=== PATIENT | female | born 1970 ===

== ENCOUNTER 2020-04-17 11:30 | Outpatient (REF) | payer OTHER, SELFPAY ==
--- NOTE | 2020-04-17 11:33 | MM_ITS ---
EXAMINATION: MM SCREENING DIGITAL BREAST TOMOSYNTHESIS, BILATERAL CLINICAL INFORMATION: Screening. Asymptomatic. The lifetime risk of breast cancer based on the Tyrer-Cuzick Model is 19%. COMPARISON: Mammography: 04/12/2019, 01/01/2015 TECHNIQUE: Digital breast tomosynthesis is performed in both the craniocaudal and mediolateral oblique views along with computer-aided detection (CAD). Synthesized 2D images are generated from the tomosynthesis. Additional right CC view is provided. FINDINGS: The breasts are almost entirely fatty (ACR BI-RADS breast composition Category a). Background stromal markings are similar to prior exams. There are no significant masses, abnormal calcifications, or other abnormalities. Again, there are 3 or 4 punctate round calcifications overlying a vascular marking posterior medial left breast similar to prior exam. Low left axillary tail node is stable. No significant changes. MM/MM tomosynthesis screening BI IMPRESSION: No mammographic evidence of malignancy. ASSESSMENT: BI-RADS 2: Benign RECOMMENDATION: Routine annual mammography screening. This patient's information was entered into a reminder system with a target due date for their next mammogram.
== END 2020-04-17 11:31 | disposition home or self-care (01) ==
LOC: HO.MAMMO 11:30
PROVIDERS: PCP Internal Medicine; Visit Provider Internal Medicine
DX: Z12.31 Encounter for screening mammogram for malignant neoplasm of breast (principal)
CPT/HCPCS: 77063; 77067

== ENCOUNTER 2020-05-12 07:56 | Outpatient (REF) | payer OTHER, SELFPAY ==
--- NOTE | 2020-05-12 08:16 | XR_ITS ---
EXAMINATION: XR HAND/WRIST, RIGHT XR HAND/WRIST, LEFT CLINICAL INFORMATION: Pain. COMPARISON: None. TECHNIQUE: AP, oblique, and lateral views of the right and left hand/wrist. Right and left-sided scaphoid views. FINDINGS: Right Hand and Wrist: No fracture or dislocation. Normal carpal alignment. No significant joint space narrowing or marginal osteophytes. No osseous erosion. No abnormal soft tissue calcification. No periarticular osteopenia. Left Hand and Wrist: No fracture or dislocation. Normal carpal alignment. No significant joint space narrowing or marginal osteophytes. No osseous erosion. No abnormal soft tissue calcification. No periarticular osteopenia. XR/XR hand wrist RT IMPRESSION: Unremarkable examination. LEFT HAND AND WRIST: Unremarkable examination.
--- NOTE | 2020-05-12 08:16 | XR_ITS ---
EXAMINATION: XR HAND/WRIST, RIGHT XR HAND/WRIST, LEFT CLINICAL INFORMATION: Pain. COMPARISON: None. TECHNIQUE: AP, oblique, and lateral views of the right and left hand/wrist. Right and left-sided scaphoid views. FINDINGS: Right Hand and Wrist: No fracture or dislocation. Normal carpal alignment. No significant joint space narrowing or marginal osteophytes. No osseous erosion. No abnormal soft tissue calcification. No periarticular osteopenia. Left Hand and Wrist: No fracture or dislocation. Normal carpal alignment. No significant joint space narrowing or marginal osteophytes. No osseous erosion. No abnormal soft tissue calcification. No periarticular osteopenia. XR/XR hand wrist LT IMPRESSION: Unremarkable examination. LEFT HAND AND WRIST: Unremarkable examination.
[2020-05-12 08:37] LABS: MANUAL DIFF FLAG NO
[2020-05-12 08:41] LABS: Glucose Urine UA NEG (NEG); Leukocyte Esterase Urine NEG (NEG); Nitrite Urine NEG (NEG); Specific Gravity - Urine 1.025 (1.005-1.025); Urine Blood TRACE (NEG); Urine Ketones NEG (NEG); Urine Protein TRACE MG/DL (NEG-TRACE)
[2020-05-12 08:42] LABS: Basophils Percent Auto 0.5 % (0-2); Eosinophils Absolute Auto 0.2 X10*3/uL (0.0-0.4); Eosinophils Percent Auto 3.6 % (0-4); Hematocrit 41.2 % (37-47); Hemoglobin 13.4 g/dl (12.0-16.0); Imm Gran Abs Auto 0.03 X10*3/uL (0.00-0.03); Imm Gran Pct Auto 0.5 % (0.0-0.4); Lymphocytes Absolute Auto 2.2 X10*3/uL (1.2-4.9); Lymphocytes Percent Auto 39.9 % (20-40); Mean Corpuscular HGB Conc 32.5 g/dl (31.0-35.0); Mean Corpuscular Hemoglobin 29.1 pg (27.0-33.0); Mean Corpuscular Volume 89.6 fL (80-98); Mean Platelet Volume 10.8 fL (9.4-12.3); Monocytes Absolute Auto 0.4 X10*3/uL (0.1-1.2); Monocytes Percent Auto 7.9 % (2-11); Neutrophils Absolute Auto 2.7 X10*3/uL (2.0-8.3); Neutrophils Percent Auto 47.6 % (45-73); Platelet Count 299 X10*3/uL (160-400); Red Cell Distribution Width 12.7 % (11.0-16.0); White Blood Count 5.6 X10*3/uL (4.8-10.8)
[2020-05-12 08:43] LABS: Appearance Urine HAZY; Color Urine YELLOW
[2020-05-12 09:01] LABS: Bacteria Urine 1+ /LPF; Mucus Urine 1+ /LPF; Squamous Epithelial Cell Urine 2+ /LPF; WBC Urine 0-2 /HPF (0-4)
[2020-05-12 09:08] LABS: Alanine Aminotransferase 17 U/L (0-31); Albumin Level 4.1 g/dL (3.5-5.0); Alkaline Phosphatase 74 U/L (39-117); Anion Gap 13 (12-20); Aspartate Amino Transferase 16 U/L (5-31); Bilirubin Total 0.8 mg/dL (0.0-1.0); Blood Urea Nitrogen 11 mg/dL (9-16); Carbon Dioxide 25 mmol/L (22-29); Chloride 105 mmol/L (96-108); Cholesterol 183 mg/dL; Estimated Glomerular Filt Rate > 60; Glucose Fasting 97 mg/dL (60-99); HDL Cholesterol 54 mg/dL; LDL Cholesterol Calculated 111 mg/dl; Potassium 4.5 mmol/L (3.3-5.1); Sodium 138 mmol/L (135-145); Triglycerides 90 mg/dL
[2020-05-12 09:51] LABS: Erythrocyte Sedimentation Rate 10 MM/HR (0-20)
== END 2020-05-12 07:57 | disposition home or self-care (01) ==
LOC: HO.LAB 07:56
PROVIDERS: PCP Internal Medicine; Visit Provider Internal Medicine
DX: Z01.419 Encounter for gynecological examination (general) (routine) without abnormal findings (principal); R68.82 Decreased libido; R23.2 Flushing; M25.532 Pain in left wrist; M25.531 Pain in right wrist; M79.642 Pain in left hand; M79.641 Pain in right hand; F32.9 Major depressive disorder, single episode, unspecified; K21.9 Gastro-esophageal reflux disease without esophagitis; E66.9 Obesity, unspecified; G43.909 Migraine, unspecified, not intractable, without status migrainosus; E55.9 Vitamin D deficiency, unspecified; Z90.710 Acquired absence of both cervix and uterus; Z98.84 Bariatric surgery status; Z46.51 Encounter for fitting and adjustment of gastric lap band
CPT/HCPCS: 36415; 73110; 73130; 80053; 80061; 81001; 84443; 85025; 85652

== ENCOUNTER 2020-05-14 11:44 | Outpatient (REF) | payer OTHER, SELFPAY ==
[2020-05-14 12:46] LABS: Glucose Urine UA NEG (NEG); Leukocyte Esterase Urine NEG (NEG); Nitrite Urine NEG (NEG); Specific Gravity - Urine 1.015 (1.005-1.025); Urine Blood NEG (NEG); Urine Ketones NEG (NEG); Urine Protein NEG (NEG-TRACE)
[2020-05-14 12:49] LABS: Appearance Urine HAZY; Color Urine YELLOW
[2020-05-15 09:12] LABS: Follicle Stimulating Hormone 7.5 mIU/mL
== END 2020-05-14 11:45 | disposition home or self-care (01) ==
LOC: HO.LAB 11:44
PROVIDERS: PCP Internal Medicine; Visit Provider Advanced Practice Midwife
DX: Z00.00 Encounter for general adult medical examination without abnormal findings (principal); R23.2 Flushing
CPT/HCPCS: 36415; 81003; 83001

== ENCOUNTER 2020-05-28 10:32 | Outpatient (REF) | payer OTHER, SELFPAY | END 2020-05-28 10:33 | disposition home or self-care (01) | LOC: HO.LAB 10:32 | PROVIDERS: PCP Internal Medicine; Visit Provider Internal Medicine | DX: Z20.822 Contact with and (suspected) exposure to COVID-19 (principal) | CPT/HCPCS: 36415; C9803; U0003; U0005 ==

== ENCOUNTER 2020-06-03 11:58 | Emergency (ER) | payer OTHER, SELFPAY ==
--- NOTE | ~2020-06-03 | XR_ITS ---
EXAMINATION: XR CHEST CLINICAL INFORMATION: Cough COMPARISON: 04/16/2019 TECHNIQUE: Frontal view of the chest was obtained. FINDINGS: Lung volumes are decreased from the prior study and there is diffuse coarse interstitial opacity. No dense focal consolidation. No pleural effusion or pneumothorax. Normal heart size. Regional skeleton intact. XR/XR chest 1V IMPRESSION: Lung volumes are decreased from the prior study and there is diffuse coarse interstitial opacity. Viral pneumonitis or bronchitis could give this appearance. The appearance is greater than typically seen from bronchovascular crowding in the setting of low lung volumes.
[2020-06-03 12:08] VITALS: BP 120/68; PULSE 95; RESP 16; TEMP 37; O2SAT 100; BMI 36.6
--- NOTE | 2020-06-03 12:35 | ED.GENADULT ---
HPI - General Adult General Chief complaint: General Medical <JUANITA Dave - Last Filed: 06/03/20 14:38> Stated complaint: COUGH <JUANITA Dave - Last Filed: 06/03/20 14:38> Time Seen by Provider: 06/03/20 12:16 <JUANITA Dave - Last Filed: 06/03/20 14:38> Source: patient <JUANITA Dave - Last Filed: 06/03/20 14:38> Mode of arrival: ambulatory <JUANITA Dave - Last Filed: 06/03/20 14:38> Limitations: no limitations <JUANITA Dave - Last Filed: 06/03/20 14:38> History of Present Illness HPI narrative: 50 y/o female with history of asthma presenting with worsening cough and body aches after she was diagnosed with COVID-19 3 days ago. She is almost out of her albuterol inhaler. Her coughing is keeping her up at night and she has difficulty catching her breath. She denies difficulty breathing or chest pain. She doesn't feel good. <JUANITA Dave - Last Filed: 06/03/20 14:38> MD complaint: cough <JUANITA Dave - Last Filed: 06/03/20 14:38> Onset (ago): day(s) (4) <JUANITA Dave - Last Filed: 06/03/20 14:38> Location: chest <JUANITA Dave - Last Filed: 06/03/20 14:38> Radiation: non-radiation <JUANITA Dave - Last Filed: 06/03/20 14:38> Severity: moderate <JUANITA Dave - Last Filed: 06/03/20 14:38> Quality: aching <JUANITA Dave - Last Filed: 06/03/20 14:38> Pain Consistency: intermittent <JUANITA Dave - Last Filed: 06/03/20 14:38> Relieving factors: medication and rest <JUANITA Dave Last Filed: 06/03/20 14:38> Exacerbating factors: movement <JUANITA Dave - Last Filed: 06/03/20 14:38> Associated symptoms: cough, fever/chills, headaches, loss of appetite, malaise and shortness of breath <JUANITA Dave - Last Filed: 06/03/20 14:38> Treatments prior to arrival: none <JUANITA Dave - Last Filed: 06/03/20 14:38> Related Data Home medications: Home Medications Medication Instructions Recorded Confirmed sucralfate 100 mg/mL oral 10 ml PO QID 02/25/20 05/07/20 suspension fluoxetine 20 mg capsule 20 mg PO BID cap 05/07/20 05/07/20 Previous Rx's Medication Instructions Recorded albuterol sulfate 90 mcg/actuation 2 puff INHALATION Q6H PRN 30 Days 01/17/20 aerosol inhaler #18 g fluticasone furoate 100 1 inh PO DAILY #30 ea 04/02/20 mcg/actuation blister powder for inhalation pantoprazole 40 mg tablet,delayed 40 mg PO DAILY #30 tab 04/18/20 release fyxevegzjv-ksuskrjzblhco-rtfcbwzv 1 tab PO .2 to 3 times a day PRN 05/07/20 50 mg-325 mg-40 mg tablet 30 Days #90 tab nortriptyline 25 mg capsule 25 mg PO BEDTIME 30 Days #30 cap 05/07/20 sumatriptan succinate 100 mg tablet See Rx Instructions PO .COMPLEX 30 05/07/20 Days #15 tab albuterol sulfate 1 inh INHALATION QID PRN #6.7 g 06/03/20 azithromycin [Zithromax Z-Brian] See Rx Instructions .ROUTE 06/03/20 .COMPLEX #6 tab benzonatate [Tessalon Perles] 100 mg PO TID PRN #20 cap 06/03/20 hydrocodone-homatropine [Hycodan] 5 ml PO Q6H PRN #60 ml 06/03/20 prednisone 40 mg PO DAILY #10 tab 06/03/20 miscellaneous medical supply See Rx Instructions MISCELLANEOUS 06/18/20 .4 times a day PRN 360 Days #1 ea <JUANITA Dave - Last Filed: 06/03/20 14:38> Allergies/adverse reactions: Allergies Allergy/AdvReac Type Severity Reaction Status Date / Time No Known Allergies Allergy Verified 05/07/20 11:30 <JUANITA Dave - Last Filed: 06/03/20 14:38> Review of Systems Review of Systems: Constitutional: No Fever, No Chills ENT/Mouth: + sore throat, No Rhinorrhea, No Swallowing Difficulty Cardiovascular: No Chest Pain, No SOB, No Orthopnea, No Edema Respiratory: + Cough, No Sputum, + Wheezing, No dyspnea Gastrointestinal: No Nausea, No Vomiting, No Diarrhea, No abdominal Pain Genitourinary: No Dysuria, No Urinary Frequency, No Hematuria Musculoskeletal: No joint pain, + Myalgias Skin: No Skin Lesions, No rash Neuro: No Weakness, No Numbness, No Dizziness, + Headache <JUANITA Dave - Last Filed: 06/03/20 14:38> REPLACED BY [facility] Past Medical History Attestation statement: The following information was validated with the patient. <JUANITA Dave - Last Filed: 06/03/20 14:38> Medical History: Medical History Anxiety Asthma Bilateral hand pain Bilateral wrist pain Depression GERD (gastroesophageal reflux disease) Migraine Obesity (BMI 30-39.9) Vitamin D deficiency <JUANITA Dave - Last Filed: 06/03/20 14:38> Surgical History: Surgical History H/O gastric bypass History of appendectomy History of section History of hysterectomy History of removal of laparoscopic gastric banding device LAP-BAND surgery status <JUANITA Dave - Last Filed: 06/03/20 14:38> Family History Family History: Family History Father Diabetes Hypertension Mother Hypertension Glaucoma Scoliosis Maternal Grandmother No problems noted. Maternal Grandfather No problems noted. Paternal Grandmother No problems noted. Paternal Grandfather No problems noted. Daughter In good health Sister In good health Brother In good health <JUANITA Dave - Last Filed: 06/03/20 14:38> Social History Social History: Social History Alcohol intake: never Smoking Status: Never smoker <JUANITA Dave - Last Filed: 06/03/20 14:38> Physical Exam Vital Signs: Vital Signs: Last Vital Signs Temp 98.6 F 06/03/20 12:08 Pulse 95 06/03/20 12:08 Resp 16 06/03/20 12:08 BP 120/68 06/03/20 12:08 Pulse Ox 100 06/03/20 12:08 Body Mass Index 36.6 Appearance: Alert. Oriented X3. Appears ill. Eyes: Pupils equal, round and reactive to light. ENT: Pharynx normal. Neck: Normal inspection. Neck supple. CVS: Normal heart rate and rhythm. Pulses normal. Respiratory: No respiratory distress. End expiratory wheeze in RUL with prolonged expiratory phase, no rhonchi, no accessory muscle use. Abdomen: Soft and nontender. +BS x4 Skin: Skin warm and dry. Normal skin color. Normal skin turgor. No rashes. Extremities: No lower extremity edema. Negative Gregory's sign. Neuro: Oriented X 3. Ambulates with steady gait, non-focal. <JUANITA Dave - Last Filed: 06/03/20 14:38> Vital Signs: Last Vital Signs Temp 98.6 F 06/03/20 12:08 Pulse 95 06/03/20 12:08 Resp 16 06/03/20 12:08 BP 120/68 06/03/20 12:08 Pulse Ox 100 06/03/20 12:08 Body Mass Index 36.6 <Kenneth Null MD - Last Filed: 06/23/20 08:34> Course Course Course Narrative: 50 y/o female with hx asthma presenting with worsening cough in the setting of known COVID-19. No difficulty breathing, SOB or hypoxia. CXR concerning for COVID pneumonia. She was ambulated on room air and SpO2 98-100% without increased WOB or SOB. She is coughing. Will treat with anti-tussive, steroid and z-pack. She was counseled extensively on if her symptoms worsen or if she develops difficulty breathing she needs to come back to the ER right away. She expressed understanding. Stable for discharge. <JUANITA Dave - Last Filed: 06/03/20 14:38> I have reviewed the chart <Kenneth Null MD - Last Filed: 06/23/20 08:34> Critical Care Time Critical Care Time Critical Care Time: No <JUANITA Dave - Last Filed: 06/03/20 14:38> Discharge Plan Discharge Clinical Impression: COVID-19 Asthma Qualifiers: Asthma severity: unspecified severity Asthma persistence: unspecified Asthma complication type: with acute exacerbation Qualified Code(s): J45.901 - Unspecified asthma with (acute) exacerbation <JUANITA Dave - Last Filed: 06/03/20 14:38> Patient Disposition: Home, Self-Care <JUANITA Daev - Last Filed: 06/03/20 14:38> Instructions: Asthma (ED), COVID-19 (Coronavirus Disease 2019) (ED) <JUANITA Dave - Last Filed: 06/03/20 14:38> Additional Instructions: You were found to be COVID-19 POSITIVE today. Your chest x-ray showed evidence of COVID pneumonia. Your oxygen levels were normal. Rest. Drink plenty of fluids. Do not go out in public for the next 10 days. Take over the counter cold/flu medications as needed for your symptoms. Take Tylenol and/or Motrin as needed for fevers and body aches. Take the prescribed medications for your asthma. Follow up with your doctor this week. If you shortness of breath worsens , if you develop difficulty breathing or any other concerning symptom come back to the ER for further evaluation. <JUANITA Dave - Last Filed: 06/03/20 14:38> Prescriptions: New albuterol sulfate 90 mcg/actuation HFA aerosol inhaler 1 inh inhalation QID PRN (Reason: shortness of breath or wheezing) Qty: 6.7 RF: 0 azithromycin [Zithromax Z-Brian] 250 mg tablet See Rx Instructions .ROUTE .COMPLEX Qty: 6 RF: 0 prednisone 20 mg tablet 40 mg PO DAILY Qty: 10 RF: 0 benzonatate [Tessalon Perles] 100 mg capsule 100 mg PO TID PRN (Reason: cough) Qty: 20 RF: 0 hydrocodone-homatropine [Hycodan] 5-1.5 mg/5 mL (5 mL) syrup 5 ml PO Q6H PRN (Reason: cough) Qty: 60 RF: 0 No Action albuterol sulfate 90 mcg/actuation HFA aerosol inhaler 2 puff inhalation Q6H PRN (Reason: shortness of breath or wheezing) 30 Days Qty: 18 RF: 6 sucralfate [Carafate] 100 mg/mL suspension 10 ml PO QID RF: 0 fluticasone furoate [Arnuity Ellipta] 100 mcg/actuation blister with device 1 inh PO DAILY Qty: 30 RF: 3 pantoprazole 40 mg tablet,delayed release (DR/EC) 40 mg PO DAILY Qty: 30 RF: 5 fluoxetine 20 mg capsule 20 mg PO BID RF: 0 miscellaneous medical supply Misc See Rx Instructions miscellaneous .4 times a day PRN (Reason: shortness of breath or wheezing) 360 Days Qty: 1 RF: 0 dlzxabptzl-xaqmboakeaeua-anrf 50-325-40 mg tablet 1 tab PO .2 to 3 times a day PRN (Reason: headaches) 30 Days Qty: 90 RF: 1 sumatriptan succinate 100 mg tablet See Rx Instructions PO .COMPLEX 30 Days Qty: 15 RF: 3 nortriptyline 25 mg capsule 25 mg PO BEDTIME 30 Days Qty: 30 RF: 3 <JUANITA Dave - Last Filed: 06/03/20 14:38> Interventions: ED Discharge Assessment Last Done: 06/03/20 13:25 <JUANITA Dave - Last Filed: 06/03/20 14:38> Discharge Date/Time: 06/03/20 13:31 <JUANITA Dave - Last Filed: 06/03/20 14:38>
== END 2020-06-03 13:31 | disposition home or self-care (01) ==
PROVIDERS: Emergency Provider Emergency Medicine
DX: U07.1 COVID-19 (principal); J45.901 Unspecified asthma with (acute) exacerbation; R05 Cough; Z79.899 Other long term (current) drug therapy
CPT/HCPCS: 71045; 99284

== ENCOUNTER 2020-06-09 09:54 | Outpatient (REF) | payer OTHER, SELFPAY | END 2020-06-09 09:55 | disposition home or self-care (01) | LOC: HO.LAB 09:54 | PROVIDERS: Visit Provider Internal Medicine | DX: Z20.822 Contact with and (suspected) exposure to COVID-19 (principal) | CPT/HCPCS: 36415; C9803; U0003; U0005 ==

== ENCOUNTER 2020-07-21 09:55 | Outpatient (REF) | payer OTHER, SELFPAY | END 2020-07-21 09:56 | disposition home or self-care (01) | LOC: HO.LAB 09:55 | PROVIDERS: Visit Provider Internal Medicine | DX: Z20.822 Contact with and (suspected) exposure to COVID-19 (principal) | CPT/HCPCS: C9803; U0003; U0005 ==

== ENCOUNTER 2020-08-25 09:48 | Outpatient (REF) | payer OTHER, SELFPAY ==
[2020-08-25 10:16] LABS: COVID-19 Test Negative (Negative)
== END 2020-08-25 09:49 | disposition home or self-care (01) ==
LOC: HO.LAB 09:48
PROVIDERS: Visit Provider Internal Medicine
DX: Z20.822 Contact with and (suspected) exposure to COVID-19 (principal)
CPT/HCPCS: 36415; 87635; C9803

== ENCOUNTER 2020-11-30 11:36 | Outpatient (REF) | payer OTHER, SELFPAY | END 2020-11-30 11:37 | disposition home or self-care (01) | LOC: HO.LAB 11:36 | PROVIDERS: PCP Internal Medicine; Visit Provider Internal Medicine | DX: Z20.822 Contact with and (suspected) exposure to COVID-19 (principal) | CPT/HCPCS: C9803; U0003; U0005 ==

== ENCOUNTER 2020-12-01 09:09 | Outpatient (REF) | payer OTHER, SELFPAY ==
--- NOTE | ~2020-12-01 | XR_ITS ---
EXAMINATION: CR X-RAY WRIST BILATERAL 4 VIEW CLINICAL INFORMATION: Bilateral wrist pain. COMPARISON: None TECHNIQUE: 4 views each of the bilateral ribs were obtained. FINDINGS: There is no acute fracture or dislocation. The carpal bones are normally aligned. The distal radius and ulna are intact. The carpal bones are normally aligned. The soft tissues are unremarkable. XR/XR wrist RT min 3V IMPRESSION: Unremarkable bilateral wrists.
--- NOTE | ~2020-12-01 | XR_ITS ---
EXAMINATION: CR X-RAY WRIST BILATERAL 4 VIEW CLINICAL INFORMATION: Bilateral wrist pain. COMPARISON: None TECHNIQUE: 4 views each of the bilateral ribs were obtained. FINDINGS: There is no acute fracture or dislocation. The carpal bones are normally aligned. The distal radius and ulna are intact. The carpal bones are normally aligned. The soft tissues are unremarkable. XR/XR wrist LT min 3V IMPRESSION: Unremarkable bilateral wrists.
== END 2020-12-01 09:10 | disposition home or self-care (01) ==
LOC: HO.XRAY 09:09
PROVIDERS: PCP Internal Medicine; Visit Provider Internal Medicine
DX: M25.531 Pain in right wrist (principal); M25.532 Pain in left wrist
CPT/HCPCS: 73110

== ENCOUNTER 2020-12-11 10:05 | Emergency (ER) | payer OTHER, SELFPAY ==
[2020-12-11 10:13] VITALS: BP 119/71; PULSE 70; RESP 18; TEMP 36.7; O2SAT 100; BMI 32.9
--- NOTE | 2020-12-11 10:34 | ED_ITS ---
HPI - URI/Sore Throat General Chief Complaint: Upper Respiratory Symptoms Stated Complaint: MULTIPLE ISSUES Time Seen by Provider: 12/11/20 10:12 Source: patient Mode of arrival: ambulatory History of Present Illness HPI Narrative: 50-year-old female with a past medical history of anxiety, asthma, depression, GERD, migraines, obesity, vitamin-D deficiency, presenting to the ED complaining of body aches, myalgias, chills, subjective fever, nausea, generalized fatigue since yesterday. Denies cough, SOB, CP, abdominal pain, vomiting, diarrhea, recent travel, sick contacts, COVID-19 exposure MD elicited complaint: cough, rhinorrhea and nasal congestion Related Data Home Medications Medication Instructions Recorded Confirmed sucralfate 100 mg/mL oral 10 ml PO QID 02/25/20 05/07/20 suspension (Carafate) fluoxetine 20 mg capsule 20 mg PO BID cap 05/07/20 05/07/20 Previous Rx's Medication Instructions Recorded albuterol sulfate 90 mcg/actuation 2 puff INHALATION Q6H PRN 30 Days 01/17/20 aerosol inhaler #18 g fluticasone furoate 100 1 inh PO DAILY #30 ea 04/02/20 mcg/actuation blister powder for inhalation (Arnuity Ellipta) ikianlpkdx-cwyklaaxrfmdg-nvnzghmr 1 tab PO .2 to 3 times a day PRN 05/07/20 50 mg-325 mg-40 mg tablet 30 Days #90 tab nortriptyline 25 mg capsule 25 mg PO BEDTIME 30 Days #30 cap 05/07/20 sumatriptan succinate 100 mg tablet See Rx Instructions PO .COMPLEX 30 05/07/20 Days #15 tab albuterol sulfate 90 mcg/actuation 1 inh INHALATION QID PRN #6.7 g 06/03/20 aerosol inhaler azithromycin 250 mg tablet See Rx Instructions .ROUTE 06/03/20 (Zithromax Z-Brian) .COMPLEX #6 tab benzonatate 100 mg capsule 100 mg PO TID PRN #20 cap 06/03/20 (Tessalon Perles) hydrocodone-homatropine 5 mg-1.5 5 ml PO Q6H PRN #60 ml 06/03/20 mg/5 mL (5 mL) oral syrup (Hycodan) prednisone 20 mg tablet 40 mg PO DAILY #10 tab 06/03/20 miscellaneous medical supply See Rx Instructions MISCELLANEOUS 06/18/20 .4 times a day PRN 360 Days #1 ea pantoprazole 40 mg tablet,delayed 40 mg PO DAILY #90 tab 08/21/20 release ondansetron HCl 4 mg tablet 4 mg PO Q8H PRN #10 tab 12/11/20 (Zofran) Allergies Allergy/AdvReac Type Severity Reaction Status Date / Time No Known Allergies Allergy Verified 05/07/20 11:30 Review of Systems Review of Systems: Constitutional: +subj Fever, + Chills, +fatigue, +malaise ENT/Mouth: No Ear Pain, +Nasal Congestion, No sore throat, No Rhinorrhea Cardiovascular: No Chest Pain, No SOB Respiratory: No Cough, No Wheezing Gastrointestinal: + Nausea, No Vomiting, No Diarrhea, No Constipation, No Abdominal pain Genitourinary: No Dysuria, No Hematuria, No Flank Pain Musculoskeletal: No joint pain, + Myalgias, No Joint Swelling Skin: No Skin Lesions, No rash Neuro: No Weakness, No Numbness Yes all other systems are reviewed and are negative [facility] Past Medical History Attestation statement: The following information was validated with the patient. Medical History Anxiety Asthma Bilateral hand pain Bilateral wrist pain Depression GERD (gastroesophageal reflux disease) Migraine Obesity (BMI 30-39.9) Vitamin D deficiency Surgical History H/O gastric bypass History of appendectomy History of section History of hysterectomy History of removal of laparoscopic gastric banding device LAP-BAND surgery status Family History Family History Father Diabetes Hypertension Mother Hypertension Glaucoma Scoliosis Maternal Grandmother No problems noted. Maternal Grandfather No problems noted. Paternal Grandmother No problems noted. Paternal Grandfather No problems noted. Daughter In good health Sister In good health Brother In good health Social History Social History Alcohol intake: never Advance Directives: Yes Advance Directives Information Provided: No Advance Directives on File: No Physical Exam Vital Signs: Vital Signs: Last Vital Signs Temp 98.1 F 12/11/20 10:13 Pulse 70 12/11/20 10:13 Resp 18 12/11/20 10:13 BP 119/71 12/11/20 10:13 Pulse Ox 100 12/11/20 10:13 Body Mass Index 32.9 Const: General: cooperative, healthy appearing, no acute distress, well developed, alert and awake Orientation/consciousness: patient oriented x3 Limitations: no limitations HENMT: Head: Yes normal to inspection Ears: hearing grossly normal bilaterally General nose exam: Normal external nose present Face and sinus: Yes normal facial exam Eyes: General: appearance normal, both eyes and all related structures EOM: EOMs intact bilaterally Neck: Neck: Yes normal visual inspection Resp: Effort & Inspection: normal respiratory effort Auscultation: clear to auscultation bilaterally, no crackles, no rhonchi and no wheezes Cardio: Rate: regular rate Heart sounds: S1 normal heart sound present and S2 normal heart sound present GI: Inspection: Yes normal to inspection Palpation (GI): Soft to palpation, nontender, no guarding and not rigid Skin: Rashes: no rashes Wounds: no wounds Neuro: General: patient oriented x3 Gait exam (Neuro): Normal gait present Extrem: General: Yes normal to inspection Course Course Course Narrative: -1143--COVID-19/influenzaRSV negative. Results discussed with patient. Discussed with patient since her symptoms just began yesterday she should consider getting retested in 3-5 days. She verbalized understanding feel safe for discharge home, requesting antinausea medication sent to pharmacy MDM - URI/Sore Throat MDM Narrative Medical decision making narrative: 50-year-old female with a past medical history of anxiety, asthma, depression, GERD, migraines, obesity, vitamin-D deficiency, presenting to the ED complaining of body aches, myalgias, chills, subjective fever, nausea, generalized fatigue since yesterday. On exam VSS, NAD/well-appearing, lungs CTA, nontoxic appearing. Concern for viral syndrome/COVID-19. Low concern for pneumonia, abdomen is soft and nontender. Low concern for intra-abdominal pathology Plan: COVID-19 testing, sublingual Zofran Medical Records Attestation: I reviewed the patient's medical records. Lab Data Attestation: I reviewed the patient's lab results. Labs: Lab Results 12/11/20 Range/Units 10:28 Coronavirus (PCR) NEGATIVE (Negative) Influenza Type A (PCR) NEGATIVE (Negative) Influenza Type B (PCR) NEGATIVE (Negative) RSV RNA Qual (PCR) NEGATIVE (Negative) Discharge Plan Discharge Clinical Impression: Acute viral syndrome Patient Disposition: Home, Self-Care Instructions: Viral Syndrome (ED) Additional Instructions: You tested negative for COVID-19, the flu, and RSV today However your symptoms started yesterday, consider getting retested in 3-5 days. Rest, stay hydrated, take Tylenol and Motrin Zofran as an antinausea medication, take as needed If her symptoms persist or worsen, you have fevers unresolved with Tylenol or Motrin at home please return to the ED Prescriptions: New ondansetron HCl [Zofran] 4 mg tablet 4 mg PO Q8H PRN (Reason: nausea and vomiting) Qty: 10 RF: 0 No Action albuterol sulfate 90 mcg/actuation HFA aerosol inhaler 2 puff inhalation Q6H PRN (Reason: shortness of breath or wheezing) 30 Days Qty: 18 RF: 6 sucralfate [Carafate] 100 mg/mL suspension 10 ml PO QID RF: 0 fluticasone furoate [Arnuity Ellipta] 100 mcg/actuation blister with device 1 inh PO DAILY Qty: 30 RF: 3 fluoxetine 20 mg capsule 20 mg PO BID RF: 0 miscellaneous medical supply Misc See Rx Instructions miscellaneous .4 times a day PRN (Reason: shortness of breath or wheezing) 360 Days Qty: 1 RF: 0 pantoprazole 40 mg tablet,delayed release (DR/EC) 40 mg PO DAILY Qty: 90 RF: 1 albuterol sulfate 90 mcg/actuation HFA aerosol inhaler 1 inh inhalation QID PRN (Reason: shortness of breath or wheezing) Qty: 6.7 RF: 0 azithromycin [Zithromax Z-Brian] 250 mg tablet See Rx Instructions .ROUTE .COMPLEX Qty: 6 RF: 0 prednisone 20 mg tablet 40 mg PO DAILY Qty: 10 RF: 0 benzonatate [Tessalon Perles] 100 mg capsule 100 mg PO TID PRN (Reason: cough) Qty: 20 RF: 0 hydrocodone-homatropine [Hycodan] 5-1.5 mg/5 mL (5 mL) syrup 5 ml PO Q6H PRN (Reason: cough) Qty: 60 RF: 0 lxztdjzkej-qcocihuamxvoc-rhlf 50-325-40 mg tablet 1 tab PO .2 to 3 times a day PRN (Reason: headaches) 30 Days Qty: 90 RF: 1 sumatriptan succinate 100 mg tablet See Rx Instructions PO .COMPLEX 30 Days Qty: 15 RF: 3 nortriptyline 25 mg capsule 25 mg PO BEDTIME 30 Days Qty: 30 RF: 3 Referrals: Brett Navarro MD [Primary Care Provider] - 5 days (Call) Stand Alone Forms: Work/School Release
[2020-12-11] MEDS: Ondansetron ODT 4 MG TAB.RAPDIS TRANSLINGU (10:45)
[2020-12-11] MEDS: Acetaminophen 325 MG TABLET 650 MG PO (10:45)
[2020-12-11 11:14] LABS: Influenza A PCR NEGATIVE (Negative); Influenza B PCR NEGATIVE (Negative); Resp Syncy Virus RNA Qual PCR NEGATIVE (Negative); SARS COV2 PCR INHOUSE NEGATIVE (Negative)
== END 2020-12-11 12:27 | disposition home or self-care (01) ==
PROVIDERS: Physician Assistant; Emergency Provider Student in an Organized Health Care Education/Training Program; PCP Internal Medicine
DX: B34.9 Viral infection, unspecified (principal); R50.9 Fever, unspecified; Z20.822 Contact with and (suspected) exposure to COVID-19; Z79.899 Other long term (current) drug therapy
CPT/HCPCS: 0241U; 36415; 99283

== ENCOUNTER 2020-12-21 13:44 | Outpatient (REF) | payer OTHER, SELFPAY | END 2020-12-21 13:45 | disposition home or self-care (01) | LOC: HO.LAB 13:44 | PROVIDERS: Visit Provider Internal Medicine | DX: Z20.822 Contact with and (suspected) exposure to COVID-19 (principal) | CPT/HCPCS: C9803; U0003; U0005 ==

== ENCOUNTER 2020-12-23 11:41 | Emergency (ER) | payer OTHER, SELFPAY ==
[2020-12-23] VITALS (7 sets, daily range): BP systolic 101–133; BP diastolic 53–79; PULSE 44–53; RESP 16; TEMP 36.6–36.8; O2SAT 99–100; BMI 40.4
--- NOTE | ~2020-12-23 | XR_ITS ---
EXAMINATION: XR CHEST CLINICAL INFORMATION: Possible syncope. COMPARISON: Chest 06/03/2020 TECHNIQUE: Frontal view of the chest was obtained. FINDINGS: Lungs are hypoexpanded with patchy parahilar increased markings but no confluent infiltrate seen. This could be secondary to reactive airway disease or asthma. No pleural effusion. The heart size and vascularity are normal. No gross bony abnormality. XR/XR chest 1V IMPRESSION: Mild increased bilateral parahilar interstitial markings likely reactive airway disease or asthma.. No consolidation or pleural effusion seen.
--- NOTE | 2020-12-23 11:53 | ECG_ITS ---
Test Reason : SYNCOPE Blood Pressure : / mmHG Vent. Rate : 053 BPM Atrial Rate : 053 BPM P-R Int : 164 ms QRS Dur : 078 ms QT Int : 456 ms P-R-T Axes : 014 057 029 degrees QTc Int : 427 ms Sinus bradycardia Septal infarct (cited on or before 04-OCT-2017) Abnormal ECG When compared with ECG of 04-OCT-2017 12:04, No significant change was found Referred By: Brie Marino Electronically Signed By:NAYELI HAND
--- NOTE | 2020-12-23 11:55 | ED.SYNCOPE ---
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 Mode of arrival: EMS Limitations: no limitations History of Present Illness MD complaint: felt faint and almost passed out Onset (ago): minute(s) -: minutes(s) Prodromal symptoms: lightheaded and palpitations Witnessed: Yes - by Other (PCP office) Context: standing up Injuries sustained associated with event: none Current symptoms: nausea Treatments prior to arrival: IV fluids Related Data Home Medications Medication Instructions Recorded Confirmed sucralfate 100 mg/mL oral 10 ml PO QID 02/25/20 05/07/20 suspension (Carafate) fluoxetine 20 mg capsule 20 mg PO BID cap 05/07/20 05/07/20 Previous Rx's Medication Instructions Recorded albuterol sulfate 90 mcg/actuation 2 puff INHALATION Q6H PRN 30 Days 01/17/20 aerosol inhaler #18 g fluticasone furoate 100 1 inh PO DAILY #30 ea 04/02/20 mcg/actuation blister powder for inhalation (Arnuity Ellipta) nzafhcimsp-ixgdolzpoqwif-aopsitis 1 tab PO .2 to 3 times a day PRN 05/07/20 50 mg-325 mg-40 mg tablet 30 Days #90 tab nortriptyline 25 mg capsule 25 mg PO BEDTIME 30 Days #30 cap 05/07/20 sumatriptan succinate 100 mg tablet See Rx Instructions PO .COMPLEX 30 05/07/20 Days #15 tab albuterol sulfate 90 mcg/actuation 1 inh INHALATION QID PRN #6.7 g 06/03/20 aerosol inhaler azithromycin 250 mg tablet See Rx Instructions .ROUTE 06/03/20 (Zithromax Z-Brian) .COMPLEX #6 tab benzonatate 100 mg capsule 100 mg PO TID PRN #20 cap 06/03/20 (Tessalon Perles) hydrocodone-homatropine 5 mg-1.5 5 ml PO Q6H PRN #60 ml 06/03/20 mg/5 mL (5 mL) oral syrup (Hycodan) prednisone 20 mg tablet 40 mg PO DAILY #10 tab 06/03/20 miscellaneous medical supply See Rx Instructions MISCELLANEOUS 06/18/20 .4 times a day PRN 360 Days #1 ea pantoprazole 40 mg tablet,delayed 40 mg PO DAILY #90 tab 08/21/20 release ondansetron HCl 4 mg tablet 4 mg PO Q8H PRN #10 tab 12/11/20 (Zofran) meclizine 25 mg tablet 25 mg PO TID PRN #30 tab 12/23/20 ondansetron 4 mg disintegrating 4 mg PO Q8H PRN #20 tab 12/23/20 tablet Allergies Allergy/AdvReac Type Severity Reaction Status Date / Time No Known Allergies Allergy Verified 12/23/20 10:21 Review of Systems Review of Systems: Constitutional : No Weight loss, No Fever, No Chills, No Fatigue, No Malaise ENT/Mouth : No sore throat, No Rhinorrhea Eyes: No Eye Pain, No Swelling, No Redness Cardiovascular : No Chest Pain, No SOB, No Dyspnea on Exertion, No Orthopnea, No Edema, pos Palpitations Respiratory : No Cough, No Sputum, No Wheezing Gastrointestinal : No Nausea, No Vomiting, No Diarrhea, No Constipation, No abdominal Pain, No Hematochezia, No Melena Genitourinary : No Dysuria, No Urinary Frequency, No Hematuria, Musculoskeletal : No joint pain, No Myalgias, No Joint Swelling Skin : No Skin Lesions, No rash Neuro : No Weakness, No Numbness, No Dizziness, No Headache, pos syncope Psych : pos Anxiety/Panic, No Depression Heme/Lymph: No Bruising, No Bleeding,No Lymphadenopathy Endocrine : No Polyuria, No Polydipsia All other systems reviewed and are negative [facility] Past Medical History Attestation statement: The following information was validated with the patient. Medical History Anxiety Asthma Bilateral hand pain Bilateral wrist pain Depression GERD (gastroesophageal reflux disease) Migraine Obesity (BMI 30-39.9) Vitamin D deficiency Surgical History H/O gastric bypass History of appendectomy History of section History of hysterectomy History of removal of laparoscopic gastric banding device LAP-BAND surgery status Family History Family History Father Diabetes Hypertension Mother Hypertension Glaucoma Scoliosis Maternal Grandmother No problems noted. Maternal Grandfather No problems noted. Paternal Grandmother No problems noted. Paternal Grandfather No problems noted. Daughter In good health Sister In good health Brother In good health Social History Social History Alcohol intake: never Patient Tobacco Use Status: Never used Tobacco Smoked in Last 30 Days: No Use of substances other than those prescribed or required for medical reasons: No Advance Directives: No Advance Directives Information Provided: No Physical Exam Vital Signs: Vital Signs: Last Vital Signs Temp 97.8 F 12/23/20 14:29 Pulse 53 12/23/20 14:29 Resp 16 12/23/20 14:29 BP 114/61 12/23/20 14:29 Pulse Ox 100 12/23/20 14:29 Body Mass Index 40.4 Appearance: Alert. Oriented X3. No acute distress. Eyes: Pupils equal, round and reactive to light. ENT: Pharynx normal. Neck: Normal inspection. Neck supple. CVS: Normal heart rate and rhythm. Pulses normal. Respiratory: No respiratory distress. Breath sounds normal. Abdomen: Soft and non-tender. Skin: Skin warm and dry. Normal skin color. Normal skin turgor. Extremities: No lower extremity edema. No calf ttp Neuro: Oriented X 3. No motor deficit. No sensory deficit. Course Course Course Narrative: ddimer, trop x 2 negative, no CP, no palpitations here no drop in BP while sitting/standing but states she feels weak and dizzy, she appears not toxic, no neuro deficits will hydrate and ambulate she is walking well at this time stable for DC feels much better MDM - Syncope Medical Records Medical records narrative: 50 yo female with hx of COVID 19 s/p 6 months ago, anxiety, depression, obesity, GERD, migraines, asthma - here with heart racing and then possible syncopal episode after standing she denies any chest pain/sob at this time labs, EKG, ortho VS, IVF, ddimer for possible PE. No seizure activity and no head trauma reported. Dispo per results and findings. Lab Data Result diagrams: 12/23/20 12:16 12/23/20 12:16 Labs: Lab Results 12/23/20 12/23/20 12/23/20 Range/Units 11:49 12:10 12:10 WBC (4.8-10.8) X10*3/uL RBC (4.20-5.50) X10*6/uL Hgb (12.0-16.0) g/dl Hct (37-47) % MCV (80-98) fL MCH (27.0-33.0) pg MCHC (31.0-35.0) g/dl RDW (11.0-16.0) % Plt Count (160-400) X10*3/uL MPV (9.4-12.3) fL Immature Gran % (Auto) (0.0-0.4) % Neut % (Auto) (45-73) % Lymph % (Auto) (20-40) % Webster % (Auto) (2-11) % Eos % (Auto) (0-4) % Baso % (Auto) (0-2) % Lymph # (Auto) (1.2-4.9) X10*3/uL Webster # (Auto) (0.1-1.2) X10*3/uL Eos # (Auto) (0.0-0.4) X10*3/uL Baso # (Auto) (0.0-0.2) X10*3/uL Abs Immat Gran (auto) (0.00-0.03) X10*3/uL Absolute Neuts (auto) (2.0-8.3) X10*3/uL Absolute Nucleated RBC (0.0-0.012) X10*3/uL Nucleated RBC % (auto) (0.0-0.2) /100WBC D-Dimer NG/ML Sodium (135-145) mmol/L Potassium (3.3-5.1) mmol/L Chloride (96-108) mmol/L Carbon Dioxide (22-29) mmol/L Anion Gap (12-20) BUN (9-16) mg/dL Creatinine (0.5-1.4) mg/dL Estim Creat Clear Calc Estimated GFR POC Glucose 73 (60-115) mg/dL Random Glucose (60-115) mg/dL Calcium (8.4-10.2) mg/dL Magnesium (1.6-2.6) mg/dL Total Bilirubin (0.0-1.0) mg/dL Direct Bilirubin (0.0-0.5) mg/dL AST (5-31) U/L ALT (0-31) U/L Alkaline Phosphatase (39-117) U/L Troponin I High Sens (<3.5-17.0) ng/L Total Protein (6.5-8.0) g/dL Albumin (3.5-5.0) g/dL Lipase (8-78) U/L Urine Color STRAW Urine Appearance CLEAR Urine pH 7.5 (5.0-8.0) Ur Specific [place] 1.010 (1.005-1.025) Urine Protein NEG (NEG-TRACE) MG/DL Urine Glucose (UA) NEG (NEG) MG/DL Urine Ketones NEG (NEG) MG/DL Urine Blood NEG (NEG) Urine Nitrite NEG (NEG) Ur Leukocyte Esterase NEG (NEG) COVID-19 (LEÓN) Negative (Negative) COVID-19 Clin Com See Note 12/23/20 12/23/20 12/23/20 Range/Units 12:16 12:16 12:16 WBC 7.5 (4.8-10.8) X10*3/uL RBC 4.32 (4.20-5.50) X10*6/uL Hgb 12.5 (12.0-16.0) g/dl Hct 38.9 (37-47) % MCV 90.0 (80-98) fL MCH 28.9 (27.0-33.0) pg MCHC 32.1 (31.0-35.0) g/dl RDW 13.2 (11.0-16.0) % Plt Count 253 (160-400) X10*3/uL MPV 10.6 (9.4-12.3) fL Immature Gran % (Auto) 0.5 H (0.0-0.4) % Neut % (Auto) 57.7 (45-73) % Lymph % (Auto) 33.5 (20-40) % Webster % (Auto) 6.6 (2-11) % Eos % (Auto) 1.3 (0-4) % Baso % (Auto) 0.4 (0-2) % Lymph # (Auto) 2.5 (1.2-4.9) X10*3/uL Webster # (Auto) 0.5 (0.1-1.2) X10*3/uL Eos # (Auto) 0.1 (0.0-0.4) X10*3/uL Baso # (Auto) 0.0 (0.0-0.2) X10*3/uL Abs Immat Gran (auto) 0.04 H (0.00-0.03) X10*3/uL Absolute Neuts (auto) 4.3 (2.0-8.3) X10*3/uL Absolute Nucleated RBC 0.000 (0.0-0.012) X10*3/uL Nucleated RBC % (auto) 0.0 (0.0-0.2) /100WBC D-Dimer 228 NG/ML Sodium 138 (135-145) mmol/L Potassium 4.6 (3.3-5.1) mmol/L Chloride 106 (96-108) mmol/L Carbon Dioxide 24 (22-29) mmol/L Anion Gap 13 (12-20) BUN 10 (9-16) mg/dL Creatinine 0.59 (0.5-1.4) mg/dL Estim Creat Clear Calc 129.1 Estimated GFR > 60 POC Glucose (60-115) mg/dL Random Glucose 89 (60-115) mg/dL Calcium 8.9 (8.4-10.2) mg/dL Magnesium (1.6-2.6) mg/dL Total Bilirubin (0.0-1.0) mg/dL Direct Bilirubin (0.0-0.5) mg/dL AST (5-31) U/L ALT (0-31) U/L Alkaline Phosphatase (39-117) U/L Troponin I High Sens (<3.5-17.0) ng/L Total Protein (6.5-8.0) g/dL Albumin (3.5-5.0) g/dL Lipase (8-78) U/L Urine Color Urine Appearance Urine pH (5.0-8.0) Ur Specific [place] (1.005-1.025) Urine Protein (NEG-TRACE) MG/DL Urine Glucose (UA) (NEG) MG/DL Urine Ketones (NEG) MG/DL Urine Blood (NEG) Urine Nitrite (NEG) Ur Leukocyte Esterase (NEG) COVID-19 (LEÓN) (Negative) COVID-19 Clin Com 12/23/20 12/23/20 12/23/20 Range/Units 12:16 12:16 14:47 WBC (4.8-10.8) X10*3/uL RBC (4.20-5.50) X10*6/uL Hgb (12.0-16.0) g/dl Hct (37-47) % MCV (80-98) fL MCH (27.0-33.0) pg MCHC (31.0-35.0) g/dl RDW (11.0-16.0) % Plt Count (160-400) X10*3/uL MPV (9.4-12.3) fL Immature Gran % (Auto) (0.0-0.4) % Neut % (Auto) (45-73) % Lymph % (Auto) (20-40) % Webster % (Auto) (2-11) % Eos % (Auto) (0-4) % Baso % (Auto) (0-2) % Lymph # (Auto) (1.2-4.9) X10*3/uL Webster # (Auto) (0.1-1.2) X10*3/uL Eos # (Auto) (0.0-0.4) X10*3/uL Baso # (Auto) (0.0-0.2) X10*3/uL Abs Immat Gran (auto) (0.00-0.03) X10*3/uL Absolute Neuts (auto) (2.0-8.3) X10*3/uL Absolute Nucleated RBC (0.0-0.012) X10*3/uL Nucleated RBC % (auto) (0.0-0.2) /100WBC D-Dimer NG/ML Sodium (135-145) mmol/L Potassium (3.3-5.1) mmol/L Chloride (96-108) mmol/L Carbon Dioxide (22-29) mmol/L Anion Gap (12-20) BUN (9-16) mg/dL Creatinine (0.5-1.4) mg/dL Estim Creat Clear Calc Estimated GFR POC Glucose (60-115) mg/dL Random Glucose (60-115) mg/dL Calcium (8.4-10.2) mg/dL Magnesium 1.8 (1.6-2.6) mg/dL Total Bilirubin 1.1 H (0.0-1.0) mg/dL Direct Bilirubin 0.3 (0.0-0.5) mg/dL AST 19 (5-31) U/L ALT 18 (0-31) U/L Alkaline Phosphatase 65 (39-117) U/L Troponin I High Sens < 3.5 < 3.5 (<3.5-17.0) ng/L Total Protein 6.4 L (6.5-8.0) g/dL Albumin 3.8 (3.5-5.0) g/dL Lipase 22 (8-78) U/L Urine Color Urine Appearance Urine pH (5.0-8.0) Ur Specific [place] (1.005-1.025) Urine Protein (NEG-TRACE) MG/DL Urine Glucose (UA) (NEG) MG/DL Urine Ketones (NEG) MG/DL Urine Blood (NEG) Urine Nitrite (NEG) Ur Leukocyte Esterase (NEG) COVID-19 (LEÓN) (Negative) COVID-19 Clin Com ECG Data Attestation: I personally reviewed and interpreted this ECG as follows: ECG interpretation date: 12/23/20 ECG interpretation time: 12:09 Interpretation: Rate: 53 Rhythm: sinus bradycardia [place]: normal Normal P waves. Normal [place]. Normal QRS complex. ST T wave : normal no ARVIND qTC: normal prior studies: no acute ischemia The study has been interpreted contemporaneously by me. . Discharge Plan Discharge Clinical Impression: Syncope due to orthostatic hypotension Patient Disposition: Home, Self-Care Instructions: Dizziness (ED), Syncope in Older Adults (ED) Additional Instructions: return to ED for any worsening symptoms or concerns Prescriptions: New meclizine 25 mg tablet 25 mg PO TID PRN (Reason: dizziness) Qty: 30 RF: 0 ondansetron 4 mg tablet,disintegrating 4 mg PO Q8H PRN (Reason: nausea and vomiting) Qty: 20 RF: 0 No Action albuterol sulfate 90 mcg/actuation HFA aerosol inhaler 2 puff inhalation Q6H PRN (Reason: shortness of breath or wheezing) 30 Days Qty: 18 RF: 6 sucralfate [Carafate] 100 mg/mL suspension 10 ml PO QID RF: 0 fluticasone furoate [Arnuity Ellipta] 100 mcg/actuation blister with device 1 inh PO DAILY Qty: 30 RF: 3 fluoxetine 20 mg capsule 20 mg PO BID RF: 0 miscellaneous medical supply Misc See Rx Instructions miscellaneous .4 times a day PRN (Reason: shortness of breath or wheezing) 360 Days Qty: 1 RF: 0 pantoprazole 40 mg tablet,delayed release (DR/EC) 40 mg PO DAILY Qty: 90 RF: 1 albuterol sulfate 90 mcg/actuation HFA aerosol inhaler 1 inh inhalation QID PRN (Reason: shortness of breath or wheezing) Qty: 6.7 RF: 0 azithromycin [Zithromax Z-Brian] 250 mg tablet See Rx Instructions .ROUTE .COMPLEX Qty: 6 RF: 0 prednisone 20 mg tablet 40 mg PO DAILY Qty: 10 RF: 0 benzonatate [Tessalon Perles] 100 mg capsule 100 mg PO TID PRN (Reason: cough) Qty: 20 RF: 0 hydrocodone-homatropine [Hycodan] 5-1.5 mg/5 mL (5 mL) syrup 5 ml PO Q6H PRN (Reason: cough) Qty: 60 RF: 0 ondansetron HCl [Zofran] 4 mg tablet 4 mg PO Q8H PRN (Reason: nausea and vomiting) Qty: 10 RF: 0 pffwwglpml-cjtaqaencsqdk-avnu 50-325-40 mg tablet 1 tab PO .2 to 3 times a day PRN (Reason: headaches) 30 Days Qty: 90 RF: 1 sumatriptan succinate 100 mg tablet See Rx Instructions PO .COMPLEX 30 Days Qty: 15 RF: 3 nortriptyline 25 mg capsule 25 mg PO BEDTIME 30 Days Qty: 30 RF: 3 Referrals: Brett Navarro MD [Primary Care Provider] - 2 days Stand Alone Forms: Work/School Release Print Language: Nepali
[2020-12-23] MEDS: 0.9 % Sodium Chloride 1,000 ML 999 ML IVCONT (12:00)
[2020-12-23] MEDS: ondansetron HCL 4 MG/2 ML VIAL IVPUSH (12:00)
[2020-12-23 12:21] LABS: Glucose, Whole Blood 73 mg/dL (60-115)
[2020-12-23 12:34] LABS: MANUAL DIFF FLAG NO
[2020-12-23 12:38] LABS: Appearance Urine CLEAR; Color Urine STRAW; Glucose Urine UA NEG (NEG); Leukocyte Esterase Urine NEG (NEG); Nitrite Urine NEG (NEG); PH 7.5 (5.0-8.0); Urine Blood NEG (NEG); Urine Ketones NEG (NEG); Urine Protein NEG (NEG-TRACE)
[2020-12-23 12:39] LABS: Basophils Percent Auto 0.4 % (0-2); Eosinophils Absolute Auto 0.1 X10*3/uL (0.0-0.4); Eosinophils Percent Auto 1.3 % (0-4); Hematocrit 38.9 % (37-47); Hemoglobin 12.5 g/dl (12.0-16.0); Imm Gran Abs Auto 0.04 X10*3/uL (0.00-0.03); Imm Gran Pct Auto 0.5 % (0.0-0.4); Lymphocytes Absolute Auto 2.5 X10*3/uL (1.2-4.9); Lymphocytes Percent Auto 33.5 % (20-40); Mean Corpuscular HGB Conc 32.1 g/dl (31.0-35.0); Mean Corpuscular Hemoglobin 28.9 pg (27.0-33.0); Mean Platelet Volume 10.6 fL (9.4-12.3); Monocytes Absolute Auto 0.5 X10*3/uL (0.1-1.2); Monocytes Percent Auto 6.6 % (2-11); Neutrophils Absolute Auto 4.3 X10*3/uL (2.0-8.3); Neutrophils Percent Auto 57.7 % (45-73); Platelet Count 253 X10*3/uL (160-400); Red Blood Count 4.32 X10*6/uL (4.20-5.50); Red Cell Distribution Width 13.2 % (11.0-16.0); White Blood Count 7.5 X10*3/uL (4.8-10.8)
[2020-12-23 12:46] LABS: D Dimer 228 NG/ML
[2020-12-23 12:56] LABS: COVID-19 Test Negative (Negative); IDNOW Serial# 9DD0AD1C
[2020-12-23 12:57] LABS: Troponin-I High Sensitivity < 3.5 ng/L (<3.5-17.0)
[2020-12-23 12:59] LABS: Anion Gap 13 (12-20); Blood Urea Nitrogen 10 mg/dL (9-16); Calcium 8.9 mg/dL (8.4-10.2); Carbon Dioxide 24 mmol/L (22-29); Chloride 106 mmol/L (96-108); Creatinine Clr Calc Pharmacy 129.1; Estimated Glomerular Filt Rate > 60; Glucose Random 89 mg/dL (60-115); Potassium 4.6 mmol/L (3.3-5.1); Sodium 138 mmol/L (135-145)
[2020-12-23 13:02] LABS: Alanine Aminotransferase 18 U/L (0-31); Albumin Level 3.8 g/dL (3.5-5.0); Alkaline Phosphatase 65 U/L (39-117); Aspartate Amino Transferase 19 U/L (5-31); Bilirubin Direct 0.3 mg/dL (0.0-0.5); Bilirubin Total 1.1 mg/dL (0.0-1.0); Lipase 22 U/L (8-78); Magnesium 1.8 mg/dL (1.6-2.6); Total Protein 6.4 g/dL (6.5-8.0)
[2020-12-23] MEDS: Acetaminophen 325 MG TABLET 650 MG PO (13:36)
[2020-12-23 15:20] LABS: Troponin-I High Sensitivity < 3.5 ng/L (<3.5-17.0)
--- NOTE | 2020-12-23 16:24 | PC.NURSE ---
pt ambulated in gates at least 200ft with a steady gait.
== END 2020-12-23 16:38 | disposition home or self-care (01) ==
PROVIDERS: Emergency Provider Emergency Medicine; PCP Internal Medicine
DX: R55 Syncope and collapse (principal); Z20.822 Contact with and (suspected) exposure to COVID-19
CPT/HCPCS: 36415; 71045; 80048; 80076; 81003; 82947; 83690; 83735; 84484; 85025; 85379; 87635; 93005; 96361; 96374; 99284; 99285; J2405

== ENCOUNTER 2021-01-12 08:47 | Outpatient (REF) | payer OTHER, SELFPAY ==
--- NOTE | ~2021-01-12 | CT_ITS ---
EXAMINATION: CT HEAD WITH CONTRAST CLINICAL INFORMATION: Dizziness and giddiness COMPARISON: Previous head CT March 2014 TECHNIQUE: Contiguous axial imaging was performed from the skull base to vertex following the administration of 85 mL of Omnipaque [address] examination was performed using dose optimization techniques as appropriate, variously including the following: *Automated exposure control *Adjustment of mA and/or kV according to patient size (this includes techniques or standardized protocols for targeted exams where dose is matched to indication/reason for exam; i.e. extremities or head) *Use of iterative reconstruction technique DLP: 718 mGy-cm FINDINGS: There is no evidence of an extra-axial collection. There is no evidence of intra or extra-axial hemorrhage. The ventricles and extra-axial CSF spaces are appropriate. Crowe white matter differentiation is normal. No mass, mass effect, infarct or abnormal enhancement is seen. Review of bone windows is normal. Visualized paranasal sinuses, mastoid air cells and middle ears are clear. CT/CT head/brain w con IMPRESSION: Unremarkable exam.
[2021-01-12] MEDS: iohexoL 350 MG/ML 100 ML INFUS..BTL IV (09:41)
== END 2021-01-12 08:48 | disposition home or self-care (01) ==
LOC: HO.CT 08:47
PROVIDERS: PCP Internal Medicine; Visit Provider Nurse Practitioner Family
DX: R42 Dizziness and giddiness (principal); H53.8 Other visual disturbances
CPT/HCPCS: 70460; Q9967

== ENCOUNTER 2021-01-15 10:13 | Outpatient (REF) | payer OTHER, SELFPAY ==
[2021-01-15 10:37] LABS: MANUAL DIFF FLAG NO
[2021-01-15 10:49] LABS: Basophils Percent Auto 0.4 % (0-2); Eosinophils Absolute Auto 0.2 X10*3/uL (0.0-0.4); Hematocrit 40.4 % (37-47); Hemoglobin 12.8 g/dl (12.0-16.0); Imm Gran Abs Auto 0.03 X10*3/uL (0.00-0.03); Imm Gran Pct Auto 0.5 % (0.0-0.4); Lymphocytes Absolute Auto 1.8 X10*3/uL (1.2-4.9); Lymphocytes Percent Auto 31.7 % (20-40); Mean Corpuscular HGB Conc 31.7 g/dl (31.0-35.0); Mean Corpuscular Hemoglobin 28.2 pg (27.0-33.0); Mean Platelet Volume 10.1 fL (9.4-12.3); Monocytes Absolute Auto 0.4 X10*3/uL (0.1-1.2); Monocytes Percent Auto 7.9 % (2-11); Neutrophils Absolute Auto 3.2 X10*3/uL (2.0-8.3); Neutrophils Percent Auto 56.5 % (45-73); Platelet Count 311 X10*3/uL (160-400); Red Blood Count 4.54 X10*6/uL (4.20-5.50); Red Cell Distribution Width 13.1 % (11.0-16.0); White Blood Count 5.6 X10*3/uL (4.8-10.8)
[2021-01-15 11:21] LABS: Alanine Aminotransferase 19 U/L (0-31); Alkaline Phosphatase 66 U/L (39-117); Anion Gap 10 (12-20); Aspartate Amino Transferase 18 U/L (5-31); Bilirubin Total 1.1 mg/dL (0.0-1.0); Blood Urea Nitrogen 12 mg/dL (9-16); C Reactive Protein 0.44 mg/dL (< or = 0.50); Calcium 9.6 mg/dL (8.4-10.2); Carbon Dioxide 27 mmol/L (22-29); Chloride 107 mmol/L (96-108); Estimated Glomerular Filt Rate > 60; Glucose Random 97 mg/dL (60-115); Sodium 139 mmol/L (135-145); Total Protein 6.9 g/dL (6.5-8.0)
[2021-01-15 11:34] LABS: Erythrocyte Sedimentation Rate 13 MM/HR (0-20)
[2021-01-15 11:43] LABS: Vitamin D 25-OH Total 16.8 ng/mL (>30)
[2021-01-15 11:47] LABS: Folate 7.9 ng/mL (> or = 4.0); Vitamin B12 < 146 pg/mL (200-900)
== END 2021-01-15 10:14 | disposition home or self-care (01) ==
LOC: HO.LAB 10:13
PROVIDERS: PCP Internal Medicine; Visit Provider Internal Medicine
DX: E55.9 Vitamin D deficiency, unspecified (principal); I95.1 Orthostatic hypotension; R53.1 Weakness; E53.8 Deficiency of other specified B group vitamins
CPT/HCPCS: 36415; 80053; 82306; 82607; 82746; 84443; 85025; 85652; 86140

== ENCOUNTER → 2021-02-24 14:42 | Outpatient (BNVA) | payer OTHER, SELFPAY | PROVIDERS: PCP Internal Medicine; Referring Provider Internal Medicine; Visit Provider Internal Medicine Cardiovascular Disease | DX: R55 Syncope and collapse (principal) | CPT/HCPCS: 99202 ==

== ENCOUNTER 2021-02-25 09:27 | Outpatient (REF) | payer OTHER, SELFPAY ==
[2021-02-25 12:03] LABS: Cortisol Random 8.5 ug/dL
== END 2021-02-25 09:28 | disposition home or self-care (01) ==
LOC: HO.LAB 09:27
PROVIDERS: PCP Internal Medicine; Visit Provider Internal Medicine Cardiovascular Disease
DX: R55 Syncope and collapse (principal)
CPT/HCPCS: 36415; 82533

== ENCOUNTER → 2021-03-22 10:22 | Outpatient (REF) | payer OTHER, SELFPAY ==
--- NOTE | 2021-03-22 10:41 | HM_ITS ---
Conclusion : 1. Patient was monitored for total of 2 days and 22 hours 2. Baseline rhythm is NSR with average HR of 75 bpm 3. No significant pauses or bradycardia noted 4. Very rare PVC, with less than 0.01% burden 5. No patient reported events MTDD
== END ==
LOC: HO.CARD 10:22
PROVIDERS: PCP Internal Medicine; Visit Provider Internal Medicine Cardiovascular Disease
DX: R55 Syncope and collapse (principal)
CPT/HCPCS: 93242

== ENCOUNTER → 2021-04-08 12:20 | Outpatient (BNVA) | payer OTHER, SELFPAY | PROVIDERS: PCP Internal Medicine; Referring Provider Internal Medicine; Visit Provider Internal Medicine Cardiovascular Disease | DX: R55 Syncope and collapse (principal); R42 Dizziness and giddiness | CPT/HCPCS: 99212 ==

== ENCOUNTER → 2021-04-26 08:46 | Outpatient (REF) | payer OTHER, SELFPAY ==
--- NOTE | 2021-04-26 08:52 | CA_ITS ---
Transthoracic Echocardiogram Patient (Last, First, Middle): Anne Marie Denise I Gender: Female Date of : 1970 Age: 50 Procedure Date: 04/26/2021 Procedure Type: Transthoracic Echocardiogram Location: OP Height: 157.48 cm Weight: 85.73 kg BSA: 1.87 m2 Heart Rate: bpm BP: 126 / 80 mmHg Game Show Host: Referring MD: Rafael Brewer MD Coater Slate: Rafael Brewer MD Symptoms: R55 - Syncope and collapse Study Quality: Fair ECG Rhythm: Sinus Conclusions: - Normal left ventricular size, thickness, systolic function, and wall motion. The visually estimated ejection fraction is between 55-60%. Diastolic function is normal for age. - Normal right ventricular cavity size and systolic function. Findings Left Ventricle Normal left ventricular size, thickness, systolic function, and wall motion. The visually estimated ejection fraction is between 55-60%. Diastolic function is normal for age. Right Ventricle Normal right ventricular cavity size and systolic function. Atria Both atria are normal in size. Aortic Valve Normal aortic valve structure and function. There is no aortic valve stenosis. There is no aortic valve regurgitation. Mitral Valve Normal mitral valve structure and function. There is no mitral valve regurgitation. There is no mitral valve stenosis. Pulmonic Valve Normal pulmonic valve structure and function. Tricuspid Valve Normal tricuspid valve structure and function. There is trace tricuspid valve regurgitation. Tricuspid regurgitation envelope is inadequate for calculation of right ventricular systolic pressure. Normal right atrial pressure. Great Vessels All visible segments of the aorta are normal in size. The visualized portions of the pulmonary artery and branches are normal. Venous The inferior vena cava is normal in size and collapses greater than 50% with inspiration. Pericardium/Pleural There is no evidence of pericardial effusion. Prior Study Comparison No significant change compared to prior study dated: 07/17/2017. Measurements 2D Linear Measurements IVSd: 1.08 0.6-0.9/0.6-1.0 cm LVIDd: 3.98 3.9-5.3/4.2-5.9 cm LVIDd Index: 2.13 2.4-3.2/2.2-3.1 cm/m2 LVIDs: 2.70 2.0-3.6 cm LVPWd: 1.08 0.7-1.1 cm Ao Root: 2.80 2.1-3.5 cm LA Diam: 3.80 2.7-3.8/3.0-4.0 cm LAIDs Index: 2.03 1.5-2.3 cm/m2 LV Mass: 175.17 67-162/88-224 g LV Mass Index: 93.67 43-95/49-115 g/m2 LVOT Diam: 2.00 3.0+(-)1.3 cm 2D Systolic Function EF 4C: 52.40 >55% EF 2C: 55.50 >55% EF BiP: 53.40 >55% Mitral Valve MV Pk E: 1.02 MV PK A: 0.70 MV Decel Time: 166.00 E/A: 1.50 E'Lateral: 10.80 E'Medial: 10.20 E/E' Med: 10.00 E/E' Lat: 9.40 PHT: 49.00 MVA PHT: 4.49 Decel Graham: 6.13 Aortic Valve AoV Pk Mendoza: 1.34 AoV Mn Mendoza: 1.04 AoV VTI: 0.35 AoV Pk Grad: 7.00 Aov Mn Grad: 5.00 JONY Cont.VTI: 2.22 LVOT LVOT Pk Mendoza: 1.07 LVOT Mn Mendoza: 0.67 LVOT VTI: 0.25 LVOT Pk Grad: 5.00 LVOT Mn Grad: 2.00 LVOT Diam: 2.00 LVOT Area: 3.14 Diastolic Function MV Pk E: 1.02 MV Pk A: 0.70 E/A: 1.50 E'Medial: 10.20 E/E' Med: 10.00 E' Laterial: 10.80 E/E' Lat: 9.40 Right Ventricle TAPSE (mm): 28.00 Tricuspid Valve TR Pk Mendoza: 1.95 TR Pk Grad: 15.00 Great Vessels Aorta Ao Root-2D: 2.80 2.0-3.7 cm Ao Asc: 2.70 2.1-3.4 cm Pulmonary Valve PV Pk Mendoza: 0.88 Peak PV Grad: 3.00 Updated in Other Vendor System with Status of Final Rafael Brewer MD electronically signed on 04/27/2021 8:43:46 PM with status of Final
== END ==
LOC: HO.CARD 08:46
PROVIDERS: PCP Internal Medicine; Visit Provider Internal Medicine Cardiovascular Disease
DX: R55 Syncope and collapse (principal)
CPT/HCPCS: 93306

== ENCOUNTER 2021-04-28 10:49 | Outpatient (REF) | payer OTHER, SELFPAY ==
--- NOTE | ~2021-04-28 | MM_ITS ---
EXAMINATION: MM SCREENING DIGITAL BREAST TOMOSYNTHESIS, BILATERAL CLINICAL INFORMATION: Screening. Asymptomatic. The lifetime risk of breast cancer based on the Tyrer-Cuzick Model is 16%. COMPARISON: Mammography: 04/17/2020, 04/12/2019, 01/01/2015 TECHNIQUE: Digital breast tomosynthesis is performed in both the craniocaudal and mediolateral oblique views along with computer-aided detection (CAD). Synthesized 2D images are generated from the tomosynthesis. Additional right cleavage view is provided. FINDINGS: The breasts are almost entirely fatty (ACR BI-RADS breast composition Category a). There are no significant masses, abnormal calcifications, or other abnormalities. Skin contours are smooth. No significant changes. MM/MM tomosynthesis screening BI IMPRESSION: No mammographic evidence of malignancy. ASSESSMENT: BI-RADS 1: Negative RECOMMENDATION: Routine annual mammography screening. This patient's information was entered into a reminder system with a target due date for their next mammogram.
== END 2021-04-28 10:50 | disposition home or self-care (01) ==
LOC: HO.MAMMO 10:49
PROVIDERS: Visit Provider Internal Medicine
DX: Z12.31 Encounter for screening mammogram for malignant neoplasm of breast (principal)
CPT/HCPCS: 77063; 77067

== ENCOUNTER 2021-05-03 10:31 | Outpatient (REF) | payer OTHER, SELFPAY ==
[2021-05-03 11:00] LABS: MANUAL DIFF FLAG NO
[2021-05-03 11:11] LABS: Basophils Percent Auto 0.5 % (0-2); Eosinophils Absolute Auto 0.1 X10*3/uL (0.0-0.4); Eosinophils Percent Auto 1.9 % (0-4); Hematocrit 40.1 % (37.0-47.0); Imm Gran Abs Auto 0.06 X10*3/uL (0.00-0.03); Imm Gran Pct Auto 0.9 % (0.0-0.4); Lymphocytes Percent Auto 31.5 % (20-40); Mean Corpuscular HGB Conc 32.4 g/dl (31.0-35.0); Mean Corpuscular Hemoglobin 29.4 pg (27.0-33.0); Mean Corpuscular Volume 90.7 fL (80.0-98.0); Mean Platelet Volume 10.1 fL (9.4-12.3); Monocytes Absolute Auto 0.5 X10*3/uL (0.1-1.2); Monocytes Percent Auto 7.6 % (2-11); Neutrophils Absolute Auto 3.7 x10*3/uL (2.0-8.3); Neutrophils Percent Auto 57.6 % (45-73); Platelet Count 265 X10*3/uL (160-400); Red Blood Count 4.42 X10*6/uL (4.20-5.50); Red Cell Distribution Width 13.4 % (11.0-16.0); White Blood Count 6.4 X10*3/uL (4.8-10.8)
[2021-05-03 11:36] LABS: Alanine Aminotransferase 23 U/L (0-31); Albumin Level 4.2 g/dL (3.5-5.0); Alkaline Phosphatase 74 U/L (39-117); Anion Gap 10 (12-20); Aspartate Amino Transferase 23 U/L (5-31); Bilirubin Total 0.9 mg/dL (0.0-1.0); Blood Urea Nitrogen 10 mg/dL (9-16); Calcium 9.9 mg/dL (8.4-10.2); Carbon Dioxide 30 mmol/L (22-29); Chloride 103 mmol/L (96-108); Cholesterol 191 mg/dL; Estimated Glomerular Filt Rate > 60; Glucose Fasting 94 mg/dL (60-99); HDL Cholesterol 60 mg/dL; LDL Cholesterol Calculated 111 mg/dl; Potassium 4.8 mmol/L (3.3-5.1); Sodium 138 mmol/L (135-145); Total Protein 7.4 g/dL (6.5-8.0); Triglycerides 104 mg/dL
[2021-05-03 11:49] LABS: Erythrocyte Sedimentation Rate 18 MM/HR (0-20)
[2021-05-03 12:00] LABS: Vitamin D 25-OH Total 16.1 ng/mL (>30)
[2021-05-03 12:21] LABS: Folate 7.4 ng/mL (> or = 4.0); Vitamin B12 189 pg/mL (200-900)
[2021-05-04 16:52] LABS: Lyme Abs Screen <0.90 index
== END 2021-05-03 10:32 | disposition home or self-care (01) ==
LOC: HO.LAB 10:31
PROVIDERS: PCP Internal Medicine; Visit Provider Internal Medicine
DX: E55.9 Vitamin D deficiency, unspecified (principal); R42 Dizziness and giddiness; E78.00 Pure hypercholesterolemia, unspecified; R53.83 Other fatigue; I95.1 Orthostatic hypotension; I10 Essential (primary) hypertension; E53.8 Deficiency of other specified B group vitamins; M79.7 Fibromyalgia
CPT/HCPCS: 36415; 80053; 80061; 82306; 82607; 82746; 84443; 85025; 85652; 86140; 86617; 86618

== ENCOUNTER → 2021-05-14 10:14 | Outpatient (BNVA) | payer OTHER, SELFPAY | PROVIDERS: PCP Internal Medicine; Visit Provider Advanced Practice Midwife ==

== ENCOUNTER → 2021-07-15 13:38 | Outpatient (BNVA) | payer OTHER, SELFPAY | PROVIDERS: PCP Internal Medicine; Referring Provider Internal Medicine; Visit Provider Nurse Practitioner Family | DX: Z13.89 Encounter for screening for other disorder (principal) ==

== ENCOUNTER 2021-09-27 17:46 | Emergency (ER) | payer OTHER, SELFPAY ==
[2021-09-27 17:55] VITALS: BP 116/54; PULSE 86; RESP 18; TEMP 36.8; O2SAT 99; BMI 34.5
[2021-09-27 18:36] LABS: COVID-19 Test Negative (Negative); IDNOW Serial# 16C4AD1C; IDNOW Serial# 9DB6401D; Influenza A Negative (Negative); Influenza B2 Negative (Negative)
== END 2021-09-27 22:14 | disposition home or self-care (01) ==
PROVIDERS: Emergency Medicine; Emergency Provider Emergency Medicine; PCP Internal Medicine
DX: R07.0 Pain in throat (principal); R51.9 Headache, unspecified; Z20.822 Contact with and (suspected) exposure to COVID-19
CPT/HCPCS: 87502; 87635; 99283

== ENCOUNTER 2022-05-05 14:32 | Outpatient (REF) | payer OTHER, SELFPAY ==
--- NOTE | ~2022-05-05 | MM_ITS ---
EXAMINATION: MM SCREENING DIGITAL BREAST TOMOSYNTHESIS, BILATERAL CLINICAL INFORMATION: Screening. Asymptomatic. The lifetime risk of breast cancer based on the Tyrer-Cuzick Model is 12%. COMPARISON: Mammography: 04/28/2021, 04/17/2020, 04/12/2019 TECHNIQUE: Digital breast tomosynthesis is performed in both the craniocaudal and mediolateral oblique views along with computer-aided detection (CAD). Synthesized 2D images are generated from the tomosynthesis. FINDINGS: The breasts are almost entirely fatty (ACR BI-RADS breast composition Category a). There are no significant masses, abnormal calcifications, or other abnormalities. Background stromal markings are similar to prior studies. No developing density or architectural abnormality. The axilla are unremarkable. No significant changes. MM/MM tomosynthesis screening BI IMPRESSION: No mammographic evidence of malignancy. ASSESSMENT: BI-RADS 1: Negative RECOMMENDATION: Routine annual mammography screening. This patient's information was entered into a reminder system with a target due date for their next mammogram.
== END 2022-05-05 14:33 | disposition home or self-care (01) ==
LOC: HO.MAMMO 14:32
PROVIDERS: Visit Provider Internal Medicine
DX: Z12.31 Encounter for screening mammogram for malignant neoplasm of breast (principal)
CPT/HCPCS: 77063; 77067

== ENCOUNTER → 2022-07-07 11:23 | Outpatient (BNVA) | payer OTHER, SELFPAY | PROVIDERS: PCP Internal Medicine; Visit Provider Advanced Practice Midwife ==

== ENCOUNTER 2022-07-12 15:01 | Outpatient (REF) | payer OTHER, SELFPAY ==
--- NOTE | ~2022-07-12 | US_ITS ---
EXAMINATION: US PELVIS CLINICAL INFORMATION: Pelvic and perineal pain. COMPARISON: CT abdomen and pelvis 06/11/2019. Ultrasound 06/03/2016. TECHNIQUE: Ultrasound of the pelvis is performed using both transabdominal and transvaginal transducers along with Doppler. Transvaginal imaging is performed due to inadequate visualization transabdominally. FINDINGS: The uterus is not visualized. It was not visualized on the previous CT either. May be surgically removed. Adnexa: Both ovaries are visualized. There is normal color flow to the adnexa. There is no ovarian torsion. There is no pelvic ascites or fluid collection. Right ovary measures 3.0 x 1.9 x 2.6 cm with a simple anechoic cyst measuring 2.2 x 2.1 x 2.2 cm. Previously right ovary measured 3.9 x 3.1 x 3.4 cm and volume 21.6 mL. Left ovary is not visualized. Previously left ovary measured 4.1 x 3.3 x 3.7 cm and volume 25.6 mL. There is no free fluid in the cul-de-sac. US/US pelvic and transvaginal IMPRESSION: Uterus not visualized likely surgically removed. Similar findings were noted on 2017 ultrasound. Correlate with clinical exam. Simple anechoic cyst right ovary. Left ovary not seen.
== END 2022-07-12 15:02 | disposition home or self-care (01) ==
LOC: HO.HMGCX 15:01
PROVIDERS: PCP Internal Medicine; Visit Provider Advanced Practice Midwife
DX: R10.2 Pelvic and perineal pain (principal)
CPT/HCPCS: 76830; 76856

== ENCOUNTER → 2022-07-29 09:23 | Outpatient (BNVA) | payer OTHER, SELFPAY | PROVIDERS: PCP Internal Medicine; Visit Provider Advanced Practice Midwife | DX: Z71.2 Person consulting for explanation of examination or test findings (principal); N83.201 Unspecified ovarian cyst, right side | CPT/HCPCS: 99212 ==

== ENCOUNTER 2022-08-15 15:06 | Emergency (ER) | payer OTHER, SELFPAY ==
--- NOTE | ~2022-08-15 | US_ITS ---
EXAMINATION: US VENOUS ULTRASOUND WITH DOPPLER LOWER EXTREMITY, BILATERAL CLINICAL INFORMATION: Pain and history of DVT COMPARISON: None available. TECHNIQUE: Ultrasound of the deep veins is performed from the hip to the calf with compression sonography and color and pulse Doppler assessment. Spectral analysis with color-flow imaging is performed. FINDINGS: RIGHT: There is normal venous compression and respiratory variation and augmented flow. The visualized common femoral vein, superficial femoral vein, profunda femoral vein, popliteal vein, and the trifurcation region shows no evidence of deep venous thrombosis. There is no significant popliteal fossa cyst. LEFT: There is normal venous compression and respiratory variation and augmented flow. The visualized common femoral vein, superficial femoral vein, profunda femoral vein, popliteal vein, and the trifurcation region shows no evidence of deep venous thrombosis. There is no significant popliteal fossa cyst. If the patient's symptoms persist, followup ultrasound in 5 days 7 days might be of value to exclude proximal propagation from a non-visualized calf vein. US/US venous duplex LE BI IMPRESSION: No DVT demonstrated in the bilateral lower extremities.
[2022-08-15 15:09] VITALS: BP 117/72; PULSE 74; RESP 18; TEMP 36.8; O2SAT 97; BMI 34.7
--- NOTE | 2022-08-15 15:10 | ED_ITS ---
HPI - General Adult General Chief complaint: Extremity Problem <Song Patel - Last Filed: 08/15/22 15:13> Stated complaint: yobani. leg pain <Song Patel - Last Filed: 08/15/22 15:13> Time Seen by Provider: 08/15/22 16:27 <Song Patel - Last Filed: 08/15/22 15:13> Source: patient <JUANITA Villa Last Filed: 08/15/22 18:22> Mode of arrival: ambulatory <JUANITA Villa - Last Filed: 08/15/22 18:22> Limitations: no limitations <JUANITA Villa Last Filed: 08/15/22 18:22> History of Present Illness HPI narrative: Patient is a 52 year old assigned female at with a history of GERD presenting to the emergency department today with bilateral leg pain. Patient states that both of the tops of her legs have hurt for the last 2 days. Patient denies any dizziness, lightheadedness, abdominal pain, nausea, vomiting, fever, chills, blurry vision, double vision, loss of vision, chest pain, difficulty breathing, shortness of breath, back pain, night sweats, pain with urination, increased urinary frequency, increased urinary urgency, blood in her urine or stool, syncope or a near syncopal episode, recent trauma or falls, bowel incontinence, bladder incontinence, bowel retention, bladder retention, or any other complaints at this time. <JUANITA Villa - Last Filed: 08/15/22 18:22> Onset (ago): day(s) (2) <JUANITA Villa Last Filed: 08/15/22 18:22> Location: left, right and lower extremity <JUANITA Villa Last Filed: 08/15/22 18:22> Radiation: non-radiation <JUANITA Villa Last Filed: 08/15/22 18:22> Severity: mild <JUANITA Villa Last Filed: 08/15/22 18:22> Severity scale (1-10): 3 <JUANITA Villa Last Filed: 08/15/22 18:22> Quality: aching and dull <JUANITA Villa - Last Filed: 08/15/22 18:22> Pain Consistency: constant <JUAINTA Villa - Last Filed: 08/15/22 18:22> Relieving factors: none <JUANITA Villa - Last Filed: 08/15/22 18:22> Exacerbating factors: none <JUANITA Villa - Last Filed: 08/15/22 18:22> Associated symptoms: denies other symptoms <JUANITA Villa - Last Filed: 08/15/22 18:22> Treatments prior to arrival: none <JUANITA Villa - Last Filed: 08/15/22 18:22> Related Data Home medications: Home Medications Medication Instructions Recorded Confirmed sucralfate 100 mg/mL oral 10 ml PO QID 02/25/20 07/16/21 suspension (Carafate) fluoxetine 40 mg capsule 40 mg PO DAILY 12/29/20 07/16/21 Previous Rx's Medication Instructions Recorded fluticasone furoate 100 1 inh PO DAILY #30 ea 04/02/20 mcg/actuation blister powder for inhalation (Arnuity Ellipta) nortriptyline 25 mg capsule 25 mg PO BEDTIME headache 05/07/20 prophylaxis 30 days #30 caps albuterol sulfate 90 mcg/actuation 1 inh inhalation QID PRN shortness 06/03/20 aerosol inhaler of breath or wheezing #6.7 grams miscellaneous medical supply See Rx Instructions miscellaneous 06/18/20 .4 times a day PRN shortness of breath or wheezing 12 months #1 ea ondansetron 4 mg disintegrating 4 mg PO Q8H PRN nausea and 12/23/20 tablet vomiting #20 tabs blood pressure monitor #1 ea 12/29/20 cholecalciferol (vitamin D3) 50 50 mcg PO DAILY 90 days #90 caps 03/07/21 mcg (2,000 unit) capsule sumatriptan succinate 100 mg tablet See Rx Instructions PO .COMPLEX 30 04/01/21 days #15 tabs cyanocobalamin (vitamin B-12) 1,000 mcg PO DAILY 90 days #90 caps 05/10/21 1,000 mcg capsule cyanocobalamin (vitamin B-12) 1,000 mcg IM DAILY 2 weeks #14 mL 09/03/21 1,000 mcg/mL injection solution meclizine 25 mg tablet 25 mg PO TID PRN dizziness 30 days 12/09/21 #90 tabs [id number]-jtmzcudrhkqnx-[id number] 1 tab PO .2 to 3 times a day PRN 12/14/21 50 mg-325 mg-40 mg tablet headaches 30 days #90 tabs lorazepam 1 mg tablet 1 mg PO DAILY PRN anxiety 30 days 12/14/21 #30 tabs pantoprazole 40 mg tablet,delayed 40 mg PO DAILY #90 tabs 06/02/22 release cyclobenzaprine 5 mg tablet 5 mg PO TID PRN muscle spasm 7 08/15/22 days #21 tabs <Song Patel - Last Filed: 08/15/22 15:13> Allergies/adverse reactions: Allergies Allergy/AdvReac Type Severity Reaction Status Date / Time No Known Allergies Allergy Verified 07/29/22 10:06 <Song Patel - Last Filed: 08/15/22 15:13> Review of Systems Constitutional: Constitutional: Reports no additional constitutional complaints, Denies chills, Denies fever(s) and Denies night sweats <JUANITA Villa Last Filed: 08/15/22 18:22> Eyes: Eyes: Reports no additional eye complaints, Denies blurry vision, Denies change in vision, Denies diplopia, Denies eye discharge, Denies loss of vision and Denies eye pain <JUANITA Villa Last Filed: 08/15/22 18:22> ENT: Denies dizziness <JUANITA Villa Last Filed: 08/15/22 18:22> Cardiovascular: Cardiovascular: Reports no additional cardiovascular complaints, Denies chest pain, Denies lightheadedness, Denies Loss of Consciousness and Denies dyspnea <JUANITA Villa Last Filed: 08/15/22 18:22> Respiratory: Respiratory: Reports no additional respiratory complaints and Denies dyspnea <JUANITA Villa Last Filed: 08/15/22 18:22> Gastrointestinal: Gastrointestinal: Reports no additional gastrointestinal complaints, Denies abdominal pain, Denies melena, Denies hematochezia, Denies change in bowel habits and Denies change in stool character <JUANITA Villa Last Filed: 08/15/22 18:22> Genitourinary: Genitourinary: Denies hematuria, Denies urinary frequency, Denies dysuria, Denies urinary incontinence, Denies urinary hesitancy and Denies urinary urgency <JUANITA Villa - Last Filed: 08/15/22 18:22> Musculoskeletal: Musculoskeletal: Reports no additional musculoskeletal complaints, Denies numbness and Denies tingling <JUANITA Villa - Last Filed: 08/15/22 18:22> Comments: bilateral leg pain <JUANITA Villa - Last Filed: 08/15/22 18:22> Neurologic: Denies dizziness, Denies loss of vision, Denies numbness and Denies tingling <JUANITA Villa - Last Filed: 08/15/22 18:22> Psychiatric: Psychiatric: Reports no additional psychiatric complaints <JUANITA Villa - Last Filed: 08/15/22 18:22> Endocrine: Endocrine: Reports no additional endocrine complaints <JUANITA Villa - Last Filed: 08/15/22 18:22> Hematologic/Lymphatic: Hematologic/Lymphatic: Reports no additional hematologic/lymphatic complaints <JUANITA Villa - Last Filed: 08/15/22 18:22> Allergic/Immunologic: Allergic/Immunologic: Reports no additional allergic/immunologic complaints <JUANITA Villa - Last Filed: 08/15/22 18:22> PMF Past Medical History Attestation statement: The following information was validated with the patient. <JUANITA Villa - Last Filed: 08/15/22 18:22> Source: old records reviewed and nursing notes reviewed <JUANITA Villa - Last Filed: 08/15/22 18:22> Medical History: Medical History Anxiety Asthma Bilateral hand pain Bilateral wrist pain Depression GERD (gastroesophageal reflux disease) Migraine Obesity (BMI 30-39.9) Right ovarian cyst Vitamin B12 deficiency Vitamin D deficiency <Song Patel - Last Filed: 08/15/22 15:13> Surgical History: Surgical History H/O gastric bypass History of appendectomy History of section History of hysterectomy History of removal of laparoscopic gastric banding device LAP-BAND surgery status <Song Jorge - Last Filed: 08/15/22 15:13> Family History Family History: Family History Father Diabetes Hypertension Mother Hypertension Glaucoma Scoliosis Colon cancer Maternal Grandmother No problems noted. Maternal Grandfather No problems noted. Paternal Grandmother No problems noted. Paternal Grandfather No problems noted. Daughter In good health Sister In good health History of breast cancer Brother In good health <Song Jorge - Last Filed: 08/15/22 15:13> Social History Social History: Social History Housing: House Alcohol intake: never Patient Tobacco Use Status: Never used Tobacco Smoked in Last 30 Days: No Second Hand Smoke Exposure: No Use of substances other than those prescribed or required for medical reasons: No Advance Directives: No service: No Current occupational status: employed Sexual orientation: Straight/Heterosexual Gender identity: Female <Song Jorge - Last Filed: 08/15/22 15:13> Physical Exam ED Vital Signs: Vital Signs - 24 hr 08/15/22 15:09 08/15/22 17:35 Temperature 98.3 F 97.8 F Pulse Rate 74 80 Respiratory Rate 18 16 Blood Pressure 117/72 107/66 Pulse Oximetry 97 98 Oxygen Delivery Method Room Air Room Air BMI result Body Mass Index 34.7 <Song Patel - Last Filed: 08/15/22 15:13> Vital Signs - 24 hr 08/15/22 15:09 08/15/22 17:35 Temperature 98.3 F 97.8 F Pulse Rate 74 80 Respiratory Rate 18 16 Blood Pressure 117/72 107/66 Pulse Oximetry 97 98 Oxygen Delivery Method Room Air Room Air BMI result Body Mass Index 34.7 <JUANITA Villa - Last Filed: 08/15/22 18:22> Const General: cooperative, no acute distress, alert and awake <JUANITA Villa - Last Filed: 08/15/22 18:22> Nutritional Appearance: well nourished <JUANITA Villa - Last Filed: 08/15/22 18:22> Orientation/consciousness: patient oriented x3 <Sushma Liradov CA - Last Filed: 08/15/22 18:22> Limitations: no limitations <Sushma Liradov CA - Last Filed: 08/15/22 18:22> HENMT Head: Yes normal to inspection and Yes atraumatic <Sushma Liradov CA - Last Filed: 08/15/22 18:22> Ears: hearing grossly normal bilaterally and external ears normal <Sushmacailin Liradov CA - Last Filed: 08/15/22 18:22> General nose exam: Normal external nose present, no nasal discharge noted and no epistaxis <Sushma Liradov CA - Last Filed: 08/15/22 18:22> Face and sinus: Yes normal facial exam, No abrasion and No laceration <Sushma Desirae CA - Last Filed: 08/15/22 18:22> Mouth: Normal oral and palatal mucosa present, no drooling and no muffled voice <Sushma Merrill CA - Last Filed: 08/15/22 18:22> Eyes General: appearance normal, both eyes and all related structures <Sushmacailin Liradov CA - Last Filed: 08/15/22 18:22> Periorbital: periorbital findings normal <Sushma Desirae CA - Last Filed: 08/15/22 18:22> Eyelids: Yes eyelids normal <Sushma Liradov CA - Last Filed: 08/15/22 18:22> Conjunctivae: conjunctivae normal <Sushmacailin Liradov CA - Last Filed: 08/15/22 18:22> Pupils: Equal, round and reactive pupils present <Sushma Merrill CA - Last Filed: 08/15/22 18:22> EOM: EOMs intact bilaterally <Sushmacailin Liradov CA - Last Filed: 08/15/22 18:22> Neck Neck: Yes normal visual inspection, Yes full ROM and Yes no lymphadenopathy <JUANITA Villa - Last Filed: 08/15/22 18:22> Chest Chest palpation & inspection: normal inspection of the chest <JUANITA Villa - Last Filed: 08/15/22 18:22> Resp Effort & Inspection: normal respiratory effort and able to speak in complete sentences <JUANITA Villa - Last Filed: 08/15/22 18:22> GI Inspection: Yes normal to inspection <Sushmacailin LiraJUANITA monae - Last Filed: 08/15/22 18:22> Neuro General: patient oriented x3 and moves all extremities <Sushmacailin LiraJUANITA monae - Last Filed: 08/15/22 18:22> Cranial nerves: Yes Equal, round and reactive pupils present <Sushma MerrillJUANITA monae - Last Filed: 08/15/22 18:22> Cognition (Neuro): normal cognition <JUANITA Villa - Last Filed: 08/15/22 18:22> Motor exam (neuro): 5/5 motor strength present throughout <Sushmacailin LiraJUANITA monae - Last Filed: 08/15/22 18:22> Sensory Exam: Normal double simultaneous stimulation for sensation <JUANITA Villa - Last Filed: 08/15/22 18:22> Coordination: [id number] test normal <JUANITA Villa - Last Filed: 08/15/22 18:22> Extrem General: Yes normal to inspection, Yes full ROM and Yes capillary refill normal <Sushma MerrillJUANITA monae - Last Filed: 08/15/22 18:22> Psych Appearance: grossly normal <JUANITA Villa - Last Filed: 08/15/22 18:22> Mental Status: mental status grossly normal <JUANITA Villa - Last Filed: 08/15/22 18:22> Affect: normal affect <JUANITA Villa - Last Filed: 08/15/22 18:22> Attitude: cooperative <JUANITA Villa - Last Filed: 08/15/22 18:22> Thought process: Normal thought process present <JUANITA Villa - Last Filed: 08/15/22 18:22> Thought content: Normal thought content present <JUANITA Villa - Last Filed: 08/15/22 18:22> Insight: Good insight present (Psych) <JUANITA Villa - Last Filed: 08/15/22 18:22> Course Course Course Narrative: 52 year old female presents for evaluation of bilateral leg pain. Reports remote history of DVT, not currently anticoagulated. Reports this pain reminds her of DVT pain. On exam, she has no significant edema. Plan for ultrasound to rule out DVT <Song Patel - Last Filed: 08/15/22 15:13> Medical Decision Making Medical Decision Making MDM Narrative: Patient is a 52 year old assigned female at with a history of GERD presenting to the emergency department today with bilateral leg pain. Patient's physical exam was unremarkable. Patient's bilateral lower extremity US showed no acute process. I explained my physical exam findings as well as all test results to the patient. I answered all questions asked by the patient. Patient received PO Flexeril and IM Toradol which she stated helped her symptoms significantly. I stressed the importance of the patient taking her medication as prescribed. I stressed the importance of the patient following up with her primary care provider. I stressed the importance of the patient returning to the emergency department immediately if her symptoms were to worsen or if she were to develop any dizziness, shortness of breath, difficulty breathing, chest pain, blurry vision, loss of vision, nausea, vomiting, abdominal pain, fever, chills, back pain, or any other complaints. Patient verbalized agreement and understanding with this treatment plan and discharge. <JUANITA Villa - Last Filed: 08/15/22 18:22> Differential Diagnosis Differential Diagnoses: The differential diagnosis associated with the presentation includes <JUANITA Villa Last Filed: 08/15/22 18:22> bilateral leg pain <JUANITA Villa Last Filed: 08/15/22 18:22> Independent Interpretation I performed an independent interpretation of an: Ultrasound <JUANITA Villa - Last Filed: 08/15/22 18:22> Interpretation: My interpretation is in agreement with the radiologist's impression of this imaging study. EXAMINATION:? US VENOUS ULTRASOUND WITH DOPPLER LOWER EXTREMITY, BILATERAL CLINICAL INFORMATION:? Pain and history of DVT COMPARISON:? None available. TECHNIQUE: Ultrasound of the deep veins is performed from the hip to the calf with compression sonography and color and pulse Doppler assessment. Spectral analysis with color-flow imaging is performed. FINDINGS: RIGHT: There is normal venous compression and respiratory variation and augmented flow. The visualized common femoral vein, superficial femoral vein, profunda femoral vein, popliteal vein, and the trifurcation region shows no evidence of deep venous thrombosis. ? There is no significant popliteal fossa cyst. LEFT: There is normal venous compression and respiratory variation and augmented flow. The visualized common femoral vein, superficial femoral vein, profunda femoral vein, popliteal vein, and the trifurcation region shows no evidence of deep venous thrombosis. ? There is no significant popliteal fossa cyst. If the patient's symptoms persist, followup ultrasound in 5 days 7 days might be of value to exclude proximal propagation from a non-visualized calf vein. US/US venous duplex LE BI IMPRESSION: No DVT demonstrated in the bilateral lower extremities. Dictated By: Ed Billy MD Signed By: Electronically signed by Ed Billy MD 08/15/22 1712 <JUANITA Villa - Last Filed: 08/15/22 18:22> Discharge Plan Discharge Clinical Impression: Leg pain <Song Patel - Last Filed: 08/15/22 15:13> Patient Disposition: Home, Self-Care <Song Patel - Last Filed: 08/15/22 15:13> Instructions: Leg Pain (ED) <Song Patel - Last Filed: 08/15/22 15:13> Additional Instructions: Follow up with your primary care provider. Return to the emergency department immediately if your symptoms worsen or if you develop any dizziness, shortness of breath, difficulty breathing, chest pain, blurry vision, loss of vision, nausea, vomiting, abdominal pain, fever, chills, back pain, or any other complaints. <Song Patel - Last Filed: 08/15/22 15:13> Prescriptions: New cyclobenzaprine 5 mg tablet 5 mg PO TID PRN (Reason: muscle spasm) 7 Days Qty: 21 0RF No Action sucralfate [Carafate] 100 mg/mL suspension 10 ml PO QID Rx Instructions: swish in mouth and swallow; use after food/drink fluticasone furoate [Arnuity Ellipta] 100 mcg/actuation blister with device 1 inh PO DAILY Qty: 30 3RF miscellaneous medical supply [facility] [place] See Rx Instructions miscellaneous .4 times a day PRN (Reason: shortness of breath or wheezing) 360 Days Qty: 1 0RF Rx Instructions: Nebulizer Machine - use as directed miscellaneous .4 times a day PRN; Nebulizer Machine - Dx: J45.901 -- asthma cyanocobalamin (vitamin B-12) 1,000 mcg/mL solution 1,000 mcg IM DAILY 14 Days Qty: 14 2RF meclizine 25 mg tablet 25 mg PO TID PRN (Reason: dizziness) 30 Days Qty: 90 1RF lorazepam 1 mg tablet 1 mg PO DAILY PRN (Reason: anxiety) 30 Days Qty: 30 0RF ppkvcjazzd-jdmkvfxqwandn-xwxk 50-325-40 mg tablet 1 tab PO .2 to 3 times a day PRN (Reason: headaches) 30 Days Qty: 90 1RF Rx Instructions: Take 1 tablet orally 2-3 times a day only as needed for migraine headaches pantoprazole 40 mg tablet,delayed release (DR/EC) 40 mg PO DAILY Qty: 90 0RF albuterol sulfate 90 mcg/actuation HFA aerosol inhaler 1 inh inhalation QID PRN (Reason: shortness of breath or wheezing) Qty: 6.7 0RF ondansetron 4 mg tablet,disintegrating 4 mg PO Q8H PRN (Reason: nausea and vomiting) Qty: 20 0RF nortriptyline 25 mg capsule 25 mg PO BEDTIME 30 Days Qty: 30 3RF Rx Instructions: for headache prophylaxis cyanocobalamin (vitamin B-12) 1,000 mcg capsule 1,000 mcg PO DAILY 90 Days Qty: 90 3RF fluoxetine 40 mg capsule 40 mg PO DAILY (DME) blood pressure monitor Kit See Rx Instructions .Route Qty: 1 0RF Rx Instructions: As directed cholecalciferol (vitamin D3) 50 mcg (2,000 unit) capsule 50 mcg PO DAILY 90 Days Qty: 90 1RF sumatriptan succinate 100 mg tablet See Rx Instructions PO .COMPLEX 30 Days Qty: 15 3RF Rx Instructions: take 1 tab at onset of headache; if no relief, may repeat 1 tab after at least 2 hrs; max = 2 tabs/24 hrs PO <Song Patel - Last Filed: 08/15/22 15:13> Referrals: Brett Navarro MD [Primary Care Provider] - <Song Patel - Last Filed: 08/15/22 15:13> Interventions: ED Discharge Assessment Last Done: 08/15/22 17:38 <Song Patel - Last Filed: 08/15/22 15:13> Discharge Date/Time: 08/15/22 17:38 <Song Patel - Last Filed: 08/15/22 15:13> Print Language: Kinyarwanda <Song Patel - Last Filed: 08/15/22 15:13>
[2022-08-15 17:35] VITALS: BP 107/66; PULSE 80; RESP 16; TEMP 36.6; O2SAT 98
== END 2022-08-15 17:38 | disposition home or self-care (01) ==
PROVIDERS: Emergency Provider Emergency Medicine; PCP Internal Medicine
DX: M79.661 Pain in right lower leg (principal); M79.605 Pain in left leg; R60.0 Localized edema
CPT/HCPCS: 93970; 99284

== ENCOUNTER 2022-08-18 09:15 | Outpatient (REF) | payer OTHER, SELFPAY ==
[2022-08-18 09:41] LABS: MANUAL DIFF FLAG NO
[2022-08-18 10:00] LABS: Basophils Percent Auto 0.6 % (0-2); Eosinophils Absolute Auto 0.2 X10*3/uL (0.0-0.4); Eosinophils Percent Auto 3.2 % (0-4); Hematocrit 37.6 % (37.0-47.0); Hemoglobin 11.9 g/dl (12.0-16.0); Imm Gran Abs Auto 0.02 X10*3/uL (0.00-0.03); Imm Gran Pct Auto 0.3 % (0.0-0.4); Lymphocytes Absolute Auto 2.8 X10*3/uL (1.2-4.9); Lymphocytes Percent Auto 44.1 % (20-40); Mean Corpuscular HGB Conc 31.6 g/dl (31.0-35.0); Mean Corpuscular Hemoglobin 26.9 pg (27.0-33.0); Mean Corpuscular Volume 84.9 fL (80.0-98.0); Mean Platelet Volume 10.5 fL (9.4-12.3); Monocytes Absolute Auto 0.5 X10*3/uL (0.1-1.2); Monocytes Percent Auto 7.1 % (2-11); Neutrophils Absolute Auto 2.8 x10*3/uL (2.0-8.3); Neutrophils Percent Auto 44.7 % (45-73); Platelet Count 288 X10*3/uL (160-400); Red Blood Count 4.43 X10*6/uL (4.20-5.50); Red Cell Distribution Width 13.7 % (11.0-16.0); White Blood Count 6.3 X10*3/uL (4.8-10.8)
[2022-08-18 10:28] LABS: Appearance Urine Clear; Color Urine Yellow; Glucose Urine UA Negative (Negative); Leukocyte Esterase Urine Negative (Negative); Nitrite Urine Negative (Negative); PH 6.5 (5.0-9.0); Specific Gravity - Urine 1.025 (1.005-1.025); Urine Blood Negative (Negative); Urine Ketones Negative (Negative); Urine Protein Trace mg/dL (Neg-Trace)
[2022-08-18 10:37] LABS: Alanine Aminotransferase 33 U/L (0-31); Albumin Level 3.7 g/dL (3.5-5.0); Alkaline Phosphatase 68 U/L (39-117); Anion Gap 11 (12-20); Aspartate Amino Transferase 27 U/L (5-31); Bilirubin Total 0.8 mg/dL (0.0-1.0); Blood Urea Nitrogen 11 mg/dL (9-16); Calcium 9.1 mg/dL (8.4-10.2); Carbon Dioxide 27 mmol/L (22-29); Chloride 107 mmol/L (96-108); Cholesterol 169 mg/dL; Estimated Glomerular Filt Rate > 60; Glucose Fasting 83 mg/dL (60-99); HDL Cholesterol 52 mg/dL; LDL Cholesterol Calculated 96 mg/dl; Potassium 4.6 mmol/L (3.3-5.1); Sodium 140 mmol/L (135-145); Total Protein 6.5 g/dL (6.5-8.0); Triglycerides 106 mg/dL
[2022-08-18 11:08] LABS: Folate 9.7 ng/mL (> or = 4.0); TSH reflex Free T4 2.35 uIU/mL (0.32-4.0); Vitamin B12 229 pg/mL (200-900); Vitamin D 25-OH Total 16.3 ng/mL (>30)
== END 2022-08-18 09:16 | disposition home or self-care (01) ==
LOC: HO.LAB 09:15
PROVIDERS: PCP Internal Medicine; Visit Provider Internal Medicine
DX: Z00.00 Encounter for general adult medical examination without abnormal findings (principal); R30.0 Dysuria; I10 Essential (primary) hypertension; E78.00 Pure hypercholesterolemia, unspecified; E53.8 Deficiency of other specified B group vitamins; E55.9 Vitamin D deficiency, unspecified
CPT/HCPCS: 36415; 80053; 80061; 81003; 82306; 82607; 82746; 84443; 85025

== ENCOUNTER → 2022-09-07 10:48 | Outpatient (BNVA) | payer OTHER, SELFPAY | PROVIDERS: PCP Internal Medicine; Visit Provider Surgery Vascular Surgery | DX: I83.11 Varicose veins of right lower extremity with inflammation (principal) | CPT/HCPCS: 99202 ==

== ENCOUNTER 2022-09-13 10:09 | Outpatient (REF) | payer OTHER, SELFPAY ==
--- NOTE | ~2022-09-13 | US_ITS ---
EXAMINATION: US LOWER EXTREMITY VENOUS (REFLUX EXAM), BILATERAL CLINICAL INDICATION: Varicose veins COMPARISON: None. TECHNIQUE: Color flow triplex imaging and compression Doppler was performed to evaluate both the deep and the superficial systems bilaterally. To evaluate the superficial system, the examination was performed in the upright position. Color-flow Doppler ultrasound and compression ultrasound were utilized. In addition, maneuvers were utilized to demonstrate reflux. FINDINGS: 1. DEEP VENOUS ULTRASOUND OF THE RIGHT LOWER EXTREMITY: Common Femoral Vein: Compressible, normal respiratory variation and augmented flow. Femoral Vein: Compressible, normal color flow and augmentation. Popliteal Vein: Compressible, normal augmentation. Deep Reflux: There is no evidence of reflux in the deep system in either the common femoral vein or the popliteal vein. There is no evidence of a Lomas's cyst. 2. SUPERFICIAL ULTRASOUND WITH DOPPLER OF RIGHT LOWER EXTREMITY: GREAT SAPHENOUS VEIN: Saphenofemoral Junction: 0.5 cm; Reflux: 0 ms Proximal Thigh: 0.4 cm; Reflux: 0 ms Mid Thigh: 0.4 cm; Reflux: 0 ms Above Knee: 0.4 cm; Reflux: 0 ms At Knee: 0.3 cm; Reflux: 0 ms Below Knee: 0.3 cm; Reflux: 0 ms Mid Calf: 0.2 cm; Reflux: 0 ms Ankle: 0.2 cm; Reflux: 0 ms DUPLICATED MEDIAL GREAT SAPHENOUS VEIN: Diameter: None imaged Reflux: NA DUPLICATED LATERAL GREAT SAPHENOUS VEIN: Proximal: 0.3 cm; Reflux: 0 ms Distal: 0.2 cm; Reflux: 0 ms SMALL SAPHENOUS VEIN: Proximal: 0.2 cm; Reflux: 0 ms Distal: 0.2 cm; Reflux: 0 ms VEIN OF GIACOMINI: Size: NA Reflux: NA PERFORATORS: Location: Midcalf Size: 0.3 cm Reflux: NA Location: Distal calf Size: 0.2 cm Reflux: NA VARICOSITIES: Location: Proximal thigh Size: 0.3 cm Reflux: NA 3. DEEP VENOUS ULTRASOUND OF THE LEFT LOWER EXTREMITY: Common Femoral Vein: Compressible, normal respiratory variation and augmented flow. Femoral Vein: Compressible, normal color flow and augmentation. Popliteal Vein: Compressible, normal augmentation. Deep Reflux: Reflux within the popliteal vein at 828 ms. There is no evidence of a Lomas's cyst. 4. SUPERFICIAL ULTRASOUND WITH DOPPLER OF LEFT LOWER EXTREMITY: GREAT SAPHENOUS VEIN: Saphenofemoral Junction: 0.7 cm; Reflux: 0 ms Proximal Thigh: 0.3 cm; Reflux: 0 ms Mid Thigh: 0.2 cm; Reflux: 984 ms Above Knee: 0.2 cm; Reflux: 0 ms At Knee: 0.2 cm; Reflux: 0 ms Below Knee: 0.2 cm; Reflux: 0 ms Mid Calf: 0.2 cm; Reflux: 0 ms Ankle: 0.2 cm; Reflux: 0 ms DUPLICATED MEDIAL GREAT SAPHENOUS VEIN: Diameter: None imaged Reflux: NA DUPLICATED LATERAL GREAT SAPHENOUS VEIN: Proximal: 0.3 cm; Reflux: 0 ms Distal: 0.2 cm; Reflux: 0 ms SMALL SAPHENOUS VEIN: Proximal: 0.7 cm; Reflux: 0 ms Distal: 0.2 cm; Reflux: 0 ms VEIN OF GIACOMINI: Size: NA Reflux: NA PERFORATORS: Location: [place] Size: 0.2 cm Reflux: NA VARICOSITIES: Location: None Imaged Size: NA Reflux: NA US/US venous duplex LE BI IMPRESSION: 1. No DVT in the bilateral lower extremity. 2. No reflux in the right great saphenous vein. 3. Reflux in the left great saphenous vein in the mid thigh.
== END 2022-09-13 10:10 | disposition home or self-care (01) ==
LOC: HO.US 10:09
PROVIDERS: PCP Internal Medicine; Visit Provider Surgery Vascular Surgery
DX: I83.11 Varicose veins of right lower extremity with inflammation (principal)
CPT/HCPCS: 93970

== ENCOUNTER 2022-10-20 08:55 | Outpatient (AMB) | payer OTHER, SELFPAY ==
--- NOTE | 2022-10-20 09:26 | A.OFFVIS_ITS ---
Intake Intake Visit Reasons: Follow Up US Intake Note: Patient is here for a follow up s/p US, pt c/o Dewayne LE pain more on the right Operations Consultant Required: Yes Operations Consultant Name: Lilo AGUILLON Allergies No Known Allergies Allergy (Verified 10/20/22 09:28) HPI Follow Up US HPI Details Very pleasant but morbidly obese 52-year-old female presents for follow-up regarding venous insufficiency. Upon discussion with her she notes that the pain is more so from the knee radiating down the anterior tibial surface. She now presents for follow-up with venous insufficiency testing. She has had no interval changes. [facility] Medical History Anxiety Asthma Bilateral hand pain Bilateral wrist pain Depression GERD (gastroesophageal reflux disease) Migraine Obesity (BMI 30-39.9) Right ovarian cyst Vitamin B12 deficiency Vitamin D deficiency Surgical History H/O gastric bypass History of appendectomy History of section History of hysterectomy History of removal of laparoscopic gastric banding device LAP-BAND surgery status Family History Father Diabetes Hypertension Mother Hypertension Glaucoma Scoliosis Colon cancer Maternal Grandmother No problems noted. Maternal Grandfather No problems noted. Paternal Grandmother No problems noted. Paternal Grandfather No problems noted. Daughter In good health Sister In good health History of breast cancer Brother In good health Social History Housing: House Alcohol intake: never Patient Tobacco Use Status: Never used Tobacco e-Cigarette/Vaping Use: Never Used Second Hand Smoke Exposure: No service: No Current occupational status: employed Sexual orientation: Straight/Heterosexual Gender identity: Female Cognitive needs: No Hearing needs: No Vision needs: No Review of Systems Const Reports as per HPI ENT Reports no additional complaints Card Denies chest pain, Denies chest pain at rest and Denies chest pain with activity Resp Denies chest congestion and Denies cough GI Reports no additional complaints Musc Details: pain over varicosities, aching of lower extremities, swelling, cramping, heaviness and tiredness, itching Denies abnormal gait Skin/Breast Reports pruritus and Denies wounds Neuro Reports no additional complaints and Denies abnormal gait Psych Denies no additional complaints Physical Exam Const General: cooperative, healthy appearing and comfortable Orientation/consciousness: oriented to person, oriented to place and oriented to time Neck Carotids: no bruits Chest Chest palpation & inspection: normal inspection of the chest and normal palpation of entire chest wall Resp Effort & Inspection: normal respiratory effort and able to speak in complete sentences Cardio Rate: regular rate Heart sounds: S1 normal heart sound present and S2 normal heart sound present Peripheral pulses: Peripheral pulses 2+ throughout GI Inspection: Yes normal to inspection Skin Other: +2 edema, General skin exam: dry skin Neuro General: oriented to person, oriented to place and oriented to time Extrem Right lower extremity: full ROM, normal capillary refill and edema Left lower extremity: full ROM, normal capillary refill and edema Psych Mental Status: mental status grossly normal Results Reviewed Results Reviewed: Brief summary of venous insufficiency testing is as follows: right great saphenous vein: negative right small saphenous vein: negative right accessory vein: none present left great saphenous vein: negative left small saphenous vein: negative left accessory vein: none present Please note there is no evidence of any venous aneurysms or significant tortuosity Assessment & Plan Assessment & Plan (1) Varicose veins of right lower extremity with inflammation: Code(s): I83.11 - Varicose veins of right lower extremity with inflammation Plan: In short the patient is negative for any significant venous insufficiency. We did discuss routine conservative measures including compression elevation and exercise. I do believe some of her discomfort is related to her knees. Should this persist may benefit from orthopedic or pain management evaluation. Patient will follow up with us on an as-needed basis. Thank you for allowing us to assist in her care. If there are any questions or concerns please do not hesitate to contact us. Coding Level of Care Code Est Pt Level 4 (37567) Diagnoses Varicose veins of right lower extremity with inflammation I83.11
== END 2022-10-20 09:45 | disposition home or self-care (01) ==
LOC: HO.HVS 08:55
PROVIDERS: PCP Internal Medicine; Visit Provider Surgery Vascular Surgery
DX: I83.11 Varicose veins of right lower extremity with inflammation (principal)
CPT/HCPCS: 99213

== ENCOUNTER → 2022-10-20 08:55 | Outpatient (BNVA) | payer OTHER, SELFPAY | PROVIDERS: PCP Internal Medicine; Visit Provider Surgery Vascular Surgery | DX: I83.11 Varicose veins of right lower extremity with inflammation (principal) | CPT/HCPCS: 99212 ==

== ENCOUNTER 2023-01-24 09:39 | Outpatient (AMB) | payer OTHER, SELFPAY ==
[2023-01-24 09:59] VITALS: BP 120/76; PULSE 75; O2SAT 98; BMI 39.3
--- NOTE | 2023-01-24 09:59 | MHC.PC.OV ---
Vital Signs 01/24/23 09:59 Height 5 ft 2 in Weight 215 lb BMI 39.3 BP 120/76 Blood Pressure Location Lt brachial Position Sitting Pulse 75 Pulse Source Pulse Oximeter Pulse Oximetry (%) 98 Oxygen Delivery Method Room Air Intake Visit Reasons: f/u Gambling Monitor Required: No Accompanied by: Self / Same As Patient Allergies No Known Allergies Allergy (Verified 01/24/23 10:35) Medication List - Last Reconciled 01/24/23 by Brett Navarro MD albuterol sulfate 90 mcg/actuation 1 inh inhalation QID PRN blood pressure monitor As directed [id number]-[id number] 50-325-40 mg 1 tab PO .2 to 3 times a day PRN 30 days cholecalciferol (vitamin D3) 50 mcg PO DAILY 90 days cyanocobalamin (vitamin B-12) 1,000 mcg PO DAILY 90 days cyanocobalamin (vitamin B-12) 1,000 mcg IM DAILY 2 weeks cyclobenzaprine 5 mg PO TID PRN 7 days fluoxetine 40 mg PO DAILY fluticasone furoate 100 mcg/actuation (Arnuity Ellipta) 1 inh PO DAILY lorazepam 1 mg PO DAILY PRN 30 days meclizine 25 mg PO TID PRN 30 days miscellaneous medical supply Nebulizer Machine - use as directed miscellaneous .4 times a day PRN; Nebulizer Machine - Dx: J45.901 -- asthma 12 months nortriptyline 25 mg PO BEDTIME 30 days ondansetron 4 mg PO Q8H PRN pantoprazole 40 mg PO DAILY sucralfate (Carafate) 10 mL PO QID sumatriptan succinate take 1 tab at onset of headache; if no relief, may repeat 1 tab after at least 2 hrs; max = 2 tabs/24 hrs PO 30 days tramadol 50 mg PO BID PRN Tobacco use date assessed: 01/24/23 Dental Screening Dental Screen Date: 01/24/23 Did you have a dental visit in the last 12 months?: No Did you have a dental problem in the last 6 months where you did not have access to dental care?: No Was dental information given to patient?: Patient has dentist HPI f/u HPI Details Patient comes in today for her follow up visit She continues to complain of frequent/recurrent bilateral lower extremity pain and occasional leg swelling Describes her lower extremity pain as more of a burning pain that seems to be worse at night and involves mostly her thighs and lower legs She denies any hip pains or any increased low back pain She has been seen and evaluated by vascular surgery a few months ago and was advised that she does NOT have any symptoms of vascular insufficiency that could be causing or contributing to her symptoms She relates (+) on and off headaches and dizziness - states that her headaches have been better controlled on propjylactic Rx She denies any chest pains, no increased SOB - states that her asthma has been doing well on her Arnuity Ellipta inhaler (+) occasional nausea with increased headaches but denies khadra vomiting or abdominal pain No change in bowel habits noted Needs her Albuterol inhaler Rx refilled Would also like to know how she did on her labs done back in August 2022 Also needs some of her disability assistance forms filled out today [facility], [facility] Medical History Right ovarian cyst Vitamin B12 deficiency Vitamin D deficiency Depression Anxiety Obesity (BMI 30-39.9) Bilateral hand pain Bilateral wrist pain GERD (gastroesophageal reflux disease) Asthma Migraine Surgical History H/O gastric bypass History of removal of laparoscopic gastric banding device LAP-BAND surgery status History of appendectomy History of hysterectomy History of section Family History Father Diabetes Hypertension Mother Hypertension Glaucoma Scoliosis Colon cancer Maternal Grandmother No problems noted. Maternal Grandfather No problems noted. Paternal Grandmother No problems noted. Paternal Grandfather No problems noted. Daughter In good health Sister In good health History of breast cancer Brother In good health Social History Housing: House Alcohol intake: never Patient Tobacco Use Status: Never used Tobacco e-Cigarette/Vaping Use: Never Used Second Hand Smoke Exposure: No service: No Current occupational status: employed Sexual orientation: Straight/Heterosexual Gender identity: Female Cognitive needs: No Hearing needs: No Vision needs: No Questionnaire PHQ-9 Over the last 2 weeks, how often have you been bothered by any of the following problems? 1. Little interest or pleasure in doing things: not at all 2. Feeling down, depressed, or hopeless: not at all 3. Trouble falling or staying asleep, or sleeping too much: not at all 4. Feeling tired or having little energy: not at all 5. Poor appetite or overeating: not at all 6. Feeling bad about yourself - or that you are a failure or have let yourself or your family down: not at all 7. Trouble concentrating on things, such as reading the newspaper or watching television: not at all 8. Moving or speaking so slowly that other people could have noticed. Or the opposite - being so fidgety or restless that you have been moving around a lot more than usual: not at all 9. Thoughts that you would be better off or of hurting yourself in some way: not at all Total score: 0 Depression Screening Interpretation: Positive Depression Screening Follow-up: Existing condition and In treatment (sees psychiatry) Depression Screening Done: Yes 75049 - PHQ-9 Billing: Yes Source: Developed by Drs. Jr Monsivais, Radha Campbell, Mayur Mckee and colleagues, with an educational joselito from [employer]. Thrive Questionnaire Date Thrive assessed: 01/24/23 I am a: Patient What is your living situation today?: I have a steady place to live Within the past 12 months, did the food you bought not last and you didn't have the money to get more?: Never true Within the past 12 months, did you worry whether your food would run out before you got money to buy more?: Never true Do you have trouble paying for medicines?: No Do you have trouble getting transportation to medical appointments?: No Do you have trouble paying your heating and electricity bill?: No Do you have trouble taking care of your child, family member or friend?: No Do you have trouble with day-to-day activities such as bathing, preparing meals, shopping, managing finances, etc.?: No Are you currently unemployed and looking for a job?: No Are you interested in more education?: No Please select the resources that you would like help with: None Currently or been in a relationship where the following occur: no concerns reported AUDIT C Alcohol Use Questionnaire (AUDIT-C) 1. How often do you have a drink containing alcohol?: Never 3. How often do you have six or more drinks on one occasion?: Never Total Score: 0 Score Reviewed/Action Taken: Yes GEN-7 AMB Questionnaire GEN-7 Date GEN - 7 assessed: 01/24/23 Feeling nervous, anxious, or on edge: 1 = Several days Not being able to stop or control worryin = Several days Worrying too much about different things: 1 = Several days Trouble relaxin = Several days Being so restless that it is hard to sit still: 1 = Several days Becoming easily annoyed or irritable: 1 = Several days Feeling afraid as if something awful might happen: 1 = Several days Total GEN-7 score (0-4 normal; 5-9 mild; 10-14 moderate; 15-21 severe): 7 Source: Developed by Drs. Jr Monsivais, Radha Campbell, Mayur Mckee and colleagues, with an educational joselito from [employer]. Review of Systems Const Denies chills, Reports difficulty sleeping (thinks this is mostly due to her leg pains), Reports fatigue, Denies fever(s), Reports headache(s) (occasional) and Denies malaise ENT Denies dysphagia, Reports dizziness (occasional, mild), Denies otalgia, Reports headache(s) (occasional), Denies nasal congestion, Denies neck pain, Denies odynophagia, Denies sinus pain and Denies sore throat Card Denies chest pain, Denies rapid heart rate, Denies irregular heart rhythm, Denies palpitations and Denies dyspnea Resp Denies chest congestion, Denies cough, Denies dyspnea and Denies wheezing GI Denies abdominal pain, Denies bloating, Denies constipation, Denies dysphagia, Denies heartburn, Denies diarrhea, Reports nausea (occasionally, with increased headaches), Denies odynophagia and Denies vomiting Denies hematuria, Denies dysuria, Denies urinary incontinence and Denies urinary urgency Musc Details: increased pain over both lower extremities Denies back pain, Denies arthralgias, Denies joint swelling, Denies muscle weakness, Denies neck pain and Reports radiating pain into limb (involve both lower extremities - see HPI) Skin/Breast Denies rash Neuro Reports dizziness (occasional, mild), Reports headache(s) (occasional) and Denies paresthesias Psych Denies anxiety and Denies depression Endo Reports fatigue and Denies palpitations Sergio/Lymph Details: (+) on and off pain and mild swelling of both legs and feet Denies easy bruising Aller/Immun Denies wheezing Physical exam (Primary Care) Vital Signs: Last Vital Signs Pulse 75 01/24/23 09:59 BP 120/76 01/24/23 09:59 Pulse Ox 98 01/24/23 09:59 Oxygen Delivery Method Room Air 01/24/23 09:59 BMI result Body Mass Index 39.3 Tobacco/Smoking Status: Tobacco use Status Tobacco use date assessed 01/24/23 01/24/23 10:04 Patient Tobacco Use Status Never used Tobacco 01/24/23 10:04 e-Cigarette/Vaping Use Never Used 01/24/23 10:04 PHQ-9: PHQ-9 Score PHQ-9: Total score 0 01/24/23 10:04 Depression Screening Interpretation: Positive Depression Screening Follow-up: Existing condition and In treatment (sees psychiatry) Thrive Assessment: Date of Thrive Assessment Date Thrive assessed 01/24/23 01/24/23 10:04 Currently or been in a relationship where the following occur: no concerns reported Const General: no acute distress and alert HENMT Ears: TM's normal bilaterally and EAC's normal Throat: Yes posterior oropharynx normal and Yes tonsils normal (no TP congestion) Neck Neck: Yes no lymphadenopathy and Yes supple Thyroid: Thyroid normal Resp Auscultation: clear to auscultation bilaterally, no rales and no wheezes Cardio Rate: regular rate Rhythm: regular rhythm Heart sounds: no murmurs GI Palpation (GI): Soft to palpation and nontender Auscultation: normal bowel sounds General: Yes no CVA tenderness Back/Spine/Pelvis Back: no CVA tenderness Thoracic/Lumbar Spine: thoracic and lumbar spine normal to inspection Skin Rashes: no rashes Extrem Other: (+) prominent varicosities on both lower extremities, especially over the medial aspect of the left thigh General: Yes no clubbing, cyanosis or edema Results Reviewed Results Reviewed: Laboratory Tests 08/18/22 08/18/22 09:38 09:40 WBC 6.3 Hgb 11.9 L Hct 37.6 Plt Count 288 Sodium 140 Potassium 4.6 Creatinine 0.55 Estimated GFR > 60 Fasting Glucose 83 Calcium 9.1 D AST 27 ALT 33 H Triglycerides 106 Cholesterol 169 LDL Cholesterol, Calc 96 HDL Cholesterol 52 Vitamin B12 229 25-OH Vitamin D Total 16.3 Folate 9.7 TSH 2.35 Ur Specific [place] 1.025 Urine Protein Trace Urine Glucose (UA) Negative Urine Blood Negative Assessment and Plan Assessment & Plan (1) Pain and swelling of lower extremity: Comment: bilateral Code(s): M79.606 - Pain in leg, unspecified; M79.89 - Other specified soft tissue disorders Qualifiers: Laterality: unspecified laterality Qualified Code(s): M79.606 - Pain in leg, unspecified; M79.89 - Other specified soft tissue disorders Plan: Suspect neuropathy as a cause of her leg symptoms She has been seen and evaluated by vascular surgery a few months ago and has been advised that she does not appear to have any significant vascular insufficiency that could be contributing to her recurrent leg symptoms Will send her for EMG and NCV of both lower extremities BRIANNA for further evaluation If tests reveal (+) significant neuropathy, can consider some Rx to help with her leg pains Per request, will also refer her to pain management Per request, her disability assistance forms were filled out and handed back to patient (2) Asthma: Code(s): J45.909 - Unspecified asthma, uncomplicated Qualifiers: Asthma severity: unspecified severity Asthma persistence: unspecified Asthma complication type: with acute exacerbation Qualified Code(s): J45.901 - Unspecified asthma with (acute) exacerbation Plan: Stable - continue Arnuity Ellipta 100 mcg 1 inhalation QD and Albuterol HFA 2 inhalations every 6 hours as needed (Rx refilled) (3) Orthostatic hypotension: Code(s): I95.1 - Orthostatic hypotension Plan: Was previously instructed by cardiology to increase her oral fluids and to include some salt in her diet Serum cortisol level checked previously came out normal Echocardiogram, extended Holter monitor and tilt table testing done over the past couple of years all came out NORMAL Advised that we do not really have any other explanation for her symptoms and that they could be mostly related to her anxiety (4) Syncope: Code(s): R55 - Syncope and collapse Qualifiers: Syncope type: unspecified Qualified Code(s): R55 - Syncope and collapse Plan: Head CT done a couple of years ago (2020) came out normal States that her syncopal episodes occur occasionally (none recently), including one time when she was at hoahaoism about a year or two ago although this appeared to be mostly due to a panic attack and resulting hyperventilation (5) Migraine: Code(s): G43.909 - Migraine, unspecified, not intractable, without status migrainosus Qualifiers: Migraine type: unspecified Status migrainosus presence: without status migrainosus Intractability: not intractable Qualified Code(s): G43.909 - Migraine, unspecified, not intractable, without status migrainosus Plan: Stable on prophylactic Tx with Nortriptyline 25 mg Q HS Reinforced avoidance of migraine triggers Continue Fioricet PRN and Sumatriptan 100 mg PRN as instructed (6) GERD (gastroesophageal reflux disease): Code(s): K21.9 - Gastro-esophageal reflux disease without esophagitis Qualifiers: Esophagitis presence: without esophagitis Qualified Code(s): K21.9 - Gastro-esophageal reflux disease without esophagitis Plan: Dietary restrictions reinforced Continue Pantoprazole 40 mg QD (7) Vitamin D deficiency: Code(s): E55.9 - Vitamin D deficiency, unspecified Plan: Advised that her Vitamin D level was low on her labs done a few months ago WIll start her back on Vitamin D3 2000 units QD (8) Vitamin B12 deficiency: Code(s): E53.8 - Deficiency of other specified B group vitamins Plan: Continue Vitamin B12 1000 mcg QD (9) Varicosities of leg: Code(s): I83.90 - Asymptomatic varicose veins of unspecified lower extremity Qualifiers: Varicose vein complication: unspecified Laterality: bilateral Qualified Code(s): I83.93 - Asymptomatic varicose veins of bilateral lower extremities Plan: Was seen and evaluated by vascular surgery a few months ago and advised that she does not have any significant vascular insufficiency or venous disease that is causing her leg pains and to just follow up with them on an as-needed basis Continue Tramadol 50 mg TID PRN for pain (10) Anxiety: Code(s): F41.9 - Anxiety disorder, unspecified Plan: Continue Lorazepam 1 mg QD PRN (11) Depression: Code(s): F32.9 - Major depressive disorder, single episode, unspecified Qualifiers: Depression Type: major depressive disorder Major depression recurrence: recurrent Active/Remission status: currently active Major depression episode severity: unspecified Qualified Code(s): F33.9 - Major depressive disorder, recurrent, unspecified Plan: Continue Fluoxetine 60 mg QD Follow-up with Psychiatry as scheduled (12) Obesity (BMI 30-39.9): Comment: S/P lab band; later converted to gastric bypass surgery by Dr. Bradley in 2018 Code(s): E66.9 - Obesity, unspecified Plan: Reinforced diet/exercise as tolerated/lose weight Plan To return in August 2023 for her next annual physical examination She is reminded to get her labs done 1 to 2 weeks before she comes in for her appointment in August 2023 Orders: Orders NE nerve conduction velocity Today M79.606 - Pain in leg, unspecified, M79.89 - Other specified soft tissue disorders NE electromyogram (EMG) Today M79.606 - Pain in leg, unspecified, M79.89 - Other specified soft tissue disorders, R20.2 - Paresthesia of skin Complete Blood Count Auto Diff 08/09/23 I10 - Essential (primary) hypertension, Z00.00 - Encounter for general adult medical examination without abnormal findings Comprehensive [place]. Panel Fast 08/09/23 E78.00 - Pure hypercholesterolemia, unspecified, Z00.00 - Encounter for general adult medical examination without abnormal findings Lipid Panel 08/09/23 E78.00 - Pure hypercholesterolemia, unspecified, Z00.00 - Encounter for general adult medical examination without abnormal findings Vitamin B12 and Folate 08/09/23 E53.8 - Deficiency of other specified B group vitamins UA CC w/rflx Micro + Cult 08/09/23 R30.0 - Dysuria Magnesium 08/09/23 E83.42 - Hypomagnesemia Vitamin D 25-OH Total 08/09/23 E55.9 - Vitamin D deficiency, unspecified TSH reflex Free T4 08/09/23 E78.00 - Pure hypercholesterolemia, unspecified Referrals Pain Management Referral M79.606 - Pain in leg, unspecified, M79.89 - Other specified soft tissue disorders Medications: Changed From albuterol sulfate 90 mcg/actuation 1 inh inhalation QID PRN 6.7 grams 0RF shortness of breath or wheezing To albuterol sulfate 90 mcg/actuation 2 inhalations inhalation QID PRN 8.5 grams 5RF shortness of breath or wheezing Refilled cholecalciferol (vitamin D3) 50 mcg PO DAILY 90 caps 3RF 90 days E55.9 - Vitamin D deficiency, unspecified Coding Level of Care Code Est Pt Level 4 (32059) Diagnoses Pain and swelling of lower extremity, unspecified laterality M79.606; M79.89 Laterality: unspecified laterality Moderate persistent asthma without complication J45.901 Asthma severity: unspecified severity Asthma persistence: unspecified Asthma complication type: with acute exacerbation Orthostatic hypotension I95.1 Syncope, unspecified syncope type R55 Syncope type: unspecified Migraine without status migrainosus, not intractable, unspecified migraine type G43.909 Migraine type: unspecified Status migrainosus presence: without status migrainosus Intractability: not intractable Gastroesophageal reflux disease without esophagitis K21.9 Esophagitis presence: without esophagitis Vitamin D deficiency E55.9 Vitamin B12 deficiency E53.8 Varicose veins of both lower extremities, unspecified whether complicated I83.93 Varicose vein complication: unspecified Laterality: bilateral Anxiety F41.9 Episode of recurrent major depressive disorder, unspecified depression episode severity F33.9 Depression Type: major depressive disorder Major depression recurrence: recurrent Active/Remission status: currently active Major depression episode severity: unspecified Obesity (BMI 30-39.9) E66.9
== END 2023-01-24 10:56 | disposition home or self-care (01) ==
PROVIDERS: Visit Provider Internal Medicine
DX: M79.605 Pain in left leg (principal); M79.89 Other specified soft tissue disorders; J45.901 Unspecified asthma with (acute) exacerbation; F33.9 Major depressive disorder, recurrent, unspecified; I95.1 Orthostatic hypotension; R55 Syncope and collapse; G43.909 Migraine, unspecified, not intractable, without status migrainosus; K21.9 Gastro-esophageal reflux disease without esophagitis; E55.9 Vitamin D deficiency, unspecified; E53.8 Deficiency of other specified B group vitamins; I83.93 Asymptomatic varicose veins of bilateral lower extremities; F41.9 Anxiety disorder, unspecified
CPT/HCPCS: 99214

== ENCOUNTER 2023-02-02 12:28 | Outpatient (AMB) | payer OTHER, SELFPAY ==
[2023-02-02 13:02] VITALS: BP 124/64; PULSE 65; RESP 14; O2SAT 98; BMI 39.3
--- NOTE | 2023-02-02 13:02 | MHC.OFFVIS ---
Intake Vital Signs 02/02/23 13:02 Height 5 ft 2 in Weight 215 lb 2 oz BMI 39.3 BP 124/64 Blood Pressure Location Lt brachial Position Sitting Respiration 14 Pulse 65 Pulse Source Pulse Oximeter Pulse Oximetry (%) 98 Oxygen Delivery Method Room Air Intake Visit Reasons: Pain In Leg, /Unable to lvm Allergies No Known Allergies Allergy (Verified 02/02/23 12:53) HPI HPI Comments History of Present Illness Details Anne Marie is a very pleasant 52 year old female who presents to the office today for evaluation and management of her bilateral lower extremity pain. Patient states she has been suffering with this pain for approx 1 year, it came on suddenly and has persisted since. She denies inciting injury but feels like it started after she had been walking alot. She reports burning pain to both legs from knees to ankles. She has been seen by vascular without findings that would contribute to her pain. She has been taking muscle relaxers and Tramadol that do not help. Pain is burning, cramping and worse at night, worse with walking long distances. She has not found anything that relieves her pain. Recently evalated by PCP, EMG ordered and pending. She denies pain above the knees, denies back pain. Pain today is rated as a 10/10. In terms of muscle damage condition is described as burning, aching, stabbing, pins and needles. Pain is negatively impacting patient's sleep, daily activities, ability to care for self, ability to function normally. [facility] Medical History Right ovarian cyst Vitamin B12 deficiency Vitamin D deficiency Depression Anxiety Obesity (BMI 30-39.9) Bilateral hand pain Bilateral wrist pain GERD (gastroesophageal reflux disease) Asthma Migraine Surgical History H/O gastric bypass History of removal of laparoscopic gastric banding device LAP-BAND surgery status History of appendectomy History of hysterectomy History of section Family History Father Diabetes Hypertension Mother Hypertension Glaucoma Scoliosis Colon cancer Maternal Grandmother No problems noted. Maternal Grandfather No problems noted. Paternal Grandmother No problems noted. Paternal Grandfather No problems noted. Daughter In good health Sister In good health History of breast cancer Brother In good health Social History Housing: House Alcohol intake: never Patient Tobacco Use Status: Never used Tobacco e-Cigarette/Vaping Use: Never Used Second Hand Smoke Exposure: No service: No Current occupational status: employed Sexual orientation: Straight/Heterosexual Gender identity: Female Cognitive needs: No Hearing needs: No Vision needs: No Review of Systems Const All systems reviewed & are unremarkable except as noted in HPI and below Physical Exam Vital Signs: Last Vital Signs Pulse 65 02/02/23 13:02 Resp 14 02/02/23 13:02 BP 124/64 02/02/23 13:02 Pulse Ox 98 02/02/23 13:02 Oxygen Delivery Method Room Air 02/02/23 13:02 BMI result Body Mass Index 39.3 General: awake, alert, oriented. Answers questions appropriately. Fully engaged in examination. Skin: warm, dry, intact HEENT: Normocephalic. Hearing intact. Cardiac: External chest normal in appearance. Respiratory: No cough, audible wheezing or stridor. Abdomen: without gross distension. MS: No obvious swelling or deformities. Able to stand on bilateral tiptoes and bilateral heels.? Able to transition from sit to stand unassisted. Ambulates with bilaterally normal heel strike and toe off sharp and light touch sensation intact BLE Neurological: Oriented to person, place, time and situation. Thought process intact. No gait abnormalities appreciated. Psychiatric: Appropriate mood and affect. Good judgment and insight. Assessment & Plan Assessment & Plan (1) Peripheral neuropathy: Code(s): G62.9 - Polyneuropathy, unspecified Plan Anne Marie is a very pleasant 52 year old female who presents to the office today for evaluation and management of her bilateral lower extremity pain. History, physical exam and provocative testing consistent with BLE peripheral neuropathy. PCP has ordered EMG, patient awaiting call to schedule. Will try Gabapentin 100mg po tid All questions and concerns were answered during face to face visit. Patient will follow up in the office after EMG, sooner if needed. Medications: New gabapentin 100 mg PO TID 90 caps 0RF Coding Level of Care Code New Pt Level 4 (87070) Diagnoses Peripheral neuropathy G62.9
== END 2023-02-02 13:27 | disposition home or self-care (01) ==
PROVIDERS: PCP Internal Medicine; Referring Provider Internal Medicine; Visit Provider Registered Nurse Emergency
DX: G62.9 Polyneuropathy, unspecified (principal)
CPT/HCPCS: 99204

== ENCOUNTER → 2023-02-02 12:28 | Outpatient (BNVA) | payer OTHER, SELFPAY | PROVIDERS: PCP Internal Medicine; Referring Provider Internal Medicine; Visit Provider Registered Nurse Emergency | DX: G62.9 Polyneuropathy, unspecified (principal) | CPT/HCPCS: 99202 ==

== ENCOUNTER 2023-02-16 07:46 | Outpatient (AMB) | payer OTHER, SELFPAY ==
--- NOTE | 2023-02-16 07:54 | A.OFFVIS_ITS ---
Intake Vital Signs 02/16/23 07:55 Height 5 ft 2 in Weight 205 lb BMI 37.5 BP 114/57 L Blood Pressure Location Lt brachial Position Sitting Pulse 72 Intake Visit Reasons: Colonoscopy Screening Intake Note: Patient 1st pre colonoscopy screening consult. Patient denies any GI issues. Patient is going to vacation , she will like the colonoscopy April 2023. [employer] Research Required: No Accompanied by: Self / Same As Patient Allergies No Known Allergies Allergy (Verified 02/16/23 07:53) HPI HPI Comments History of Present Illness Details A 52 y/o female referred for colonoscopy No known family history of GI cancers syncope- seen by cardiology 2020- / -now f/u with pcp- no events Normal bowels Appetite good- 2017- lap band- no reflux- appetite good No respiratory issues- asthma well controlled She has no nausea, vomiting, hematemesis, hematochezia, abdominal pain, fever or chills No headaches, dizziness, shortness of breath PFSH Medical History Right ovarian cyst Vitamin B12 deficiency Vitamin D deficiency Depression Anxiety Obesity (BMI 30-39.9) Bilateral hand pain Bilateral wrist pain GERD (gastroesophageal reflux disease) Asthma Migraine Surgical History H/O gastric bypass History of removal of laparoscopic gastric banding device LAP-BAND surgery status History of appendectomy History of hysterectomy History of section Family History Father Diabetes Hypertension Mother Hypertension Glaucoma Scoliosis Colon cancer Maternal Grandmother No problems noted. Maternal Grandfather No problems noted. Paternal Grandmother No problems noted. Paternal Grandfather No problems noted. Daughter In good health Sister In good health History of breast cancer Brother In good health Social History Housing: House Alcohol intake: never Patient Tobacco Use Status: Never used Tobacco e-Cigarette/Vaping Use: Never Used Second Hand Smoke Exposure: No service: No Current occupational status: employed Sexual orientation: Straight/Heterosexual Gender identity: Female Cognitive needs: No Hearing needs: No Vision needs: No Review of Systems Const All systems reviewed & are unremarkable except as noted in HPI and below Card Denies chest pain and Denies dyspnea Resp Denies dyspnea GI Denies abdominal pain, Denies nausea and Denies vomiting Psych Reports anxiety Physical Exam Vital Signs: Last Vital Signs Pulse 72 02/16/23 07:55 BP 114/57 L 02/16/23 07:55 BMI result Body Mass Index 37.5 Const General: cooperative, healthy appearing, comfortable and no acute distress Orientation/consciousness: patient oriented x3 Limitations: no limitations Eyes Sclerae: sclerae normal Resp Effort & Inspection: normal respiratory effort and able to speak in complete sentences Auscultation: clear to auscultation bilaterally, no rales, no rhonchi and no wheezes Cardio Rate: regular rate Rhythm: regular rhythm Heart sounds: S1 normal heart sound present and S2 normal heart sound present GI Palpation (GI): Soft to palpation and nontender Auscultation: normal bowel sounds Skin General skin exam: no rashes or lesions noted Neuro General: patient oriented x3 Extrem General: Yes full ROM Psych Appearance: grossly normal and well kempt Mental Status: mental status grossly normal Speech and movement: Normal speech and movement present and Clear speech present Affect: normal affect Attitude: cooperative Thought process: Normal thought process present Thought content: Normal thought content present Insight: Good insight present (Psych) Judgement: Good judgement present (Psych) Assessment & Plan Assessment & Plan (1) Colon cancer screening: Comment: reviewed asthma- any exacerbation- Cardiology reviewed- no syncopal episodes in about 2 years- Code(s): Z12.11 - Encounter for screening for malignant neoplasm of colon Plan colonoscopy- MG prep Orders: Orders Colonoscopy - GI Use Only Today Z12.11 - Encounter for screening for malignant neoplasm of colon Medications: New bisacodyl (Dulcolax (bisacodyl)) Day before procedure, prep day Take 4 tablets by mouth upon awakening followed by large glass of water 20 mg (4 x 5 mg) PO ONCE 4 tabs 0RF colonoscopy prep 1 day Z12.11 - Encounter for screening for malignant neoplasm of colon polyethylene glycol 3350 (Miralax) Take as directed by mouth the day before your procedure. 238 grams PO ONCE PRN 238 grams 0RF laxative effect 1 day Patient Instructions: colonoscopy- MG prep Discussed procedure rare risks Coding Level of Care Code New Pt Level 3 (30822) Diagnoses Colon cancer screening Z12.11 Time Spent (min) 30
[2023-02-16 07:55] VITALS: BP 114/57; PULSE 72; BMI 37.5
== END 2023-02-16 09:19 | disposition home or self-care (01) ==
LOC: HO.HGI 07:46
PROVIDERS: PCP Internal Medicine; Visit Provider Physician Assistant
DX: Z12.11 Encounter for screening for malignant neoplasm of colon (principal); Z01.818 Encounter for other preprocedural examination
CPT/HCPCS: 99203

== ENCOUNTER → 2023-02-16 07:46 | Outpatient (BNVA) | payer OTHER, SELFPAY | PROVIDERS: PCP Internal Medicine; Visit Provider Physician Assistant | DX: Z12.11 Encounter for screening for malignant neoplasm of colon (principal); Z98.84 Bariatric surgery status | CPT/HCPCS: 99202 ==

== ENCOUNTER 2023-03-09 14:15 | Outpatient (REF) | payer OTHER, SELFPAY ==
--- NOTE | 2023-03-09 14:18 | EMG_ITS ---
Chief complaint: Leg pain Reason for referral: Evaluate for neuropathy Referred by: Dr. Navarro Procedure done: Bilateral lower extremity NCS/EMG Precautions and/or limitations: None The limb temperature was monitored continuously and remained between 32-36 degrees C during the performance of the NCS. Nerve Conduction Studies Anti Sensory Summary Table ?Stim Site NR Onset (ms) Norm Onset (ms) Peak (ms) Norm Peak (ms) O-P Amp (?V) Norm O-P Amp Site1 Site2 Delta-0 (ms) Dist (cm) Mendoza (m/s) Norm Mendoza (m/s) Left Sural Anti Sensory (Lat Mall) Calf ? 2.9 3.6 <4.0 5.1 >5.0 Calf Lat Mall 2.9 14.0 48 Right Sural Anti Sensory (Lat Mall) Calf ? 3.0 3.6 <4.0 6.1 >5.0 Calf Lat Mall 3.0 14.0 47 Motor Summary Table ?Stim Site NR Onset (ms) Norm Onset (ms) O-P Amp (mV) Norm O-P Amp iAmp (mV) Amp (1st) (%) Site1 Site2 Delta-0 (ms) Dist (cm) Mendoza (m/s) Norm Mendoza (m/s) Right Peroneal Motor (Ext Dig Brev) Ankle ? 3.8 <4.0 6.1 >2.5 7.4 100.0 Ankle Ext Dig Brev 3.8 0.0 B Fib ? 9.6 5.8 7.1 95.1 B Fib Ankle 5.8 32.0 55 >40 Poplt ? 10.4 5.5 6.8 90.2 Poplt B Fib 0.8 5.0 62 >40 Left Tibial Motor (Abd Rivera Brev) Ankle ? 3.1 <5 9.3 >2.5 15.5 100.0 Ankle Abd Rivera Brev 3.1 0.0 Knee ? 10.3 6.6 10.8 71.0 Knee Ankle 7.2 34.0 47 >40 Right Tibial Motor (Abd Rivera Brev) Ankle ? 3.2 <5 5.3 >2.5 10.1 100.0 Ankle Abd Rivera Brev 3.2 0.0 Knee ? 10.6 5.5 10.7 103.8 Knee Ankle 7.4 35.0 47 >40 EMG ?Side Muscle Nerve Root Ins Act Fibs Psw Amp Dur Poly Recrt Int Pat Comment Right AbdHallucis MedPlantar S1-2 Nml Nml Nml Nml Nml 0 Nml Complete Right AntTibialis Dp Br Peron L4-5 Nml Nml Nml Nml Nml 0 Nml Complete Right PostTibialis Tibial L5, S1 Nml Nml Nml Nml Nml 0 Nml Complete Right MedGastroc Tibial S1-2 Nml Nml Nml Nml Nml 0 Nml Complete Right VastusMed Femoral L2-4 Nml Nml Nml Nml Nml 0 Nml Complete Left AbdHallucis MedPlantar S1-2 Nml Nml Nml Nml Nml 0 Nml Complete Left AntTibialis Dp Br Peron L4-5 Nml Nml Nml Nml Nml 0 Nml Complete Left PostTibialis Tibial L5, S1 Nml Nml Nml Nml Nml 0 Nml Complete Left MedGastroc Tibial S1-2 Nml Nml Nml Nml Nml 0 Nml Complete Left VastusMed Femoral L2-4 Nml Nml Nml Nml Nml 0 Nml Complete FINDINGS: All motor and sensory nerves tested showed normal latencies, amplitudes and conduction velocities. Concentric needle EMG was performed in selected muscles of the bilateral lower extremity. Study did not reveal signs of electric abnormalities as shown in the table below. IMPRESSION: 1. This is a normal study. 2. There is no electrodiagnostic evidence for peroneal neuropathy, tibial neuropathy, lumbosacral plexopathy, lumbar radiculopathy, or peripheral neuropathy. Thank you for your kind referral. Brooklyn Shannon MD, ARIELLA Board Certified, [place] [employer] and [employer] (ABPMR) Board Certified, [place] [employer] Electro[employer]ostic [employer] (ABEM) CODIN 66044 x 2 MTDD
== END 2023-03-09 14:16 | disposition home or self-care (01) ==
LOC: HO.NEURO 14:15
PROVIDERS: PCP Internal Medicine; Visit Provider Internal Medicine
DX: R20.2 Paresthesia of skin (principal); M79.89 Other specified soft tissue disorders; M79.606 Pain in leg, unspecified
CPT/HCPCS: 95886; 95909

== ENCOUNTER → 2023-03-09 14:18 | Outpatient (BNV) | payer OTHER, SELFPAY | PROVIDERS: PCP Internal Medicine; Visit Provider Physical Medicine & Rehabilitation | DX: M79.604 Pain in right leg (principal); M79.605 Pain in left leg | CPT/HCPCS: 95886; 95909 ==

== ENCOUNTER 2023-04-14 10:43 | Outpatient (AMB) | payer OTHER, SELFPAY ==
[2023-04-14 10:46] VITALS: BP 110/66; PULSE 72; O2SAT 98; BMI 40.1
--- NOTE | 2023-04-14 10:46 | MHC.OFFVIS ---
Intake Vital Signs 04/14/23 10:46 Height 5 ft 2 in Weight 219 lb BMI 40.1 BP 110/66 Blood Pressure Location Lt brachial Position Sitting Pulse 72 Pulse Source Pulse Oximeter Pulse Oximetry (%) 98 Oxygen Delivery Method Room Air Intake Visit Reasons: EMG FOLLOW UP/RESULTS - LVM Allergies No Known Allergies Allergy (Verified 04/14/23 10:46) HPI HPI Comments History of Present Illness Details Anne Marie presents back to the office today for follow up bilateral peripheral neuropathy. EMG reviewed with patient, results as per below. Patient reports improvement in her symptoms with Gabapentin. She is only taking at bedtime, it makes her sleepy if she takes it during the day. Prior: Anne Marie is a very pleasant 52 year old female who presents to the office today for evaluation and management of her bilateral lower extremity pain. Patient states she has been suffering with this pain for approx 1 year, it came on suddenly and has persisted since. She denies inciting injury but feels like it started after she had been walking alot. She reports burning pain to both legs from knees to ankles. She has been seen by vascular without findings that would contribute to her pain. She has been taking muscle relaxers and Tramadol that do not help. Pain is burning, cramping and worse at night, worse with walking long distances. She has not found anything that relieves her pain. Recently evalated by PCP, EMG ordered and pending. She denies pain above the knees, denies back pain. Pain today is rated as a 10/10. In terms of muscle damage condition is described as burning, aching, stabbing, pins and needles. Pain is negatively impacting patient's sleep, daily activities, ability to care for self, ability to function normally. [facility] Medical History Right ovarian cyst Vitamin B12 deficiency Vitamin D deficiency Depression Anxiety Obesity (BMI 30-39.9) Bilateral hand pain Bilateral wrist pain GERD (gastroesophageal reflux disease) Asthma Migraine Surgical History H/O gastric bypass History of removal of laparoscopic gastric banding device LAP-BAND surgery status History of appendectomy History of hysterectomy History of section Family History Father Diabetes Hypertension Mother Hypertension Glaucoma Scoliosis Colon cancer Maternal Grandmother No problems noted. Maternal Grandfather No problems noted. Paternal Grandmother No problems noted. Paternal Grandfather No problems noted. Daughter In good health Sister In good health History of breast cancer Brother In good health Social History Housing: House Alcohol intake: never Patient Tobacco Use Status: Never used Tobacco e-Cigarette/Vaping Use: Never Used Second Hand Smoke Exposure: No service: No Current occupational status: employed Sexual orientation: Straight/Heterosexual Gender identity: Female Cognitive needs: No Hearing needs: No Vision needs: No Review of Systems Const All systems reviewed & are unremarkable except as noted in HPI and below Physical Exam Vital Signs: Last Vital Signs Pulse 72 04/14/23 10:46 BP 110/66 04/14/23 10:46 Pulse Ox 98 04/14/23 10:46 Oxygen Delivery Method Room Air 04/14/23 10:46 BMI result Body Mass Index 40.1 General: awake, alert, oriented. Answers questions appropriately. Fully engaged in examination. Skin: warm, dry, intact HEENT: Normocephalic. Hearing intact. Cardiac: External chest normal in appearance. Respiratory: No cough, audible wheezing or stridor. Abdomen: without gross distension. MS: No obvious swelling or deformities. Able to stand on bilateral tiptoes and bilateral heels.? Able to transition from sit to stand unassisted. Ambulates with bilaterally normal heel strike and toe off sharp and light touch sensation intact BLE Neurological: Oriented to person, place, time and situation. Thought process intact. No gait abnormalities appreciated. Psychiatric: Appropriate mood and affect. Good judgment and insight. Results Reviewed Results Reviewed: 03/09/2023 EMG FINDINGS: All motor and sensory nerves tested showed normal latencies, amplitudes and conduction velocities. Concentric needle EMG was performed in selected muscles of the bilateral lower extremity. Study did not reveal signs of electric abnormalities as shown in the table below. IMPRESSION: 1. This is a normal study. 2. There is no electrodiagnostic evidence for peroneal neuropathy, tibial neuropathy, lumbosacral plexopathy, lumbar radiculopathy, or peripheral neuropathy. Assessment & Plan Assessment & Plan (1) Peripheral neuropathy: Code(s): G62.9 - Polyneuropathy, unspecified Plan Anne Marie is a very pleasant 52 year old female who presents to the office today follow up BLE pain. Referral placed to neurology for bilateral peripheral edema Increase Gabapentin to 300mg po QHS. All questions and concerns were answered during visit, patient verbalizes understanding and agrees with plan. Patient will follow up in 3 months, sooner if needed. Orders: Referrals Neurology Referral G62.9 - Polyneuropathy, unspecified Medications: New gabapentin 300 mg PO BEDTIME 30 caps 3RF Coding Level of Care Code Est Pt Level 4 (29000) Diagnoses Peripheral neuropathy G62.9
== END 2023-04-14 11:10 | disposition home or self-care (01) ==
PROVIDERS: PCP Internal Medicine; Visit Provider Registered Nurse Emergency
DX: G62.9 Polyneuropathy, unspecified (principal)
CPT/HCPCS: 99214

== ENCOUNTER → 2023-04-14 10:43 | Outpatient (BNVA) | payer OTHER, SELFPAY | PROVIDERS: PCP Internal Medicine; Visit Provider Registered Nurse Emergency | DX: G62.9 Polyneuropathy, unspecified (principal) | CPT/HCPCS: 99212 ==

== ENCOUNTER 2023-04-30 21:51 | Emergency (ER) | payer OTHER, SELFPAY ==
--- NOTE | ~2023-04-30 | XR_ITS ---
EXAMINATION: XR CHEST CLINICAL INFORMATION: Cough and fever. COMPARISON: None available. TECHNIQUE: 2 views of the chest were obtained. FINDINGS: No significant abnormality is noted involving the heart, lungs, mediastinum, bony thorax or soft tissues. XR/XR chest 2V IMPRESSION: Unremarkable examination.
[2023-04-30 21:54] VITALS: BP 122/66; PULSE 82; RESP 18; TEMP 37.1; O2SAT 97; BMI 40.2
[2023-04-30 22:19] LABS: IDNOW Serial# 08D9AD1C
[2023-04-30 22:20] LABS: Strep A Nucleic Acid Negative (Negative)
[2023-04-30 22:29] LABS: IDNOW Serial# 9DB6401D; Influenza A Negative (Negative); Influenza B2 Negative (Negative)
[2023-04-30 22:33] LABS: COVID-19 Test Negative (Negative); IDNOW Serial# 6674DD1D
--- NOTE | 2023-04-30 23:52 | PC.NURSE ---
Pt is a 52 y/o female who presents for evalaution of head congestion and a cough X 2-3 days. Pt reports fever at home, has been taking tylenol. Nasal drainage is a watery consistency with a lot of post-nasal drip. Voice is raspy sounding. Home covid test was negative. has the same symptoms, no other known sick contacts. Reports a sore throat and some nausea and absent taste. Has been drinking fluids, but has a decreased desire for solid food. Denies ear pain, vomiting, and body/muscle aches. History is significant for asthma.
--- NOTE | 2023-04-30 23:55 | ED_ITS ---
HPI - URI/Sore Throat General Chief Complaint: Upper Respiratory Symptoms Stated Complaint: Chest pain, sore throat, fever Time Seen by Provider: 04/30/23 23:30 Source: patient Mode of arrival: ambulatory Limitations: no limitations History of Present Illness HPI Narrative: 52 yo female PMH of asthma, asthma, migraine here with c/o sore throat, has significant cough and wheezing having to use her nebulizer machine every 4 hours as it is triggering her asthma. She had subjective fevers. Her partner is also sick. No travel hx MD elicited complaint: fever, cough, sore throat and rhinorrhea Pertinent past history: asthma Onset (ago): day(s) (2) Consistency: intermittent Severity: moderate Description of mucous: clear Able to tolerate fluids by mouth: Yes Exacerbating factors: swallowing Relieving factors: other (nebulizer) Context: sick contacts (partner has same thing) Related Data Home Medications Medication Instructions Recorded Confirmed fluoxetine 40 mg capsule 40 mg PO DAILY 12/29/20 01/24/23 Previous Rx's Medication Instructions Recorded fluticasone furoate 100 1 inh PO DAILY #30 ea 04/02/20 mcg/actuation blister powder for inhalation (Arnuity Ellipta) miscellaneous medical supply See Rx Instructions miscellaneous 06/18/20 .4 times a day PRN shortness of breath or wheezing 12 months #1 ea ondansetron 4 mg disintegrating 4 mg PO Q8H PRN nausea and 12/23/20 tablet vomiting #20 tabs blood pressure monitor #1 ea 12/29/20 cyanocobalamin (vitamin B-12) 1,000 mcg PO DAILY 90 days #90 caps 05/10/21 1,000 mcg capsule cyanocobalamin (vitamin B-12) 1,000 mcg IM DAILY 2 weeks #14 mL 09/03/21 1,000 mcg/mL injection solution lorazepam 1 mg tablet 1 mg PO DAILY PRN anxiety 30 days 12/14/21 #30 tabs cyclobenzaprine 5 mg tablet 5 mg PO TID PRN muscle spasm 7 08/15/22 days #21 tabs tpmhlbgess-dwmncjcqtcdwm-cvqoaknw 1 tab PO .2 to 3 times a day PRN 12/14/22 50 mg-325 mg-40 mg tablet headaches 30 days #90 tabs meclizine 25 mg tablet 25 mg PO TID PRN dizziness 30 days 12/14/22 #90 tabs sumatriptan succinate 100 mg tablet See Rx Instructions PO .COMPLEX 30 12/14/22 days #15 tabs tramadol 50 mg tablet 50 mg PO BID PRN pain #30 tabs 01/02/23 albuterol sulfate 90 mcg/actuation 2 inh inhalation QID PRN shortness 01/24/23 aerosol inhaler of breath or wheezing #8.5 grams cholecalciferol (vitamin D3) 50 50 mcg PO DAILY 90 days #90 caps 01/24/23 mcg (2,000 unit) capsule gabapentin 100 mg capsule 100 mg PO TID #90 caps 02/02/23 bisacodyl 5 mg tablet,delayed 20 mg (4 x 5 mg) PO ONCE 02/16/23 release (Dulcolax (bisacodyl)) colonoscopy prep 1 day #4 tabs polyethylene glycol 3350 17 238 g PO ONCE PRN laxative effect 02/16/23 gram/dose oral powder (Miralax) 1 day #238 grams pantoprazole 40 mg tablet,delayed 40 mg PO DAILY #90 tabs 02/21/23 release nortriptyline 25 mg capsule 25 mg PO BEDTIME headache 03/13/23 prophylaxis 30 days #30 caps gabapentin 300 mg capsule 300 mg PO BEDTIME #30 caps 04/14/23 azithromycin 250 mg tablet See Rx Instructions PO .COMPLEX #6 05/01/23 tabs prednisone 20 mg tablet 40 mg (2 x 20 mg) PO DAILY 4 days 05/01/23 #8 tabs Allergies Allergy/AdvReac Type Severity Reaction Status Date / Time No Known Allergies Allergy Verified 04/14/23 10:46 Review of Systems Review of Systems: Constitutional : pos Fever, pos Chills ENT/Mouth : pos Hoarseness, pos sore throat, pos Rhinorrhea Eyes: No Redness, No Discharge, No Vision Changes Cardiovascular : No Chest Pain, positive SOB, positive Dyspnea on Exertion, No Edema Respiratory : positive Cough, No Sputum, positive Wheezing, Gastrointestinal : No Nausea, No Vomiting, No Diarrhea, No abdominal Pain Genitourinary : No Dysuria, No Hematuria Musculoskeletal : No joint pain, No Myalgias Skin : No rash Neuro : No Weakness, No Numbness, No Headache Psych : No anxiety, depression All other systems reviewed and are negative PMFSH Past Medical History Attestation statement: The following information was validated with the patient. Source: old records reviewed Onset Date is defined in the Problem List Problems that require an onset date and time if occurred within 24 hrs of arrival to the ED Aortic Dissection and Rupture; Neurologic impairment; Cardiopulmonary Arrest; Endotracheal Intubation; Insertion or Replacement of Mechanical Circulatory Assist Device Medical History Right ovarian cyst Vitamin B12 deficiency Vitamin D deficiency Depression Anxiety Obesity (BMI 30-39.9) Bilateral hand pain Bilateral wrist pain GERD (gastroesophageal reflux disease) Asthma Migraine Surgical History H/O gastric bypass History of removal of laparoscopic gastric banding device LAP-BAND surgery status History of appendectomy History of hysterectomy History of section Family History Family History Father Diabetes Hypertension Mother Hypertension Glaucoma Scoliosis Colon cancer Maternal Grandmother No problems noted. Maternal Grandfather No problems noted. Paternal Grandmother No problems noted. Paternal Grandfather No problems noted. Daughter In good health Sister In good health History of breast cancer Brother In good health Social History Social History Housing: House Alcohol intake: never Patient Tobacco Use Status: Never used Tobacco e-Cigarette/Vaping Use: Never Used Second Hand Smoke Exposure: No Advance Directives: No Advance Directives Information Provided: Yes service: No Current occupational status: employed Sexual orientation: Straight/Heterosexual Gender identity: Female Cognitive needs: No Hearing needs: No Vision needs: No Physical Exam Vital Signs: Vital Signs: Last Vital Signs Temp 98.8 F 04/30/23 21:54 Pulse 82 04/30/23 21:54 Resp 18 04/30/23 21:54 BP 122/66 04/30/23 21:54 Pulse Ox 97 04/30/23 21:54 O2 Del Method Room Air 04/30/23 21:54 BMI result Body Mass Index 40.2 Appearance: Alert. Oriented X3. No acute distress. Eyes: Pupils equal, round and reactive to light. ENT: Pharynx very mild erythema no exudates Neck: Normal inspection. Neck supple. CVS: Normal heart rate and rhythm. Pulses normal. Respiratory: No respiratory distress. Breath sounds diminished but no resp distress Abdomen: Soft and nontender. Skin: Skin warm and dry. Normal skin color. Normal skin turgor. Extremities: No lower extremity edema. Neuro: Oriented X 3. No motor deficit. No sensory deficit. Medical Decision Making Medical Decision Making [facility] Narrative: 52 yo female with PMH of asthma here with URI symptoms but having wheezing at this time suspect bronchitis will need viral panel, CXR for pneumonia - neb treatment cough medications start on prednisone and zpak given resp inflammatoin and suspect bronchitis. Differential Diagnosis Differential Diagnoses: The differential diagnosis associated with the presentation includes viral syndrome, pneumonia, bronchitis Admission/Observation Consideration of admission/observation: Escalation of care including admission/observation considered no hypoxia, no distress, not toxic, can be managed as outpatient Lab Data [facility] Lab Attestation statement: I reviewed the patient's lab results. Labs: Lab Results 04/30/23 Range/Units 22:04 COVID-19 (LEÓN) Negative (Negative) COVID-19 Clin Com See Note Influenza Type A (DIAMANTE) Negative (Negative) Influenza Type B (DIAMANTE) Negative (Negative) Influenza A & B Note See Note S. pyogenes GrpA DIAMANTE Negative (Negative) Independent Interpretation I performed an independent interpretation of an: Plain X-Ray (no pneumonia) Radiology Impression Discussion of test interpretation with radiology: I have reviewed the radiologist's reading. External Record Review External record reviewed: Inpatient record Prescription Management I considered prescription management with: Antibiotic and Other Discharge Plan Discharge Clinical Impression: Bronchitis Patient Disposition: Home, Self-Care Instructions: Acute Bronchitis (ED) Additional Instructions: return for worsening symptoms, fevers, vomiting, inability to eat or drink normal chest xray and negative flu and covid continue to use your nebulizer machine regresar si los s?ntomas empeoran, fiebre, v?mitos, incapacidad para comer o beber radiograf?a de t?rax normal y gripe y covid negativa contin?e usando castillo m?quina nebulizadora Prescriptions: New prednisone 20 mg tablet 40 mg PO DAILY 4 Days Qty: 8 0RF azithromycin 250 mg tablet See Rx Instructions PO .COMPLEX Qty: 6 0RF Rx Instructions: For 250 mg dose pack: take 500 mg today (day 1), then 250 mg for 4 days (days 2-5) No Action fluticasone furoate [Arnuity Ellipta] 100 mcg/actuation blister with device 1 inh PO DAILY Qty: 30 3RF miscellaneous medical supply Mis See Rx Instructions miscellaneous .4 times a day PRN (Reason: shortness of breath or wheezing) 360 Days Qty: 1 0RF Rx Instructions: Nebulizer Machine - use as directed miscellaneous .4 times a day PRN; Nebulizer Machine - Dx: J45.901 -- asthma cyanocobalamin (vitamin B-12) 1,000 mcg/mL solution 1,000 mcg IM DAILY 14 Days Qty: 14 2RF lorazepam 1 mg tablet 1 mg PO DAILY PRN (Reason: anxiety) 30 Days Qty: 30 0RF sumatriptan succinate 100 mg tablet See Rx Instructions PO .COMPLEX 30 Days Qty: 15 3RF Rx Instructions: take 1 tab at onset of headache; if no relief, may repeat 1 tab after at least 2 hrs; max = 2 tabs/24 hrs PO meclizine 25 mg tablet 25 mg PO TID PRN (Reason: dizziness) 30 Days Qty: 90 1RF skdqvkyjot-vnajusskgklqn-xlll 50-325-40 mg tablet 1 tab PO .2 to 3 times a day PRN (Reason: headaches) 30 Days Qty: 90 1RF Rx Instructions: Take 1 tablet orally 2-3 times a day only as needed for migraine headaches tramadol 50 mg tablet 50 mg PO BID PRN (Reason: pain) Qty: 30 0RF pantoprazole 40 mg tablet,delayed release (DR/EC) 40 mg PO DAILY Qty: 90 1RF nortriptyline 25 mg capsule 25 mg PO BEDTIME 30 Days Qty: 30 3RF Rx Instructions: for headache prophylaxis ondansetron 4 mg tablet,disintegrating 4 mg PO Q8H PRN (Reason: nausea and vomiting) Qty: 20 0RF cyclobenzaprine 5 mg tablet 5 mg PO TID PRN (Reason: muscle spasm) 7 Days Qty: 21 0RF cyanocobalamin (vitamin B-12) 1,000 mcg capsule 1,000 mcg PO DAILY 90 Days Qty: 90 3RF fluoxetine 40 mg capsule 40 mg PO DAILY (DME) blood pressure monitor Kit See Rx Instructions .Route Qty: 1 0RF Rx Instructions: As directed albuterol sulfate 90 mcg/actuation HFA aerosol inhaler 2 inh inhalation QID PRN (Reason: shortness of breath or wheezing) Qty: 8.5 5RF cholecalciferol (vitamin D3) 50 mcg (2,000 unit) capsule 50 mcg PO DAILY 90 Days Qty: 90 3RF bisacodyl [Dulcolax (bisacodyl)] 5 mg tablet,delayed release (DR/EC) 20 mg PO ONCE 1 Days Qty: 4 0RF Rx Instructions: Day before procedure, prep day Take 4 tablets by mouth upon awakening followed by large glass of water polyethylene glycol 3350 [Miralax] 17 gram/dose powder 238 g PO ONCE PRN (Reason: laxative effect) 1 Days Qty: 238 0RF Rx Instructions: Take as directed by mouth the day before your procedure. gabapentin 100 mg capsule 100 mg PO TID Qty: 90 0RF gabapentin 300 mg capsule 300 mg PO BEDTIME Qty: 30 3RF Print Language: Tamazight
[2023-04-30 23:59] VITALS: BP 105/66; PULSE 72; RESP 17; TEMP 36.7; O2SAT 97
[2023-05-01] MEDS: Benzonatate 100 MG CAPSULE PO (00:15)
[2023-05-01] MEDS: predniSONE 20 MG TABLET 40 MG PO (00:15)
--- NOTE | 2023-05-01 00:16 | PC.NURSE ---
Medicated per JUN. Respiratory at the bedside.
[2023-05-01 00:20] VITALS: PULSE 69; RESP 16; O2SAT 100
[2023-05-01] MEDS: Albuterol Sulfate (0.083%) 2.5 MG/3 ML VIAL.NEB INHALE (00:20)
--- NOTE | 2023-05-01 00:31 | PC.NURSE ---
Lung sounds are wheezy and tight throughout, able to speak in full sentences.
== END 2023-05-01 00:39 | disposition home or self-care (01) ==
PROVIDERS: Emergency Provider Emergency Medicine; PCP Internal Medicine
DX: J40 Bronchitis, not specified as acute or chronic (principal); R07.89 Other chest pain; J02.9 Acute pharyngitis, unspecified; R50.9 Fever, unspecified; Z79.899 Other long term (current) drug therapy; Z11.52 Encounter for screening for COVID-19
CPT/HCPCS: 71046; 87502; 87635; 87651; 94640; 99284

== ENCOUNTER 2023-05-10 13:56 | Outpatient (REF) | payer OTHER, SELFPAY | END 2023-05-10 13:57 | disposition home or self-care (01) | LOC: HO.MAMMO 13:56 | PROVIDERS: PCP Internal Medicine; Visit Provider Internal Medicine | DX: Z12.31 Encounter for screening mammogram for malignant neoplasm of breast (principal) | CPT/HCPCS: 77063; 77067 ==

== ENCOUNTER → 2023-05-10 14:15 | Outpatient (BNV) | payer OTHER, SELFPAY | PROVIDERS: PCP Internal Medicine; Visit Provider Radiology Diagnostic Radiology | DX: Z12.31 Encounter for screening mammogram for malignant neoplasm of breast (principal) | CPT/HCPCS: 77063; 77067 ==

== ENCOUNTER 2023-06-21 08:49 | Day surgery (SDC) | payer OTHER, SELFPAY ==
[2023-06-19 12:28] VITALS: BMI 37.5
--- NOTE | 2023-06-19 13:27 | HO.ANESPROP2 ---
Documented by User: Ayaka Mac NP 06/19/23 13:27 HPI - Anesthesia Eval Consult details Narrative: 53yo F for Colonoscopy PMFSH Active Problems Active Problems: All Active Problems (Updated 05/02/23 @ 00:03 by Jennifer Arroyo) Peripheral neuropathy (Acute) Varicose veins of right lower extremity with inflammation (Acute) Varicosities of leg (Acute) Pain and swelling of lower extremity (Acute) Right ovarian cyst (Acute) Colon cancer screening (Acute) Annual physical exam (Acute) Toenail avulsion (Acute) Otitis media (Acute) Vitamin B12 deficiency (Acute) Orthostatic hypotension (Acute) Syncope (Acute) Blurry vision (Acute) Dizziness (Acute) COVID-19 (Acute) Hot flashes (Acute) Decreased libido (Acute) Well woman exam with routine gynecological exam (Acute) Vitamin D deficiency (Acute) Depression (Acute) Anxiety (Acute) Obesity (BMI 30-39.9) (Acute) Bilateral hand pain (Acute) Bilateral wrist pain (Acute) GERD (gastroesophageal reflux disease) (Acute) Asthma (Acute) Migraine (Acute) Past Medical History Medical History Right ovarian cyst Vitamin B12 deficiency Vitamin D deficiency Depression Anxiety Obesity (BMI 30-39.9) Bilateral hand pain Bilateral wrist pain GERD (gastroesophageal reflux disease) Asthma Migraine Family History Family History Father Diabetes Hypertension Mother Hypertension Glaucoma Scoliosis Colon cancer Maternal Grandmother No problems noted. Maternal Grandfather No problems noted. Paternal Grandmother No problems noted. Paternal Grandfather No problems noted. Daughter In good health Sister In good health History of breast cancer Brother In good health Surgical History Surgical History H/O gastric bypass History of removal of laparoscopic gastric banding device LAP-BAND surgery status History of appendectomy History of hysterectomy History of section Social History Social History Housing: House Alcohol intake: never Patient Tobacco Use Status: Never used Tobacco e-Cigarette/Vaping Use: Never Used Second Hand Smoke Exposure: No Use of substances other than those prescribed or required for medical reasons: No Are you DNR?: No Advance Directives: No Advance Directives Information Provided: Yes service: No Current occupational status: employed Sexual orientation: Straight/Heterosexual Gender identity: Female Cognitive needs: No Hearing needs: No Vision needs: No Meds Allergies Allergy/AdvReac Type Severity Reaction Status Date / Time No Known Allergies Allergy Verified 06/21/23 10:02 Home Medications Medication Instructions Recorded Confirmed Last Taken Type fluoxetine 40 mg capsule 40 mg PO DAILY 12/29/20 06/21/23 Unknown History Exam Height,Weight and Vital Signs: Height 5 ft 2 in Weight 92.986 kg Assessment and Plan Assessment Anesthesia Assessment: Chart Reviewed Documented by User: Colin Monet MD 06/21/23 11:03 [facility] Past Medical History Medical History Right ovarian cyst Vitamin B12 deficiency Vitamin D deficiency Depression Anxiety Obesity (BMI 30-39.9) Bilateral hand pain Bilateral wrist pain GERD (gastroesophageal reflux disease) Asthma Migraine Family History Family History Father Diabetes Hypertension Mother Hypertension Glaucoma Scoliosis Colon cancer Maternal Grandmother No problems noted. Maternal Grandfather No problems noted. Paternal Grandmother No problems noted. Paternal Grandfather No problems noted. Daughter In good health Sister In good health History of breast cancer Brother In good health Family history of problems with anesthesia: No Surgical History Surgical History H/O gastric bypass History of removal of laparoscopic gastric banding device LAP-BAND surgery status History of appendectomy History of hysterectomy History of section History of Problems with Anesthesia: No Social History Social History Housing: House Alcohol intake: never Patient Tobacco Use Status: Never used Tobacco e-Cigarette/Vaping Use: Never Used Second Hand Smoke Exposure: No Use of substances other than those prescribed or required for medical reasons: No Are you DNR?: No Advance Directives: No Advance Directives Information Provided: Yes service: No Current occupational status: employed Sexual orientation: Straight/Heterosexual Gender identity: Female Cognitive needs: No Hearing needs: No Vision needs: No Meds Allergies Allergy/AdvReac Type Severity Reaction Status Date / Time No Known Allergies Allergy Verified 06/21/23 10:02 Home Medications Medication Instructions Recorded Confirmed Last Taken Type fluoxetine 40 mg capsule 40 mg PO DAILY 12/29/20 06/21/23 Unknown History Exam Airway Mallampati Class: I TM Dist: >3cm Neck ROM: Full Loose/Missing/Broken Teeth: No Heart: ok Lungs: ok Assessment and Plan Assessment Anesthesia Assessment: Anesthesia Plan Discussed Final Anesthetic Review Family History of Problems with Anesthesia: No History of Problems with Anesthesia: No NPO: Yes ASA Class: III Final Preanesthetic Review: No Changes in Pt Med Stat, Meds/Allgs Chart Reviewed, Consent Obtained/Reviewed and Anes Risks/Benef Reviewed Patient Risk: Intermediate Procedure Risk: Low Anesthetic Plan Anesthetic Plan: MAC: and Agree w/ Assess. and Plan Disposition: Standard PACU
[2023-06-21 10:32] VITALS: BP 117/66; PULSE 65; RESP 16; TEMP 36.4; O2SAT 99; BMI 40.2
[2023-06-21 10:35] VITALS: BMI 40.2
[2023-06-21] MEDS: Lactated Ringers 1,000 ML 100 ML IVCONT (10:46)
--- NOTE | 2023-06-21 10:59 | MHC.SHP ---
Pre-Procedural Eval Section A - 24 Hr Update-Section A only Date of Service: 06/21/23 Section B - Complete if H&P > 30 days Chief Complaint: Encounter for screening for malignant neoplasm of Relevant Family History (Specify if Yes): No Relevant Social History: None Present Medications: see Short Stay Collaborative assessment Medical History: Significant History (Right ovarian cyst Vitamin B12 deficiency Vitamin D deficiency Depression Anxiety Obesity (BMI 30-39.9) Bilateral hand pain Bilateral wrist pain GERD (gastroesophageal reflux disease) Asthma Migraine) History of Previous Operations: Relevant previous surgery/procedure and date(s) (H/O gastric bypass History of removal of laparoscopic gastric banding device LAP-BAND surgery status History of appendectomy History of hysterectomy History of section) Allergies: Allergies Allergy/AdvReac Type Severity Reaction Status Date / Time No Known Allergies Allergy Verified 06/21/23 10:02 Review of Systems Sugical H&P ROS: Negative: Constitution, Cardiovascular, Respiratory, Neurological, Psychiatric, Hem-Onc, Allergic/Immunologic, Gastrointestinal, Genitourinary, Musculoskeletal, Integumentary, Endocrine and Eyes/Ears/Nose/Throat Exam Surgical H&P Exam: Normal: HEENT, Normal: Heart, Normal: Lungs, Normal: Extremities, Normal: Abdomen, Normal: Skin and Normal: Neurological Plan Diagnosis/Plan: Unchanged I have reviewed the history and physical and performed a pertinent physical examination on my patient. No changes have occurred unless specified. Time Spent With Patient Time: Total time managing care of this patient today ____ minutes.
--- NOTE | 2023-06-21 11:23 | W.PM.OPN ---
Operative Note Operative Note Date of Service: 06/21/23 Narrative: Operative Information Procedure Description: Colonoscopy Indication: screening Anesthesia: MAC COLONOSCOPY Instrument: Olympus variable stiffness pediatric scope 190L Colonoscopy Monitoring: Vital signs and clinical assessment, continuous EKG monitoring, Pulse oximetry, Carbon Dioxide monitoring and blood pressure monitoring were done throughout the procedure. Colon withdrawal time was 6 minutes. Procedure: The patient was placed in the left lateral decubitis position and pre-procedure medications were administered. After a digital rectal examination of the ano-rectum, the video colonoscope was inserted into the rectum and advanced through the colon to the cecum/TI. The colonoscope was slowly withdrawn in a retrograde panoramic fashion and the colon mucosa was carefully examined including a retroflexed view of the rectum. Findings and interventions are described below. Procedure Difficulty: moderate due to poor prep Findings: Terminal Ileum-not seen Cecum:not seen due to prep Ascending Colon: normal Transverse Colon -normal Descending Colon:normal Sigmoid Colon: normal Rectum: Retroflexion with small internal hemorrhoids seen, grade I Anorectum - normal Intervention: none Colon preparation: [place] Bowel Preparation Scale Right colon; 0 Transverse colon: 1 Left colon; 1 (0 = Unprepared colon segment with mucosa not seen due to solid stool that cannot be cleared. 1 = Portion of mucosa of the colon segment seen, but other areas of the colon segment not well seen due to staining, residual stool and/or opaque liquid. 2 = Minor amount of residual staining, small fragments of stool and/or opaque liquid, but mucosa of colon segment seen well. 3 = Entire mucosa of colon segment seen well with no residual staining, small fragments of stool or opaque liquid) Impression and Post Procedure Diagnosis: internal hemorrhoids Plan: High fiber diet leaflet Avoid straining at stool, epsom salts and sitz bath, anusol supps or cream Repeat Colonoscopy in 3-6 months or earlier if clinically indicated --compliance with prep next time, 2 d prep if indicated Above findings were reviewed with the patient and relevant handouts were provided if indicated.
[2023-06-21 11:30] VITALS: BP 106/64; PULSE 70; RESP 18; TEMP 36.4; O2SAT 97
[2023-06-21 11:45] VITALS: BP 121/78; PULSE 63; RESP 17; O2SAT 100
[2023-06-21 12:00] VITALS: BP 122/78; PULSE 70; RESP 14; TEMP 36.2; O2SAT 100
== END 2023-06-21 12:24 | disposition home or self-care (01) ==
PROVIDERS: PCP Internal Medicine; Visit Provider Internal Medicine Gastroenterology
PROC: 0DJD8ZZ Inspection of Lower Intestinal Tract, Via Natural or Artificial Opening Endoscopic (ICD-10-PCS; CPT 45378; principal; 2023-06-21 12:10)
DX: Z12.11 Encounter for screening for malignant neoplasm of colon (principal); K64.0 First degree hemorrhoids; N83.201 Unspecified ovarian cyst, right side; E55.9 Vitamin D deficiency, unspecified; E53.8 Deficiency of other specified B group vitamins; J45.909 Unspecified asthma, uncomplicated; G43.909 Migraine, unspecified, not intractable, without status migrainosus; K21.9 Gastro-esophageal reflux disease without esophagitis; E66.9 Obesity, unspecified; Z68.37 Body mass index [BMI] 37.0-37.9, adult; F32.A Depression, unspecified; F41.9 Anxiety disorder, unspecified; Z98.84 Bariatric surgery status; Z98.890 Other specified postprocedural states
CPT/HCPCS: 45378; J2704

== ENCOUNTER → 2023-06-21 08:49 | Outpatient (BNV) | payer OTHER, SELFPAY | PROVIDERS: PCP Internal Medicine; Visit Provider Internal Medicine Gastroenterology | DX: Z12.11 Encounter for screening for malignant neoplasm of colon (principal); K64.0 First degree hemorrhoids; Z91.199 Patient's noncompliance with other medical treatment and regimen due to unspecified reason | CPT/HCPCS: 45378 ==

== ENCOUNTER 2023-07-11 10:00 | Outpatient (REF) | payer OTHER, SELFPAY ==
[2023-07-18 04:18] LABS: HPV mRNA E6/E7 rflx Not Detected (Not Detected)
== END 2023-07-11 10:01 | disposition home or self-care (01) ==
LOC: HO.LNP 10:00
PROVIDERS: Visit Provider Advanced Practice Midwife
DX: Z01.419 Encounter for gynecological examination (general) (routine) without abnormal findings (principal); Z78.0 Asymptomatic menopausal state; Z90.710 Acquired absence of both cervix and uterus
CPT/HCPCS: 87624; 88142; 99396

== ENCOUNTER 2023-07-11 10:00 | Outpatient (AMB) | payer OTHER, SELFPAY ==
[2023-07-11 10:22] VITALS: BP 114/68; BMI 40.1
--- NOTE | 2023-07-11 10:22 | A.OFFVIS_ITS ---
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 She is doing well with no concerns. Attempting to eat a healthy diet with calcium and vitamin D and stays active with exercise. Currently sexually active. Denies any vaginal dryness or irritation. Last pap smear; 2018. History of hysterectomy due to uterine bleeding. Last mammogram; 2023. Colonoscopy is UTD. Denies any family history of breast, ovarian or colon cancer. [facility] Medical History Right ovarian cyst Vitamin B12 deficiency Vitamin D deficiency Depression Anxiety Obesity (BMI 30-39.9) Bilateral hand pain Bilateral wrist pain GERD (gastroesophageal reflux disease) Asthma Migraine Surgical History H/O gastric bypass History of removal of laparoscopic gastric banding device LAP-BAND surgery status History of appendectomy History of hysterectomy History of section Family History Father Diabetes Hypertension Mother Hypertension Glaucoma Scoliosis Colon cancer Maternal Grandmother No problems noted. Maternal Grandfather No problems noted. Paternal Grandmother No problems noted. Paternal Grandfather No problems noted. Daughter In good health Sister In good health History of breast cancer Brother In good health Social History Housing: House Alcohol intake: never Patient Tobacco Use Status: Never used Tobacco e-Cigarette/Vaping Use: Never Used Second Hand Smoke Exposure: No service: No Current occupational status: employed Sexual orientation: Straight/Heterosexual Gender identity: Female Cognitive needs: No Hearing needs: No Vision needs: No Female Reproductive History Menstrual Age of Menarche: 15 control method: permanent sterilization Total pregnancies: 5 Full term: 2 Number of Living Children: 2 Ab spontaneous: 3 Date of last pap smear: 04/04/19 (negative) Date of Mammogram: 05/10/23 Review of Systems Const All systems reviewed & are unremarkable except as noted in HPI and below Reports as per HPI Eyes Reports no additional complaints ENT Reports no additional complaints Card Reports no additional complaints Resp Reports no additional complaints GI Reports as per HPI and Reports no additional complaints Reports as per HPI Musc Reports no additional complaints Skin/Breast Reports as per HPI Neuro Reports no additional complaints Psych Reports no additional complaints Endo Reports no additional complaints Sergio/Lymph Reports no additional complaints Aller/Immun Reports no additional complaints Physical Exam Vital Signs: Last Vital Signs BP 114/68 07/11/23 10:22 BMI result Body Mass Index 40.1 Const General: cooperative, healthy appearing, no acute distress, well developed and alert Orientation/consciousness: patient oriented x3 HEENT Head: Yes normal to inspection Eyes General: appearance normal, both eyes and all related structures Neck Neck: Yes normal visual inspection Thyroid: Thyroid normal Chest Chest palpation & inspection: normal inspection of the chest and other (no puckering, dimpling, peau de orange, retraction, discharge, masses) Breast/axilla inspection: normal inspection of the breasts Breast/axilla palpation: normal palpation of the breasts Resp Effort & Inspection: normal respiratory effort GI Inspection: Yes normal to inspection and Yes obesity Palpation (GI): Soft to palpation Rectal Exam - Female: deferred General: Yes bladder normal to palpation External Female Exam: normal external appearance and normal appearance of the urethra Speculum Exam - Vagina: normal appearance of the vagina, normal palpation, normal vaginal discharge and vagina atrophic Speculum Exam - Cervix: normal palpation and Cervix absent (Vaginal pouch prominent on the left, no lesions or nodules) Bimanual exam- vagina & uterus: normal bimanual exam, normal palpation, uterine size normal, bladder normal to palpation, normal palpation and non-tender Bimanual Exam- Adnexa, other: no masses Skin General skin exam: no rashes or lesions noted Rashes: no rashes Neuro General: patient oriented x3 Cognition (Neuro): normal cognition Extrem General: Yes normal to inspection Psych Attitude: cooperative Thought process: Normal thought process present Assessment & Plan Assessment & Plan (1) Well woman exam with routine gynecological exam: Code(s): Z01.419 - Encounter for gynecological examination (general) (routine) without abnormal findings Plan Discussed: Current recommendations for pap smears per ASCCP guidelines. Breast awareness, periodic self breast exams and yearly mammogram. Maintain a healthy lifestyle, well balanced diet including Calcium 1,200 mg and Vitamin D 600 IU daily, and routine exercise. Contact the office with any postmenopausal bleeding. Patient verbalizes understanding and agrees to the plan of care. She was given opportunity to ask questions and all questions were answered to the best of my ability. 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 This note is constructed using voice recognition software. While every effort has been made to ensure accuracy, collections technician errors may have been included. Orders: Orders Pap Smear Today Z12.4 - Encounter for screening for malignant neoplasm of cervix Coding Level of Care Code Est Pt Prev Care 40-64y(65858) Diagnoses Well woman exam with routine gynecological exam Z01.419
== END 2023-07-11 10:50 | disposition home or self-care (01) ==
PROVIDERS: PCP Internal Medicine; Visit Provider Advanced Practice Midwife
DX: Z01.419 Encounter for gynecological examination (general) (routine) without abnormal findings (principal)
CPT/HCPCS: 99396

== ENCOUNTER 2023-07-31 12:24 | Outpatient (AMB) | payer OTHER, SELFPAY ==
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
[2023-07-31 12:57] VITALS: BP 112/68; PULSE 68; O2SAT 97; BMI 40.7
== END 2023-07-31 13:39 | disposition home or self-care (01) ==
LOC: HO.HSMS 12:39
PROVIDERS: PCP Internal Medicine; Visit Provider Psychiatry & Neurology Neurology
DX: M79.651 Pain in right thigh (principal); R06.83 Snoring; G47.10 Hypersomnia, unspecified; G43.109 Migraine with aura, not intractable, without status migrainosus
CPT/HCPCS: 99204

== ENCOUNTER → 2023-07-31 12:39 | Outpatient (BNVA) | payer OTHER, SELFPAY | PROVIDERS: PCP Internal Medicine; Visit Provider Psychiatry & Neurology Neurology | DX: M79.651 Pain in right thigh (principal); R06.83 Snoring; G47.10 Hypersomnia, unspecified; G43.109 Migraine with aura, not intractable, without status migrainosus | CPT/HCPCS: 99202 ==

== ENCOUNTER 2023-08-11 07:19 | Outpatient (REF) | payer OTHER, SELFPAY ==
[2023-08-11 07:33] LABS: MANUAL DIFF FLAG NO
[2023-08-11 09:09] LABS: Basophils Absolute Auto 0.1 X10*3/uL (0.0-0.2); Basophils Percent Auto 0.8 % (0-2); Eosinophils Absolute Auto 0.3 X10*3/uL (0.0-0.4); Eosinophils Percent Auto 3.5 % (0-4); Hematocrit 39.7 % (37.0-47.0); Hemoglobin 12.8 g/dl (12.0-16.0); Imm Gran Abs Auto 0.05 X10*3/uL (0.00-0.03); Imm Gran Pct Auto 0.7 % (0.0-0.4); Lymphocytes Absolute Auto 2.8 X10*3/uL (1.2-4.9); Lymphocytes Percent Auto 39.3 % (20-40); Mean Corpuscular HGB Conc 32.2 g/dl (31.0-35.0); Mean Corpuscular Hemoglobin 27.5 pg (27.0-33.0); Mean Corpuscular Volume 85.2 fL (80.0-98.0); Mean Platelet Volume 11.2 fL (9.4-12.3); Monocytes Absolute Auto 0.5 X10*3/uL (0.1-1.2); Monocytes Percent Auto 7.4 % (2-11); Neutrophils Absolute Auto 3.5 x10*3/uL (2.0-8.3); Neutrophils Percent Auto 48.3 % (45-73); Platelet Count 317 X10*3/uL (160-400); Red Blood Count 4.66 X10*6/uL (4.20-5.50); Red Cell Distribution Width 14.4 % (11.0-16.0); White Blood Count 7.2 X10*3/uL (4.8-10.8)
[2023-08-11 09:16] LABS: Appearance Urine Clear; Color Urine Yellow; Glucose Urine UA Negative (Negative); Leukocyte Esterase Urine Negative (Negative); Nitrite Urine Negative (Negative); PH 6.5 (5.0-9.0); Specific Gravity - Urine 1.025 (1.005-1.025); Urine Blood Negative (Negative); Urine Ketones Negative (Negative); Urine Protein Negative (Neg-Trace)
[2023-08-11 09:53] LABS: Alanine Aminotransferase 26 U/L (0-31); Albumin Level 4.1 g/dL (3.5-5.0); Alkaline Phosphatase 78 U/L (39-117); Anion Gap 15 (12-20); Aspartate Amino Transferase 25 U/L (5-31); Blood Urea Nitrogen 13 mg/dL (9-16); Calcium 10.1 mg/dL (8.4-10.2); Carbon Dioxide 24 mmol/L (22-29); Chloride 104 mmol/L (96-108); Cholesterol 176 mg/dL (<200); Estimated Glomerular Filt Rate > 60; Glucose Fasting 83 mg/dL (60-99); HDL Cholesterol 53 mg/dL (>40); LDL Cholesterol Calculated 105 mg/dL (<100); Magnesium 2.1 mg/dL (1.6-2.6); Potassium 3.9 mmol/L (3.3-5.1); Sodium 139 mmol/L (135-145); Total Protein 7.6 g/dL (6.5-8.0); Triglycerides 90 mg/dL (<150)
[2023-08-11 10:15] LABS: TSH reflex Free T4 2.22 uIU/mL (0.32-4.0); Vitamin D 25-OH Total 19.3 ng/mL (>30)
[2023-08-11 10:54] LABS: Folate 7.2 ng/mL (> or = 4.0); Vitamin B12 226 pg/mL (200-900)
== END 2023-08-11 07:20 | disposition home or self-care (01) ==
LOC: HO.LAB 07:19
PROVIDERS: PCP Internal Medicine; Visit Provider Internal Medicine
DX: Z00.00 Encounter for general adult medical examination without abnormal findings (principal); E78.00 Pure hypercholesterolemia, unspecified; E83.42 Hypomagnesemia; R30.0 Dysuria; E53.8 Deficiency of other specified B group vitamins
CPT/HCPCS: 36415; 80053; 80061; 81003; 82306; 82607; 82746; 83735; 84443; 85025

== ENCOUNTER 2023-08-23 10:16 | Outpatient (AMB) | payer OTHER, SELFPAY ==
[2023-08-23 10:25] VITALS: BP 114/68; PULSE 58; O2SAT 99; BMI 40.1
--- NOTE | 2023-08-23 10:25 | A.OFFPC_ITS ---
Vital Signs 08/23/23 10:25 Height 5 ft 2 in Weight 219 lb 0.4 oz BMI 40.1 BP 114/68 Blood Pressure Location Lt brachial Position Sitting Pulse 58 Pulse Source Pulse Oximeter Pulse Oximetry (%) 99 Oxygen Delivery Method Room Air Intake Visit Reasons: Annual Exam Intake Note: Patient is here today for a physical. Pca Required: No Allergies No Known Allergies Allergy (Verified 05/21/25 09:38) Medication List - Last Reconciled 08/23/23 by Brett Navarro MD albuterol sulfate 90 mcg/actuation 2 inhalations inhalation QID PRN albuterol sulfate 90 mcg/actuation (Ventolin HFA) 2 puffs inhalation Q6H PRN blood pressure monitor As directed [id number]-[id number]-[id number] 50-325-40 mg 1 tab PO .2 to 3 times a day PRN 30 days cholecalciferol (vitamin D3) 50 mcg PO DAILY 90 days clonazepam 1 mg PO BEDTIME PRN cyanocobalamin (vitamin B-12) 1,000 mcg PO DAILY 90 days cyclobenzaprine 5 mg PO TID PRN 7 days fluoxetine 40 mg PO DAILY fluticasone furoate 100 mcg/actuation (Arnuity Ellipta) 1 inh PO DAILY gabapentin 300 mg PO BEDTIME lorazepam 1 mg PO DAILY PRN 30 days magnesium oxide 400 mg PO .qhs meclizine 25 mg PO TID PRN 30 days miscellaneous medical supply Nebulizer Machine - use as directed miscellaneous .4 times a day PRN; Nebulizer Machine - Dx: J45.901 -- asthma 12 months nortriptyline 25 mg PO BEDTIME 30 days ondansetron 4 mg PO Q8H PRN pantoprazole 40 mg PO DAILY peg-electrolyte soln 420 gram 240 mL PO Q10M riboflavin (vitamin B2) 400 mg PO QAM sumatriptan succinate take 1 tab at onset of headache; if no relief, may repeat 1 tab after at least 2 hrs; max = 2 tabs/24 hrs PO 30 days Tobacco use date assessed: 08/23/23 Dental Screening Dental Screen Date: 08/23/23 HPI Annual Exam HPI Details Patient comes in today for her annual physical examination States that she feels okay She denies any headaches or dizziness Denies any chest pains, no SOB No nausea/vomiting, no abdominal pain No change in bowel habits noted She denies any acute urinary symptoms Had her follow up labs done a couple of weeks ago - to discuss her results Her annual mammogram was last done in April 2023 Her yearly gynecology exam and pap smear were done last month (July 2023) She had her screening colonoscopy done a couple of months ago in June 2023 but she had an incomplete prep and was recommended to undergo repeat colonoscopy in 6 months [facility] Medical History Thoracic back pain Constipation Diverticulosis Syncope Anemia, iron deficiency Morbid obesity with BMI of 40.0-44.9, adult Obstructive sleep apnea Migraine with aura Right thigh pain Hypersomnia Snoring Right ovarian cyst Vitamin B12 deficiency Vitamin D deficiency Depression Anxiety Obesity (BMI 30-39.9) GERD (gastroesophageal reflux disease) Asthma Migraine Surgical History History of esophagogastroduodenoscopy (EGD) H/O colonoscopy H/O gastric bypass History of removal of laparoscopic gastric banding device LAP-BAND surgery status History of appendectomy History of hysterectomy History of section Family History Father Diabetes Hypertension Mother Hypertension Glaucoma Scoliosis Osteoporosis Headache Arthritis Breast cancer Colon polyp Maternal Grandmother Colon cancer Maternal Grandfather No problems noted. Paternal Grandmother No problems noted. Paternal Grandfather No problems noted. Daughter In good health Sister In good health Asthma Headache Anemia Arthritis Hypertension Brother Hypertension Social History Housing: House Are you a primary care mgr to a significant other at home: No Do you presently have visiting nurse or other home services: No Alcohol intake: never Patient Tobacco Use Status: Never used Tobacco e-Cigarette/Vaping Use: Never Used Second Hand Smoke Exposure: No service: No Current occupational status: employed Sexual orientation: Straight/Heterosexual Gender identity: Female Cognitive needs: No Hearing needs: No Vision needs: No Female Reproductive History Menstrual Age of Menarche: 15 Questionnaire PHQ-9 Over the last 2 weeks, how often have you been bothered by any of the following problems? 1. Little interest or pleasure in doing things: not at all 2. Feeling down, depressed, or hopeless: not at all 3. Trouble falling or staying asleep, or sleeping too much: not at all 4. Feeling tired or having little energy: not at all 5. Poor appetite or overeating: not at all 6. Feeling bad about yourself - or that you are a failure or have let yourself or your family down: not at all 7. Trouble concentrating on things, such as reading the newspaper or watching television: not at all 8. Moving or speaking so slowly that other people could have noticed. Or the opposite - being so fidgety or restless that you have been moving around a lot more than usual: not at all 9. Thoughts that you would be better off or of hurting yourself in some way: not at all Total score: 0 Depression Screening Interpretation: Positive Depression Screening Follow-up: Existing condition and In treatment (sees psychiatry) Depression Screening Done: Yes 05408 - PHQ-9 Billing: Yes Source: Developed by Drs. Jr Monsivais, Radha Campbell, Mayur Mckee and colleagues, with an educational joselito from [employer]. Thrive Questionnaire Date Thrive assessed: 08/23/23 I am a: Patient What is your living situation today?: I have a steady place to live Within the past 12 months, did the food you bought not last and you didn't have the money to get more?: Never true Within the past 12 months, did you worry whether your food would run out before you got money to buy more?: Never true Do you have trouble paying for medicines?: No Do you have trouble getting transportation to medical appointments?: No Do you have trouble paying your heating and electricity bill?: No Do you have trouble taking care of your child, family member or friend?: No Do you have trouble with day-to-day activities such as bathing, preparing meals, shopping, managing finances, etc.?: No Are you currently unemployed and looking for a job?: No Are you interested in more education?: No Please select the resources that you would like help with: None Currently or been in a relationship where the following occur: no concerns reported THRIVE Score: 0 AUDIT C Alcohol Use Questionnaire (AUDIT-C) 1. How often do you have a drink containing alcohol?: Never 3. How often do you have six or more drinks on one occasion?: Never Total Score: 0 Score Reviewed/Action Taken: Yes GEN-7 AMB Questionnaire GEN-7 Date GEN - 7 assessed: 08/23/23 (patient is seeing psychiatrist ) Feeling nervous, anxious, or on edge: 1 = Several days Not being able to stop or control worryin = Several days Worrying too much about different things: 1 = Several days Trouble relaxin = Several days Being so restless that it is hard to sit still: 1 = Several days Becoming easily annoyed or irritable: 1 = Several days Feeling afraid as if something awful might happen: 1 = Several days Total GEN-7 score (0-4 normal; 5-9 mild; 10-14 moderate; 15-21 severe): 7 Source: Developed by Drs. Jr Monsivais, Radha Campbell, Mayur Mckee and colleagues, with an educational joselito from [employer]. GEN-7 Assessment Billing GEN-7 Assessment Tool: GEN-7 Assessment 21636 Review of Systems Const Denies chills, Denies fatigue, Denies fever(s), Denies headache(s) and Denies malaise Eyes Denies blurry vision, Denies change in vision, Denies irritation and Denies itchy eyes ENT Denies dysphagia, Denies dizziness, Denies otalgia, Denies headache(s), Denies nasal congestion, Denies neck pain, Denies odynophagia, Denies sinus pain and Denies sore throat Card Denies chest pain, Denies rapid heart rate, Denies irregular heart rhythm, Denies palpitations and Denies dyspnea Resp Denies chest congestion, Denies cough, Denies dyspnea and Denies wheezing GI Denies abdominal pain, Denies bloating, Denies constipation, Denies dysphagia, Denies heartburn, Denies diarrhea, Denies nausea, Denies odynophagia and Denies vomiting Denies hematuria, Denies difficulty voiding, Denies dysuria, Denies urinary incontinence and Denies urinary urgency Musc Denies back pain, Denies arthralgias, Denies joint swelling, Denies muscle weakness and Denies neck pain Skin/Breast Denies breast pain, Denies breast mass, Denies change in pigmentation, Denies lesions, Denies rash and Denies unusual bruising Neuro Denies dizziness, Denies headache(s) and Denies paresthesias Psych Denies anxiety and Denies depression Endo Denies fatigue and Denies palpitations Sergio/Lymph Denies easy bruising Aller/Immun Denies itchy eyes and Denies wheezing Physical exam (Primary Care) Vital Signs: Last Vital Signs Pulse 58 08/23/23 10:25 BP 114/68 08/23/23 10:25 Pulse Ox 99 08/23/23 10:25 Oxygen Delivery Method Room Air 08/23/23 10:25 BMI result Body Mass Index 40.1 Tobacco/Smoking Status: Tobacco use Status Tobacco use date assessed 08/23/23 08/23/23 10:27 Patient Tobacco Use Status Never used Tobacco 08/23/23 10:27 e-Cigarette/Vaping Use Never Used 08/23/23 10:27 PHQ-9: PHQ-9 Score PHQ-9: Total score 0 08/23/23 11:14 Depression Screening Interpretation: Positive Depression Screening Follow-up: Existing condition and In treatment (sees psychiatry) Thrive Assessment: Date of Thrive Assessment Date Thrive assessed 08/23/23 08/23/23 10:27 Currently or been in a relationship where the following occur: no concerns reported Const General: no acute distress, alert and awake Orientation/consciousness: patient oriented x3 HENMT Head: Yes normocephalic and Yes atraumatic Ears: external ears normal, TM's normal bilaterally and EAC's normal General nose exam: No nasal discharge present Face and sinus: Yes normal facial exam and Yes sinuses nontender Teeth and gingiva: dentition normal Throat: Yes posterior oropharynx normal and Yes tonsils normal (no TP congestion) Eyes Eyelids: Yes eyelids normal Conjunctivae: conjunctivae normal Pupils: Equal, round and reactive pupils present EOM: EOMs intact bilaterally Neck Neck: Yes supple and No lymphadenopathy Thyroid: Thyroid normal Resp Auscultation: clear to auscultation bilaterally, no rales and no wheezes Cardio Rate: regular rate Rhythm: regular rhythm Heart sounds: no murmurs GI Palpation (GI): Soft to palpation, nontender and No hepatosplenomegaly present Auscultation: normal bowel sounds General: Yes no CVA tenderness Back/Spine/Pelvis Back: no CVA tenderness Thoracic/Lumbar Spine: thoracic and lumbar spine normal to inspection Skin Lesions: no lesions Rashes: no rashes Neuro General: patient oriented x3, moves all extremities, no focal motor deficits and CN's II-XI intact bilaterally Cranial nerves: Yes Equal, round and reactive pupils present Cognition (Neuro): normal cognition Gait exam (Neuro): Normal gait present Extrem General: Yes no clubbing, cyanosis or edema Results Reviewed Results Reviewed: Laboratory Tests 08/11/23 08/11/23 07:26 07:31 WBC 7.2 Hgb 12.8 Hct 39.7 Plt Count 317 Sodium 139 Potassium 3.9 Creatinine 0.65 Estimated GFR > 60 Fasting Glucose 83 Calcium 10.1 D Magnesium 2.1 AST 25 ALT 26 Triglycerides 90 Cholesterol 176 LDL Cholesterol, Calc 105 H HDL Cholesterol 53 Vitamin B12 226 25-OH Vitamin D Total 19.3 L Folate 7.2 TSH 2.22 Ur Specific [place] 1.025 Urine Protein Negative Urine Glucose (UA) Negative Urine Blood Negative Urine Nitrite Negative Ur Leukocyte Esterase Negative Coding Level of Care Code Est Pt Prev Care 40-64y(28408) Diagnoses Annual physical exam Z00.00 Syncope, unspecified syncope type R55 Syncope type: unspecified Obstructive sleep apnea G47.33 Moderate persistent asthma without complication J45.901 Asthma severity: unspecified severity Asthma persistence: unspecified Asthma complication type: with acute exacerbation Migraine without status migrainosus, not intractable, unspecified migraine type G43.909 Migraine type: unspecified Status migrainosus presence: without status migrainosus Intractability: not intractable Gastroesophageal reflux disease without esophagitis K21.9 Esophagitis presence: without esophagitis Vitamin D deficiency E55.9 Vitamin B12 deficiency E53.8 Pain of right lower extremity M79.604 Varicose veins of both lower extremities, unspecified whether complicated I83.93 Varicose vein complication: unspecified Laterality: bilateral Anxiety F41.9 Episode of recurrent major depressive disorder, unspecified depression episode severity F33.9 Depression Type: major depressive disorder Major depression recurrence: recurrent Active/Remission status: currently active Major depression episode severity: unspecified Obesity (BMI 30-39.9) E66.9 Additional Codes GEN-7 Assessment Billing - GEN-7 Assessment Tool: GEN-7 Assessment [id number] ([id number])
== END 2023-08-23 11:33 | disposition home or self-care (01) ==
PROVIDERS: PCP Internal Medicine; Visit Provider Internal Medicine
DX: Z00.00 Encounter for general adult medical examination without abnormal findings (principal); R55 Syncope and collapse; G47.33 Obstructive sleep apnea (adult) (pediatric); J45.901 Unspecified asthma with (acute) exacerbation; G43.909 Migraine, unspecified, not intractable, without status migrainosus; K21.9 Gastro-esophageal reflux disease without esophagitis; E55.9 Vitamin D deficiency, unspecified; E53.8 Deficiency of other specified B group vitamins; M79.604 Pain in right leg; I83.93 Asymptomatic varicose veins of bilateral lower extremities; F41.9 Anxiety disorder, unspecified; F33.9 Major depressive disorder, recurrent, unspecified; E66.9 Obesity, unspecified
CPT/HCPCS: 99499

== ENCOUNTER 2023-08-25 09:23 | Outpatient (REF) | payer OTHER, SELFPAY ==
--- NOTE | ~2023-08-25 | XR_ITS ---
EXAMINATION: Right femur series. Right knee series. CLINICAL INFORMATION: Pain in the right leg COMPARISON: None. TECHNIQUE: 2 views of the right femur. 4 views of the right knee FINDINGS: Right knee: Bones joints and soft tissues are normal without effusion. Right femur: The bone and surrounding soft tissues are normal. Right hip joint unremarkable. XR/XR knee RT 4V IMPRESSION: RIGHT KNEE: Normal. RIGHT FEMUR: Normal.
--- NOTE | ~2023-08-25 | XR_ITS ---
EXAMINATION: Right femur series. Right knee series. CLINICAL INFORMATION: Pain in the right leg COMPARISON: None. TECHNIQUE: 2 views of the right femur. 4 views of the right knee FINDINGS: Right knee: Bones joints and soft tissues are normal without effusion. Right femur: The bone and surrounding soft tissues are normal. Right hip joint unremarkable. XR/XR femur RT 2V IMPRESSION: RIGHT KNEE: Normal. RIGHT FEMUR: Normal.
== END 2023-08-25 09:24 | disposition home or self-care (01) ==
LOC: HO.XRAY 09:23
PROVIDERS: PCP Internal Medicine; Visit Provider Internal Medicine
DX: M79.604 Pain in right leg (principal)
CPT/HCPCS: 73552; 73564

== ENCOUNTER → 2023-09-07 11:05 | Outpatient (REF) | payer OTHER, SELFPAY | LOC: HO.SL 11:05 | PROVIDERS: PCP Internal Medicine; Visit Provider Psychiatry & Neurology Neurology | DX: R06.83 Snoring (principal); G47.10 Hypersomnia, unspecified | CPT/HCPCS: 95806 ==

== ENCOUNTER → 2023-09-07 12:57 | Outpatient (BNV) | payer OTHER, SELFPAY | PROVIDERS: PCP Internal Medicine; Visit Provider Psychiatry & Neurology Neurology | DX: R06.83 Snoring (principal); G47.10 Hypersomnia, unspecified | CPT/HCPCS: 95806 ==

== ENCOUNTER 2023-10-24 10:39 | Outpatient (AMB) | payer OTHER, SELFPAY ==
[2023-10-24 10:56] VITALS: BP 112/70; PULSE 72; RESP 16; O2SAT 98; BMI 40.2
--- NOTE | 2023-10-24 10:56 | MHC.OFFVIS ---
Vital Signs 10/24/23 10:56 Height 5 ft 2 in Weight 220 lb BMI 40.2 BP 112/70 Blood Pressure Location Rt brachial Position Sitting Respiration 16 Pulse 72 Pulse Source Pulse Oximeter Pulse Oximetry (%) 98 Oxygen Delivery Method Room Air Intake Visit Reasons: follow up Polyneuropathy - Confirmed Intake Note: Pt presents to the office for a 3 month follow up for hypersomnia. Dietary Services Manager Required: Yes Dietary Services Manager Name: Ina KATHE Nielsen Allergies No Known Allergies Allergy (Verified 10/24/23 10:56) Medication List - Last Reconciled 10/24/23 by Susana Núñez MD albuterol sulfate 90 mcg/actuation 2 inhalations inhalation QID PRN albuterol sulfate 90 mcg/actuation (Ventolin HFA) 2 puffs inhalation Q6H PRN blood pressure monitor As directed [id number]-[id number] 50-325-40 mg 1 tab PO .2 to 3 times a day PRN 30 days cholecalciferol (vitamin D3) 50 mcg PO DAILY 90 days clonazepam 1 mg PO BEDTIME PRN cyanocobalamin (vitamin B-12) 1,000 mcg PO DAILY 90 days cyclobenzaprine 5 mg PO TID PRN 7 days fluoxetine 40 mg PO DAILY fluticasone furoate 100 mcg/actuation (Arnuity Ellipta) 1 inh PO DAILY gabapentin 200 mg (2 x 100 mg) PO BEDTIME 30 days lorazepam 1 mg PO DAILY PRN 30 days magnesium oxide 400 mg PO .qhs meclizine 25 mg PO TID PRN 30 days miscellaneous medical supply Nebulizer Machine - use as directed miscellaneous .4 times a day PRN; Nebulizer Machine - Dx: J45.901 -- asthma 12 months nortriptyline 25 mg PO BEDTIME 30 days ondansetron 4 mg PO Q8H PRN pantoprazole 40 mg PO DAILY peg-electrolyte soln 420 gram 240 mL PO Q10M riboflavin (vitamin B2) 400 mg PO QAM sumatriptan succinate take 1 tab at onset of headache; if no relief, may repeat 1 tab after at least 2 hrs; max = 2 tabs/24 hrs PO 30 days HPI Comments Details: 53y/o female comes for follow up. EMG was normal she takes gabapentin for her leg pain - scheduled for PT Her migraines have decreased to 1-2 /week and lasts 1-2 hrs The migraines are frontal , bitemporal, with nausea, vomiting, photophobia, phonophobia, blurry vision, visual aura etc. she also has chronic sleep issues, difficulty falling asleep , staying asleep, excessive daytime fatigue she denies any numbness, urinary or bowel issues. [facility] Medical History (Updated 08/23/23 @ 11:28 by Brett Navarro MD) Migraine with aura Right thigh pain Hypersomnia Snoring Right ovarian cyst Vitamin B12 deficiency Vitamin D deficiency Depression Anxiety Obesity (BMI 30-39.9) Bilateral hand pain Bilateral wrist pain GERD (gastroesophageal reflux disease) Asthma Migraine Surgical History H/O gastric bypass History of removal of laparoscopic gastric banding device LAP-BAND surgery status History of appendectomy History of hysterectomy History of section Family History Father Diabetes Hypertension Mother Hypertension Glaucoma Scoliosis Colon cancer Osteoporosis Headache Arthritis Maternal Grandmother No problems noted. Maternal Grandfather No problems noted. Paternal Grandmother No problems noted. Paternal Grandfather No problems noted. Daughter In good health Sister In good health Asthma Headache Anemia Arthritis Hypertension Brother Hypertension Social History Housing: House Alcohol intake: never Patient Tobacco Use Status: Never used Tobacco e-Cigarette/Vaping Use: Never Used Second Hand Smoke Exposure: No service: No Current occupational status: employed Sexual orientation: Straight/Heterosexual Gender identity: Female Cognitive needs: No Hearing needs: No Vision needs: No Female Reproductive History Menstrual Age of Menarche: 15 Physical Exam Vital Signs: Last Vital Signs Pulse 72 10/24/23 10:56 Resp 16 10/24/23 10:56 BP 112/70 10/24/23 10:56 Pulse Ox 98 10/24/23 10:56 Oxygen Delivery Method Room Air 10/24/23 10:56 BMI result Body Mass Index 40.2 Const General: cooperative, comfortable and no acute distress Nutritional Appearance: obese Orientation/consciousness: patient oriented x3 Eyes Pupils: Equal, round and reactive pupils present Neuro General: patient oriented x3, gait normal, tone normal, moves all extremities and no focal motor deficits Cranial nerves: Yes Facial sensation intact/muscles of mastication intact, Yes Equal, round and reactive pupils present, Yes Bilaterally intact EOM present, Yes Nystagmus not present, Yes Normal facial strength present, Yes Midline tongue present and Yes Symmetric palate elevation present Cognition (Neuro): normal cognition Gait exam (Neuro): Normal gait present Motor exam (neuro): 5/5 motor strength present throughout and Normal motor muscle tone present throughout Deep tendon reflexes (DTR's): Right triceps reflex intensity grade: 2+, Left triceps reflex intensity grade: 2+, Rt Biceps (C5, C6): 2+, Left biceps reflex intensity grade: 2+, Right brachioradialis reflex intensity grade: 2+, Left brachioradialis reflex intensity grade: 2+, Right patellar reflex intensity grade: 2+ and Left patellar reflex intensity grade: 2+ Coordination: [id number] test normal Extrem Other: Pain on the Right lateral thigh on palpation. General: Yes normal to inspection Assessment & Plan Assessment & Plan (1) Right thigh pain: Comment: likely musculoskeletal. No evidence of neuropathy on EMG. Code(s): M79.651 - Pain in right thigh Category: Medical (2) Snoring: Code(s): R06.83 - Snoring Category: Medical (3) Hypersomnia: Code(s): G47.10 - Hypersomnia, unspecified Category: Medical (4) Migraine with aura: Code(s): G43.109 - Migraine with aura, not intractable, without status migrainosus Category: Medical Plan continue magnesium 400mg qhs and Vit B 2 400mg qam for her migraines in addition to nortirptyline 25 mg qhs and sumatriptan 100mg as needed In lab sleep study to further evaluate Orders: Orders RT PSG in-lab sleep study Today G47.10 - Hypersomnia, unspecified, R06.83 - Snoring Medications: Refilled magnesium oxide 400 mg PO .qhs 30 tabs 6RF Coding Level of Care Code Est Pt Level 4 (86736) Diagnoses Right thigh pain M79.651 Snoring R06.83 Hypersomnia G47.10 Migraine with aura G43.109
== END 2023-10-24 11:12 | disposition home or self-care (01) ==
PROVIDERS: PCP Internal Medicine; Visit Provider Psychiatry & Neurology Neurology
DX: M79.651 Pain in right thigh (principal); R06.83 Snoring; G47.10 Hypersomnia, unspecified; G43.109 Migraine with aura, not intractable, without status migrainosus
CPT/HCPCS: 99214

== ENCOUNTER → 2023-10-24 10:39 | Outpatient (BNVA) | payer OTHER, SELFPAY | PROVIDERS: PCP Internal Medicine; Visit Provider Psychiatry & Neurology Neurology | DX: R06.83 Snoring (principal); G47.10 Hypersomnia, unspecified; M79.651 Pain in right thigh; G43.109 Migraine with aura, not intractable, without status migrainosus | CPT/HCPCS: 99212 ==

== ENCOUNTER 2023-10-26 08:04 | Outpatient (AMB) | payer OTHER, SELFPAY ==
[2023-10-26 08:16] VITALS: BP 90/62; PULSE 63; BMI 40.5
--- NOTE | 2023-10-26 08:16 | MHC.OFFVIS ---
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 [employer] Professional Required: No Allergies No Known Allergies Allergy (Verified 10/26/23 08:21) Medication List - Last Reconciled 10/26/23 by RICKEY Jones albuterol sulfate 90 mcg/actuation 2 inhalations inhalation QID PRN albuterol sulfate 90 mcg/actuation (Ventolin HFA) 2 puffs inhalation Q6H PRN blood pressure monitor As directed uenhrasvgl-vqileladbtcte-rzuz 50-325-40 mg 1 tab PO .2 to 3 times a day PRN 30 days cholecalciferol (vitamin D3) 50 mcg PO DAILY 90 days clonazepam 1 mg PO BEDTIME PRN cyanocobalamin (vitamin B-12) 1,000 mcg PO DAILY 90 days cyclobenzaprine 5 mg PO TID PRN 7 days fluoxetine 40 mg PO DAILY fluticasone furoate 100 mcg/actuation (Arnuity Ellipta) 1 inh PO DAILY gabapentin 200 mg (2 x 100 mg) PO BEDTIME 30 days lorazepam 1 mg PO DAILY PRN 30 days magnesium oxide 400 mg PO .qhs meclizine 25 mg PO TID PRN 30 days miscellaneous medical supply Nebulizer Machine - use as directed miscellaneous .4 times a day PRN; Nebulizer Machine - Dx: J45.901 -- asthma 12 months nortriptyline 25 mg PO BEDTIME 30 days ondansetron 4 mg PO Q8H PRN pantoprazole 40 mg PO DAILY peg-electrolyte soln 420 gram 240 mL PO Q10M riboflavin (vitamin B2) 400 mg PO QAM sumatriptan succinate take 1 tab at onset of headache; if no relief, may repeat 1 tab after at least 2 hrs; max = 2 tabs/24 hrs PO 30 days HPI 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 Today she is here for cardiology consultation. She describes having several syncopal events over the last year. She states each event has occurred with her in a standing position. She 1st notices heart palpitations then sweating then collapses. She has brief loss of consciousness then states she is disoriented. No witnessed seizure activity reported, no incontinence. She has not had events in a sitting or laying down position. She does not know when her events will happen and describes them as random. No known triggers. Her blood pressure does run low. She will get periodic sharp pains in her chest that last a second but make her feel like she has to take a breath in. No shortness of breath, PND, orthopnea or edema. No chest discomfort brought on by physical activity. She admits to being mostly sedentary. Nonsmoker, no alcohol use. No significant cardiac history in her family. She has never had any cardiac diagnosis. [facility] Medical History Migraine with aura Right thigh pain Hypersomnia Snoring Right ovarian cyst Vitamin B12 deficiency Vitamin D deficiency Depression Anxiety Obesity (BMI 30-39.9) Bilateral hand pain Bilateral wrist pain GERD (gastroesophageal reflux disease) Asthma Migraine Surgical History H/O gastric bypass History of removal of laparoscopic gastric banding device LAP-BAND surgery status History of appendectomy History of hysterectomy History of section Family History Father Diabetes Hypertension Mother Hypertension Glaucoma Scoliosis Colon cancer Osteoporosis Headache Arthritis Maternal Grandmother No problems noted. Maternal Grandfather No problems noted. Paternal Grandmother No problems noted. Paternal Grandfather No problems noted. Daughter In good health Sister In good health Asthma Headache Anemia Arthritis Hypertension Brother Hypertension Social History Housing: House Alcohol intake: never Patient Tobacco Use Status: Never used Tobacco e-Cigarette/Vaping Use: Never Used Second Hand Smoke Exposure: No service: No Current occupational status: employed Sexual orientation: Straight/Heterosexual Gender identity: Female Cognitive needs: No Hearing needs: No Vision needs: No Female Reproductive History Menstrual Age of Menarche: 15 Review of Systems Const All systems reviewed & are unremarkable except as noted in HPI and below ENT Reports dizziness Card Denies chest pain, Denies chest pain at rest, Denies chest pain with activity, Reports syncope, Reports rapid heart rate, Denies pedal edema, Denies edema, Denies leg edema, Denies lightheadedness, Reports palpitations, Denies dyspnea, Denies dyspnea on exertion and Denies orthopnea Resp Denies cough, Denies dyspnea and Denies dyspnea on exertion GI Denies hematochezia and Denies change in stool character Musc Denies abnormal gait, Denies limited range of motion, Denies muscle cramps, Denies muscle weakness, Denies numbness, Denies radiating pain into limb, Denies stiffness and Denies tingling Neuro Denies abnormal gait, Reports dizziness, Reports syncope, Denies numbness and Denies tingling Endo Reports palpitations Physical Exam Vital Signs: Last Vital Signs Pulse 63 10/26/23 08:16 BP 90/62 10/26/23 08:16 BMI result Body Mass Index 40.5 Const General: cooperative, healthy appearing, comfortable and no acute distress Orientation/consciousness: patient oriented x3 Neck Neck: Yes normal visual inspection Resp Effort & Inspection: normal respiratory effort Auscultation: clear to auscultation bilaterally, no crackles, no rales, no rhonchi and no wheezes Cardio Jugular venous distension: no JVD Rate: regular rate Rhythm: regular rhythm Heart sounds: S1 normal heart sound present, S2 normal heart sound present, no murmurs and no rubs Neuro General: patient oriented x3 Extrem General: Yes normal to inspection and No no pedal edema Psych Appearance: grossly normal Mental Status: mental status grossly normal Speech and movement: Normal speech and movement present Office Procedures EKG Details: Today, read by me, sinus rhythm, Q-wave V2, rate 63, QTC 415 milliseconds [id number], Complete Assessment & Plan Assessment & Plan (1) Syncopal episodes: Code(s): R55 - Syncope and collapse Category: Medical Plan: Reports of syncopal episodes as described above. Each occurring in a standing position and preceded by elevated heart rate. She was seen in the emergency room in 12/2020 for syncope and at that time was labeled with orthostatic syncope even though she was not documented to be orthostatic at that time. All Holter monitor following that visit showed sinus rhythm with rare PVCs. An echocardiogram showed normal EF. She tells me in the last year she has been having increasing syncopal events. Her blood pressure today is initially low at 90 over 62. She is not orthostatic when checked by me. Blood pressure sitting 88/62, standing 98/60. EKG done today shows sinus rhythm, septal Q-wave, normal KS, QRS and QTC intervals, rate 63. Recent labs show normal CBC and electrolytes. Her syncope most likely is related to orthostatic hypotension however arrhythmia not completely ruled out. EKG is showing septal Q-wave. Will perform cardiac evaluation with Holter monitor to assess for arrhythmia, echocardiogram to assess for EF and for wall motion abnormalities. Will order a exercise nuclear stress test to assess for activity induced arrhythmia, blood pressure response to exercise, ischemia. Will order a tilt-table test to further evaluate type of syncope. Instructed on increasing fluid intake by 16 oz daily. Increasing salt in her diet. Use caution when sitting to standing. If she feels lightheaded she is to sit down or lay down until symptom passes. Emergency care if needed. Cardiology follow-up in 6 weeks, sooner if needed. (2) Low BP: Code(s): I95.9 - Hypotension, unspecified Category: Medical Plan: As above (3) Abnormal EKG: Code(s): R94.31 - Abnormal electrocardiogram [ECG] [EKG] Category: Medical Plan: As above Plan Time spent on chart review, documentation, interview and assessment Orders: Orders ECG 3 day holter monitor Today R55 - Syncope and collapse NM cardiolite stress test Today I95.9 - Hypotension, unspecified, R55 - Syncope and collapse, R94.31 - Abnormal electrocardiogram [ECG] [EKG] CA echo transthoracic complete Today R55 - Syncope and collapse CA stress test Today I95.9 - Hypotension, unspecified, R55 - Syncope and collapse, R94.31 - Abnormal electrocardiogram [ECG] [EKG] ECG Tilt Table Test Today I95.9 - Hypotension, unspecified, R55 - Syncope and collapse Coding Level of Care Code New Pt Level 4 (53265) Diagnoses Syncopal episodes R55 Low BP I95.9 Abnormal EKG R94.31 CPT Codes EKG - CPT: 49594-[id number], Complete ([id number]) Time Spent (min) 30
== END 2023-10-26 08:55 | disposition home or self-care (01) ==
PROVIDERS: PCP Internal Medicine; Visit Provider Nurse Practitioner Family
DX: R55 Syncope and collapse (principal); I95.9 Hypotension, unspecified; R94.31 Abnormal electrocardiogram [ECG] [EKG]
CPT/HCPCS: 93010; 99214

== ENCOUNTER → 2023-10-26 08:04 | Outpatient (BNVA) | payer OTHER, SELFPAY | PROVIDERS: PCP Internal Medicine; Visit Provider Nurse Practitioner Family | DX: I95.9 Hypotension, unspecified (principal); R94.31 Abnormal electrocardiogram [ECG] [EKG]; R55 Syncope and collapse | CPT/HCPCS: 93005; 99212 ==

== ENCOUNTER 2023-11-02 08:30 | Outpatient (RCR) | payer OTHER, SELFPAY ==
--- NOTE | 2023-11-02 09:36 | MHC.PT.EP ---
[facility] [place] Office [place] Office [place] Office [address] Francisca Reyes [address] [phone] F: [phone] F: [phone] F: [phone] F: [phone] Physical Therapy Plan of Care Date of Evaluation: 11/02/23 Date of Surgery: n/a Diagnosis: R leg pain Assessment: Patient is a 53 year old female presenting to PT with complaints of pain in R leg. Pt reports onset of pain began 1 year ago due to insidious onset. She presents today with impairments in pain, burning, tenderness to palpation, hip strength. 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 Pt expresses group home goal of reducing pain, and is motivated to work towards this in PT. Clinical presentation today is most consistent with signs and sx associated with R leg pain and pt will benefit from skilled PT 2 week x 4 weeks to address the following problems and impairments noted upon evaluation: pain, burning, tenderness to palpation, hip strength. 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 The prescribed treatment plan of care is medically necessary. Co-morbidities of HTN, syncope were identified and taken into considerations of plan of care. Pt was educated on HEP, role of PT, prognosis, POC. Frequency and Duration: The patient will be seen 2 x week x 4 weeks Short Term Goals: Pt will demonstrate less incidence of burning in 2 weeks. Pt will demonstrate improved hip MMT strength by 1/3 grade in 2 weeks for improved lumbopelvic stability. Half-Way Goals: Pt will demonstrate improved LEFI score by 9 points in 4 weeks for improved functional mobility. Pt will demonstrate ability to ambulate with min to no pain in 4 weeks for return to PLOF. 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 Treatment Plan: Modalities to reduce pain, spasms and effusion. Manual therapy to restore motion and function. Therapeutic exercise to improve strength and flexibility. Neuromuscular re-education for posture and balance. Therapeutic activities to return to functional activities of daily living. Electronically signed by: Chantal Villa, PT, DPT, ATC Please sign and return to therapist. Thank you for your referral.
--- NOTE | 2023-11-24 08:12 | MHC.PT.DC ---
[facility] [place] Office [place] Office [place] Office [address] [phone] F: [phone] F: [phone] F: [phone] F: [phone] Physical Therapy Discharge Report Diagnosis: R leg pain Date of Surgery: n/a Date of Evaluation: 11/02/23 Date of Discharge: 11/24/23 Treatments to Date: 1 Cancellations to Date: 1 No Shows to Date: 2 Discharge Status: Visit Non-compliance Discharge Summary: Pt has failed to comply with [facility] attendance policy and no showed 2 appointments. Pt therefore to be d/c. Electronically signed by: Chantal Villa, PT, DPT, ATC Please sign and return to therapist. Thank you for your referral.
== END 2023-11-24 08:12 | disposition home or self-care (01) ==
LOC: HO.PTCHIC 08:30
PROVIDERS: PCP Internal Medicine; Visit Provider Internal Medicine
DX: M79.604 Pain in right leg (principal)
CPT/HCPCS: 97110; 97161

== ENCOUNTER → 2023-11-15 19:30 | Outpatient (REF) | payer OTHER, SELFPAY | LOC: HO.SL 19:30 | PROVIDERS: PCP Internal Medicine; Visit Provider Psychiatry & Neurology Neurology | DX: G47.30 Sleep apnea, unspecified (principal); G47.10 Hypersomnia, unspecified | CPT/HCPCS: 95810 ==

== ENCOUNTER → 2023-11-15 21:32 | Outpatient (BNV) | payer OTHER, SELFPAY | PROVIDERS: PCP Internal Medicine; Visit Provider Psychiatry & Neurology Neurology | DX: G47.33 Obstructive sleep apnea (adult) (pediatric) (principal) | CPT/HCPCS: 95810 ==

== ENCOUNTER → 2023-11-30 07:37 | Outpatient (REF) | payer OTHER, SELFPAY ==
--- NOTE | 2023-11-30 07:41 | CA_ITS ---
Transthoracic Echocardiogram Patient (Last, First, Middle): Anne Marie Denise I Gender: Female Date of : 1970 Age: 53 Procedure Date: 11/30/2023 Procedure Type: Transthoracic Echocardiogram Location: OP Height: 157.48 cm Weight: 83.92 kg BSA: 1.85 m2 Heart Rate: bpm BP: 104 / 68 mmHg Cell Attendant Helper: LALITO Referring MD: Jyotsna Almaraz [employer] Patient Service Associate: Javad Paz MD Symptoms: R55 - Syncope and collapse Study Quality: Fair, contrast ECG Rhythm: Sinus Conclusions: - Low normal LV ejection fraction 50-55% otherwise normal study Findings Procedure Information Contrast agent, definity, is being given per protocol without apparent complications. Left Ventricle Normal left ventricular cavity size. There is normal left ventricular wall thickness. The left ventricular systolic function is low normal. The visually estimated ejection fraction is between 50-55%. Spectral Doppler is indicative of a normal filling pattern. Right Ventricle Normal right ventricular cavity size and systolic function. Atria Both atria are normal in size. Interatrial shunt cannot be excluded. Aortic Valve The aortic valve structure and function is likely normal. There is no aortic valve stenosis. There is no aortic valve regurgitation. Mitral Valve Normal mitral valve structure and function. There is no mitral valve regurgitation. There is no mitral valve stenosis. Pulmonic Valve The pulmonic valve was not well visualized. Tricuspid Valve Likely normal tricuspid valve structure and function. There is trace tricuspid valve regurgitation. The right ventricular systolic pressure is normal. The right ventricular systolic pressure is 16 mmHg. Normal right atrial pressure. There is no evidence of pulmonary hypertension. Great Vessels The pulmonary artery was not well visualized. There is no dilatation of the ascending aorta measuring 2.80 cm. Venous The inferior vena cava is normal in size and collapses greater than 50% with inspiration. Pericardium/Pleural There is no evidence of pericardial effusion. Prior Study Comparison Changes noted compared to prior study dated: 04/26/2021. marginal reduction LV ejection fraction which may be technical Measurements 2D Linear Measurements IVSd: 0.75 0.6-0.9/0.6-1.0 cm LVIDd: 4.70 3.9-5.3/4.2-5.9 cm LVIDd Index: 2.54 2.4-3.2/2.2-3.1 cm/m2 LVIDs: 3.30 2.0-3.6 cm LVPWd: 0.83 0.7-1.1 cm LA Diam: 3.80 2.7-3.8/3.0-4.0 cm LAIDs Index: 2.05 1.5-2.3 cm/m2 LV Mass: 150.10 67-162/88-224 g LV Mass Index: 81.13 43-95/49-115 g/m2 LVOT Diam: 2.00 3.0+(-)1.3 cm 2D Systolic Function EF 4C: 43.30 >55% EF 2C: 57.00 >55% EF BiP: 50.70 >55% Mitral Valve MV Pk E: 0.88 MV PK A: 0.62 MV Decel Time: 193.00 E/A: 1.40 E'Lateral: 11.00 E'Medial: 7.51 E/E' Med: 11.80 E/E' Lat: 8.00 PHT: 56.00 MVA PHT: 3.93 Decel [place]: 4.58 Aortic Valve AoV Pk M[place]: 1.23 AoV Mn M[place]: 0.88 AoV VTI: 0.30 AoV Pk Grad: 6.00 Aov Mn Grad: 3.00 JONY Cont.VTI: 2.11 LVOT LVOT Pk [place]: 0.99 LVOT Mn [place]: 0.54 LVOT VTI: 0.20 LVOT Pk Grad: 4.00 LVOT Mn Grad: 1.00 LVOT Diam: 2.00 LVOT Area: 3.14 Diastolic Function MV Pk E: 0.88 MV Pk A: 0.62 E/A: 1.40 E'Medial: 7.51 E/E' Med: 11.80 E' Laterial: 11.00 E/E' Lat: 8.00 Right Ventricle TAPSE (mm): 23.50 TVS' M[place]: 12.40 Tricuspid Valve TR Pk Mendoza: 1.81 TR Pk Grad: 13.00 RA Press: 3.00 RVSP: 16.00 Great Vessels Aorta Sinus of Valsalva: 2.82 2.0-3.[address] [place]: 2.28 1.7-3.4 cm Ao Asc: 2.80 2.1-3.4 cm Updated in Other Vendor System with Status of Final Javad Paz MD electronically signed on 12/01/2023 11:54:50 AM with status of Final
== END ==
LOC: HO.CARD 07:37
PROVIDERS: PCP Internal Medicine; Visit Provider Nurse Practitioner Family
DX: R94.31 Abnormal electrocardiogram [ECG] [EKG] (principal); R55 Syncope and collapse; I95.9 Hypotension, unspecified
CPT/HCPCS: 93306; Q9957

== ENCOUNTER → 2023-11-30 07:41 | Outpatient (BNV) | payer OTHER, SELFPAY | PROVIDERS: PCP Internal Medicine; Visit Provider Internal Medicine Cardiovascular Disease | DX: R55 Syncope and collapse (principal) | CPT/HCPCS: 93306 ==

== ENCOUNTER 2023-12-29 10:27 | Outpatient (AMB) | payer OTHER, SELFPAY ==
[2023-12-29 10:32] VITALS: BP 100/78; PULSE 67; O2SAT 98; BMI 41.4
--- NOTE | 2023-12-29 10:32 | MHC.PC.OV ---
Vital Signs 12/29/23 10:32 Height 5 ft 2 in Weight 226 lb 4 oz BMI 41.4 BP 100/78 Blood Pressure Location Lt brachial Position Sitting Pulse 67 Pulse Source Pulse Oximeter Pulse Oximetry (%) 98 Oxygen Delivery Method Room Air Intake Visit Reasons: 4mth f/u Senior Office Assistant Required: No Accompanied by: Self / Same As Patient Allergies No Known Allergies Allergy (Verified 12/29/23 12:08) Medication List - Last Reconciled 12/29/23 by Brett Navarro MD albuterol sulfate 90 mcg/actuation 2 inhalations inhalation QID PRN albuterol sulfate 90 mcg/actuation (Ventolin HFA) 2 puffs inhalation Q6H PRN blood pressure monitor As directed mvccycwzrx-hjykqckcymhuy-dtjn 50-325-40 mg 1 tab PO .2 to 3 times a day PRN 30 days cholecalciferol (vitamin D3) 50 mcg PO DAILY 90 days clonazepam 1 mg PO BEDTIME PRN cyanocobalamin (vitamin B-12) 1,000 mcg PO DAILY 90 days cyclobenzaprine 5 mg PO TID PRN 7 days fluoxetine 40 mg PO DAILY fluticasone furoate 100 mcg/actuation (Arnuity Ellipta) 1 inh PO DAILY gabapentin 200 mg (2 x 100 mg) PO BEDTIME 30 days lorazepam 1 mg PO DAILY PRN 30 days magnesium oxide 400 mg PO .qhs meclizine 25 mg PO TID PRN 30 days miscellaneous medical supply Nebulizer Machine - use as directed miscellaneous .4 times a day PRN; Nebulizer Machine - Dx: J45.901 -- asthma 12 months nortriptyline 25 mg PO BEDTIME 30 days ondansetron 4 mg PO Q8H PRN pantoprazole 40 mg PO DAILY peg-electrolyte soln 420 gram 240 mL PO Q10M riboflavin (vitamin B2) 400 mg PO QAM sumatriptan succinate take 1 tab at onset of headache; if no relief, may repeat 1 tab after at least 2 hrs; max = 2 tabs/24 hrs PO 30 days Tobacco use date assessed: 12/29/23 Dental Screening Dental Screen Date: 12/29/23 Did you have a dental visit in the last 12 months?: Yes Did you have a dental problem in the last 6 months where you did not have access to dental care?: No Was dental information given to patient?: Patient has dentist HPI 4mth f/u HPI Details Patient comes in today for her follow up visit She was previously referred to cardiology for recurrent syncopal episodes She reports that these symptoms would occur randomly and quite often as she's had several of these over the past year but often when she is in a standing position States that she has not had them when she is sitting or lying down Recalls that these episodes would mostly start out as a sensation of palpitations in her chest, followed by her thenbreaking out in cold sweats after which she would then collapse suddenly, with subsequent LOC Relates that she would feel temporarily confused and disoriented when she regains consciousness but has never been advised that she had any seizure activity during these events Work ups done in the past have been unrevealing - Holter monitor showed sinus rhythm with rare PACs and echocardiogram showed normal EF She was seen by cardiology a couple of months ago and they recommended complete cardiac evaluation to include repeat Holter, echo, nuclear stress test as well as tilt-table testing Repeat echocardiogram done last month (November 2023) came out normal although EF was low normal at 50 to 55% Patient states that she is scheduled for tilt-table testing next month on 01/16/2024 although her chart indicates that this might be for her sleep medicine follow up instead She is scheduled for her nuclear stress testing and repeat Holter monitor on 02/13/2024 Patient states that she still has on and off episodes of dizziness and had a couple of her syncopal spells since her last visit She denies any headaches Denies any chest pains, no increased SOB No nausea/vomiting, no abdominal pain No change in bowel habits noted She had some follow up labs last done in August 2023, with no other labs done since [facility] Medical History Obstructive sleep apnea Migraine with aura Right thigh pain Hypersomnia Snoring Right ovarian cyst Vitamin B12 deficiency Vitamin D deficiency Depression Anxiety Obesity (BMI 30-39.9) Bilateral hand pain Bilateral wrist pain GERD (gastroesophageal reflux disease) Asthma Migraine Surgical History H/O gastric bypass History of removal of laparoscopic gastric banding device LAP-BAND surgery status History of appendectomy History of hysterectomy History of section Family History Father Diabetes Hypertension Mother Hypertension Glaucoma Scoliosis Colon cancer Osteoporosis Headache Arthritis Maternal Grandmother No problems noted. Maternal Grandfather No problems noted. Paternal Grandmother No problems noted. Paternal Grandfather No problems noted. Daughter In good health Sister In good health Asthma Headache Anemia Arthritis Hypertension Brother Hypertension Social History Housing: House Alcohol intake: never Patient Tobacco Use Status: Never used Tobacco e-Cigarette/Vaping Use: Never Used Second Hand Smoke Exposure: No service: No Current occupational status: employed Sexual orientation: Straight/Heterosexual Gender identity: Female Cognitive needs: No Hearing needs: No Vision needs: No Female Reproductive History Menstrual Age of Menarche: 15 Questionnaire PHQ-9 Over the last 2 weeks, how often have you been bothered by any of the following problems? 1. Little interest or pleasure in doing things: not at all 2. Feeling down, depressed, or hopeless: not at all 3. Trouble falling or staying asleep, or sleeping too much: not at all 4. Feeling tired or having little energy: not at all 5. Poor appetite or overeating: not at all 6. Feeling bad about yourself - or that you are a failure or have let yourself or your family down: not at all 7. Trouble concentrating on things, such as reading the newspaper or watching television: not at all 8. Moving or speaking so slowly that other people could have noticed. Or the opposite - being so fidgety or restless that you have been moving around a lot more than usual: not at all 9. Thoughts that you would be better off or of hurting yourself in some way: not at all Total score: 0 Depression Screening Interpretation: Positive Depression Screening Follow-up: Existing condition and In treatment (sees psychiatry regularly) Depression Screening Done: Yes 22069 - PHQ-9 Billing: Yes Source: Developed by Drs. Jr Monsivais, Radha Campbell, aMyur Mckee and colleagues, with an educational joselito from [employer]. Thrive Questionnaire Date Thrive assessed: 12/29/23 I am a: Patient What is your living situation today?: I have a steady place to live Within the past 12 months, did the food you bought not last and you didn't have the money to get more?: Never true Within the past 12 months, did you worry whether your food would run out before you got money to buy more?: Never true Do you have trouble paying for medicines?: No Do you have trouble getting transportation to medical appointments?: No Do you have trouble paying your heating and electricity bill?: No Do you have trouble taking care of your child, family member or friend?: No Do you have trouble with day-to-day activities such as bathing, preparing meals, shopping, managing finances, etc.?: No Are you currently unemployed and looking for a job?: No Are you interested in more education?: No Please select the resources that you would like help with: None Currently or been in a relationship where the following occur: No concerns reported THRIVE Score: 0 AUDIT C Alcohol Use Questionnaire (AUDIT-C) 1. How often do you have a drink containing alcohol?: Never 3. How often do you have six or more drinks on one occasion?: Never Total Score: 0 Score Reviewed/Action Taken: Yes GEN-7 AMB Questionnaire GEN-7 Date GEN - 7 assessed: 12/29/23 (patient is seeing psychiatrist ) Feeling nervous, anxious, or on edge: 1 = Several days Not being able to stop or control worryin = Several days Worrying too much about different things: 1 = Several days Trouble relaxin = Several days Being so restless that it is hard to sit still: 1 = Several days Becoming easily annoyed or irritable: 1 = Several days Feeling afraid as if something awful might happen: 1 = Several days Total GEN-7 score (0-4 normal; 5-9 mild; 10-14 moderate; 15-21 severe): 7 Source: Developed by Drs. Jr Monsivais, Radha Campbell, Mayur Mckee and colleagues, with an educational joselito from [employer]. GEN-7 Assessment Billing GEN-7 Assessment Tool: GEN-7 Assessment 60927 Review of Systems Const Denies chills, Reports fatigue, Denies fever(s) and Denies headache(s) ENT Denies dysphagia, Reports dizziness (see HPI), Denies otalgia, Denies headache(s), Denies neck pain, Denies odynophagia and Denies sore throat Card Denies chest pain, Reports syncope (see HPI), Reports rapid heart rate, Denies irregular heart rhythm, Denies palpitations and Denies dyspnea Resp Denies chest congestion, Denies cough and Denies dyspnea GI Denies abdominal pain, Denies constipation, Denies dysphagia, Denies heartburn, Denies diarrhea, Denies nausea, Denies odynophagia and Denies vomiting Denies hematuria, Denies dysuria, Denies urinary incontinence and Denies urinary urgency Musc Details: increased pain over both lower extremities Denies back pain, Denies arthralgias and Denies neck pain Skin/Breast Denies rash Neuro Reports dizziness (see HPI), Reports syncope (see HPI), Denies headache(s) and Denies paresthesias Psych Reports anxiety and Denies depression Endo Reports fatigue and Denies palpitations Sergio/Lymph Denies easy bruising Physical exam (Primary Care) Vital Signs: Last Vital Signs Pulse 67 12/29/23 10:32 BP 100/78 12/29/23 10:32 Pulse Ox 98 12/29/23 10:32 Oxygen Delivery Method Room Air 12/29/23 10:32 BMI result Body Mass Index 41.4 Tobacco/Smoking Status: Tobacco use Status Tobacco use date assessed 12/29/23 12/29/23 10:34 Patient Tobacco Use Status Never used Tobacco 12/29/23 10:34 e-Cigarette/Vaping Use Never Used 12/29/23 10:34 PHQ-9: PHQ-9 Score PHQ-9: Total score 0 12/29/23 11:26 Depression Screening Interpretation: Positive Depression Screening Follow-up: Existing condition and In treatment (sees psychiatry regularly) Thrive Assessment: Date of Thrive Assessment Date Thrive assessed 12/29/23 12/29/23 10:34 Currently or been in a relationship where the following occur: No concerns reported Const General: no acute distress and alert HENMT Ears: TM's normal bilaterally and EAC's normal Throat: Yes posterior oropharynx normal and Yes tonsils normal (no TP congestion) Neck Neck: Yes no lymphadenopathy and Yes supple Thyroid: Thyroid normal Resp Auscultation: clear to auscultation bilaterally, no rales and no wheezes Cardio Rate: regular rate Rhythm: regular rhythm Heart sounds: no murmurs GI Palpation (GI): Soft to palpation and nontender Auscultation: normal bowel sounds General: Yes no CVA tenderness Back/Spine/Pelvis Back: no CVA tenderness Thoracic/Lumbar Spine: thoracic and lumbar spine normal to inspection Skin Rashes: no rashes Extrem Other: (+) prominent varicosities on both lower extremities, especially over the medial aspect of the left thigh General: Yes no clubbing, cyanosis or edema Results Reviewed Results Reviewed: Laboratory Tests 08/11/23 08/11/23 07:26 07:31 WBC 7.2 Hgb 12.8 Hct 39.7 Plt Count 317 Sodium 139 Potassium 3.9 Creatinine 0.65 Estimated GFR > 60 Fasting Glucose 83 Magnesium 2.1 AST 25 ALT 26 Triglycerides 90 Cholesterol 176 LDL Cholesterol, Calc 105 H HDL Cholesterol 53 Vitamin B12 226 25-OH Vitamin D Total 19.3 L TSH 2.22 Ur Specific [place] 1.025 Urine Protein Negative Urine Glucose (UA) Negative Urine Blood Negative Urine Nitrite Negative Ur Leukocyte Esterase Negative Assessment and Plan Assessment & Plan (1) Syncopal episodes: Code(s): R55 - Syncope and collapse Qualifiers: Syncope type: unspecified Qualified Code(s): R55 - Syncope and collapse Plan: Discussed with patient today that the etiology of her recurrent syncopal episodes is still unclear at this time as she is still undergoing work ups through cardiology for this Her repeat echocardiogram done last month (November 2023) came out normal although EF was low normal at 50 to 55% She is reportedly scheduled for tilt-table testing next month on 01/16/2024 although her chart indicates that this may be for her sleep medicine follow up instead She is scheduled for her nuclear stress testing and repeat Holter monitor on 02/13/2024 (2) Obstructive sleep apnea: Code(s): G47.33 - Obstructive sleep apnea (adult) (pediatric) Plan: Her initial home sleep study in September 2023 was normal although her oxygen yoshi was noted to be at 88% She was then sent for an in-lab sleep study for further evaluation - study done in November 2023 revealed (+) mild degree of sleep apnea with increased severity on REM sleep and oxygen yoshi this time was at 81% She was scheduled for repeat study with PAP titration and this will likely occur at her upcoming appointment with sleep medicine next month (3) Asthma: Code(s): J45.909 - Unspecified asthma, uncomplicated Qualifiers: Asthma severity: unspecified severity Asthma persistence: unspecified Asthma complication type: with acute exacerbation Qualified Code(s): J45.901 - Unspecified asthma with (acute) exacerbation Plan: Stable - continue Arnuity Ellipta 100 mcg 1 inhalation QD and Albuterol HFA 2 inhalations every 6 hours PRN (4) Migraine: Code(s): G43.909 - Migraine, unspecified, not intractable, without status migrainosus Qualifiers: Migraine type: unspecified Status migrainosus presence: without status migrainosus Intractability: not intractable Qualified Code(s): G43.909 - Migraine, unspecified, not intractable, without status migrainosus Plan: Stable on prophylactic Tx with Nortriptyline 25 mg Q HS Reinforced avoidance of migraine triggers Continue Vitamin B2 400 mg QD; continue Fioricet PRN and Sumatriptan 100 mg PRN as instructed for symptomatic relief (5) GERD (gastroesophageal reflux disease): Code(s): K21.9 - Gastro-esophageal reflux disease without esophagitis Qualifiers: Esophagitis presence: without esophagitis Qualified Code(s): K21.9 - Gastro-esophageal reflux disease without esophagitis Plan: Dietary restrictions reinforced Continue Pantoprazole 40 mg QD (6) Vitamin D deficiency: Code(s): E55.9 - Vitamin D deficiency, unspecified Plan: Continue Vitamin D3 2000 units QD (7) Vitamin B12 deficiency: Code(s): E53.8 - Deficiency of other specified B group vitamins Plan: Continue Vitamin B12 1000 mcg QD (8) Varicosities of leg: Code(s): I83.90 - Asymptomatic varicose veins of unspecified lower extremity Qualifiers: Varicose vein complication: unspecified Laterality: bilateral Qualified Code(s): I83.93 - Asymptomatic varicose veins of bilateral lower extremities Plan: She was seen and evaluated by vascular surgery a few months ago and advised that she does not have any significant vascular insufficiency or venous disease that is causing her leg pains and to just follow up with them on an as-needed basis Continue Tramadol 50 mg TID PRN for pain (9) Anxiety: Code(s): F41.9 - Anxiety disorder, unspecified Plan: Continue Fluoxetine 40 mg QD and Clonazepam 1 mg QD PRN (10) Depression: Code(s): F32.9 - Major depressive disorder, single episode, unspecified Qualifiers: Depression Type: major depressive disorder Major depression recurrence: recurrent Active/Remission status: currently active Major depression episode severity: unspecified Qualified Code(s): F33.9 - Major depressive disorder, recurrent, unspecified Plan: Continue Fluoxetine 40 mg QD Follow-up with Psychiatry as scheduled (11) Obesity (BMI 30-39.9): Comment: S/P lab band; later converted to gastric bypass surgery by Dr. Bradley in 2018 Code(s): E66.9 - Obesity, unspecified Plan: Reinforced diet/exercise as tolerated/lose weight Plan Follow up in 3 months Coding Level of Care Code Est Pt Level 4 (29021) Diagnoses Syncope, unspecified syncope type R55 Syncope type: unspecified Obstructive sleep apnea G47.33 Moderate persistent asthma without complication J45.901 Asthma severity: unspecified severity Asthma persistence: unspecified Asthma complication type: with acute exacerbation Migraine without status migrainosus, not intractable, unspecified migraine type G43.909 Migraine type: unspecified Status migrainosus presence: without status migrainosus Intractability: not intractable Gastroesophageal reflux disease without esophagitis K21.9 Esophagitis presence: without esophagitis Vitamin D deficiency E55.9 Vitamin B12 deficiency E53.8 Varicose veins of both lower extremities, unspecified whether complicated I83.93 Varicose vein complication: unspecified Laterality: bilateral Anxiety F41.9 Episode of recurrent major depressive disorder, unspecified depression episode severity F33.9 Depression Type: major depressive disorder Major depression recurrence: recurrent Active/Remission status: currently active Major depression episode severity: unspecified Obesity (BMI 30-39.9) E66.9 Additional Codes GEN-7 Assessment Billing - GEN-7 Assessment Tool: GEN-7 Assessment [id number] ([id number])
== END 2023-12-29 11:32 | disposition home or self-care (01) ==
PROVIDERS: PCP Internal Medicine; Visit Provider Internal Medicine
DX: R55 Syncope and collapse (principal); G47.33 Obstructive sleep apnea (adult) (pediatric); J45.901 Unspecified asthma with (acute) exacerbation; F33.9 Major depressive disorder, recurrent, unspecified; G43.909 Migraine, unspecified, not intractable, without status migrainosus; K21.9 Gastro-esophageal reflux disease without esophagitis; E55.9 Vitamin D deficiency, unspecified; E53.8 Deficiency of other specified B group vitamins; I83.93 Asymptomatic varicose veins of bilateral lower extremities; F41.9 Anxiety disorder, unspecified; E66.9 Obesity, unspecified

== ENCOUNTER → 2023-12-29 10:27 | Outpatient (BNVA) | payer OTHER, SELFPAY | PROVIDERS: PCP Internal Medicine; Visit Provider Internal Medicine | DX: R55 Syncope and collapse (principal); G47.33 Obstructive sleep apnea (adult) (pediatric); J45.901 Unspecified asthma with (acute) exacerbation; G43.909 Migraine, unspecified, not intractable, without status migrainosus; K21.9 Gastro-esophageal reflux disease without esophagitis; E55.9 Vitamin D deficiency, unspecified; E53.8 Deficiency of other specified B group vitamins; I83.93 Asymptomatic varicose veins of bilateral lower extremities | CPT/HCPCS: 96127; 99212 ==

== ENCOUNTER 2024-01-02 09:03 | Outpatient (AMB) | payer OTHER, SELFPAY ==
[2024-01-02 09:31] VITALS: BP 90/72; PULSE 78; BMI 41.1
--- NOTE | 2024-01-02 09:31 | A.OFFVIS_ITS ---
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 Specialist Required: No Allergies No Known Allergies Allergy (Verified 01/02/24 09:33) Medication List - Last Reconciled 01/02/24 by RICKEY Jones albuterol sulfate 90 mcg/actuation 2 inhalations inhalation QID PRN albuterol sulfate 90 mcg/actuation (Ventolin HFA) 2 puffs inhalation Q6H PRN blood pressure monitor As directed zwquuczfzh-cinbwoocqgica-fshd 50-325-40 mg 1 tab PO .2 to 3 times a day PRN 30 days cholecalciferol (vitamin D3) 50 mcg PO DAILY 90 days clonazepam 1 mg PO BEDTIME PRN cyanocobalamin (vitamin B-12) 1,000 mcg PO DAILY 90 days cyclobenzaprine 5 mg PO TID PRN 7 days fluoxetine 40 mg PO DAILY fluticasone furoate 100 mcg/actuation (Arnuity Ellipta) 1 inh PO DAILY gabapentin 200 mg (2 x 100 mg) PO BEDTIME 30 days lorazepam 1 mg PO DAILY PRN 30 days magnesium oxide 400 mg PO .qhs meclizine 25 mg PO TID PRN 30 days miscellaneous medical supply Nebulizer Machine - use as directed miscellaneous .4 times a day PRN; Nebulizer Machine - Dx: J45.901 -- asthma 12 months nortriptyline 25 mg PO BEDTIME 30 days ondansetron 4 mg PO Q8H PRN pantoprazole 40 mg PO DAILY peg-electrolyte soln 420 gram 240 mL PO Q10M riboflavin (vitamin B2) 400 mg PO QAM sumatriptan succinate take 1 tab at onset of headache; if no relief, may repeat 1 tab after at least 2 hrs; max = 2 tabs/24 hrs PO 30 days HPI HPI r/s 12/06 followup testing/mibi: Details: Anne Marie is a 53-year-old female with past medical history anxiety/depression, obesity, asthma, GERD who follow-up of syncopal events. On last visit an echocardiogram, exercise stress test, tilt-table test and Holter monitor were ordered. As of this time the echocardiogram only has been completed. Today she reports that she has had syncope since her last visit 6 weeks ago. She has increased her fluid and salt intake as instructed. Her blood pressure remains on the low side today. She has dates for her upcoming cardiac testing. No new symptoms to report. Last visit she described having syncope when in a standing position. She 1st notices heart palpitations then sweating then collapses. She has brief loss of consciousness then states she is disoriented. No witnessed seizure activity reported, no incontinence. She has not had events in a sitting or laying down position. She does not know when her events will happen and describes them as random. [facility] Medical History Obstructive sleep apnea Migraine with aura Right thigh pain Hypersomnia Snoring Right ovarian cyst Vitamin B12 deficiency Vitamin D deficiency Depression Anxiety Obesity (BMI 30-39.9) Bilateral hand pain Bilateral wrist pain GERD (gastroesophageal reflux disease) Asthma Migraine Surgical History H/O gastric bypass History of removal of laparoscopic gastric banding device LAP-BAND surgery status History of appendectomy History of hysterectomy History of section Family History Father Diabetes Hypertension Mother Hypertension Glaucoma Scoliosis Colon cancer Osteoporosis Headache Arthritis Maternal Grandmother No problems noted. Maternal Grandfather No problems noted. Paternal Grandmother No problems noted. Paternal Grandfather No problems noted. Daughter In good health Sister In good health Asthma Headache Anemia Arthritis Hypertension Brother Hypertension Social History Housing: House Alcohol intake: never Patient Tobacco Use Status: Never used Tobacco e-Cigarette/Vaping Use: Never Used Second Hand Smoke Exposure: No service: No Current occupational status: employed Sexual orientation: Straight/Heterosexual Gender identity: Female Cognitive needs: No Hearing needs: No Vision needs: No Female Reproductive History Menstrual Age of Menarche: 15 Review of Systems Const All systems reviewed & are unremarkable except as noted in HPI and below ENT Reports dizziness Card Denies chest pain, Denies chest pain at rest, Denies chest pain with activity, Denies rapid heart rate, Denies pedal edema, Denies edema, Denies leg edema, Denies lightheadedness, Denies palpitations, Denies dyspnea, Denies dyspnea on exertion and Denies orthopnea Resp Denies cough, Denies dyspnea and Denies dyspnea on exertion GI Denies hematochezia and Denies change in stool character Musc Denies abnormal gait, Denies limited range of motion, Denies muscle cramps, Denies muscle weakness, Denies numbness, Denies radiating pain into limb, Denies stiffness and Denies tingling Neuro Denies abnormal gait, Reports dizziness, Denies numbness and Denies tingling Endo Denies palpitations Physical Exam Vital Signs: Last Vital Signs Pulse 78 01/02/24 09:31 BP 90/72 01/02/24 09:31 BMI result Body Mass Index 41.1 Const General: cooperative, healthy appearing, comfortable and no acute distress Orientation/consciousness: patient oriented x3 Neck Neck: Yes normal visual inspection Resp Effort & Inspection: normal respiratory effort Auscultation: clear to auscultation bilaterally, no crackles, no rales, no rhonchi and no wheezes Cardio Jugular venous distension: no JVD Rate: regular rate Rhythm: regular rhythm Heart sounds: S1 normal heart sound present, S2 normal heart sound present, no murmurs and no rubs Neuro General: patient oriented x3 Extrem General: Yes normal to inspection and No no pedal edema Psych Appearance: grossly normal Mental Status: mental status grossly normal Speech and movement: Normal speech and movement present Assessment & Plan Assessment & Plan (1) Syncopal episodes: Code(s): R55 - Syncope and collapse Category: Medical Qualifiers: Syncope type: unspecified Qualified Code(s): R55 - Syncope and collapse Plan: Reports of syncopal episodes as described above. Each occurring in a standing position and preceded by elevated heart rate. She was seen in the emergency room in 12/2020 for syncope and at that time was labeled with orthostatic syncope even though she was not documented to be orthostatic at that time. All Holter monitor following that visit showed sinus rhythm with rare PVCs. An echocardiogram showed normal EF. She tells me in the last year she has been having increasing syncopal events. Echocardiogram was done on 11/30/2023 showing low normal EF 50-55%, otherwise normal study. Her blood pressures were low last visit and again today. It was thought that her syncope was most likely related to orthostatic hypotension. She has been increasing her fluid and salt intake. She says since last visit she has had another event. Will have her continue to increase fluid and salt in her diet. Use much caution with sitting to standing. Recommend compression stocking use. He is much caution when going sitting to standing. Sit or lay down if she becomes presyncopal. Holter monitor, stress test and tilt-table test are still pending. Emergency care as needed for symptoms. Cardiology follow-up 2-3 months, sooner if needed. (2) Low BP: Code(s): I95.9 - Hypotension, unspecified Category: Medical Plan: As above (3) Abnormal EKG: Code(s): R94.31 - Abnormal electrocardiogram [ECG] [EKG] Category: Medical Plan: As above Plan Time spent on chart review, documentation, interview and assessment Coding Level of Care Code Est Pt Level 3 (91156) Diagnoses Syncope, unspecified syncope type R55 Syncope type: unspecified Low BP I95.9 Abnormal EKG R94.31 Time Spent (min) 24
== END 2024-01-02 09:56 | disposition home or self-care (01) ==
PROVIDERS: PCP Internal Medicine; Visit Provider Nurse Practitioner Family
DX: R55 Syncope and collapse (principal); I95.9 Hypotension, unspecified; R94.31 Abnormal electrocardiogram [ECG] [EKG]
CPT/HCPCS: 99213

== ENCOUNTER → 2024-01-02 09:03 | Outpatient (BNVA) | payer OTHER, SELFPAY | PROVIDERS: PCP Internal Medicine; Visit Provider Nurse Practitioner Family | DX: R55 Syncope and collapse (principal); R94.31 Abnormal electrocardiogram [ECG] [EKG]; I95.9 Hypotension, unspecified | CPT/HCPCS: 99212 ==

== ENCOUNTER 2024-01-06 09:46 | Outpatient (REF) | payer OTHER, SELFPAY | END 2024-01-06 09:47 | disposition home or self-care (01) | LOC: HO.LAB 09:46 | PROVIDERS: PCP Internal Medicine; Visit Provider Physician Assistant Medical | DX: B34.9 Viral infection, unspecified (principal) | CPT/HCPCS: 99212 ==

== ENCOUNTER 2024-01-06 09:46 | Outpatient (AMB) | payer OTHER, SELFPAY ==
[2024-01-06 10:45] VITALS: BP 100/68; PULSE 65; TEMP 36.7; O2SAT 98; BMI 41.1
--- NOTE | 2024-01-06 10:45 | AM.OFFWIN_ITS ---
Intake Vital Signs 01/06/24 10:45 Height 5 ft 2 in Weight 225 lb BMI 41.1 BP 100/68 Blood Pressure Location Rt brachial Position Sitting Pulse 65 Pulse Source Pulse Oximeter Temp 98.1 F Temp Source Oral Pulse Oximetry (%) 98 Oxygen Delivery Method Room Air Intake Visit Reasons: EP cough/chest tightness Intake Note: Pt is here today c/o cough and chest tightness x3days with chills Patient Tobacco Use Status: Never used Tobacco Allergies No Known Allergies Allergy (Verified 01/06/24 10:46) HPI EP cough/chest tightness HPI Details Patient is a 53-year-old female a history of asthma, obstructive sleep apnea, migraines and anxiety, who comes to the walk-in clinic complaining of a few days of nasal congestion, cough, and reports she is having trouble with her asthma and feels tight in her chest intermittently, no current shortness of breath. She is using albuterol inhaler as well as nebulizer with temporary relief. She reports that she feels like she is wheezing. She denies headache or dizziness, weakness, myalgias or malaise, nausea vomiting or diarrhea, headache, fever or chills, severe sore throat, loss of sense of taste or smell, or other significant associated symptoms. [facility] Medical History Obstructive sleep apnea Migraine with aura Right thigh pain Hypersomnia Snoring Right ovarian cyst Vitamin B12 deficiency Vitamin D deficiency Depression Anxiety Obesity (BMI 30-39.9) Bilateral hand pain Bilateral wrist pain GERD (gastroesophageal reflux disease) Asthma Migraine Surgical History H/O gastric bypass History of removal of laparoscopic gastric banding device LAP-BAND surgery status History of appendectomy History of hysterectomy History of section Family History Father Diabetes Hypertension Mother Hypertension Glaucoma Scoliosis Colon cancer Osteoporosis Headache Arthritis Maternal Grandmother No problems noted. Maternal Grandfather No problems noted. Paternal Grandmother No problems noted. Paternal Grandfather No problems noted. Daughter In good health Sister In good health Asthma Headache Anemia Arthritis Hypertension Brother Hypertension Social History (Reviewed 01/06/24 @ 11:35 by BELLE Carvajal Housing: House Alcohol intake: never Patient Tobacco Use Status: Never used Tobacco e-Cigarette/Vaping Use: Never Used Second Hand Smoke Exposure: No service: No Current occupational status: employed Sexual orientation: Straight/Heterosexual Gender identity: Female Cognitive needs: No Hearing needs: No Vision needs: No Female Reproductive History Menstrual Age of Menarche: 15 Review of Systems Const All systems reviewed & are unremarkable except as noted in HPI and below Physical Exam Vital Signs: Last Vital Signs Temp 98.1 F 01/06/24 10:45 Pulse 65 01/06/24 10:45 BP 100/68 01/06/24 10:45 Pulse Ox 98 01/06/24 10:45 Oxygen Delivery Method Room Air 01/06/24 10:45 BMI result Body Mass Index 41.1 Const General: cooperative, healthy appearing, comfortable, no acute distress, alert, awake, Physically active and well groomed; No anxious, diaphoretic, intoxicated appearing, poor hygiene or tired appearing Nutritional Appearance: average body habitus Orientation/consciousness: oriented to person Limitations: no limitations HEENT Head: Yes normal to inspection, Yes normocephalic and Yes atraumatic Ears: hearing grossly normal bilaterally, external ears normal, TM's normal bilaterally and EAC's normal General nose exam: Normal external nose present, Normal nares present, Normal nasal mucous membranes and turbinates present, Normal septum present and No nasal discharge present Face and sinus: Yes normal facial exam, Yes sinuses nontender and Yes face symmetric Mouth: Normal oral and palatal mucosa present, lip normal and tongue normal Throat: Yes posterior oropharynx normal, No peritonsillar mass, No postnasal drainage, No uvular edema and No cobblestoning Eyes General: appearance normal, both eyes and all related structures Neck Neck: Yes normal visual inspection, Yes no lymphadenopathy, Yes trachea midline and No anterior neck swelling Chest Chest palpation & inspection: normal palpation of entire chest wall Resp Effort & Inspection: normal respiratory effort, able to speak in complete sentences, no audible wheezes, Actively coughing Quality: dry, no grunting, not labored, no nasal flaring, no pursed lip breathing, no respiratory distress, no retractions, no segmental paradox chest wall movement, no tripod positioning, no use of accessory muscles, No prolonged expiratory phase and symmetric chest movement Auscultation: clear to auscultation bilaterally, no crackles, no rales, no rhonchi, no wheezes, lung sounds not diminished and No rub present Cardio Rate: regular rate Rhythm: regular rhythm Skin Other: Good color, warm and dry Neuro General: oriented to person Psych Appearance: grossly normal Mental Status: mental status grossly normal Speech and movement: Normal speech and movement present Affect: normal affect Attitude: cooperative Thought process: Normal thought process present Insight: Good insight present (Psych) Judgement: Good judgement present (Psych) Results Reviewed Results Reviewed: Patient is in sinus bradycardia with no ST changes. Plain film chest x-ray today shows no acute disease per my wet read. Pending radiologist read. Assessment & Plan Assessment & Plan (1) Viral syndrome: Code(s): B34.9 - Viral infection, unspecified Plan Patient is 53-year-old female with history of asthma who comes in complaining of 4 days of acute viral respiratory symptoms that seem to be aggravating her asthma, however currently not having an asthma attack. She tested for COVID on the 1st day of symptoms with rapid home testing and was negative. She is pending repeat rapid covid and PCR results for flu COVID and RSV. She reports she was wheezing yesterday, but did nebulized albuterol treatment and this has apparently improved today as her exam is remarkable only for occasional cough with no wheezing, but does still complain of feeling tight in her chest, so 12 lead EKG was done today. Patient is in sinus bradycardia with no ST changes. Plain film chest x-ray also done today shows no acute disease per my wet read. Pending radiologist read. As she is currently stable, but complains of wheezing, likely her asthma is getting flared up by this respiratory infection, in so will treat with short course steroid and antibiotic. I advised that she continue with the albuterol inhaled and nebulized as needed. She should monitor for changes in follow up if symptoms persist or worsen. She knows to go to the emergency department with worrisome symptoms. Orders: Orders XR chest 2V 01/06/24 R05.9 - Cough, unspecified AMB EKG-In Office 01/06/24 R07.89 - Other chest pain SARS-CoV2/FLU/RSV 01/06/24 J06.9 - Acute upper respiratory infection, unspecified [employer] Covid-19 Ag 01/06/24 Z20.822 - Contact with and (suspected) exposure to COVID-19 Medications: New azithromycin take 500 mg today (day 1), then 250 mg for 4 days (days 2-5) PO 6 tabs 0RF prednisone 40 mg (2 x 20 mg) PO DAILY 10 tabs 0RF 5 days albuterol sulfate for up to 3 doses 2.5 mg (0.5 mL) inhalation TID-QID 30 ea 0RF benzonatate 100 mg PO BID-TID PRN 30 caps 0RF cough Coding Level of Care Code Est Pt Level 4 (79182) Diagnoses Viral syndrome B34.9
== END 2024-01-06 13:15 | disposition home or self-care (01) ==
PROVIDERS: PCP Internal Medicine; Visit Provider Physician Assistant Medical
DX: B34.9 Viral infection, unspecified (principal)

== ENCOUNTER 2024-01-06 11:59 | Outpatient (REF) | payer OTHER, SELFPAY ==
--- NOTE | ~2024-01-06 | XR_ITS ---
EXAMINATION: XR CHEST CLINICAL INFORMATION: Cough. COMPARISON: Chest radiograph 04/30/2023. TECHNIQUE: 2 views of the chest were obtained. FINDINGS: No focal consolidation, pleural effusion or pneumothorax. Normal appearance of the cardiomediastinal silhouette. Right upper quadrant surgical clips. No acute osseous findings. XR/XR chest 2V IMPRESSION: No acute cardiopulmonary findings. Electronically signed by: Charlotte Birch MD 01/06/2024 03:23 PM EDT
[2024-01-06 12:22] LABS: Binax Internal Control QC Valid; Binax Lot number: 869104; Binax Now Covid-19 Ag Negative (Negative); Binax Performed by: PAULP
[2024-01-06 14:34] LABS: Influenza A PCR NEGATIVE (Negative); Influenza B PCR NEGATIVE (Negative); Resp Syncy Virus RNA Qual PCR NEGATIVE (Negative); SARS COV2 PCR INHOUSE NEGATIVE (Negative)
== END 2024-01-06 12:00 | disposition home or self-care (01) ==
LOC: HO.HMGCX 11:59
PROVIDERS: PCP Internal Medicine; Visit Provider Physician Assistant Medical
DX: R05.9 Cough, unspecified (principal); J06.9 Acute upper respiratory infection, unspecified; Z20.822 Contact with and (suspected) exposure to COVID-19
CPT/HCPCS: 0241U; 71046; 87811

== ENCOUNTER → 2024-01-16 19:30 | Outpatient (REF) | payer OTHER, SELFPAY | LOC: HO.SL 19:30 | PROVIDERS: PCP Internal Medicine; Visit Provider Psychiatry & Neurology Neurology | DX: G47.33 Obstructive sleep apnea (adult) (pediatric) (principal) | CPT/HCPCS: 95811 ==

== ENCOUNTER → 2024-01-16 22:11 | Outpatient (BNV) | payer OTHER, SELFPAY | PROVIDERS: PCP Internal Medicine; Visit Provider Psychiatry & Neurology Neurology | DX: G47.33 Obstructive sleep apnea (adult) (pediatric) (principal) | CPT/HCPCS: 95811 ==

== ENCOUNTER → 2024-02-13 07:46 | Outpatient (REF) | payer OTHER, SELFPAY ==
--- NOTE | 2024-02-13 07:48 | HM_ITS ---
* Total monitoring time 3 days. * Underlying rhythm is sinus with an average rate of 81/Min. * Very rare ventricular ectopy with minimal burden. * No significant pauses or high-grade AV blocks. * No patient markers or diary events. MTDD
== END ==
LOC: HO.CARD 07:46
PROVIDERS: PCP Internal Medicine; Visit Provider Nurse Practitioner Family
DX: I95.9 Hypotension, unspecified (principal); R55 Syncope and collapse; R94.31 Abnormal electrocardiogram [ECG] [EKG]
CPT/HCPCS: 93242

== ENCOUNTER → 2024-02-13 07:48 | Outpatient (BNV) | payer OTHER, SELFPAY | PROVIDERS: PCP Internal Medicine; Visit Provider Internal Medicine | DX: I49.3 Ventricular premature depolarization (principal) | CPT/HCPCS: 93244 ==

== ENCOUNTER 2024-03-06 09:52 | Outpatient (AMB) | payer OTHER, SELFPAY ==
--- NOTE | 2024-03-06 10:02 | AM.OFFWIN_ITS ---
Intake Vital Signs 03/06/24 10:03 Weight 225 lb BP 98/64 Blood Pressure Location Lt brachial Position Sitting Pulse 74 Pulse Source Pulse Oximeter Temp 98.1 F Temp Source Oral Pulse Oximetry (%) 100 Oxygen Delivery Method Room Air Intake Visit Reasons: EP Back/waist pain Intake Note: Patient here for lower back pain that radiates to the hips which started about 3 days ago. Patient Tobacco Use Status: Never used Tobacco Allergies No Known Allergies Allergy (Verified 03/06/24 10:04) Do you need a note to return to daycare/school/sports/work: No HPI EP Back/waist pain HPI Details This note is constructed using voice recognition software. While every effort has been made to ensure accuracy, machine molder squeeze errors may have been included. The patient is a 53 year old female who presents to the clinic today with bilateral low back pain for the past 3 days. She denies injury, previous surgery. She denies numbness and tingling in the legs. She denies loss of control of bladder or bowel. She reports that the pain was rather gradual onset, and seems to radiate bilaterally outwards. She has tried Tylenol with so me effect as well as ice. [facility] Medical History Obstructive sleep apnea Migraine with aura Right thigh pain Hypersomnia Snoring Right ovarian cyst Vitamin B12 deficiency Vitamin D deficiency Depression Anxiety Obesity (BMI 30-39.9) Bilateral hand pain Bilateral wrist pain GERD (gastroesophageal reflux disease) Asthma Migraine Surgical History H/O gastric bypass History of removal of laparoscopic gastric banding device LAP-BAND surgery status History of appendectomy History of hysterectomy History of section Family History Father Diabetes Hypertension Mother Hypertension Glaucoma Scoliosis Colon cancer Osteoporosis Headache Arthritis Maternal Grandmother No problems noted. Maternal Grandfather No problems noted. Paternal Grandmother No problems noted. Paternal Grandfather No problems noted. Daughter In good health Sister In good health Asthma Headache Anemia Arthritis Hypertension Brother Hypertension Social History Housing: House Alcohol intake: never Patient Tobacco Use Status: Never used Tobacco e-Cigarette/Vaping Use: Never Used Second Hand Smoke Exposure: No service: No Current occupational status: employed Sexual orientation: Straight/Heterosexual Gender identity: Female Cognitive needs: No Hearing needs: No Vision needs: No Female Reproductive History Menstrual Age of Menarche: 15 Review of Systems Const All systems reviewed & are unremarkable except as noted in HPI and below Physical Exam Vital Signs: Last Vital Signs Temp 98.1 F 03/06/24 10:03 Pulse 74 03/06/24 10:03 BP 98/64 03/06/24 10:03 Pulse Ox 100 03/06/24 10:03 Oxygen Delivery Method Room Air 03/06/24 10:03 Const General: cooperative, healthy appearing, comfortable, no acute distress and well developed Orientation/consciousness: patient oriented x3 Limitations: no limitations Resp Effort & Inspection: normal respiratory effort and able to speak in complete sentences Back/Spine/Pelvis Other: Bilateral lumbar tenderness with increased muscle bulging left lumbar region. Full range of motion on lateral rotation, extension flexion. Strength 5/5 in lower extremities. Distal neurovascular exam intact. No ecchymosis, erythema, edema. Negative SLR, negative well SLR. Skin General skin exam: no rashes or lesions noted Neuro General: patient oriented x3 Extrem General: Yes normal to inspection Assessment & Plan Assessment & Plan (1) Lumbago: Code(s): M54.50 - Low back pain, unspecified Qualifiers: Chronicity: acute Back pain laterality: bilateral Sciatica presence: without sciatica Qualified Code(s): M54.50 - Low back pain, unspecified Plan: Patient unable to tolerate NSAIDs, offered prescription of prednisone for anti- inflammatory effects, however patient declined. Prescription for muscle relaxer sent for symptomatic management, advised patient to continue with acetaminophen for pain management. Additionally advised consideration of heat, followed by muscle rubs. Advised follow up with worsening symptoms or failure to resolve with PCP. Plan See above for full details and plan. Medications: New cyclobenzaprine 1 to 2 orally 3 times a day PRN; 10 tabs 0RF muscle spasm Coding Level of Care Code Est Pt Level 3 (80976) Diagnoses Acute bilateral low back pain without sciatica M54.50 Chronicity: acute Back pain laterality: bilateral Sciatica presence: without sciatica
[2024-03-06 10:03] VITALS: BP 98/64; PULSE 74; TEMP 36.7; O2SAT 100
== END 2024-03-06 10:34 | disposition home or self-care (01) ==
PROVIDERS: PCP Internal Medicine; Visit Provider Registered Nurse
DX: M54.50 Low back pain, unspecified (principal); Z13.9 Encounter for screening, unspecified

== ENCOUNTER → 2024-03-06 09:52 | Outpatient (BNVA) | payer OTHER, SELFPAY | PROVIDERS: PCP Internal Medicine; Visit Provider Registered Nurse | DX: M54.50 Low back pain, unspecified (principal) | CPT/HCPCS: 81003; 99212 ==

== ENCOUNTER 2024-04-04 10:15 | Outpatient (AMB) | payer OTHER, SELFPAY ==
[2024-04-04 10:17] VITALS: BP 110/86; PULSE 63; O2SAT 99; BMI 41.1
--- NOTE | 2024-04-04 10:17 | A.OFFPC_ITS ---
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 Assistant Required: No Accompanied by: Self / Same As Patient Allergies No Known Allergies Allergy (Verified 04/04/24 10:28) Medication List - Last Reconciled 04/04/24 by LASHAUN Sam albuterol sulfate 90 mcg/actuation (Ventolin HFA) 2 puffs inhalation Q6H PRN albuterol sulfate 2.5 mg (0.5 mL) inhalation TID-QID albuterol sulfate 90 mcg/actuation 2 inhalations inhalation QID PRN blood pressure monitor As directed [id number]-[id number]-pehj 50-325-40 mg 1 tab PO .2 to 3 times a day PRN 30 days cholecalciferol (vitamin D3) 50 mcg PO DAILY 90 days clonazepam 1 mg PO BEDTIME PRN cyanocobalamin (vitamin B-12) 1,000 mcg PO DAILY 90 days cyclobenzaprine 1 to 2 orally 3 times a day PRN; fluoxetine 40 mg PO DAILY fluticasone furoate 100 mcg/actuation (Arnuity Ellipta) 1 inh PO DAILY gabapentin 200 mg (2 x 100 mg) PO BEDTIME 30 days lorazepam 1 mg PO DAILY PRN 30 days magnesium oxide 400 mg PO .qhs meclizine 25 mg PO TID PRN 30 days miscellaneous medical supply Nebulizer Machine - use as directed miscellaneous .4 times a day PRN; Nebulizer Machine - Dx: J45.901 -- asthma 12 months nortriptyline 25 mg PO BEDTIME 30 days ondansetron 4 mg PO Q8H PRN pantoprazole 40 mg PO DAILY peg-electrolyte soln 420 gram 240 mL PO Q10M riboflavin (vitamin B2) 400 mg PO QAM sumatriptan succinate take 1 tab at onset of headache; if no relief, may repeat 1 tab after at least 2 hrs; max = 2 tabs/24 hrs PO 30 days Tobacco use date assessed: 04/04/24 Dental Screening Dental Screen Date: 04/04/24 Did you have a dental visit in the last 12 months?: No Did you have a dental problem in the last 6 months where you did not have access to dental care?: No Was dental information given to patient?: Patient has dentist HPI 3mth f/u HPI Details The patient is a 53-year-old female with significant past medical history with syncopal episode, migraines, GERD, asthma in peripheral neuropathy. Patient is presenting today for follow-up appointment. She reports that she has been feeling well. The only thing that is bothering her now is a mild migraine. She reports that she had a lot going on during the holiday and she thinks that she just needs to sleep. She reports that she already took her migraine medication and it has started working. She is interested in one of the semaglutide medications to help her lose weight. She is not sure which one she would be qualified for since she is not diabetic. She is not sure why she is not losing any weight because she does not eat much She also reports that she has been on a CPAP machine for about a month now, but she thinks that the pressure is too low. She is going to ask for it to be increased on her next visit with neurology/sleep She reports that she still has ongoing mild dizziness and that she has learned to deal with it. She is still being worked up by cardiology and her next appt is on 04/08/24 and she will be following up with neurology on 05/02/24. She reports that she was encouraged to take more salt since her blood pressure always been on the lower side Reports that she is out of sumatriptan and is requesting a refill She denies chest pain, SOB, heart palpitation, stomach pain or change is stool habit. She reports that lower back pain is well control that she is using a patch (she cannot remember the name of the patch that a friend got from [facility] for her). She denies numbness on tingling in her lower extremities [facility] Medical History Obstructive sleep apnea Migraine with aura Right thigh pain Hypersomnia Snoring Right ovarian cyst Vitamin B12 deficiency Vitamin D deficiency Depression Anxiety Obesity (BMI 30-39.9) Bilateral hand pain Bilateral wrist pain GERD (gastroesophageal reflux disease) Asthma Migraine Surgical History H/O gastric bypass History of removal of laparoscopic gastric banding device LAP-BAND surgery status History of appendectomy History of hysterectomy History of section Family History Father Diabetes Hypertension Mother Hypertension Glaucoma Scoliosis Colon cancer Osteoporosis Headache Arthritis Maternal Grandmother No problems noted. Maternal Grandfather No problems noted. Paternal Grandmother No problems noted. Paternal Grandfather No problems noted. Daughter In good health Sister In good health Asthma Headache Anemia Arthritis Hypertension Brother Hypertension Social History Housing: House Alcohol intake: never Patient Tobacco Use Status: Never used Tobacco e-Cigarette/Vaping Use: Never Used Second Hand Smoke Exposure: No service: No Current occupational status: employed Sexual orientation: Straight/Heterosexual Gender identity: Female Cognitive needs: No Hearing needs: No Vision needs: No Female Reproductive History Menstrual Age of Menarche: 15 Questionnaire PHQ-9 Over the last 2 weeks, how often have you been bothered by any of the following problems? 1. Little interest or pleasure in doing things: not at all 2. Feeling down, depressed, or hopeless: not at all 3. Trouble falling or staying asleep, or sleeping too much: not at all 4. Feeling tired or having little energy: not at all 5. Poor appetite or overeating: not at all 6. Feeling bad about yourself - or that you are a failure or have let yourself or your family down: not at all 7. Trouble concentrating on things, such as reading the newspaper or watching television: not at all 8. Moving or speaking so slowly that other people could have noticed. Or the opposite - being so fidgety or restless that you have been moving around a lot more than usual: not at all 9. Thoughts that you would be better off or of hurting yourself in some way: not at all Total score: 0 Depression Screening Interpretation: Negative Depression Screening Done: Yes 88774 - PHQ-9 Billing: Yes Source: Developed by Drs. Jr Monsivais, Radha Campbell, Mayur Mckee and colleagues, with an educational joselito from [employer]. Thrive Questionnaire Date Thrive assessed: 04/04/24 I am a: Patient What is your living situation today?: I have a steady place to live Within the past 12 months, did the food you bought not last and you didn't have the money to get more?: Never true Within the past 12 months, did you worry whether your food would run out before you got money to buy more?: Never true Do you have trouble paying for medicines?: No Do you have trouble getting transportation to medical appointments?: No Do you have trouble paying your heating and electricity bill?: No Do you have trouble taking care of your child, family member or friend?: No Do you have trouble with day-to-day activities such as bathing, preparing meals, shopping, managing finances, etc.?: No Are you currently unemployed and looking for a job?: No Are you interested in more education?: No Please select the resources that you would like help with: None Currently or been in a relationship where the following occur: No concerns reported THRIVE Score: 0 AUDIT C Alcohol Use Questionnaire (AUDIT-C) 1. How often do you have a drink containing alcohol?: Never 3. How often do you have six or more drinks on one occasion?: Never Total Score: 0 Score Reviewed/Action Taken: Yes GEN-7 AMB Questionnaire GEN-7 Date GEN - 7 assessed: 04/04/24 Feeling nervous, anxious, or on edge: 1 = Several days Not being able to stop or control worryin = Several days Worrying too much about different things: 1 = Several days Trouble relaxin = Several days Being so restless that it is hard to sit still: 1 = Several days Becoming easily annoyed or irritable: 1 = Several days Feeling afraid as if something awful might happen: 1 = Several days Total GEN-7 score (0-4 normal; 5-9 mild; 10-14 moderate; 15-21 severe): 7 Source: Developed by Drs. Jr Monsivais, Radha Campbell, Mayur Mckee and colleagues, with an educational joselito from [employer]. GEN-7 Assessment Billing GEN-7 Assessment Tool: GEN-7 Assessment 78572 Review of Systems Const Details: Const Denies chills, Denies fatigue, Denies fever(s) and Denies weakness, reports migraine that is bitemporal-mostly on the left side. ENT +mild dizziness-ongoing currently being worked up by cardiology Card Denies chest pain, Denies lightheadedness, Denies dyspnea and Denies other (Palpitations) Resp Denies cough, Denies dyspnea, Denies wheezing and Denies other ( shortness of breath) GI Denies abdominal pain, Denies melena, Denies hematochezia, Denies change in bowel habits, Denies dyspepsia and Denies nausea Denies hematuria and Denies dysuria Musc Denies abnormal gait,+lower back pain on and off-reports that it is stable at this time, Denies arthralgias, Denies numbness and Denies tingling Skin/Breast Denies rash, Denies unusual bruising and Denies wounds Neuro Denies abnormal gait, reports dizziness-same as above, reports migraine same as above, Denies memory loss, Denies numbness, Denies Sensory deficit (Neuro), Denies tingling and Denies weakness Psych Report mild anxiety-scored 7 on GEN, Denies depression, Denies memory loss Endo Denies cold intolerance, Denies fatigue, Denies heat intolerance, Denies polydipsia and Denies polyuria Aller/Immun Denies wheezing Physical exam (Primary Care) Vital Signs: Last Vital Signs Pulse 63 04/04/24 10:17 BP 110/86 04/04/24 10:17 Pulse Ox 99 04/04/24 10:17 Oxygen Delivery Method Room Air 04/04/24 10:17 BMI result Body Mass Index 41.1 Tobacco/Smoking Status: Tobacco use Status Tobacco use date assessed 04/04/24 04/04/24 10:22 Patient Tobacco Use Status Never used Tobacco 04/04/24 10:22 e-Cigarette/Vaping Use Never Used 04/04/24 10:22 PHQ-9: PHQ-9 Score PHQ-9: Total score 0 04/04/24 12:01 Depression Screening Interpretation: Negative Thrive Assessment: Date of Thrive Assessment Date Thrive assessed 04/04/24 04/04/24 10:22 Currently or been in a relationship where the following occur: No concerns reported Const Other: General: no acute distress and well developed Nutritional Appearance: well nourished Orientation/consciousness: patient oriented x3 HENMT Head: Yes normocephalic and Yes atraumatic Eyes General: appearance normal, both eyes and all related structures Pupils: Equal, round and reactive pupils present EOM: EOMs intact bilaterally Resp Effort & Inspection: normal respiratory effort Auscultation: clear to auscultation bilaterally Cardio Rate: regular rate Rhythm: regular rhythm Heart sounds: S1 normal heart sound present, S2 normal heart sound present, no gallops, no murmurs and no rubs GI Palpation (GI): No Abdominal aortic bruit present, Soft to palpation, nontender, No hepatosplenomegaly present and No Rebound tenderness present Auscultation: normal bowel sounds General: Yes no CVA tenderness Back/Spine/Pelvis Back: no CVA tenderness Cervical Spine: cervical ROM normal and No Cervical spine tenderness Thoracic/Lumbar Spine:Thoracic and lumbar spine normal on inspection General: No edema and No calf tenderness Skin General: warm and dry. Normal skin color. Normal skin turgor Lesions: no lesions Rashes: no rashes Trauma: no lacerations or abrasions Wounds: no wounds Nails: normal Neuro General: patient oriented x3, gait normal and no focal neuro deficit Cognition (Neuro): normal cognition Gait exam (Neuro): Normal gait present Psych Appearance: grossly normal Affect: normal affect Attitude: cooperative Thought process: Normal thought process present Coding Level of Care Code Est Pt Level 4 (72931) Diagnoses Obstructive sleep apnea G47.33 Syncope, unspecified syncope type R55 Syncope type: unspecified Migraine with aura and without status migrainosus, not intractable G43.109 Status migrainosus presence: without status migrainosus Intractability: not intractable Vitamin B12 deficiency E53.8 Dizziness R42 Vitamin D deficiency E55.9 Gastroesophageal reflux disease without esophagitis K21.9 Esophagitis presence: without esophagitis Moderate persistent asthma without complication J45.901 Asthma complication type: with acute exacerbation Asthma persistence: unspecified Asthma severity: unspecified severity Anxiety F41.9 Episode of recurrent major depressive disorder, unspecified depression episode severity F33.9 Active/Remission status: currently active Depression Type: major depressive disorder Major depression episode severity: unspecified Major depression recurrence: recurrent Morbid (severe) obesity due to excess calories E66.01 Additional Codes GEN-7 Assessment Billing - GEN-7 Assessment Tool: GEN-7 Assessment 86818 ([id number]) PHQ-9 - 04618 - PHQ-9 Billing: Yes ([id number]) Assessment & Plan Assessment & Plan (1) Obstructive sleep apnea: Code(s): G47.33 - Obstructive sleep apnea (adult) (pediatric) Category: Medical Plan: Her initial home sleep study in September 2023 was normal although her oxygen yoshi was noted to be at 88% She was then sent for an in-lab sleep study for further evaluation - study done in November 2023 revealed (+) mild degree of sleep apnea with increased severity on REM sleep and oxygen yoshi this time was at 81% She was scheduled for repeat study with PAP titration Presently the patient has been using a CPAP machine for about a month now-she is planning on requesting an increased on her PAP (reports not feeling much air). Her next appt on 05/02/24-Encouraged to follow up with sleep medicine/neurology as scheduled The patient to follow in office in 3 months (2) Syncopal episodes: Code(s): R55 - Syncope and collapse Category: Medical Qualifiers: Syncope type: unspecified Qualified Code(s): R55 - Syncope and collapse Plan: The patient reported that she has been better and she is only having mild dizziness She is scheduled to follow up with cardiology on 04/08/24 Reinforced rising slowly when getting to a standing position Reinforced the importance of hydration Follow up with cardiology as scheduled (3) Migraine with aura: Code(s): G43.109 - Migraine with aura, not intractable, without status migrainosus Category: Medical Qualifiers: Status migrainosus presence: without status migrainosus Intractability: not intractable Qualified Code(s): G43.109 - Migraine with aura, not intractable, without status migrainosus Plan: Reports this has been stable for the most part. She is currently having a mild episode to lack of sleep through the holiday She continues on Nortripyline 25 mg at bedtime, vitamin B2, Fioricet AND Sumatriptan 100mg PRN She is out of Sumatriptan-refilled, she reports that the pain already started subsiding The patient to follow up in 3 months or sooner for any concerns (4) Vitamin B12 deficiency: Code(s): E53.8 - Deficiency of other specified B group vitamins Category: Medical Plan: Continues on Cyanocobalamin 1000 mcg daily Labs ordered for upcoming CPE Instructed to get labs a week before this appt (5) Dizziness: Code(s): R42 - Dizziness and giddiness Category: Medical Plan: Reports ongoing mild dizziness she is currently being worked up by cardiology Reinforced safety measures like rising slowly and to adequately hydrate Three month follow up or sooner for any concerns (6) Vitamin D deficiency: Code(s): E55.9 - Vitamin D deficiency, unspecified Category: Medical Plan: Continue Cholecalciferol 50 mcg daily Labs ordered for upcoming CPE (7) GERD (gastroesophageal reflux disease): Code(s): K21.9 - Gastro-esophageal reflux disease without esophagitis Category: Medical Qualifiers: Esophagitis presence: without esophagitis Qualified Code(s): K21.9 - Gastro-esophageal reflux disease without esophagitis Plan: Continues on pantoprazole 40mg daily Reinforced dietary restrictions (8) Asthma: Code(s): J45.909 - Unspecified asthma, uncomplicated Category: Medical Qualifiers: Asthma complication type: with acute exacerbation Asthma persistence: unspecified Asthma severity: unspecified severity Qualified Code(s): J45.901 - Unspecified asthma with (acute) exacerbation Plan: The patient has been stable on fluticasone furoate 100 mcg (Arnity Ellipta) 1 inhalation daily Continue Albuterol HFA 2 puffs q 6hrs as needed Follow in 3 months or sooner as needed (9) Anxiety: Code(s): F41.9 - Anxiety disorder, unspecified Category: Medical Plan: Scored 7 on GEN in office=mild anxiety Reports that feeling better as well Continue fluoxetine 40 mg and clonazepam at bedtime prn Follow up with psychiatry as scheduled (10) Depression: Code(s): F32.9 - Major depressive disorder, single episode, unspecified Category: Medical Qualifiers: Active/Remission status: currently active Depression Type: major depressive disorder Major depression episode severity: unspecified Major d epression recurrence: recurrent Qualified Code(s): F33.9 - Major depressive disorder, recurrent, unspecified Plan: Reports this has been stable Denies si/hi Continue fluoxetine 40 mg Follow up with psychiatry as scheduled (11) Morbid (severe) obesity due to excess calories: Code(s): E66.01 - Morbid (severe) obesity due to excess calories Category: Medical Plan: Diet/exercise discussed in detail Encouraged to exercise for at least 30 minutes a day/5 days a week Healthy eating discussed. Encouraged to eat fruits/vegetables, protein- fish/baked chicken, and to avoid salty/fried foods, sweets, caffeine and carbohydrates. Encouraged to increase water intake 6-8 glasses a day The patient requested to be started on semaglutide injection Order placed for sarah-the patient was informed that this order might need an prior authorization and the process might take a bit longer than usual. She verbalized understanding and said she could wait for the medication Plan Follow-up in 3 months Orders: Orders Complete Blood Count Auto Diff 4 Months E53.8 - Deficiency of other specified B group vitamins, E55.9 - Vitamin D deficiency, unspecified, E66.01 - Morbid (severe) obesity due to excess calories, F33.9 - Major depressive disorder, recurrent, unspecified, F41.9 - Anxiety disorder, unspecified, G43.109 - Migraine with aura, not intractable, without status migrainosus, G47.33 - Obstructive sleep apnea (adult) (pediatric), J45.901 - Unspecified asthma with (acute) exacerbation, K21.9 - Gastro-esophageal reflux disease without esophagitis, R55 - Syncope and collapse Comprehensive Faison. Panel Fast 4 Months E53.8 - Deficiency of other specified B group vitamins, E55.9 - Vitamin D deficiency, unspecified, E66.01 - Morbid (severe) obesity due to excess calories, F33.9 - Major depressive disorder, recurrent, unspecified, F41.9 - Anxiety disorder, unspecified, G43.109 - Migraine with aura, not intractable, without status migrainosus, G47.33 - Obstructive sleep apnea (adult) (pediatric), J45.901 - Unspecified asthma with (acute) exacerbation, K21.9 - Gastro-esophageal reflux disease without esophagitis, R55 - Syncope and collapse Lipid Panel 4 Months E53.8 - Deficiency of other specified B group vitamins, E55.9 - Vitamin D deficiency, unspecified, E66.01 - Morbid (severe) obesity due to excess calories, F33.9 - Major depressive disorder, recurrent, unspecified, F41.9 - Anxiety disorder, unspecified, G43.109 - Migraine with aura, not intractable, without status migrainosus, G47.33 - Obstructive sleep apnea (adult) (pediatric), J45.901 - Unspecified asthma with (acute) exacerbation, K21.9 - Gastro-esophageal reflux disease without esophagitis, R55 - Syncope and collapse TSH reflex Free T4 4 Months E53.8 - Deficiency of other specified B group vitamins, E55.9 - Vitamin D deficiency, unspecified, E66.01 - Morbid (severe) obesity due to excess calories, F33.9 - Major depressive disorder, recurrent, unspecified, F41.9 - Anxiety disorder, unspecified, G43.109 - Migraine with aura, not intractable, without status migrainosus, G47.33 - Obstructive sleep apnea (adult) (pediatric), J45.901 - Unspecified asthma with (acute) exacerbation, K21.9 - Gastro-esophageal reflux disease without esophagitis, R55 - Syncope and collapse Glucose Fasting 4 Months E53.8 - Deficiency of other specified B group vitamins, E55.9 - Vitamin D deficiency, unspecified, E66.01 - Morbid (severe) obesity due to excess calories, F33.9 - Major depressive disorder, recurrent, unspecified, F41.9 - Anxiety disorder, unspecified, G43.109 - Migraine with aura, not intractable, without status migrainosus, G47.33 - Obstructive sleep apnea (adult) (pediatric), J45.901 - Unspecified asthma with (acute) exacerbation, K21.9 - Gastro-esophageal reflux disease without esophagitis, R55 - Syncope and collapse Vitamin D 25-OH Total 4 Months E53.8 - Deficiency of other specified B group vitamins, E55.9 - Vitamin D deficiency, unspecified, E66.01 - Morbid (severe) obesity due to excess calories, F33.9 - Major depressive disorder, recurrent, unspecified, F41.9 - Anxiety disorder, unspecified, G43.109 - Migraine with aura, not intractable, without status migrainosus, G47.33 - Obstructive sleep apnea (adult) (pediatric), J45.901 - Unspecified asthma with (acute) exacerbation, K21.9 - Gastro-esophageal reflux disease without esophagitis, R55 - Syncope and collapse UA CC w/rflx Micro + Cult 4 Months E53.8 - Deficiency of other specified B group vitamins, E55.9 - Vitamin D deficiency, unspecified, E66.01 - Morbid (severe) obesity due to excess calories, F33.9 - Major depressive disorder, recurrent, unspecified, F41.9 - Anxiety disorder, unspecified, G43.109 - Migraine with aura, not intractable, without status migrainosus, G47.33 - Obstructive sleep apnea (adult) (pediatric), J45.901 - Unspecified asthma with (acute) exacerbation, K21.9 - Gastro-esophageal reflux disease without esophagitis, R55 - Syncope and collapse Vitamin B12 and Folate 4 Months E53.8 - Deficiency of other specified B group vitamins, E55.9 - Vitamin D deficiency, unspecified, E66.01 - Morbid (severe) obesity due to excess calories, F33.9 - Major depressive disorder, recurrent, unspecified, F41.9 - Anxiety disorder, unspecified, G43.109 - Migraine with aura, not intractable, without status migrainosus, G47.33 - Obstructive sleep apnea (adult) (pediatric), J45.901 - Unspecified asthma with (acute) exacerbation, K21.9 - Gastro-esophageal reflux disease without esophagitis, R55 - Syncope and collapse Medications: New semaglutide (weight loss) (Sarah) administer weeks 1 through 4 of therapy 0.25 mg (0.5 mL) subcut QWEEK 4 weeks 2 mL 0RF E66.01 - Morbid (severe) obesity due to excess calories Refilled sumatriptan succinate take 1 tab at onset of headache; if no relief, may repeat 1 tab after at least 2 hrs; max = 2 tabs/24 hrs PO 30 days 15 tabs 3RF G43.909 - Migraine, unspecified, not intractable, without status migrainosus
== END 2024-04-04 10:53 | disposition home or self-care (01) ==
PROVIDERS: PCP Internal Medicine
DX: R55 Syncope and collapse (principal); F33.9 Major depressive disorder, recurrent, unspecified; E66.01 Morbid (severe) obesity due to excess calories; Z68.41 Body mass index [BMI] 40.0-44.9, adult; G47.33 Obstructive sleep apnea (adult) (pediatric); G43.109 Migraine with aura, not intractable, without status migrainosus; E53.8 Deficiency of other specified B group vitamins; R42 Dizziness and giddiness; E55.9 Vitamin D deficiency, unspecified; K21.9 Gastro-esophageal reflux disease without esophagitis; J45.901 Unspecified asthma with (acute) exacerbation; F41.9 Anxiety disorder, unspecified

== ENCOUNTER → 2024-04-04 10:15 | Outpatient (BNVA) | payer OTHER, SELFPAY | PROVIDERS: PCP Internal Medicine | DX: K21.9 Gastro-esophageal reflux disease without esophagitis (principal); G43.909 Migraine, unspecified, not intractable, without status migrainosus; G62.9 Polyneuropathy, unspecified; G47.33 Obstructive sleep apnea (adult) (pediatric); R55 Syncope and collapse; G43.109 Migraine with aura, not intractable, without status migrainosus; E53.8 Deficiency of other specified B group vitamins; R42 Dizziness and giddiness; E55.9 Vitamin D deficiency, unspecified; J45.901 Unspecified asthma with (acute) exacerbation; F41.9 Anxiety disorder, unspecified; F33.9 Major depressive disorder, recurrent, unspecified; E66.01 Morbid (severe) obesity due to excess calories; Z68.41 Body mass index [BMI] 40.0-44.9, adult | CPT/HCPCS: 96127; 99212 ==

== ENCOUNTER → 2024-04-08 07:57 | Outpatient (REF) | payer OTHER, SELFPAY ==
--- NOTE | 2024-04-08 08:05 | CA_ITS ---
Acquisition Time: 2024-04-08 08:20:12 Total Exercise Time: 00:06:00 Test Indications: Abnormal ECG Medications: SEE H Protocol: ALISSA Max HR: 148 BPM 87% of Pred: 169 BPM Max BP: 134/082 mmHG Max Work Load: 5.8 METS Exercise Stress Test with exercise 6 mins of Alissa Protocol, held at stage 1 due to dizziness on the treadmill, slowly increased speed to 2.0 mph and incline up to 12 %, achieving 87% MPHR, without any chest discomfort, without any arrythmias, with normotensive response to exercise. Without EKG changes meeting criteria for ischemia. In recovery, dizziness resolved. Nuclear images pending. Test reviewed with Dr. Paz. Referred By: Jyotsna Almaraz Overread By: Uvaldo Walters
== END ==
LOC: HO.CARD 07:57
PROVIDERS: PCP Internal Medicine; Visit Provider Nurse Practitioner Family
DX: R94.31 Abnormal electrocardiogram [ECG] [EKG] (principal); R55 Syncope and collapse; I95.9 Hypotension, unspecified; H66.001 Acute suppurative otitis media without spontaneous rupture of ear drum, right ear
CPT/HCPCS: 93017; 99212

== ENCOUNTER 2024-04-08 11:13 | Outpatient (AMB) | payer OTHER, SELFPAY ==
--- NOTE | 2024-04-08 13:01 | AM.OFFWIN_ITS ---
Intake Vital Signs 04/08/24 13:02 Weight 229 lb BP 118/76 Blood Pressure Location Rt brachial Position Sitting Pulse 68 Pulse Source Pulse Oximeter Temp 97.9 F Temp Source Oral Pulse Oximetry (%) 98 Oxygen Delivery Method Room Air Intake Visit Reasons: EP Congestion Intake Note: Patient here for sinus congestion and pressure that has been present for 2 days. Patient Tobacco Use Status: Never used Tobacco Allergies No Known Allergies Allergy (Verified 04/08/24 13:09) Do you need a note to return to daycare/school/sports/work: No HPI EP Congestion HPI Details This note is constructed using voice recognition software. While every effort has been made to ensure accuracy, assistant hvac mechanic errors may have been included. The patient is a 53 year old female who presents to the clinic today with sinus and ear congestion for the past 2 days with subjective fever. She denies cough, shortness of breath, body aches. She denies any known sick contacts. She has tried zyrtec for symptom management without relief. [facility] Medical History Obstructive sleep apnea Migraine with aura Right thigh pain Hypersomnia Snoring Right ovarian cyst Vitamin B12 deficiency Vitamin D deficiency Depression Anxiety Obesity (BMI 30-39.9) Bilateral hand pain Bilateral wrist pain GERD (gastroesophageal reflux disease) Asthma Migraine Surgical History H/O gastric bypass History of removal of laparoscopic gastric banding device LAP-BAND surgery status History of appendectomy History of hysterectomy History of section Family History Father Diabetes Hypertension Mother Hypertension Glaucoma Scoliosis Colon cancer Osteoporosis Headache Arthritis Maternal Grandmother No problems noted. Maternal Grandfather No problems noted. Paternal Grandmother No problems noted. Paternal Grandfather No problems noted. Daughter In good health Sister In good health Asthma Headache Anemia Arthritis Hypertension Brother Hypertension Social History Housing: House Alcohol intake: never Patient Tobacco Use Status: Never used Tobacco e-Cigarette/Vaping Use: Never Used Second Hand Smoke Exposure: No service: No Current occupational status: employed Sexual orientation: Straight/Heterosexual Gender identity: Female Cognitive needs: No Hearing needs: No Vision needs: No Female Reproductive History Menstrual Age of Menarche: 15 Review of Systems Const All systems reviewed & are unremarkable except as noted in HPI and below Physical Exam Vital Signs: Last Vital Signs Temp 97.9 F 04/08/24 13:02 Pulse 68 04/08/24 13:02 BP 118/76 04/08/24 13:02 Pulse Ox 98 04/08/24 13:02 Oxygen Delivery Method Room Air 04/08/24 13:02 Const General: cooperative, healthy appearing, comfortable and no acute distress Orientation/consciousness: patient oriented x3 HEENT Head: Yes normal to inspection, Yes No palpable skull fracture present and Yes normocephalic Ears: hearing grossly normal bilaterally, external ears normal, EAC's normal, mastoids normal (no TTP) bilaterally and TM abnormal (on the right) bulging and erythematous General nose exam: Normal external nose present Face and sinus: Yes normal facial exam Mouth: Normal oral and palatal mucosa present Teeth and gingiva: dentition normal Throat: Yes posterior oropharynx normal Eyes General: appearance normal, both eyes and all related structures Neck Neck: Yes normal visual inspection, Yes full ROM, Yes no lymphadenopathy, Yes no meningeal signs, Yes trachea midline and Yes supple Resp Effort & Inspection: normal respiratory effort and able to speak in complete sentences Skin General skin exam: no rashes or lesions noted Neuro General: patient oriented x3 and no meningeal signs Assessment & Plan Assessment & Plan (1) Otitis media: Code(s): H66.90 - Otitis media, unspecified, unspecified ear Qualifiers: Otitis media type: suppurative Chronicity: acute Laterality: right Recurrence: non-recurrent Spontaneous tympanic membrane rupture: without spontaneous rupture Qualified Code(s): H66.001 - Acute suppurative otitis media without spontaneous rupture of ear drum, right ear Plan: Supportive measures encouraged and reviewed. Antibiotic sent to requested pharmacy, advised patient to take antibiotics until completed and not to stop if feeling better, unless the patient has side effects. Advised patient to follow up with primary care provider with worsening or failure to resolve. Viral swab obtained to rule out Covid, Influenza, and RSV based on symptoms. Advised mask wearing while symptomatic and quarantine per current CDC guidelines. Reviewed at home support methods including hydration, humidification, vix vapor rub, sinus rinse, and otc treatment options. Advised follow up with worsening symptoms such as dyspnea at rest, which would require emergent evaluation. Plan See above for full details and plan. Orders: Orders SARS-CoV2/FLU/RSV Today J06.9 - Acute upper respiratory infection, unspecified Medications: New amoxicillin-pot clavulanate 875-125 mg 1 tab PO BID 7 days 14 tabs 0RF Coding Level of Care Code Est Pt Level 3 (30466) Diagnoses Non-recurrent acute suppurative otitis media of right ear without spontaneous rupture of tympanic membrane H66.001 Otitis media type: suppurative Chronicity: acute Laterality: right Recurrence: non-recurrent Spontaneous tympanic membrane rupture: without spontaneous rupture
[2024-04-08 13:02] VITALS: BP 118/76; PULSE 68; TEMP 36.6; O2SAT 98
== END 2024-04-08 13:39 | disposition home or self-care (01) ==
PROVIDERS: PCP Internal Medicine; Visit Provider Registered Nurse
DX: H66.001 Acute suppurative otitis media without spontaneous rupture of ear drum, right ear (principal)

== ENCOUNTER 2024-04-08 13:36 | Outpatient (REF) | payer OTHER, SELFPAY ==
[2024-04-08 17:58] LABS: Influenza A PCR NEGATIVE (Negative); Influenza B PCR NEGATIVE (Negative); Resp Syncy Virus RNA Qual PCR NEGATIVE (Negative); SARS COV2 PCR INHOUSE NEGATIVE (Negative)
== END 2024-04-08 13:37 | disposition home or self-care (01) ==
LOC: HO.LAB 13:36
PROVIDERS: Visit Provider Registered Nurse
DX: J06.9 Acute upper respiratory infection, unspecified (principal); Z11.52 Encounter for screening for COVID-19
CPT/HCPCS: 0241U

== ENCOUNTER 2024-06-17 09:38 | Outpatient (REF) | payer OTHER, SELFPAY ==
[2024-06-17 09:57] LABS: MANUAL DIFF FLAG NO
--- OUTSIDE RECORDS SUMMARY | 2024-06-17 10:32 | XMS_ITS | Clinical Summary ---
Author Organization [facility] it Address [address] [place] [address] Care Team Providers Care Rug Setter [place]minster Name Role Phone Brett Navarro MD Primary Care Provider [phone] Medications albuterol sulfate (ProAir RespiClick) 90 mcg/actuation aerosol powdr breath activated Albuterol Sulfate 108 (90 BASE) MCG/ACT AEROSOL POWDER,BREATH ACTIVATED Inhale into the lungs Active ascorbic acid (VITAMIN C) 500 mg CR capsule Ascorbic Acid (VITAMIN C CR) 500 MG Cap CR Take by mouth Active cholecalcifero l (VITAMIN D-3) 25 mcg (1,000 unit) capsule Cholecalciferol (VITAMIN D-3) 1000 UNITS Cap Take by mouth Active ferrous fumarate 324 mg (106 mg iron) tablet Take by mouth. Ac tive FLUoxetine (PROzac) 10 mg capsule Take 10 mg by mouth daily. Active fluticasone propionate (Flovent Diskus) 50 mcg/actuation diskus inhaler fluticasone (FLOVENT DISKUS) 50 MCG/BLIST diskus inhaler Inhale 1 Puff into the lungs 2 times daily Active omeprazole (PriLOSEC) [address] capsule omeprazole (PRILOSEC) 20 MG capsule Take 20 mg by mouth daily Active SUMAtriptan (IMITREX) 100 mg tablet Take 100 mg by mouth daily as needed. May repeat dose once after 2 hours, if needed. Active thiamine 100 mg tablet thiamine 100 MG tablet Take 100 mg by mouth daily Active topiramate (TOPAMAX) 50 mg tablet Take 50 mg by mouth 2 times daily. Active Social History Tobacco Use Types Packs/Day Years Used Date Smoking Tobacco: Never Assessed Comments Unknown Sex and Gender Information Value Date Recorded Sex Assigned at Not on file Legal Sex Female 4:56 AM EST Gender Identity Not on file Sexual Orientation Not on file Plan of Treatment Upcoming Encounters Date Type Department Care Team ([facility] Contact Info) Description 10/29/2024 9:00 AM EDT Office Visit Bariatric Surgery - [place] [address] [facility] [address] [place] [address] Anna Ross MD [address] [facility] [address] [place] [address] Health Maintenance Due Date Last Done Comments Breast Cancer Screening 1972 DTaP,Tdap,and Td Vaccines (1 - Tdap) 1991 Hepatitis B Vaccines (1 of 3 - 19+ 3-dose series) 1991 Cervical Cancer Screening: P ap Smear 1993 Pneumococcal Vaccine: 50+ Ye ars (1 of 1 - PCV) 2022 Zoster Vaccines (1 of 2) 2022 COVID-19 Vaccine (1 - 2023-2 5 season) 2023 Influenza Vaccine (#1) 2023 Colorectal Cancer Screening: Colonoscopy 06/06/2024 Depression Screening 06/06/2024 HIV Screening 06/06/2024 Hepatitis C Screening 06/06/2024 Social Influencers of Health Screening 06/06/2024 HIB Vaccines Aged Out No longer eligi ble based on patient's age to complete this topic HPV Vaccines Aged Out No longer eligi ble based on patient's age to complete this topic Hepatitis A Vaccines Aged Out No long er eligible based on patient's age to complete this topic IPV Vaccines Aged Out No longer eligi ble based on patient's age to complete this topic MMR Vaccines Aged Out No longer eligi ble based on patient's age to complete this topic Meningococcal ACWY Vaccine Aged Out N o longer eligible based on patient's age to complete this topic Meningococcal B Vacine Aged Out No lo nger eligible based on patient's age to complete this topic Pneumococcal Vaccine: Pediat rics (0 to 5 Years) and At-Risk Patients (6 to 64 Years) Aged Out No longer eligible b ased on patient's age to complete this topic RSV Immunization Patients Un trell 20 months Aged Out No longer eligible b ased on patient's age to complete this topic Varicella Vaccines Aged Out No longer eligible based on patient's age to complete this topic Insurance MEDICAID - [place] Advance Directives Documents on File Type Date Recorded Patient 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
[2024-06-17 10:51] LABS: Basophils Percent Auto 0.6 % (0-2); Eosinophils Absolute Auto 0.2 X10*3/uL (0.0-0.4); Eosinophils Percent Auto 3.1 % (0-4); Hemoglobin 11.8 g/dl (12.0-16.0); Imm Gran Abs Auto 0.03 X10*3/uL (0.00-0.03); Imm Gran Pct Auto 0.5 % (0.0-0.4); Lymphocytes Absolute Auto 2.2 X10*3/uL (1.2-4.9); Lymphocytes Percent Auto 34.2 % (20-40); Mean Corpuscular HGB Conc 31.1 g/dl (31.0-35.0); Mean Corpuscular Hemoglobin 26.4 pg (27.0-33.0); Monocytes Absolute Auto 0.5 X10*3/uL (0.1-1.2); Neutrophils Absolute Auto 3.5 x10*3/uL (2.0-8.3); Neutrophils Percent Auto 53.6 % (45-73); Platelet Count 285 X10*3/uL (160-400); Red Blood Count 4.47 X10*6/uL (4.20-5.50); Red Cell Distribution Width 14.3 % (11.0-16.0); White Blood Count 6.5 X10*3/uL (4.8-10.8)
[2024-06-17 11:03] LABS: Appearance Urine Cloudy; Color Urine Dark Yellow; Glucose Urine UA Negative (Negative); Leukocyte Esterase Urine Negative (Negative); Nitrite Urine Negative (Negative); Specific Gravity - Urine 1.025 (1.005-1.025); Urine Blood Negative (Negative); Urine Ketones Trace mg/dL (Negative); Urine Protein Trace mg/dL (Neg-Trace)
[2024-06-17 11:43] LABS: Alanine Aminotransferase 33 U/L (0-31); Albumin Level 3.8 g/dL (3.5-5.0); Alkaline Phosphatase 75 U/L (39-117); Anion Gap 10 (12-20); Aspartate Amino Transferase 29 U/L (5-31); Bilirubin Total 0.9 mg/dL (0.0-1.0); Blood Urea Nitrogen 11 mg/dL (9-16); Calcium 8.9 mg/dL (8.4-10.2); Carbon Dioxide 26 mmol/L (22-29); Chloride 108 mmol/L (96-108); Cholesterol 155 mg/dL (<200); Estimated Glomerular Filt Rate > 60; Glucose Fasting 94 mg/dL (60-99); HDL Cholesterol 52 mg/dL (>40); LDL Cholesterol Calculated 84 mg/dL (<100); Potassium 4.4 mmol/L (3.3-5.1); Sodium 140 mmol/L (135-145); Total Protein 7.2 g/dL (6.5-8.0); Triglycerides 95 mg/dL (<150)
[2024-06-17 11:59] LABS: Folate 15.7 ng/mL (> or = 4.0); Vitamin B12 345 pg/mL (200-900)
[2024-06-17 12:03] LABS: Vitamin D 25-OH Total 13.8 ng/mL (>30)
== END 2024-06-17 09:39 | disposition home or self-care (01) ==
LOC: HO.LAB 09:38
PROVIDERS: PCP Internal Medicine
DX: G47.33 Obstructive sleep apnea (adult) (pediatric) (principal); R55 Syncope and collapse; G43.109 Migraine with aura, not intractable, without status migrainosus; E53.8 Deficiency of other specified B group vitamins; E55.9 Vitamin D deficiency, unspecified; F33.9 Major depressive disorder, recurrent, unspecified; F41.9 Anxiety disorder, unspecified; J45.901 Unspecified asthma with (acute) exacerbation; K21.9 Gastro-esophageal reflux disease without esophagitis; E66.01 Morbid (severe) obesity due to excess calories
CPT/HCPCS: 36415; 80053; 80061; 81003; 82306; 82607; 82746; 84443; 85025

== ENCOUNTER 2024-07-30 08:47 | Outpatient (AMB) | payer OTHER, SELFPAY ==
--- NOTE | 2024-07-30 08:49 | MHC.OFFWIV ---
Intake Vital Signs 07/30/24 08:53 Weight 225 lb BP 114/70 Blood Pressure Location Rt brachial Position Sitting Pulse 68 Pulse Source Pulse Oximeter Temp 98.5 F Temp Source Oral Pulse Oximetry (%) 97 Oxygen Delivery Method Room Air Intake Visit Reasons: EP Sore throat, ear pain Intake Note: Patient here for sore throat, bilat ear pain and sinus congestion for 2 days. Patient Tobacco Use Status: Never used Tobacco Allergies No Known Allergies Allergy (Verified 07/30/24 08:53) Do you need a note to return to daycare/school/sports/work: No HPI HPI Comments History of Present Illness Details This is a 54-year-old female with a past medical history of asthma presenting for evaluation of a sore throat and ear pain that she has had for the past 2 days. Patient states that her right ear hurts worse in her left ear and she has had subjective fevers for which she is taking Tylenol. Patient denies any cough, sinus pressure or shortness of breath. [facility] Medical History Obstructive sleep apnea Migraine with aura Right thigh pain Hypersomnia Snoring Right ovarian cyst Vitamin B12 deficiency Vitamin D deficiency Depression Anxiety Obesity (BMI 30-39.9) Bilateral hand pain Bilateral wrist pain GERD (gastroesophageal reflux disease) Asthma Migraine Surgical History H/O gastric bypass History of removal of laparoscopic gastric banding device LAP-BAND surgery status History of appendectomy History of hysterectomy History of section Family History Father Diabetes Hypertension Mother Hypertension Glaucoma Scoliosis Colon cancer Osteoporosis Headache Arthritis Maternal Grandmother No problems noted. Maternal Grandfather No problems noted. Paternal Grandmother No problems noted. Paternal Grandfather No problems noted. Daughter In good health Sister In good health Asthma Headache Anemia Arthritis Hypertension Brother Hypertension Social History Housing: House Alcohol intake: never Patient Tobacco Use Status: Never used Tobacco e-Cigarette/Vaping Use: Never Used Second Hand Smoke Exposure: No service: No Current occupational status: employed Sexual orientation: Straight/Heterosexual Gender identity: Female Cognitive needs: No Hearing needs: No Vision needs: No Female Reproductive History Menstrual Age of Menarche: 15 Review of Systems Const All systems reviewed & are unremarkable except as noted in HPI and below Denies body aches, Denies chills and Reports fever(s) (subjective) Eyes Reports no additional complaints ENT Reports otalgia (R > L), Denies sinus pressure, Reports sore throat and Denies throat swelling Card Reports no additional complaints, Denies chest pain and Denies dyspnea Resp Reports no additional complaints, Denies cough and Denies dyspnea GI Reports no additional complaints Reports no additional complaints Musc Reports no additional complaints Skin/Breast Reports system reviewed and no additional complaints, except as documented Neuro Reports no additional complaints Psych Reports no additional complaints Endo Reports no additional complaints Sergio/Lymph Reports no additional complaints Aller/Immun Reports no additional complaints and Denies throat swelling Physical Exam Const General: cooperative, healthy appearing, comfortable, no acute distress, well developed, alert, awake and Physically active Nutritional Appearance: well nourished Orientation/consciousness: patient oriented x3 Limitations: no limitations HEENT Head: Yes normal to inspection and Yes normocephalic Ears: hearing grossly normal bilaterally, external ears normal, right TM abnormal (erythema without bulging, no fluid level noted), TM normal on the left and EAC's normal General nose exam: Normal external nose present Face and sinus: Yes normal facial exam and Yes sinuses nontender Mouth: Normal oral and palatal mucosa present and moist mucous membranes Throat: Yes posterior oropharynx normal (There is no erythema, edema or exudates of the posterior oropharynx) Eyes General: appearance normal, both eyes and all related structures Neck Lymphatic: no lymphadenopathy noted Resp Effort & Inspection: normal respiratory effort and not tachypneic Auscultation: clear to auscultation bilaterally Cardio Rate: regular rate Rhythm: regular rhythm Skin General skin exam: no rashes or lesions noted Neuro General: patient oriented x3 Psych Appearance: grossly normal Mental Status: mental status grossly normal Insight: Good insight present (Psych) Judgement: Good judgement present (Psych) Assessment & Plan Assessment & Plan (1) Otitis media of right ear: Comment: Rapid strep test is negative; will treat for right otitis media. Code(s): H66.91 - Otitis media, unspecified, right ear Qualifiers: Otitis media type: unspecified Qualified Code(s): H66.91 - Otitis media, unspecified, right ear Plan: Amoxicillin t.i.d. x7 days. Tylenol or ibuprofen as needed. Medications: New amoxicillin 500 mg PO TID 21 caps 0RF Coding Level of Care Code Est Pt Level 3 (89266) Diagnoses Right otitis media, unspecified otitis media type H66.91 Otitis media type: unspecified Time Spent (min) 20
[2024-07-30 08:53] VITALS: BP 114/70; PULSE 68; TEMP 36.9; O2SAT 97
--- OUTSIDE RECORDS SUMMARY | 2024-07-30 09:09 | XMS_ITS | Encounter Summary ---
Author Organization [facility] Address [address] [place] [address] Care Team Providers Care Equipment Validation Specialist Name Role Phone Brett Navarro MD Primary Care Provider + [phone] Reason for Visit * Reason Onset Date Comments prior authorization 07/24/2024 Zepbound 2.5 MG Encounter Details Date Type Department Care Team (Late st Contact Info) Description 07/24/2024 Telephone Bariatric Surgery - [place] [address] [place] [phone] Danielito Hair MD [address] [facility] [address] [place] [address] prior authorization (Zepbound 2.5 MG) Social History Tobacco Use Types Packs/Day Years Used Date Smoking Tobacco: Never Smokeless Tobacco: Never Alcohol Use Standard Drinks/Week Comments Never 0 (1 standard drink = 0.6 oz pur e alcohol) Comments Unknown Sex and Gender Information Value Date Recorded Sex Assigned at Female 07/10/2024 5:26 PM EDT Legal Sex Female 4:56 AM EST Gender Identity Female 07/10/2024 5:26 PM EDT Sexual Orientation Straight 07/10/2024 5: 26 PM EDT documented as of this encounter Progress Notes * Mayra Nagel - 07/24/2024 10:45 AM EDT Patient is asking the office to call [facility] prior auth line in reference to her denial. I called the phone# and was told [employer] has not been allowing anxiety as a contraindication. [employer] is recommending a PEER to PEER as they say it's much quicker vs an appeal. They state that anyone that's able to answer clinical questions can schedule the peer to peers. documented in this encounter Plan of Treatment Upcoming Encounters Date Type Department Care Team (Late st Contact Info) Description 09/25/2024 8:30 AM EDT Appointment [facility] Xray [address] [place] [address] 11/26/2024 1:15 PM EDT Office Visit Bariatric Surgery - [place] [address] [phone] Danielito Hair MD [address] [facility] [address] [place] [address] documented as of this encounter Visit Diagnoses Not on filedocumented in this encounter Care Teams Equipment Validation Specialist Relationship Specialty Start Date End Date Brett Navarro MD [address] [place] [address] [address] [place], [place] PCP - General Internal Medicine 07/19/24 documented as of this encounter
--- OUTSIDE RECORDS SUMMARY | 2024-07-30 09:09 | XMS_ITS | Clinical Summary ---
Author Organization [address] [facility] Address [address] [place] [address] Phone Care Team Providers Care Assistant Center Director Name Role Phone Brett Navarro MD Primary Care Provider + [phone] Allergies No known active allergies Medications albuterol sulfate (ProAir RespiClick) 90 mcg/actuation aerosol powdr breath activated Albuterol Sulfate 108 (90 BASE) MCG/ACT AEROSOL POWDER,BREATH ACTIVATED Inhale into the lungs Active ascorbic acid (VITAMIN C) 500 mg CR capsule Ascorbic Acid (VITAMIN C CR) 500 MG Cap CR Take by mouth Active cholecalciferol (VITAMIN D-3) 25 mcg (1,000 unit) capsule Cholecalciferol (VITAMIN D-3) 1000 UNITS Cap Take by mouth Active ferrous fumarate 324 mg (106 mg iron) tablet Take by mouth. Activ e FLUoxetine (PROzac) 10 mg capsule Take 10 [...] mg by mouth 2 times daily. Active methocarbamoL (ROBAXIN) 750 mg tablet Take 1 tablet (750 mg total) by mouth 4 (four) times a day. 12 each 07/11/19 25 Active tirzepatide, weight loss, (Zepbound) 2.5 mg/0.5 mL injectionIndica tions:Class 3 severe obesity due to excess calories with serious comorbidity and body mass index (BMI) of 40.0 to 44.9 in adult Inject 0.5 mL (2.5 mg total) under the skin every 7 (seven) days for 4 doses. 2 mL 07/19/19 25 025 Active ergocalciferol (VITAMIN D-2) 1,250 mcg (50,000 unit) capsule Take 1 capsule (50,000 Units total) by mouth 1 (one) time per week. 12 each 07/25/19 25 026 Active ferrous sulfate 325 mg (65 mg iron) EC tablet Take 1 tablet (325 mg total) by mouth 1 (one) time each day with breakfast. Do not crush, chew, or split. 30 each 2 07/25/19 25 025 Active Active Problems No known active problems Encounters Date Type Department Care Team Description 07/24/2024 Telephone Bariatric Surgery [address] [phone] Danielito Hair MD prior authorization (Zepbound 2.5 MG) 07/18/2024 10:15 AM EDT Office Visit Bariatric Surgery [address] [phone] Danielito Hair MD Class 3 severe obesity due to excess calories with serious comorbidity and body mass index (BMI) of 40.0 to 44.9 in adult (Primary Dx) 07/17/2024 8:15 AM EDT Lab Draw Station - [address] [phone] S/P gastric bypass 07/16/2024 1:45 PM EDT Office Visit Bariatric Surgery [address] [phone] Anna Ross MD S/P gastric bypass (Primary Dx); Obesity, Class III, BMI 40-49.9 (morbid obesity); Sleep apnea, unspecified type 07/10/2024 4:54 PM EDT - 07/10/2024 7:20 PM EDT Emergency [facility] Emergency [address] [place] [address] Acute left-sided low back pain, unspecified whether sciatica present (Primary Dx); Fall, initial encounter; Injury of head, initial encounter; Contusion of buttock, initial encounter; Neck pain on right side Discharge Disposition: Home or Self Care from Last 3 Months Medical History Medical History Date Comments Asthma Migraine Syncope Hypotension Anemia Sleep apnea Social History Tobacco Use Types Packs/Day Years Used Date Smoking Tobacco: Never Smokeless Tobacco: Never Tobacco Cessation:Counseling Given: Not Answered Alcohol Use Standard Drinks/Week Comments Never 0 (1 standard drink = 0.6 oz pur e alcohol) Comments Unknown Sex and Gender Information Value Date Recorded Sex Assigned at Female 07/10/2024 5:26 PM EDT Legal Sex Female 4:56 AM EST Gender Identity Female 07/10/2024 5:26 PM EDT Sexual Orientation Straight 07/10/2024 5: 26 PM EDT Obstetrics History Last Filed Vital Signs Vital Sign Reading Time Taken Comments Blood Pressure 109/77 07/18/2024 9:57 AM EDT Pulse 76 07/18/2024 9:57 AM EDT Temperature 36.6 ??C (97.8 ??F) 07/18/2024 9:57 AM ED T Respiratory Rate 18 07/10/2024 7:17 PM EDT Oxygen Saturation 100% 07/10/2024 7:17 PM EDT Inhaled Oxygen Concentration - - Weight 103 kg (227 lb) 07/18/2024 9:57 AM EDT Height 160 cm (5' 3 ) 07/18/2024 9:57 AM EDT Body Mass Index 40.21 07/18/2024 9:57 AM EDT Plan of Treatment Upcoming Encounters Date Type Department Care Team (Late st Contact Info) Description 09/25/2024 8:30 AM EDT Appointment [facility] Xray [address] [place] [phone] 11/26/2024 1:15 PM EDT Office Visit Bariatric Surgery - [place] [address] [facility] [address] [place] [phone] Danielito Hair MD [address] [facility] [address] [place] [address] Health Maintenance Due Date Last Done Comments Breast Cancer Screening 1972 Hepatitis B Vaccines (1 of 3 - 19+ 3-dose series) 1991 Cervical Cancer Screening: P ap Smear 1993 Pneumococcal Vaccine: 50+ Years (2 of 2 - PCV) 2022 10/08/2011 COVID-19 Vaccine (1 - 2023-2 5 season) 2023 Colorectal Cancer Screening: Colonoscopy 06/06/2024 Depression Screening 06/06/2024 HIV Screening 06/06/2024 Hepatitis C Screening 06/06/2024 Social Influencers of Health Screening 06/06/2024 Influenza Vaccine (Season Ended) 2024 12/19/2022 DTaP,Tdap,and Td Vaccines (2 - Td or Tdap) 08/12/2027 08/11/2017 Cholesterol Screening (Lipid Panel) 07/17/2029 07/17/2024 Pneumococcal Vaccine: Pediatrics (0 to 5 Years) and At-Risk Patients (6 to 64 Years) Aged Out 10/08/2011 No longer eligible b ased on patient's age to complete this topic Zoster Vaccines Completed 12/19/2022, 06/20/2022 HIB Vaccines Aged Out No longer eligi [...] age to complete this topic Meningococcal B Vaccine Aged Out No l onger eligible based on patient's age to complete this topic RSV Immunization Patients Under 20 months Aged Out No longer eligible b ased on patient's age to complete this topic Varicella Vaccines Aged Out No longer eligible based on patient's age to complete this topic Procedures Procedure Name Priority Date/Time Associated Diagnosis Comments HELICOBACTER PYLORI BREATH TEST Routine 07/17/2024 9:00 AM EDT S/P gastric bypass CBC WITH AUTO DIFFERENTIAL Routine 07/17/2024 8:52 AM EDT S/P gastric bypass CBC AND DIFFERENTIAL Routine 07/17/2024 8:52 AM EDT S/P gastric bypass COMPREHENSIVE METABOLIC PANEL Routine 07/17/2024 8:52 AM EDT S/P gastric bypass CORTISOL Routine 07/17/2024 8:52 AM EDT S/P gastric bypass FERRITIN Routine 07/17/2024 8:52 AM EDT S/P gastric bypass FOLATE Routine 07/17/2024 8:52 AM EDT S/P gastric bypass HEMOGLOBIN A1C Routine 07/17/2024 8:52 AM EDT S/P gastric bypass INSULIN, TOTAL Routine 07/17/2024 8:52 AM EDT S/P gastric bypass IRON AND TIBC Routine 07/17/2024 8:52 AM EDT S/P gastric bypass LIPID PANEL WITH REFLEX TO DIRECT LDL Routine 07/17/2024 8:52 AM EDT S/P gastric bypass NICOTINE AND COTININE Routine 07/17/2024 8:52 AM EDT S/P gastric bypass PARATHYROID HORMONE INTACT Routine 07/17/2024 8:52 AM EDT S/P gastric bypass THYROID STIMULATING HORMONE WITH REFLEX TO FREE T4 AND FREE T3 Routine 07/17/2024 8:52 AM EDT S/P gastric bypass URIC ACID Routine 07/17/2024 8:52 AM EDT S/P gastric bypass VITAMIN B1 Routine 07/17/2024 8:52 AM EDT S/P gastric bypass VITAMIN B12 Routine 07/17/2024 8:52 AM EDT S/P gastric bypass VITAMIN D 25 HYDROXY Routine 07/17/2024 8:52 AM EDT S/P gastric bypass CT LUMBAR SPINE WO CONTRAST STAT 07/10/2024 6:[address] CERVICAL SPINE WO CONTRAST STAT 07/10/2024 6:[address] HEAD WO CONTRAST STAT 07/10/2024 6 :14 PM EDT from Last 3 Months Results * Helicobacter pylori breath test (07/17/2024 9:00 AM EDT) H Pylori Breath Test Negative Negative LAB CHEMISTRY METHOD 07/17/2024 10:41 AM EDT [facility] Breath Oral cavity structure / Unknown Non-blood Collection / Unknown 07/17/2024 9:00 AM EDT 07/17/2024 9:00 AM EDT Anna Ross MD LAB BODY FLUIDS AND STO OLS ORDERABLES Final Result [facility] [address] [place] [address], [place] [phone] * Thyroid stimulating hormone with reflex to free t4 and free t3 (07/17/2024 8:52 AM EDT) TSH 3.48 0.40 - 4.00 mcIU/mL LAB CHEMISTRY METHOD 07/18/2024 2:44 PM EDT [facility] Blood Venous blood specimen / Unknown Venipuncture / Unknown 07/17/2024 8:52 AM EDT 07/17/2024 8:52 AM EDT us Anna Ross MD LAB BLOOD ORDERABLES Fi nal Result [facility] [address] [place] [address], [place] [phone] * (ABNORMAL) Lipid panel with reflex to direct LDL (07/17/2024 8:52 AM EDT) Cholesterol 181 0 - 200 mg/dL LAB CHEMISTRY METHOD 07/17/2024 11:21 AM EDT [facility] Triglycerides 126 0 - 150 mg/dL LAB CHEMISTRY METHOD 07/17/2024 11:21 AM [facility] HDL 54 >=40 mg/dL LAB CHEMISTRY METHOD 07/17/2024 11:21 AM [facility] LDL Calculated 102(H) 0 - 100 mg/dL LAB CHEMISTRY METHOD 07/17/2024 11:21 AM [facility] VLDL Cholesterol Hernan 25.2 mg/dL LAB CHEMISTRY METHOD 07/17/2024 11:21 AM [facility] Non HDL Chol. (LDL+VLDL) 127 <145 mg/dL LAB CHEMISTRY METHOD 07/17/2024 11:21 AM [facility] Chol/HDL Ratio 3.4 0.0 - 4.4 LAB CHEMISTRY METHOD 07/17/2024 11:21 AM [facility] Blood Venous blood specimen / Unknown Venipuncture / Unknown 07/17/2024 8:52 AM EDT 07/17/2024 8:52 AM EDT us Anna Ross MD LAB BLOOD ORDERABLES Fi nal Result Performing Organization Address City/[facility]/ZIP Co de Phone Number [facility] [address] [place] [address], [place] [phone] * Nicotine and cotinine (07/17/2024 8:52 AM EDT) [facility] Signature Nicotine <2.0 <2.0 ng/mL 07/20/2024 6:38 AM EDT [facility] Cotinine <2.0 <2.0 ng/mL 07/20/2024 6:38 AM EDT [facility] Comment: ?Additional Reference Ranges: ? Active Tobacco ? Passive ? Abstinence ?User ?Exposure ?? 2 Weeks and more ? Nicotine ?30 - 50 ??ng/mL ?<2 ng/mL ?<2 ng/mL Cotinine ?? 200 - 800 ng/mL ?<8 ng/mL ?<2 ng/mL Reference Ranges from: ??Clin. Chem.; ??[id number] (2002) Direct any interpretive questions to the toxicology laboratory. This is for medical use only, it is not intended for forensic use. If applicable, any drug confirmation testing reported here was developed and the performance characteristics determined by [facility]. This confirmation testing has not been cleared or approved by the FDA. The laboratory is regulated under CLIA as qualified to perform high-complexity testing. This test is used for patient testing purposes. It should not be regarded as investigational or for research. Test performed at [facility], [address] [place], [place] ? [phone] Sheri Frey MD, PhD - Objective C Developer Blood Venous blood specimen / Unknown Venipuncture / Unknown 07/17/2024 8:52 AM EDT 07/17/2024 8:52 AM EDT us Anna Ross MD LAB BLOOD ORDERABLES Fi nal Result [facility] [address] [place] [address] * (ABNORMAL) CBC auto differential (07/17/2024 8:52 AM EDT) Pathologist [facility] WBC 7.1 4.8 - 10.8 K/mcL LAB HEMETOLOGY [facility]24 [facility] RBC 4.70 3.80 - 4.80 M/mcL LAB HEMETOLOGY METHOD 07/17/2024 10:15 AM [facility] Hemoglobin 12.5 11.5 - 16.0 g/dL LAB HEMETOLOGY METHOD 07/17/2024 10:15 AM [facility] Hematocrit 40.7 35.0 - 47.0 % LAB HEMETOLOGY METHOD 07/17/2024 10:15 AM [facility] MCV 87.2 79.0 - 98.0 FL LAB HEMETOLOGY METHOD 07/17/2024 10:15 AM [facility] MCH 26.8(L) 27.0 - 32.0 pcg LAB HEMETOLOGY METHOD 07/17/2024 10:15 AM [facility] MCHC 30.7(L) 32.0 - 37.0 g/dL LAB HEMETOLOGY METHOD 07/17/2024 10:15 AM [facility] RDW 14.1 11.0 - 15.0 % LAB HEMETOLOGY METHOD 07/17/2024 10:15 AM [facility] Platelets 332 130 - 400 K/mcL LAB HEMETOLOGY METHOD 07/17/2024 10:15 AM [facility] MPV 11.3(H) 7.0 - 11.0 FL LAB HEMETOLOGY METHOD 07/17/2024 10:15 AM [facility] NRBC 0.0 <1.0 % LAB HEMETOLOGY METHOD 07/17/2024 10:15 AM [facility] NRBC Absolute 0.00 <0.10 K/mcL LAB HEMETOLOGY METHOD 07/17/2024 10:15 AM [facility] Neutrophils Relative 52.8 % LAB HEMETOLOGY METHOD 07/17/2024 10:15 AM [facility] Lymphocytes Relative 34.2 % LAB HEMETOLOGY METHOD 07/17/2024 10:15 AM [facility] Monocytes Relative 7.9 % LAB HEMETOLOGY METHOD 07/17/2024 10:15 AM [facility] Eosinophils Relative 3.7 % LAB HEMETOLOGY METHOD 07/17/2024 10:15 AM [facility] Basophils Relative 0.8 % LAB HEMETOLOGY METHOD 07/17/2024 10:15 AM [facility] Immature Granulocytes Relative 0.6 % LAB HEMETOLOGY METHOD 07/17/2024 10:15 AM [facility] Neutrophils Absolute 3.74 1.50 - 7.00 K/mcL LAB HEMETOLOGY METHOD 07/17/2024 10:15 AM [facility] Lymphocytes Absolute 2.42 1.00 - 5.00 K/mcL LAB HEMETOLOGY METHOD 07/17/2024 10:15 AM [facility] Monocytes Absolute 0.56 0.20 - 1.00 K/mcL LAB HEMETOLOGY METHOD 07/17/2024 10:15 AM [facility] Eosinophils Absolute 0.26 0.00 - 0.50 K/[facility] LAB HEMETOLOGY METHOD 07/17/2024 10:15 AM EDT [facility] Basophils Absolute 0.06 0.00 - 0.20 K/[facility] LAB HEMETOLOGY METHOD 07/17/2024 10:15 AM EDT [facility] Immature Granulocytes Absolute 0.04(H) 0.00 - 0.03 K/[facility] LAB HEMETOLOGY METHOD 07/17/2024 10:15 AM EDT [facility] Blood Venous blood specimen / Unknown Venipuncture / Unknown 07/17/2024 8:52 AM EDT 07/17/2024 8:52 AM EDT us Anna Ross MD LAB BLOOD ORDERABLES Fi nal Result Performing Organization Address City/[facility]/ZIP Co de Phone Number [facility] [address] [place] [address], [place] [phone] * (ABNORMAL) Iron and TIBC (07/17/2024 8:52 AM EDT) Iron 29(L) 40 - 150 mcg/dL LAB CHEMISTRY METHOD 07/17/2024 11:21 AM EDT [facility] TIBC 459(H) 250 - 450 mcg/dL LAB CHEMISTRY METHOD 07/17/2024 11:21 AM EDT [facility] Iron Saturation 6(L) 15 - 50 % LAB CHEMISTRY METHOD 07/17/2024 11:21 AM EDT [facility] Blood Venous blood specimen / Unknown Venipuncture / Unknown 07/17/2024 8:52 AM EDT 07/17/2024 8:52 AM EDT us Anna Ross MD LAB BLOOD ORDERABLES Fi nal Result Performing Organization Address City/[facility]/ZIP Co de Phone Number [facility] [address] [place] [address], [place] [phone] * Insulin, total (07/17/2024 8:52 AM EDT) Insulin 11.7 3.0 - 25.0 mcIU/mL LAB CHEMISTRY METHOD 07/17/2024 12:41 PM EDT [facility] Blood Venous blood specimen / Unknown Venipuncture / Unknown 07/17/2024 8:52 AM EDT 07/17/2024 8:52 AM EDT Narrative [facility] - 07/17/2024 12:41 PM EDT Insulin reference range based on fasting status. ??Insulin values vary in non- fasting individuals. us Anna Ross MD LAB BLOOD ORDERABLES Fi nal Result Performing Organization Address [facility]/ZIP Co de Phone Number [facility] [address] [place] [address], * (ABNORMAL) Vitamin D 25 hydroxy (07/17/2024 8:52 AM EDT) Pathologist [facility] Vit D, 25-Hydroxy 7.0(L) 30.0 - 80.0 ng/mL LAB CHEMISTRY METHOD 07/17/2024 12:16 PM EDT [facility] Blood Venous blood specimen / Unknown Venipuncture / Unknown 07/17/2024 8:52 AM EDT 07/17/2024 8:52 AM EDT us Anna Ross MD LAB BLOOD ORDERABLES Fi nal Result Performing Organization Address City/[facility]/ZIP Co de Phone Number [facility] [address] [place] [address], [place] [phone] * Uric acid (07/17/2024 8:52 AM EDT) Uric Acid 4.0 3.1 - 7.8 mg/dL LAB CHEMISTRY METHOD 07/17/2024 11:21 AM EDT [facility] Blood Venous blood specimen / Unknown Venipuncture / Unknown 07/17/2024 8:52 AM EDT 07/17/2024 8:52 AM EDT us Anna Ross MD LAB BLOOD ORDERABLES Fi nal Result Performing Organization Address [facility] Co de Phone Number [facility] [address] [place] [address], * Vitamin B1 (07/17/2024 8:52 AM EDT) Vitamin B1 Whole Blood 54 38 - 122 ug/L 07/22/2024 8:21 AM EDT [facility] Comment: This test was developed and the performance characteristics determined by [facility]. It has not been cleared or approved by the FDA. The laboratory is regulated under CLIA as qualified to perform high-complexity testing. This test is used for patient testing purposes. It should not be regarded as investigational or for research. Test performed at [facility], [address] , [place], [place] ??[address] ? [phone] Sheri Frey MD, PhD - Objective C Developer Blood Venous blood specimen / Unknown Venipuncture / Unknown 07/17/2024 8:52 AM EDT 07/17/2024 8:52 AM EDT us Anna Ross MD LAB BLOOD ORDERABLES Fi nal Result Performing Organization Address City/[facility]/ZIP Co de Phone Number [facility] [address] [place] [address] * (ABNORMAL) Parathyroid hormone intact (07/17/2024 8:52 AM EDT) PTH 108.4(H) 18.5 - 88.0 pcg/mL LAB CHEMISTRY METHOD 07/17/2024 12:10 PM EDT [facility] Blood Venous blood specimen / Unknown Venipuncture / Unknown 07/17/2024 8:52 AM EDT 07/17/2024 8:52 AM EDT us Anna Ross MD LAB BLOOD ORDERABLES Fi nal Result Performing Organization Address [facility]/ZIP Co de Phone Number [facility] [address] [place] [address], [place] [phone] * Hemoglobin A1c (07/17/2024 8:52 AM EDT) Pathologist [facility] Hemoglobin A1C 5.6 <6.5 % LAB CHEMISTRY METHOD 07/17/2024 1:38 PM EDT [facility] Mean Bld Glu Estim. 114 mg/dL LAB CHEMISTRY METHOD 07/17/2024 1:38 PM EDT [facility] Blood Venous blood specimen / Unknown Venipuncture / Unknown 07/17/2024 8:52 AM EDT 07/17/2024 8:52 AM EDT us Anna Ross MD LAB BLOOD ORDERABLES Fi nal Result Performing Organization Address [facility] de Phone Number [facility] [address] [place] [address], [place] [phone] * (ABNORMAL) Folate (07/17/2024 8:52 AM EDT) [facility] Folate >20.0(H) 2.8 - 17.0 ng/ml LAB CHEMISTRY METHOD 07/17/2024 11:21 AM EDT [facility] Blood Venous blood specimen / Unknown Venipuncture / Unknown 07/17/2024 8:52 AM EDT 07/17/2024 8:52 AM EDT us Anna Ross MD LAB BLOOD ORDERABLES Fi nal Result Performing Organization Address City/[facility]/ZIP Co de Phone Number [facility] [address] [place] [address], [place] [phone] * (ABNORMAL) Ferritin (07/17/2024 8:52 AM EDT) [facility] Ferritin 6(L) 8 - 252 ng/mL LAB CHEMISTRY METHOD 07/17/2024 11:43 AM EDT [facility] Blood Venous blood specimen / Unknown Venipuncture / Unknown 07/17/2024 8:52 AM EDT 07/17/2024 8:52 AM EDT Anna Ross MD LAB BLOOD ORDERABLES Fi nal Result [facility] [address] [place] [address], [place] [phone] * Vitamin B12 (07/17/2024 8:52 AM EDT) [facility] Vitamin B-12 328 250 - 900 pcg/mL LAB CHEMISTRY METHOD 07/17/2024 11:21 AM EDT [facility] Blood Venous blood specimen / Unknown Venipuncture / Unknown 07/17/2024 8:52 AM EDT 07/17/2024 8:52 AM EDT Anna Ross MD LAB BLOOD ORDERABLES Fi nal Result [facility] [address] [place] [address], [place] [phone] * Cortisol (07/17/2024 8:52 AM EDT) [facility] Cortisol 14.9 mcg/dL LAB CHEMISTRY METHOD 07/17/2024 12:41 PM EDT [facility] Blood Venous blood specimen / Unknown Venipuncture / Unknown 07/17/2024 8:52 AM EDT 07/17/2024 8:52 AM EDT Narrative [facility] - 07/17/2024 12:41 PM EDT CORTISOL REFERENCE RANGE ?? 8 AM SPEC: ??5.0-23.0 mcg/dL ?? 4 PM SPEC: ??3.0-16.0 mcg/dL ?? 8 PM SPEC: ??<5.0 mcg/dL us Anna Ross MD LAB BLOOD ORDERABLES nal Result [facility] [address] [place] [address], [place] [phone] * Comprehensive metabolic panel (07/17/2024 8:52 AM EDT) Sodium 139 133 - 145 mmol/L LAB CHEMISTRY METHOD 07/17/2024 11:21 AM [facility] Potassium 4.6 3.5 - 5.5 mmol/L LAB CHEMISTRY METHOD 07/17/2024 11:21 AM [facility] Chloride 106 96 - 110 mmol/L LAB CHEMISTRY METHOD 07/17/2024 11:21 AM [facility] CO2 26 21 - 32 mmol/L LAB CHEMISTRY METHOD 07/17/2024 11:21 AM [facility] Anion Gap 7 3 - 11 LAB CHEMISTRY METHOD 07/17/2024 11:21 AM [facility] Glucose 91 70 - 100 mg/dL LAB CHEMISTRY METHOD 07/17/2024 11:21 AM [facility] BUN 14 5 - 25 mg/dL LAB CHEMISTRY METHOD 07/17/2024 11:21 AM [facility] Creatinine 0.61 0.50 - 1.10 mg/dL LAB CHEMISTRY METHOD 07/17/2024 11:21 AM [facility] eGFR 108 >=60 mL/min/1. 73m2 LAB CHEMISTRY METHOD 07/17/2024 11:21 AM [facility] Comment:Calculation based on the??Chronic Kidney Disease Epidemiology Collaboration (CKD-EPI) equation refit??without adjustment for race. BUN/Creatinine Ratio 23.0 LAB CHEMISTRY METHOD 07/17/2024 11:21 AM [facility] Calcium 9.4 8.5 - 10.5 mg/dL LAB CHEMISTRY METHOD 07/17/2024 11:21 AM [facility] AST (SGOT) 24 10 - 42 unit/L LAB CHEMISTRY METHOD 07/17/2024 11:21 AM [facility] ALT (SGPT) 36 10 - 60 unit/L LAB CHEMISTRY METHOD 07/17/2024 11:21 AM [facility] Alkaline Phosphatase 81 42 - 121 unit/L LAB CHEMISTRY METHOD 07/17/2024 11:21 AM [facility] Total Protein 6.9 6.0 - 8.0 g/dL LAB CHEMISTRY METHOD 07/17/2024 11:21 AM [facility] Albumin 3.5 3.2 - 5.0 g/dL LAB CHEMISTRY METHOD 07/17/2024 11:21 AM [facility] Total Bilirubin 0.6 0.0 - 1.4 mg/dL LAB CHEMISTRY METHOD 07/17/2024 11:21 AM [facility] Blood Venous blood specimen / Unknown Venipuncture / Unknown 07/17/2024 8:52 AM EDT 07/17/2024 8:52 AM EDT us Anna Ross MD LAB BLOOD ORDERABLES Fi nal Result [facility] [address] [place] [address], * CT Lumbar Spine wo Contrast (07/10/2024 6:14 PM EDT) Anatomical Region Laterality Modality Spine, L-spine Computed Tomogra phy 07/10/2024 6:47 PM EDT Impressions 07/10/2024 6:47 PM EDT No acute findings. This document has been electronically signed by: Nneka Snider MD on 07/10/2024 18:47:51 Narrative 07/10/2024 6:47 PM EDT INDICATION: fall down 6 stairs, midline l spine pain CT lumbar spine without contrast Comparison: None Findings: Lumbar alignment is maintained. Vertebral body height is maintained. No acute fracture in the lumbar spine. Vacuum disc phenomenon at T11-12. Lumbar discs are normal in height. No significant degenerative changes. Minimal multilevel endplate osteophyte formation. No significant disc bulge or definite disc herniation with no high-grade stenosis in the lumbar spine. Paraspinal soft tissues within normal limits Abdominal aorta normal in size. Postoperative changes of the stomach and previous cholecystectomy Procedure Note Nneka Snider MD - 07/10/2024 INDICATION: fall down 6 stairs, midline l spine pain CT lumbar spine without contrast Comparison: None Findings: Lumbar alignment is maintained. Vertebral body height is maintained. No acute fracture in the lumbar spine. Vacuum disc phenomenon at T11-12. Lumbar discs are normal in height. No significant degenerative changes. Minimal multilevel endplate osteophyte formation. No significant disc bulge or definite disc herniation with no high-grade stenosis in the lumbar spine. Paraspinal soft tissues within normal limits Abdominal aorta normal in size. Postoperative changes of the stomach and previous cholecystectomy IMPRESSION: No acute findings. This document has been electronically signed by: Nneka Snider MD on 07/10/2024 18:47:[address] PROCEDURES Final Result * CT Cervical Spine wo Contrast (07/10/2024 6:14 PM EDT) Anatomical Region Laterality Modality Spine, C-spine Computed Tomogra phy 07/10/2024 6:57 PM EDT Impressions 07/10/2024 6:57 PM EDT No acute findings. This document has been electronically signed by: Nneka Snider MD on 07/10/2024 18:57:41 Narrative 07/10/2024 6:57 PM EDT INDICATION: fall down 6 stairs, midline c cspine pain CT cervical spine without contrast Comparison: None Findings: Cervical alignment is maintained with no subluxation. Vertebral body height is maintained. No acute fracture in the cervical spine. Craniocervical junction is. Minimal degenerative changes at C5-6. Prevertebral soft tissues within normal limits. Thyroid within normal limits. Lung apices are clear Procedure Note Nneka Snider MD - 07/10/2024 INDICATION: fall down 6 stairs, midline c cspine pain CT cervical spine without contrast Comparison: None Findings: Cervical alignment is maintained with no subluxation. Vertebral body height is maintained. No acute fracture in the cervical spine. Craniocervical junction is. Minimal degenerative changes at C5-6. Prevertebral soft tissues within normal limits. Thyroid within normal limits. Lung apices are clear IMPRESSION: No acute findings. This document has been electronically signed by: Nneka Snider MD on 07/10/2024 18:57:[address] PROCEDURES Final Result * CT Head wo Contrast (07/10/2024 6:14 PM EDT) Anatomical Region Laterality Modality Head and Neck Computed Tomogra phy 07/10/2024 6:51 PM EDT Impressions 07/10/2024 6:51 PM EDT 1. No acute intracranial findings. This document has been electronically signed by: Nneka nSider MD on 07/10/2024 18:51:47 Narrative 07/10/2024 6:51 PM EDT INDICATION: Fall down 6+ stairs, headstrike, CT head without contrast Comparison: None Findings: No intra-axial mass, midline shift, hydrocephalus, or acute hemorrhage. No significant atrophy-like change or white matter disease. There is no sinus or mastoid fluid. The orbits are unremarkable. There is no acute skull fracture. Procedure Note Nneka Snider MD - 07/10/2024 INDICATION: Fall down 6+ stairs, headstrike, CT head without contrast Comparison: None Findings: No intra-axial mass, midline shift, hydrocephalus, or acute hemorrhage. No significant atrophy-like change or white matter disease. There is no sinus or mastoid fluid. The orbits are unremarkable. There is no acute skull fracture. IMPRESSION: 1. No acute intracranial findings. 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
== END 2024-07-30 09:17 | disposition home or self-care (01) ==
PROVIDERS: PCP Internal Medicine; Visit Provider Physician Assistant
DX: Z13.9 Encounter for screening, unspecified (principal); H66.91 Otitis media, unspecified, right ear

== ENCOUNTER → 2024-07-30 08:47 | Outpatient (BNVA) | payer OTHER, SELFPAY | PROVIDERS: PCP Internal Medicine; Visit Provider Physician Assistant | DX: H66.91 Otitis media, unspecified, right ear (principal) | CPT/HCPCS: 87880; 99212 ==

== ENCOUNTER 2024-08-01 15:22 | Emergency (ER) | payer OTHER, SELFPAY ==
--- NOTE | ~2024-08-01 | XR_ITS ---
CLINICAL HISTORY: cp --- Additional Notes or Special Instructions: no answer 3:51 2 view chest x-ray. Comparison: 01/06/2024 Findings: Heart size normal. Pulmonary vasculature is within normal limits. No acute fracture. Impression: Lungs are clear. No pneumothorax. This document has been electronically signed by: Artis Evangelista MD on 08/01/2024 17:16:29
[2024-08-01 15:37] VITALS: BP 121/83; PULSE 89; RESP 16; TEMP 36.8; O2SAT 98; BMI 41.1
--- NOTE | 2024-08-01 15:37 | ED.URI ---
HPI - URI/Sore Throat General Chief Complaint: Upper Respiratory Symptoms Stated Complaint: Ear, Nose, Head congestion, headache Time Seen by Provider: 08/01/24 20:28 Source: patient Mode of arrival: ambulatory Limitations: no limitations History of Present Illness ED Provider: eric rodriguez np HPI Narrative: Patient is a 54-year-old female who presents emergency department for evaluation. Over the past 5 days she has been experiencing viral type symptoms including nasal congestion, rhinorrhea, frontal sinus pressure, sore throat, and a nonproductive cough with resultant pain diffusely throughout the chest during episodes of cough. She went to urgent care 2 days ago and was given a prescription for amoxicillin for an ear infection on the right side but has not noticed much improvement. He has not taken any additional wvjz-oij-eemmmve medications for this. Given her symptoms have persisted she decided to seek re-evaluation today. She denies dizziness, lightheadedness, vision changes, neck pain or neck stiffness, shortness of breath, numbness or tingling of the extremities, weakness. Related Data Home Medications ?Medication ?Instructions ?Recorded ?Confirmed albuterol sulfate 90 mcg/actuation 2 puff inhalation Q6H PRN 07/31/23 04/04/24 aerosol inhaler (Ventolin HFA) fluoxetine 40 mg capsule 40 mg PO DAILY 07/31/23 04/04/24 clonazepam 1 mg tablet 1 mg PO BEDTIME PRN 08/23/23 04/04/24 Previous Rx's ?Medication ?Instructions ?Recorded fluticasone furoate 100 1 inh PO DAILY #30 ea 04/02/20 mcg/actuation blister powder for inhalation (Arnuity Ellipta) miscellaneous medical supply See Rx Instructions miscellaneous 06/18/20 .4 times a day PRN shortness of breath or wheezing 12 months #1 ea blood pressure monitor #1 ea 12/29/20 cyanocobalamin (vitamin B-12) 1,000 mcg PO DAILY 90 days #90 caps 05/10/21 1,000 mcg capsule lorazepam 1 mg tablet 1 mg PO DAILY PRN anxiety 30 days 12/14/21 #30 tabs ardbfvapgg-giyivydhuthnp-nbvfznfo 1 tab PO .2 to 3 times a day PRN 12/14/22 50 mg-325 mg-40 mg tablet headaches 30 days #90 tabs meclizine 25 mg tablet 25 mg PO TID PRN dizziness 30 days 12/14/22 #90 tabs ondansetron 4 mg disintegrating 4 mg PO Q8H PRN nausea and 06/23/23 tablet vomiting #7 tabs peg-electrolyte solution 420 gram 240 ml PO Q10M #4,000 mL 06/23/23 oral solution riboflavin (vitamin B2) 400 mg 400 mg PO QAM #30 tabs 07/31/23 tablet gabapentin 100 mg capsule 200 mg (2 x 100 mg) PO BEDTIME 30 12/25/23 days #60 caps albuterol sulfate 2.5 mg/0.5 mL 2.5 mg (0.5 mL) inhalation TID-QID 01/06/24 solution for nebulization #30 ea pantoprazole 40 mg tablet,delayed 40 mg PO DAILY #90 tabs 02/07/24 release cyclobenzaprine 5 mg tablet See Rx Instructions PO TID PRN 03/06/24 muscle spasm #10 tabs albuterol sulfate 90 mcg/actuation 2 inh inhalation QID PRN shortness 03/09/24 aerosol inhaler of breath or wheezing #8.5 grams sumatriptan succinate 100 mg tablet See Rx Instructions PO .COMPLEX 30 04/04/24 days #15 tabs cholecalciferol (vitamin D3) 50 50 mcg PO DAILY 90 days #90 caps 04/16/24 mcg (2,000 unit) capsule nortriptyline 25 mg capsule 25 mg PO BEDTIME headache 05/06/24 prophylaxis 30 days #30 caps semaglutide (weight loss) 0.25 0.25 mg (0.5 mL) subcut QWEEK 4 05/17/24 mg/0.5 mL subcutaneous pen weeks #2 mL injector (Wegovy) magnesium oxide 400 mg (241.3 mg 400 mg PO .qhs #30 tabs 07/19/24 magnesium) tablet amoxicillin 500 mg capsule 500 mg PO TID #21 caps 07/30/24 loratadine 10 mg tablet (Claritin) 10 mg PO DAILY #20 tabs 08/01/24 Allergies Allergy/AdvReac Type Severity Reaction Status Date / Time No Known Allergies Allergy Verified 08/01/24 15:40 Review of Systems Review of Systems: Yes all other systems are reviewed and are negative PMFSH Past Medical History Attestation statement: The following information was validated with the patient. Source: old records reviewed Medical History Obstructive sleep apnea Migraine with aura Right thigh pain Hypersomnia Snoring Right ovarian cyst Vitamin B12 deficiency Vitamin D deficiency Depression Anxiety Obesity (BMI 30-39.9) Bilateral hand pain Bilateral wrist pain GERD (gastroesophageal reflux disease) Asthma Migraine Surgical History H/O gastric bypass History of removal of laparoscopic gastric banding device LAP-BAND surgery status History of appendectomy History of hysterectomy History of section Family History Family History Father Diabetes Hypertension Mother Hypertension Glaucoma Scoliosis Colon cancer Osteoporosis Headache Arthritis Maternal Grandmother No problems noted. Maternal Grandfather No problems noted. Paternal Grandmother No problems noted. Paternal Grandfather No problems noted. Daughter In good health Sister In good health Asthma Headache Anemia Arthritis Hypertension Brother Hypertension Social History Social History Housing: House Alcohol intake: never Patient Tobacco Use Status: Never used Tobacco Smoked in Last 30 Days: No e-Cigarette/Vaping Use: Never Used Second Hand Smoke Exposure: No Use of substances other than those prescribed or required for medical reasons: No Advance Directives: No Advance Directives Information Provided: No Do you have a plan to hurt others: No Plan Patient : No service: No Current occupational status: employed Sexual orientation: Straight/Heterosexual Gender identity: Female Cognitive needs: No Hearing needs: No Vision needs: No Physical Exam Vital Signs: Vital Signs: Last Vital Signs Temp 98.2 F 08/01/24 15:37 Pulse 89 08/01/24 15:37 Resp 16 08/01/24 15:37 BP 121/83 08/01/24 15:37 Pulse Ox 98 08/01/24 15:37 O2 Del Method Room Air 08/01/24 15:37 BMI result Body Mass Index 41.1 Appearance: Alert.?Oriented to person, place and time. No acute distress.?Normal affect. Eyes: Pupils equal, round and reactive to light.? ENT: TM with mild bilateral erythema no significant bulging or opacity. no mastoid tenderness.Pharynx normal.??Notable nasal congestion. Erythematous bilateral nasal turbinates. Bilateral frontal sinus tenderness upon palpation Neck: Normal inspection.? Neck supple.??No cervical adenopathy CVS: Heart sounds normal. Normal heart rate and rhythm.? Pulses normal.?? Respiratory: No respiratory distress.? Lung sounds clear to auscultation bilaterally?? Abdomen: Soft and non-tender. Normoactive bowel sounds. Skin: Skin warm and dry.? Normal skin color.? ? Extremities: No lower extremity edema.? Neuro: Moves all extremities spontaneously. Sensation intact bilaterally. No motor deficits. Ambulates with normal steady gait. Course Course Course Narrative: This is a Rapid Medical Exam performed in triage by Farhana Middleton PA-C. Full HPI, ROS and PE to be performed by primary ED provider. 54 yo F presenting to the ED c/o congestion, rhinorrhea, ESCALERA, sinus pressure, sore throat, cough x5 days. Went to & has been taking Amoxicillin w/o relief. Admits to CP x2 days, denies at present. Denies SOB PE: + congested. Left TM erythematous. Mastoids WNL. Posterior oropharynx WNL. Lungs CTA Plan: EKG, labs, CXR, SARs Medical Decision Making Medical Decision Making MDM Narrative: Patient is a 54-year-old female with past medical history of NIGHAT, migraine, depression, anxiety, GERD, asthma who presents emergency department for evaluation of upper respiratory type symptoms as per HPI. Overall she is well-appearing, nontoxic, afebrile. She is notably congested, has some bilateral frontal sinus tenderness upon palpation. She has no focal neurological deficits. No nuchal rigidity. Bilateral erythematous TMs without bulging obesity and no mastoid tenderness. Not consistent with meningitis, mastoiditis. Though I have a low suspicion at this time serial otitis media, not see her at symptom onset, advised her to complete the course of her antibiotics as prescribed by initial provider, this would additionally cover any bacterial sinusitis. I did additionally review with her the possible for viral/allergic rhinosinusitis. Educated on the use of an antihistamine she was in addition. CXR is without consolidation or infiltrate, no respiratory distress, consistent with pneumonia. Suspect that the chest pain induced during episodes of cough is inflammatory/musculoskeletal in nature. CBC is without leukocytosis anemia or thrombocytopenia. No electrolyte derangement. No FAYE. High sensitive troponin is below detectable limits, EKG reveals a normal sinus rhythm with ventricular rate of 77, QTC 418, no ST-elevation, not consistent with ACS. Advised to follow-up with primary care provider as needed, discussed reasons to return back to the emergency department. All questions were answered. Patient discharged home in stable condition. Differential Diagnosis Differential Diagnoses: The differential diagnosis associated with the presentation includes ( See narrative above) Admission/Observation Consideration of admission/observation: Escalation of care including admission/observation considered ( see narrative above) Lab Data MDM Lab Attestation statement: I reviewed the patient's lab results. ( see narrative above) 08/01/24 15:56 08/01/24 15:56 Labs: Lab Results 08/01/24 Range/Units 15:56 WBC 7.6 (4.8-10.8) X10*3/uL RBC 4.74 (4.20-5.50) X10*6/uL Hgb 12.6 (12.0-16.0) g/dl Hct 39.7 (37.0-47.0) % MCV 83.8 (80.0-98.0) fL MCH 26.6 L (27.0-33.0) pg MCHC 31.7 (31.0-35.0) g/dl RDW 14.6 (11.0-16.0) % Plt Count 259 (160-400) X10*3/uL MPV 10.9 (9.4-12.3) fL Immature Gran % (Auto) 1.1 H (0.0-0.4) % Neut % (Auto) 50.7 (45-73) % Lymph % (Auto) 32.1 (20-40) % [place] % (Auto) 11.8 H (2-11) % Eos % (Auto) 3.6 (0-4) % Baso % (Auto) 0.7 (0-2) % Lymph # (Auto) 2.4 (1.2-4.9) X10*3/uL [place] # (Auto) 0.9 (0.1-1.2) X10*3/uL Eos # (Auto) 0.3 (0.0-0.4) X10*3/uL Baso # (Auto) 0.1 (0.0-0.2) X10*3/uL Abs Immat Gran (auto) 0.08 H (0.00-0.03) X10*3/uL Absolute Neuts (auto) 3.8 (2.0-8.3) x10*3/uL Absolute Nucleated RBC 0.000 (0.0-0.012) X10*3/uL Nucleated RBC % (auto) 0.0 (0.0-0.2) /100WBC Sodium 136 (135-145) mmol/L Potassium 4.8 (3.3-5.1) mmol/L Chloride 106 (96-108) mmol/L Carbon Dioxide 20 L (22-29) mmol/L Anion Gap 15 (12-20) BUN 11 (9-16) mg/dL Creatinine 0.64 (0.5-1.4) mg/dL Estim Creat Clear Calc 115.0 Estimated GFR > 60 Random Glucose 93 (60-115) mg/dL Calcium 9.6 D (8.4-10.2) mg/dL Troponin I High Sens < 2.7 (<3.5-17.0) ng/L Influenza Type A (PCR) NEGATIVE (Negative) Influenza Type B (PCR) NEGATIVE (Negative) RSV RNA Qual (PCR) NEGATIVE (Negative) SARS-CoV-2 RNA (RT-PCR) NEGATIVE (Negative) S. pyogenes GrpA DIAMANTE Negative (Negative) Independent Interpretation I performed an independent interpretation of an: EKG (See narrative above) and Plain X-Ray (See narrative above) Radiology Impression Discussion of test interpretation with radiology: I have reviewed the radiologist's reading. Radiologist Impression: 2 view chest x-ray. Comparison: 01/06/2024 Findings: Heart size normal. Pulmonary vasculature is within normal limits. No acute fracture. Impression: Lungs are clear. No pneumothorax. Independent Historian Clinical information obtained from an independent historian. History obtained from or confirmed by: Spouse External Record Review External record reviewed: Outpatient record Prescription Management I considered prescription management with: Pain Medication ( acetaminophen/ibuprofen) Discharge Plan Discharge Clinical Impression: Acute rhinosinusitis, Costochondritis Patient Disposition: Home, Self-Care Instructions: Costochondritis (ED), Rhinosinusitis (ED) Additional Instructions: Complete the course of your antibiotics as previously prescribed on Monday. Testing for COVID, flu, RSV, and strep throat were negative today. Chest x-ray does not show signs of pneumonia. EKG looking at your heart did not show signs of a heart attack. Suspect that the pain in your chest secondary to coughing/inflammation of the muscles within the chest wall. Blood work was very reassuring. As discussed, it is possible there may be a viral component to your symptoms and/or an allergic component. I recommend that you trial an antihistamine/allergy medication in addition to the antibiotic to help with your symptoms. Follow-up with your primary care doctor within the next week with any persistent symptoms. You may return to emergency department with any new or worsening symptoms or concerns. Prescriptions: New loratadine [Claritin] 10 mg tablet 10 mg PO DAILY Qty: 20 0RF No Action fluticasone furoate [Arnuity Ellipta] 100 mcg/actuation blister with device 1 inh PO DAILY Qty: 30 3RF miscellaneous medical supply Misc See Rx Instructions miscellaneous .4 times a day PRN (Reason: shortness of breath or wheezing) 360 Days Qty: 1 0RF Rx Instructions: Nebulizer Machine - use as directed miscellaneous .4 times a day PRN; Nebulizer Machine - Dx: J45.901 -- asthma lorazepam 1 mg tablet 1 mg PO DAILY PRN (Reason: anxiety) 30 Days Qty: 30 0RF meclizine 25 mg tablet 25 mg PO TID PRN (Reason: dizziness) 30 Days Qty: 90 1RF nzrfniwzwa-bsfwbawgbszzi-heul 50-325-40 mg tablet 1 tab PO .2 to 3 times a day PRN (Reason: headaches) 30 Days Qty: 90 1RF Rx Instructions: Take 1 tablet orally 2-3 times a day only as needed for migraine headaches peg-electrolyte soln 420 gram recon soln 240 ml PO Q10M Qty: 4000 0RF Rx Instructions: until fecal effluent is clear; ondansetron 4 mg tablet,disintegrating 4 mg PO Q8H PRN (Reason: nausea and vomiting) Qty: 7 0RF gabapentin 100 mg capsule 200 mg PO BEDTIME 30 Days Qty: 60 3RF pantoprazole 40 mg tablet,delayed release (DR/EC) 40 mg PO DAILY Qty: 90 1RF albuterol sulfate 90 mcg/actuation HFA aerosol inhaler 2 inh inhalation QID PRN (Reason: shortness of breath or wheezing) Qty: 8.5 5RF cholecalciferol (vitamin D3) 50 mcg (2,000 unit) capsule 50 mcg PO DAILY 90 Days Qty: 90 3RF nortriptyline 25 mg capsule 25 mg PO BEDTIME 30 Days Qty: 30 1RF Rx Instructions: for headache prophylaxis Wegovy 0.25 mg/0.5 mL pen injector 0.25 mg subcut QWEEK 28 Days Qty: 2 0RF Rx Instructions: administer weeks 1 through 4 of therapy magnesium oxide 400 mg (241.3 mg magnesium) tablet 400 mg PO .qhs Qty: 30 6RF cyanocobalamin (vitamin B-12) 1,000 mcg capsule 1,000 mcg PO DAILY 90 Days Qty: 90 3RF (DME) blood pressure monitor Kit See Rx Instructions .Route Qty: 1 0RF Rx Instructions: As directed fluoxetine 40 mg capsule 40 mg PO DAILY Rx Instructions: 20mg every morning 40mg at night clonazepam 1 mg tablet 1 mg PO BEDTIME PRN albuterol sulfate [Ventolin HFA] 90 mcg/actuation HFA aerosol inhaler 2 puff inhalation Q6H PRN riboflavin (vitamin B2) 400 mg tablet 400 mg PO QAM Qty: 30 6RF sumatriptan succinate 100 mg tablet See Rx Instructions PO .COMPLEX 30 Days Qty: 15 3RF Rx Instructions: take 1 tab at onset of headache; if no relief, may repeat 1 tab after at least 2 hrs; max = 2 tabs/24 hrs PO albuterol sulfate 2.5 mg/0.5 mL solution for nebulization 2.5 mg inhalation TID-QID Qty: 30 0RF Rx Instructions: for up to 3 doses cyclobenzaprine 5 mg tablet See Rx Instructions PO TID PRN (Reason: muscle spasm) Qty: 10 0RF Rx Instructions: 1 to 2 orally 3 times a day PRN; amoxicillin 500 mg capsule 500 mg PO TID Qty: 21 0RF Referrals: Brett Navarro MD [Primary Care Provider] - Print Language: [place] Islander
--- NOTE | 2024-08-01 15:39 | ECG_ITS ---
Test Reason : CP Blood Pressure : */* mmHG Vent. Rate : 77 BPM Atrial Rate : 77 BPM P-R Int : 150 ms QRS Dur : 70 ms QT Int : 370 ms P-R-T Axes : 8 51 22 degrees QTcB Int : 418 ms Normal sinus rhythm Septal infarct (cited on or before 04-Oct-2017) Abnormal ECG When compared with ECG of 23-Dec-2020 11:53, No significant change was found Referred By: Farhana Middleton Electronically Signed By: KOKO COBURN
[2024-08-01 16:01] LABS: MANUAL DIFF FLAG NO
[2024-08-01 16:09] LABS: IDNOW Serial# 55D5AD1C; Strep A Nucleic Acid Negative (Negative)
[2024-08-01 16:11] LABS: Basophils Absolute Auto 0.1 X10*3/uL (0.0-0.2); Basophils Percent Auto 0.7 % (0-2); Eosinophils Absolute Auto 0.3 X10*3/uL (0.0-0.4); Eosinophils Percent Auto 3.6 % (0-4); Hematocrit 39.7 % (37.0-47.0); Hemoglobin 12.6 g/dl (12.0-16.0); Imm Gran Abs Auto 0.08 X10*3/uL (0.00-0.03); Imm Gran Pct Auto 1.1 % (0.0-0.4); Lymphocytes Absolute Auto 2.4 X10*3/uL (1.2-4.9); Lymphocytes Percent Auto 32.1 % (20-40); Mean Corpuscular HGB Conc 31.7 g/dl (31.0-35.0); Mean Corpuscular Hemoglobin 26.6 pg (27.0-33.0); Mean Corpuscular Volume 83.8 fL (80.0-98.0); Mean Platelet Volume 10.9 fL (9.4-12.3); Monocytes Absolute Auto 0.9 X10*3/uL (0.1-1.2); Monocytes Percent Auto 11.8 % (2-11); Neutrophils Absolute Auto 3.8 x10*3/uL (2.0-8.3); Neutrophils Percent Auto 50.7 % (45-73); Platelet Count 259 X10*3/uL (160-400); Red Blood Count 4.74 X10*6/uL (4.20-5.50); Red Cell Distribution Width 14.6 % (11.0-16.0); White Blood Count 7.6 X10*3/uL (4.8-10.8)
[2024-08-01 16:18] LABS: Anion Gap 15 (12-20); Blood Urea Nitrogen 11 mg/dL (9-16); Calcium 9.6 mg/dL (8.4-10.2); Carbon Dioxide 20 mmol/L (22-29); Chloride 106 mmol/L (96-108); Estimated Glomerular Filt Rate > 60; Glucose Random 93 mg/dL (60-115); Potassium 4.8 mmol/L (3.3-5.1); Sodium 136 mmol/L (135-145)
[2024-08-01 16:25] LABS: Troponin-I High Sensitivity < 2.7 ng/L (<3.5-17.0)
[2024-08-01 16:40] LABS: Influenza A PCR NEGATIVE (Negative); Influenza B PCR NEGATIVE (Negative); Resp Syncy Virus RNA Qual PCR NEGATIVE (Negative); SARS COV2 PCR INHOUSE NEGATIVE (Negative)
[2024-08-01 20:00] VITALS: BP 125/70; PULSE 75; PULSE 83; RESP 16; TEMP 36.8; O2SAT 94; O2SAT 96
[2024-08-01 21:09] VITALS: BP 125/70; PULSE 83; RESP 16; TEMP 36.8; O2SAT 96
== END 2024-08-01 21:12 | disposition home or self-care (01) ==
PROVIDERS: Physician Assistant; Emergency Provider Emergency Medicine Emergency Medical Services; PCP Internal Medicine
DX: J01.90 Acute sinusitis, unspecified (principal); M94.0 Chondrocostal junction syndrome [Tietze]; J02.9 Acute pharyngitis, unspecified; R05.9 Cough, unspecified; Z03.818 Encounter for observation for suspected exposure to other biological agents ruled out; J45.909 Unspecified asthma, uncomplicated
CPT/HCPCS: 0241U; 71046; 80048; 84484; 85025; 87651; 93005; 99283; 99285

== ENCOUNTER → 2024-08-01 15:39 | Outpatient (BNV) | payer OTHER, SELFPAY | PROVIDERS: Emergency Provider Emergency Medicine Emergency Medical Services; PCP Internal Medicine; Visit Provider Internal Medicine | DX: I25.2 Old myocardial infarction (principal); R94.31 Abnormal electrocardiogram [ECG] [EKG] | CPT/HCPCS: 93010 ==

== ENCOUNTER → 2024-08-01 15:39 | Outpatient (BNV) | payer OTHER, SELFPAY | PROVIDERS: PCP Internal Medicine; Visit Provider Radiology Diagnostic Radiology | DX: R07.9 Chest pain, unspecified (principal) | CPT/HCPCS: 71046 ==

== ENCOUNTER 2024-08-29 09:54 | Outpatient (AMB) | payer OTHER, SELFPAY ==
[2024-08-29 10:11] VITALS: BP 122/78; PULSE 71; O2SAT 97; BMI 41.6
--- NOTE | 2024-08-29 10:11 | A.OFFPC_ITS ---
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 Accompanied by: Daughter Allergies No Known Allergies Allergy (Verified 08/29/24 10:31) Medication List - Last Reconciled 08/29/24 by Brett Navarro MD albuterol sulfate 90 mcg/actuation (Ventolin HFA) 2 puffs inhalation Q6H PRN albuterol sulfate 2.5 mg (0.5 mL) inhalation TID-QID albuterol sulfate 90 mcg/actuation 2 inhalations inhalation QID PRN amoxicillin 500 mg PO TID blood pressure monitor As directed urvelrqxkc-orosnzdlqlkrf-zqdt 50-325-40 mg 1 tab PO .2 to 3 times a day PRN 30 days cholecalciferol (vitamin D3) 50 mcg PO DAILY 90 days clonazepam 1 mg PO BEDTIME PRN cyanocobalamin (vitamin B-12) 1,000 mcg PO DAILY 90 days cyclobenzaprine 1 to 2 orally 3 times a day PRN; ferrous sulfate 325 mg PO DAILY fluoxetine 40 mg PO DAILY fluticasone furoate 100 mcg/actuation (Arnuity Ellipta) 1 inh PO DAILY gabapentin 200 mg (2 x 100 mg) PO BEDTIME 30 days loratadine (Claritin) 10 mg PO DAILY lorazepam 1 mg PO DAILY PRN 30 days magnesium oxide 400 mg PO .qhs meclizine 25 mg PO TID PRN 30 days miscellaneous medical supply Nebulizer Machine - use as directed miscellaneous .4 times a day PRN; Nebulizer Machine - Dx: J45.901 -- asthma 12 months nortriptyline 25 mg PO BEDTIME 30 days ondansetron 4 mg PO Q8H PRN pantoprazole 40 mg PO DAILY peg-electrolyte soln 420 gram 240 mL PO Q10M riboflavin (vitamin B2) 400 mg PO QAM semaglutide (weight loss) (Wegovy) 0.25 mg (0.5 mL) subcut QWEEK 4 weeks sumatriptan succinate take 1 tab at onset of headache; if no relief, may repeat 1 tab after at least 2 hrs; max = 2 tabs/24 hrs PO 30 days Tobacco use date assessed: 08/29/24 Dental Screening Dental Screen Date: 08/29/24 Did you have a dental visit in the last 12 months?: No Did you have a dental problem in the last 6 months where you did not have access to dental care?: No Was dental information given to patient?: No HPI Annual Exam HPI Details Patient comes in today for her annual physical examination States that she feels okay She denies any headaches but continues to experience on and off dizziness, which she's had for a few years now Patient has undergone extensive work ups to find out the cause of her recurrent dizziness, including cardiac stress testing and tilt table testing but all of her tests have come back normal so far She recalls being advised at some point to take some salt orally to help with her recurrent symptoms (?), which she states help sometimes but her symptoms continue to recur - states that she can feel dizzy even when she is sitting down and not moving at all (?) She denies any chest pains, no increased SOB No nausea/vomiting, no abdominal pain No change in bowel habits noted She denies any acute urinary symptoms She had her follow up labs done a couple of months ago in June 2024 - to discuss her results She had a negative pap smear done back in July 2023 and is scheduled for her next yearly gynecology exam in January 2025 She is overdue for her annual mammogram and has never had a screening colonoscopy done in the past [facility] Medical History (Updated 08/29/24 @ 11:33 by Brett Navarro MD) Morbid obesity with BMI of 40.0-44.9, adult Obstructive sleep apnea Migraine with aura Right thigh pain Hypersomnia Snoring Right ovarian cyst Vitamin B12 deficiency Vitamin D deficiency Depression Anxiety Obesity (BMI 30-39.9) Bilateral hand pain Bilateral wrist pain GERD (gastroesophageal reflux disease) Asthma Migraine Surgical History H/O gastric bypass History of removal of laparoscopic gastric banding device LAP-BAND surgery status History of appendectomy History of hysterectomy History of section Family History Father Diabetes Hypertension Mother Hypertension Glaucoma Scoliosis Colon cancer Osteoporosis Headache Arthritis Maternal Grandmother No problems noted. Maternal Grandfather No problems noted. Paternal Grandmother No problems noted. Paternal Grandfather No problems noted. Daughter In good health Sister In good health Asthma Headache Anemia Arthritis Hypertension Brother Hypertension Social History Housing: House Alcohol intake: never Patient Tobacco Use Status: Never used Tobacco e-Cigarette/Vaping Use: Never Used Second Hand Smoke Exposure: No service: No Current occupational status: employed Sexual orientation: Straight/Heterosexual Gender identity: Female Cognitive needs: No Hearing needs: No Vision needs: No Female Reproductive History Menstrual Age of Menarche: 15 Questionnaire PHQ-9 Over the last 2 weeks, how often have you been bothered by any of the following problems? 1. Little interest or pleasure in doing things: not at all 2. Feeling down, depressed, or hopeless: not at all 3. Trouble falling or staying asleep, or sleeping too much: more than half the days 4. Feeling tired or having little energy: more than half the days 5. Poor appetite or overeating: more than half the days 6. Feeling bad about yourself - or that you are a failure or have let yourself or your family down: not at all 7. Trouble concentrating on things, such as reading the newspaper or watching television: not at all 8. Moving or speaking so slowly that other people could have noticed. Or the opposite - being so fidgety or restless that you have been moving around a lot more than usual: not at all 9. Thoughts that you would be better off or of hurting yourself in some way: not at all Total score: 6 Depression Screening Interpretation: Positive Depression Screening Follow-up: Existing condition and In treatment Depression Screening Done: Yes 56657 - PHQ-9 Billing: Yes Source: Developed by Drs. Jr Monsivais, Radha Campbell, Mayur Mckee and colleagues, with an educational joselito from [employer]. Thrive Questionnaire Date Thrive assessed: 08/29/24 I am a: Patient What is your living situation today?: I have a steady place to live Within the past 12 months, did the food you bought not last and you didn't have the money to get more?: I choose not to answer this question Within the past 12 months, did you worry whether your food would run out before you got money to buy more?: I choose not to answer this question Do you have trouble paying for medicines?: No Do you have trouble getting transportation to medical appointments?: Yes Do you have trouble paying your heating and electricity bill?: Yes Do you have trouble taking care of your child, family member or friend?: Yes Do you have trouble with day-to-day activities such as bathing, preparing meals, shopping, managing finances, etc.?: Yes Are you currently unemployed and looking for a job?: No Are you interested in more education?: No Please select the resources that you would like help with: Utilities Currently or been in a relationship where the following occur: I choose not to answer THRIVE Score: 2 AUDIT C Alcohol Use Questionnaire (AUDIT-C) 1. How often do you have a drink containing alcohol?: Never 3. How often do you have six or more drinks on one occasion?: Never Total Score: 0 Score Reviewed/Action Taken: Yes GEN-7 AMB Questionnaire GEN-7 Date GEN - 7 assessed: 08/29/24 Feeling nervous, anxious, or on edge: 1 = Several days Not being able to stop or control worryin = Nearly every day Worrying too much about different things: 3 = Nearly every day Trouble relaxin = Nearly every day Being so restless that it is hard to sit still: 3 = Nearly every day Becoming easily annoyed or irritable: 2 = More than half the days Feeling afraid as if something awful might happen: 3 = Nearly every day Total GEN-7 score (0-4 normal; 5-9 mild; 10-14 moderate; 15-21 severe): 18 Source: Developed by Drs. Jr Monsivais, Radha Campbell, Mayur cMkee and colleagues, with an educational joselito from [employer]. Review of Systems Const Denies chills, Reports fatigue, Denies fever(s) and Denies headache(s) Eyes Denies blurry vision, Denies change in vision, Denies irritation and Denies itchy eyes ENT Denies dysphagia, Reports dizziness (on and off), Denies otalgia, Denies headache(s), Denies neck pain, Denies odynophagia and Denies sore throat Card Denies chest pain, Reports rapid heart rate (at times), Denies irregular heart rhythm, Denies palpitations and Denies dyspnea Resp Denies chest congestion, Denies cough, Denies dyspnea and Denies wheezing GI Denies abdominal pain, Denies bloating, Denies constipation, Denies dysphagia, Denies heartburn, Denies diarrhea, Denies nausea, Denies odynophagia and Denies vomiting Denies hematuria, Denies difficulty voiding, Denies nocturia, Denies dysuria, Denies urinary incontinence and Denies urinary urgency Musc Details: increased pain over both lower extremities Denies back pain, Denies arthralgias and Denies neck pain Skin/Breast Denies rash Neuro Reports dizziness (on and off), Denies headache(s) and Denies paresthesias Psych Reports anxiety and Reports depression Endo Reports fatigue and Denies palpitations Sergio/Lymph Denies easy bruising Aller/Immun Denies itchy eyes and Denies wheezing Physical exam (Primary Care) Vital Signs: Last Vital Signs Pulse 71 08/29/24 10:11 BP 122/78 08/29/24 10:11 Pulse Ox 97 08/29/24 10:11 Oxygen Delivery Method Room Air 08/29/24 10:11 BMI result Body Mass Index 41.6 Tobacco/Smoking Status: Tobacco use Status Tobacco use date assessed 08/29/24 08/29/24 10:19 Patient Tobacco Use Status Never used Tobacco 08/29/24 10:19 e-Cigarette/Vaping Use Never Used 08/29/24 10:19 PHQ-9: PHQ-9 Score PHQ-9: Total score 6 08/29/24 10:19 Depression Screening Interpretation: Positive Depression Screening Follow-up: Existing condition and In treatment Thrive Assessment: Date of Thrive Assessment Date Thrive assessed 08/29/24 08/29/24 10:19 Currently or been in a relationship where the following occur: I choose not to answer Const General: no acute distress, alert and awake Orientation/consciousness: patient oriented x3 HENMT Head: Yes normocephalic and Yes atraumatic Ears: external ears normal, TM's normal bilaterally and EAC's normal General nose exam: No nasal discharge present Face and sinus: Yes normal facial exam and Yes sinuses nontender Teeth and gingiva: dentition normal Throat: Yes posterior oropharynx normal and Yes tonsils normal (no TP congestion) Eyes Eyelids: Yes eyelids normal Conjunctivae: conjunctivae normal Pupils: Equal, round and reactive pupils present EOM: EOMs intact bilaterally Neck Neck: Yes no lymphadenopathy and Yes supple Thyroid: Thyroid normal Resp Auscultation: clear to auscultation bilaterally, no rales and no wheezes Cardio Rate: regular rate Rhythm: regular rhythm Heart sounds: no murmurs GI Palpation (GI): Soft to palpation, nontender and No hepatosplenomegaly present Auscultation: normal bowel sounds General: Yes no CVA tenderness Back/Spine/Pelvis Back: no CVA tenderness Thoracic/Lumbar Spine: thoracic and lumbar spine normal to inspection Skin Lesions: no lesions Rashes: no rashes Neuro General: patient oriented x3, moves all extremities, no focal motor deficits and CN's II-XI intact bilaterally Cranial nerves: Yes Equal, round and reactive pupils present Cognition (Neuro): normal cognition Gait exam (Neuro): Normal gait present Extrem General: Yes no clubbing, cyanosis or edema Results Reviewed Results Reviewed: Laboratory Tests 06/17/24 06/17/24 08/01/24 09:50 09:56 15:56 WBC 6.5 Hgb 11.8 L 12.6 Hct 38.0 39.7 Plt Count 285 Sodium 140 Potassium 4.4 Creatinine 0.56 Estimated GFR > 60 Fasting Glucose 94 Calcium 8.9 D AST 29 ALT 33 H Triglycerides 95 Cholesterol 155 LDL Cholesterol, Calc 84 HDL Cholesterol 52 Vitamin B12 345 25-OH Vitamin D Total 13.8 L TSH 2.20 Ur Specific Banco 1.025 Urine Protein Trace Urine Glucose (UA) Negative Urine Blood Negative Urine Nitrite Negative Ur Leukocyte Esterase Negative Coding Level of Care Code Est Pt Prev Care 40-64y(70356) Diagnoses Annual physical exam Z00.00 Dizziness of unknown etiology R42 Obstructive sleep apnea G47.33 Moderate persistent asthma without complication J45.901 Asthma severity: unspecified severity Asthma persistence: unspecified Asthma complication type: with acute exacerbation Migraine without status migrainosus, not intractable, unspecified migraine type G43.909 Migraine type: unspecified Status migrainosus presence: without status migrainosus Intractability: not intractable Gastroesophageal reflux disease without esophagitis K21.9 Esophagitis presence: without esophagitis Vitamin D deficiency E55.9 Vitamin B12 deficiency E53.8 Varicose veins of both lower extremities, unspecified whether complicated I83.93 Varicose vein complication: unspecified Laterality: bilateral Anxiety F41.9 Episode of recurrent major depressive disorder, unspecified depression episode severity F33.9 Depression Type: major depressive disorder Major depression recurrence: recurrent Active/Remission status: currently active Major depression episode severity: unspecified Morbid obesity with BMI of 40.0-44.9, adult E66.01; Z68.41 Colon cancer screening Z12.11 Breast cancer screening by mammogram Z12.31 Osteoporosis screening Z13.820 Additional Codes PHQ-9 - 11188 - PHQ-9 Billing: Yes ([id number]) Assessment & Plan Assessment & Plan (1) Annual physical exam: Code(s): Z00.00 - Encounter for general adult medical examination without abnormal findings Category: Medical Plan: Results of her labs done back in June 2024 reviewed and discussed with patient She had a negative pap smear done back in July 2023 and is scheduled for her next yearly gynecology exam in January 2025 She is past due for her annual mammogram and has never had a screening colonoscopy done in the past so these will be ordered/referred She is also due to start BMD for osteoporosis screening (2) Dizziness of unknown etiology: Code(s): R42 - Dizziness and giddiness Category: Medical Plan: Patient has undergone extensive work ups to find out the cause of her recurrent dizziness, including cardiac stress testing and tilt table testing but all of her tests have come back normal so far She recalls being advised at some point to take some salt orally to help with her recurrent symptoms (?), which she states help sometimes but her symptoms continue to recur - states that she can feel dizzy even when she is sitting down and not moving at all (?) Will refer her to ENT for further evaluation and recommendations (3) Obstructive sleep apnea: Code(s): G47.33 - Obstructive sleep apnea (adult) (pediatric) Category: Medical Plan: Patient's initial home sleep study in September 2023 was normal although her oxygen yoshi was noted to be at 88% She was then sent for an in-lab sleep study for further evaluation - study done in November 2023 revealed (+) mild degree of sleep apnea with increased severity on REM sleep and oxygen yoshi this time was at 81% She then underwent a repeat study with PAP titration in January 2024 - her breathing and oxygenation all stabilized on 4 to 6 cm of water and she was recommended to start CPAP therapy at 6 cm of water Follow up with Sleep Medicine as scheduled (4) Asthma: Code(s): J45.909 - Unspecified asthma, uncomplicated Category: Medical Qualifiers: Asthma severity: unspecified severity Asthma persistence: unspecified Asthma complication type: with acute exacerbation Qualified Code(s): J45.901 - Unspecified asthma with (acute) exacerbation Plan: Controlled Continue Arnuity Ellipta 100 mcg 1 inhalation QD and Albuterol HFA 2 inhalations every 6 hours PRN (5) Migraine: Code(s): G43.909 - Migraine, unspecified, not intractable, without status migrainosus Category: Medical Qualifiers: Migraine type: unspecified Status migrainosus presence: without status migrainosus Intractability: not intractable Qualified Code(s): G43.909 - Migraine, unspecified, not intractable, without status migrainosus Plan: Stable on prophylactic Tx with Nortriptyline 25 mg Q HS Reinforced avoidance of migraine triggers Continue Vitamin B2 400 mg QD; continue Fioricet PRN and Sumatriptan 100 mg PRN as instructed for symptomatic relief (6) GERD (gastroesophageal reflux disease): Code(s): K21.9 - Gastro-esophageal reflux disease without esophagitis Category: Medical Qualifiers: Esophagitis presence: without esophagitis Qualified Code(s): K21.9 - Gastro-esophageal reflux disease without esophagitis Plan: Dietary restrictions reinforced Continue Pantoprazole 40 mg QD (7) Vitamin D deficiency: Code(s): E55.9 - Vitamin D deficiency, unspecified Category: Medical Plan: Continue Vitamin D3 2000 units QD (8) Vitamin B12 deficiency: Code(s): E53.8 - Deficiency of other specified B group vitamins Category: Medical Plan: Continue Vitamin B12 1000 mcg QD (9) Varicosities of leg: Code(s): I83.90 - Asymptomatic varicose veins of unspecified lower extremity Category: Medical Qualifiers: Varicose vein complication: unspecified Laterality: bilateral Qualified Code(s): I83.93 - Asymptomatic varicose veins of bilateral lower extremities Plan: Patient was seen and evaluated by vascular surgery last year and was advised that she does not have any significant vascular insufficiency or venous disease that is causing her leg pains and to just follow up with them on an as-needed basis Continue Tramadol 50 mg TID PRN for pain (10) Anxiety: Code(s): F41.9 - Anxiety disorder, unspecified Category: Medical Plan: Continue Fluoxetine 40 mg QD and Clonazepam 1 mg QD PRN (11) Depression: Code(s): F32.9 - Major depressive disorder, single episode, unspecified Category: Medical Qualifiers: Depression Type: major depressive disorder Major depression recurrence: recurrent Active/Remission status: currently active Major depression episode severity: unspecified Qualified Code(s): F33.9 - Major depressive disorder, recurrent, unspecified Plan: Continue Fluoxetine 40 mg QD Follow up with psychiatry as scheduled (12) Morbid obesity with BMI of 40.0-44.9, adult: Code(s): E66.01 - Morbid (severe) obesity due to excess calories; Z68.41 - Body mass index [BMI] 40.0-44.9, adult Category: Medical Plan: Per her request, we tried starting her on a GLP-1 previously to help her lose weight but her insurance would not cover the Rx unless she is being seen in conjunction with a certified weight-management program We referred her to weight management at [facility] and she is now being seen there under Dr. Hair but states that they are also still having a hard time getting her Rx approved and just submitted a prior authorization request for her Rx recently Reinforced diet/exercise as tolerated/lose weight although with her recurrent dizziness, exercising may not really be an option for her Follow up with weight management ([facility]) as scheduled (13) Colon cancer screening: Comment: reviewed asthma- any exacerbation- Cardiology reviewed- no syncopal episodes in about 2 years- Code(s): Z12.11 - Encounter for screening for malignant neoplasm of colon Category: Medical Plan: Patient has never had the chance to get a screening colonoscopy done in the past Will refer her to GI to start colon cancer screening (14) Breast cancer screening by mammogram: Code(s): Z12.31 - Encounter for screening mammogram for malignant neoplasm of breast Category: Medical Plan: Will send her to get her annual mammogram updated as well (15) Osteoporosis screening: Code(s): Z13.820 - Encounter for screening for osteoporosis Category: Medical Plan: Will send her for BMD for osteoporosis screening - this will be her index screen Plan Follow up in 4 months Orders: Orders MM tomosynthesis screening BI Today Z12.31 - Encounter for screening mammogram for malignant neoplasm of breast XR DEXA axial skeleton Today Z78.0 - Asymptomatic menopausal state Comprehensive [place]. Panel Fast 4 Months E78.00 - Pure hypercholesterolemia, unspecified TSH reflex Free T4 4 Months E78.00 - Pure hypercholesterolemia, unspecified Complete Blood Count Auto Diff 4 Months D64.9 - Anemia, unspecified Lipid Panel 4 Months E78.00 - Pure hypercholesterolemia, unspecified UA CC w/rflx Micro + Cult 4 Months R30.0 - Dysuria Vitamin B12 and Folate 4 Months E53.8 - Deficiency of other specified B group vitamins Vitamin D 25-OH Total 4 Months E55.9 - Vitamin D deficiency, unspecified Referrals Gastroenterology Referral Z12.11 - Encounter for screening for malignant neoplasm of colon Ear/Nose/Throat Referral R42 - Dizziness and giddiness
--- OUTSIDE RECORDS SUMMARY | 2024-08-29 10:15 | XMS_ITS | Clinical Summary ---
Author Organization 175 [facility] Address [address] [place] [address] Phone Care Team Providers Care Equipment Validation Engineer Name Role Phone Brett Navarro MD Primary Care Provider + [phone] Allergies No known active allergies Medications albuterol [...] a day. 12 each 07/11/19 25 Active ergocalciferol (VITAMIN D-2) 1,250 mcg (50,000 [...] 30 each 2 07/25/19 25 025 Active tirzepatide, weight loss, (Zepbound) 2.5 mg/0.5 mL injectionIndica tions:Class 3 severe obesity due to excess calories with serious comorbidity and body mass index (BMI) of 40.0 to 44.9 in adult ([facility] V24, [facility] V28) Inject 0.5 mL (2.5 mg total) under the skin every 7 (seven) days for 4 doses. 2 mL 07/19/19 25 025 Active Problems No known active problems Encounters Date Type Department Care Team Description 07/24/2024 Telephone Bariatric Surgery [address] [phone] Danielito Hair MD prior authorization (Zepbound 2.5 MG) 07/18/2024 10:15 AM EDT Office Visit Bariatric Surgery [address] [phone] Danielito Hair MD Class 3 severe obesity due to excess calories with serious comorbidity and body mass index (BMI) of 40.0 to 44.9 in adult ([facility] V24, [facility] V28) (Primary Dx) 07/17/2024 8:15 AM EDT Lab Draw Station [address] [phone] S/P gastric bypass 07/16/2024 1:45 PM EDT Office Visit Bariatric Surgery [address] [phone] Anna Ross MD S/P gastric bypass (Primary Dx); Obesity, Class III, BMI 40-49.9 (morbid obesity); Sleep apnea, unspecified type 07/10/2024 4:54 PM EDT - 07/10/2024 7:[address] [facility] Emergency [address] [place] [address] Acute left-sided low back pain, [...] Info) Description 09/25/2024 8:[address] [facility] Xray [address] [place] [phone] 11/26/2024 1:15 PM EDT Office Visit Bariatric Surgery - [place] 175 [facility] [address] [place] [address] Danielito Hair MD 175 [facility] [address] [place] [address] Health Maintenance Due Date Last Done Comments Breast Cancer Screening 1972 Hepatitis B Vaccines (1 of 3 - 19+ 3-dose series) 1991 Cervical Cancer Screening: P ap Smear 1993 Pneumococcal Vaccine: 50+ Years (2 of 2 - PCV) 2022 10/08/2011 COVID-19 Vaccine ( - 2023-2 5 season) 2023 Colorectal Cancer [...] LAB CHEMISTRY METHOD 07/17/2024 10:41 AM EDT [facility] Breath Oral cavity structure / Unknown Non-blood Collection / Unknown 07/17/2024 9:00 AM EDT 07/17/2024 9:00 AM EDT us Anna Ross MD LAB BODY FLUIDS AND STO OLS ORDERABLES Final Result [facility] [address] [place] [address], [place] [phone] * Thyroid stimulating hormone with reflex to free t4 and free t3 (07/17/2024 8:52 AM EDT) TSH 3.48 0.40 - 4.00 mcIU/mL LAB CHEMISTRY METHOD 07/18/2024 2:44 PM EDT [facility] Blood Venous blood specimen / Unknown Venipuncture / Unknown 07/17/2024 8:52 AM EDT 07/17/2024 8:52 AM EDT us Anna Ross MD LAB BLOOD ORDERABLES Fi nal Result Performing Organization Address [facility]/ZIP Co de Phone Number [facility] [address] [place] [address], [place] [phone] * (ABNORMAL) Lipid panel with reflex to direct LDL (07/17/2024 8:52 AM EDT) Cholesterol 181 0 - 200 mg/dL LAB CHEMISTRY METHOD 07/17/2024 11:21 AM T [facility] Triglycerides 126 0 - 150 mg/dL LAB CHEMISTRY METHOD 07/17/2024 11:[address] [facility] HDL 54 >=40 mg/dL LAB CHEMISTRY METHOD 07/17/2024 11:[address] [facility] LDL Calculated 102(H) 0 - 100 mg/dL LAB CHEMISTRY METHOD 07/17/2024 11:[address] [facility] VLDL Cholesterol Hernan 25.2 mg/dL LAB CHEMISTRY METHOD 07/17/2024 11:[address] [facility] Non HDL Chol. (LDL+VLDL) 127 <145 mg/dL LAB CHEMISTRY METHOD 07/17/2024 11:[address] [facility] Chol/HDL Ratio 3.4 0.0 - 4.4 LAB CHEMISTRY METHOD 07/17/2024 11:[address] [facility] Blood Venous blood specimen / Unknown Venipuncture / Unknown 07/17/2024 8:52 AM EDT 07/17/2024 8:52 AM EDT us Anna Ross MD LAB BLOOD ORDERABLES Fi nal Result [facility] [address] [place] [address], * Nicotine and cotinine (07/17/2024 8:52 AM EDT) [facility] Nicotine <2.0 <2.0 ng/mL 07/20/2024 6:38 AM EDT [facility] Cotinine <2.0 <2.0 ng/mL 07/20/2024 6:38 AM EDT [facility] Comment: ?Additional Reference Ranges: ? Active Tobacco ? Passive ? Abstinence ?User ?Exposure ?? 2 Weeks and more ? Nicotine ?30 - 50 ??ng/mL ?<2 ng/mL ?<2 ng/mL Cotinine ?? 200 - 800 ng/mL ?<8 ng/mL ?<2 ng/mL Reference Ranges from: ??Clin. Chem.; ??[id number] (2002) Direct any interpretive questions to the toxicology laboratory. This is for medical use only, it is not intended for forensic use. If applicable, any drug confirmation testing reported here was developed and the performance characteristics determined by [facility]. This confirmation testing has not been cleared or approved by the FDA. The laboratory is regulated under CLIA as qualified to perform high-complexity testing. This test is used for patient testing purposes. It should not be regarded as investigational or for research. Test performed at [facility], [address], [place], [place] ??[address] ? [phone] Sheri Frey MD, PhD - Student Services Advisor Blood Venous blood specimen / Unknown Venipuncture / Unknown 07/17/2024 8:52 AM EDT 07/17/2024 8:52 AM EDT Anna Ross MD LAB BLOOD ORDERABLES Fi nal Result [facility] [address] [place] [address] * (ABNORMAL) CBC auto differential (07/17/2024 8:52 AM EDT) WBC 7.1 4.8 - 10.8 K/mcL LAB HEMETOLOGY METHOD 07/17/2024 10:[address] [facility] RBC 4.70 3.80 - 4.80 M/[facility] LAB HEMETOLOGY METHOD 07/17/2024 10:[address] [facility] Hemoglobin 12.5 11.5 - 16.0 g/dL LAB HEMETOLOGY METHOD 07/17/2024 10:[address] [facility] Hematocrit 40.7 35.0 - 47.0 % LAB HEMETOLOGY METHOD 07/17/2024 10:[address] [facility] MCV 87.2 79.0 - 98.0 FL LAB HEMETOLOGY METHOD 07/17/2024 10:[address] [facility] MCH 26.8(L) 27.0 - 32.0 pcg LAB HEMETOLOGY METHOD 07/17/2024 10:[address] [facility] MCHC 30.7(L) 32.0 - 37.0 g/dL LAB HEMETOLOGY METHOD 07/17/2024 10:[address] [facility] RDW 14.1 11.0 - 15.0 % LAB HEMETOLOGY METHOD 07/17/2024 10:[address] [facility] Platelets 332 130 - 400 K/mcL LAB HEMETOLOGY METHOD 07/17/2024 10:[address] [facility] MPV 11.3(H) 7.0 - 11.0 FL LAB HEMETOLOGY METHOD 07/17/2024 10:[address] [facility] NRBC 0.0 <1.0 % LAB HEMETOLOGY METHOD 07/17/2024 10:[address] [facility] NRBC Absolute 0.00 <0.10 K/mcL LAB HEMETOLOGY METHOD 07/17/2024 10:[address] [facility] Neutrophils Relative 52.8 % LAB HEMETOLOGY METHOD 07/17/2024 10:[address] [facility] Lymphocytes Relative 34.2 % LAB HEMETOLOGY METHOD 07/17/2024 10:[address] [facility] Monocytes Relative 7.9 % LAB HEMETOLOGY METHOD 07/17/2024 10:[address] [facility] Eosinophils Relative 3.7 % LAB HEMETOLOGY METHOD 07/17/2024 10:[address] [facility] Basophils Relative 0.8 % LAB HEMETOLOGY METHOD 07/17/2024 10:[address] [facility] Immature Granulocytes Relative 0.6 % LAB HEMETOLOGY METHOD 07/17/2024 10:[address] [facility] Neutrophils Absolute 3.74 1.50 - 7.00 K/mcL LAB HEMETOLOGY METHOD 07/17/2024 10:[address] [facility] Lymphocytes Absolute 2.42 1.00 - 5.00 K/mcL LAB HEMETOLOGY METHOD 07/17/2024 10:[address] [facility] Monocytes Absolute 0.56 0.20 - 1.00 K/mcL LAB HEMETOLOGY METHOD 07/17/2024 10:15 AM EDT [facility] Eosinophils Absolute 0.26 0.00 - 0.50 K/[facility] LAB HEMETOLOGY METHOD 07/17/2024 10:15 AM EDT [facility] Basophils Absolute 0.06 0.00 - 0.20 K/[facility] LAB HEMETOLOGY METHOD 07/17/2024 10:15 AM EDT [facility] Immature Granulocytes Absolute 0.04(H) 0.00 - 0.03 K/[facility] LAB HEMETOLOGY METHOD 07/17/2024 10:15 AM EDT [facility] Blood Venous blood specimen / Unknown Venipuncture / Unknown 07/17/2024 8:52 AM EDT 07/17/2024 8:52 AM EDT us Anna Ross MD LAB BLOOD ORDERABLES Fi nal Result [facility] [address] [place] [address], [place] [phone] * (ABNORMAL) Iron and TIBC (07/17/2024 8:52 AM EDT) Iron 29(L) 40 - 150 mcg/dL LAB CHEMISTRY METHOD 07/17/2024 11:21 AM EDT [facility] TIBC 459(H) 250 - 450 mcg/dL LAB CHEMISTRY METHOD 07/17/2024 11:21 AM EDT [facility] Iron Saturation 6(L) 15 - 50 % LAB CHEMISTRY METHOD 07/17/2024 11:21 AM EDT [facility] Blood Venous blood specimen / Unknown Venipuncture / Unknown 07/17/2024 8:52 AM EDT 07/17/2024 8:52 AM EDT us Anna Ross MD LAB BLOOD ORDERABLES Fi nal Result Performing Organization Address [facility]/ZIP Co de Phone Number [facility] [address] [place] [address], [place] [phone] * Insulin, total (07/17/2024 8:52 AM EDT) [facility] Insulin 11.7 3.0 - 25.0 mcIU/mL LAB CHEMISTRY METHOD 07/17/2024 12:41 PM EDT [facility] Blood Venous blood specimen / Unknown Venipuncture / Unknown 07/17/2024 8:52 AM EDT 07/17/2024 8:52 AM EDT Narrative [facility] - 07/17/2024 12:41 PM EDT Insulin reference range based on fasting status. ??Insulin values vary in non- fasting individuals. us Anna Ross MD LAB BLOOD ORDERABLES Fi nal Result Performing Organization Address [facility] Co de Phone Number [facility] [address] [place] [address], [place] [phone] * (ABNORMAL) Vitamin D 25 hydroxy (07/17/2024 8:52 AM EDT) [facility] Vit D, 25-Hydroxy 7.0(L) 30.0 - 80.0 ng/mL LAB CHEMISTRY METHOD 07/17/2024 12:16 PM EDT [facility] Blood Venous blood specimen / Unknown Venipuncture / Unknown 07/17/2024 8:52 AM EDT 07/17/2024 8:52 AM EDT us Anna Ross MD LAB BLOOD ORDERABLES Fi nal Result Performing Organization Address City/[facility]/ZIP Co de Phone Number [facility] [address] [place] [address], [place] [phone] * Uric acid (07/17/2024 8:52 AM EDT) Pathologist [facility] Uric Acid 4.0 3.1 - 7.8 mg/dL LAB CHEMISTRY METHOD 07/17/2024 11:21 AM EDT [facility] Blood Venous blood specimen / Unknown Venipuncture / Unknown 07/17/2024 8:52 AM EDT 07/17/2024 8:52 AM EDT us Anna Ross MD LAB BLOOD ORDERABLES Fi nal Result Performing Organization Address City/[facility]/ZIP Co de Phone Number [facility] [address] [place] [address], * Vitamin B1 (07/17/2024 8:52 AM EDT) [facility] Vitamin B1 Whole Blood 54 38 - 122 ug/L 07/22/2024 8:21 AM EDT [facility] Comment: This test was developed and the performance characteristics determined by [facility]. It has not been cleared or approved by the FDA. The laboratory is regulated under CLIA as qualified to perform high-complexity testing. This test is used for patient testing purposes. It should not be regarded as investigational or for research. Test performed at [facility], [address] [place], [place] ??[address] ? [phone] Sheri Frey MD, PhD - Student Services Advisor Blood Venous blood specimen / Unknown Venipuncture / Unknown 07/17/2024 8:52 AM EDT 07/17/2024 8:52 AM EDT us Anna Ross MD LAB BLOOD ORDERABLES Fi nal Result [facility] [address] [place] [address] * (ABNORMAL) Parathyroid hormone intact (07/17/2024 8:52 AM EDT) [facility] PTH 108.4(H) 18.5 - 88.0 pcg/mL LAB CHEMISTRY METHOD 07/17/2024 12:10 PM EDT [facility] Blood Venous blood specimen / Unknown Venipuncture / Unknown 07/17/2024 8:52 AM EDT 07/17/2024 8:52 AM EDT us Anna Ross MD LAB BLOOD ORDERABLES Fi nal Result Performing Organization Address [facility] de Phone Number [facility] [address] [place] [address], [place] [phone] * Hemoglobin A1c (07/17/2024 8:52 AM EDT) Pathologist [facility] Hemoglobin A1C 5.6 <6.5 % LAB CHEMISTRY METHOD 07/17/2024 1:38 PM EDT [facility] Mean Bld Glu Estim. 114 mg/dL LAB CHEMISTRY METHOD 07/17/2024 1:38 PM EDT [facility] Blood Venous blood specimen / Unknown Venipuncture / Unknown 07/17/2024 8:52 AM EDT 07/17/2024 8:52 AM EDT us Anna Ross MD LAB BLOOD ORDERABLES Fi nal Result Performing Organization Address [facility] de Phone Number [facility] [address] [place] [address], [place] [phone] * (ABNORMAL) Folate (07/17/2024 8:52 AM EDT) Folate >20.0(H) 2.8 - 17.0 ng/ml LAB CHEMISTRY METHOD 07/17/2024 11:21 AM EDT [facility] Blood Venous blood specimen / Unknown Venipuncture / Unknown 07/17/2024 8:52 AM EDT 07/17/2024 8:52 AM EDT us Anna Ross MD LAB BLOOD ORDERABLES Fi nal Result [facility] [address] [place] [address], [place] [phone] * (ABNORMAL) Ferritin (07/17/2024 8:52 AM EDT) Ferritin 6(L) 8 - 252 ng/mL LAB CHEMISTRY METHOD 07/17/2024 11:43 AM EDT [facility] Blood Venous blood specimen / Unknown Venipuncture / Unknown 07/17/2024 8:52 AM EDT 07/17/2024 8:52 AM EDT Anna Ross MD LAB BLOOD ORDERABLES Fi nal Result Performing Organization Address City/[facility]/ZIP Co de Phone Number [facility] [address] [place] [address], * Vitamin B12 (07/17/2024 8:52 AM EDT) [facility] Vitamin B-12 328 250 - 900 pcg/mL LAB CHEMISTRY METHOD 07/17/2024 11:21 AM EDT [facility] Blood Venous blood specimen / Unknown Venipuncture / Unknown 07/17/2024 8:52 AM EDT 07/17/2024 8:52 AM EDT Anna Ross MD LAB BLOOD ORDERABLES Fi nal Result [facility] [address] [place] [address], [place] [phone] * Cortisol (07/17/2024 8:52 AM EDT) Cortisol 14.9 mcg/dL LAB CHEMISTRY METHOD 07/17/2024 12:41 PM EDT [facility] Blood Venous blood specimen / Unknown Venipuncture / Unknown 07/17/2024 8:52 AM EDT 07/17/2024 8:52 AM EDT Narrative [facility] - 07/17/2024 12:41 PM EDT CORTISOL REFERENCE RANGE ?? 8 AM SPEC: ??5.0-23.0 mcg/dL ?? 4 PM SPEC: ??3.0-16.0 mcg/dL ?? 8 PM SPEC: ??<5.0 mcg/dL us Anna Ross MD LAB BLOOD ORDERABLES Fi nal Result [facility] [address] [place] [address], * Comprehensive metabolic panel (07/17/2024 8:52 AM EDT) Sodium 139 133 - 145 mmol/L LAB CHEMISTRY METHOD 07/17/2024 11:[address] [facility] Potassium 4.6 3.5 - 5.5 mmol/L LAB CHEMISTRY METHOD 07/17/2024 11:[address] [facility] Chloride 106 96 - 110 mmol/L LAB CHEMISTRY METHOD 07/17/2024 11:[address] [facility] CO2 26 21 - 32 mmol/L LAB CHEMISTRY METHOD 07/17/2024 11:[address] [facility] Anion Gap 7 3 - 11 LAB CHEMISTRY METHOD 07/17/2024 11:[address] [facility] Glucose 91 70 - 100 mg/dL LAB CHEMISTRY METHOD 07/17/2024 11:[address] [facility] BUN 14 5 - 25 mg/dL LAB CHEMISTRY METHOD 07/17/2024 11:[address] [facility] Creatinine 0.61 0.50 - 1.10 mg/dL LAB CHEMISTRY METHOD 07/17/2024 11:[address] [facility] eGFR 108 >=60 mL/min/1. 73m2 LAB CHEMISTRY METHOD 07/17/2024 11:[address] [facility] Comment:Calculation based on the??Chronic Kidney Disease Epidemiology Collaboration (CKD-EPI) equation refit??without adjustment for race. BUN/Creatinine Ratio 23.0 LAB CHEMISTRY METHOD 07/17/2024 11:[address] [facility] Calcium 9.4 8.5 - 10.5 mg/dL LAB CHEMISTRY METHOD 07/17/2024 11:[address] [facility] AST (SGOT) 24 10 - 42 unit/L LAB CHEMISTRY METHOD 07/17/2024 11:[address] [facility] ALT (SGPT) 36 10 - 60 unit/L LAB CHEMISTRY METHOD 07/17/2024 11:[address] [facility] Alkaline Phosphatase 81 42 - 121 unit/L LAB CHEMISTRY METHOD 07/17/2024 11:[address] [facility] Total Protein 6.9 6.0 - 8.0 g/dL LAB CHEMISTRY METHOD 07/17/2024 11:[address] [facility] Albumin 3.5 3.2 - 5.0 g/dL LAB CHEMISTRY METHOD 07/17/2024 11:[address] [facility] Total Bilirubin 0.6 0.0 - 1.4 mg/dL LAB CHEMISTRY METHOD 07/17/2024 11:[address] [facility] Blood Venous blood specimen / Unknown Venipuncture / Unknown 07/17/2024 8:52 AM EDT 07/17/2024 8:52 AM EDT us Anna Ross MD LAB BLOOD ORDERABLES Fi nal Result [facility] [address] [place] [address], * CT Lumbar Spine wo Contrast (07/10/2024 [...] Nneka Snider MD on 07/10/2024 18:47:[address] PROCEDURES Final Result * CT Cervical [...] Snider MD on 07/10/2024 18:57:[address] PROCEDURES Final Result * CT Head wo Contrast (07/10/2024 6:14 PM EDT) Anatomical Region Laterality Modality Head and Neck Computed Tomogra phy 07/10/2024 6:51 PM EDT Impressions 07/10/2024 6:51 PM EDT 1. No acute intracranial findings. This document has been electronically signed by: Nneka Snider MD on 07/10/2024 18:51:47 Narrative 07/10/2024 6:51 [...] Months Insurance [facility] [employer] Advance Directives Documents on File Type Date Recorded Patient Head Refrigerating Engineer Expl anation Health Care Decision (hx) 06/19/2015 AD OCASIO DIRECTIVE Health Care Decision (hx) 06/09/2015 AD OCASIO DIRECTIVE Care Teams Equipment Validation Engineer Relationship Specialty Start Date End Date Brett Navarro MD [address] [place] [address] [address] [place], [place] PCP - General Internal Medicine 07/19/24
== END 2024-08-29 11:08 | disposition home or self-care (01) ==
LOC: HO.HMCH 09:55
PROVIDERS: PCP Internal Medicine; Visit Provider Internal Medicine
DX: Z00.00 Encounter for general adult medical examination without abnormal findings (principal); E66.01 Morbid (severe) obesity due to excess calories; Z68.41 Body mass index [BMI] 40.0-44.9, adult; R42 Dizziness and giddiness; G47.33 Obstructive sleep apnea (adult) (pediatric); J45.901 Unspecified asthma with (acute) exacerbation; G43.909 Migraine, unspecified, not intractable, without status migrainosus; K21.9 Gastro-esophageal reflux disease without esophagitis; E55.9 Vitamin D deficiency, unspecified; E53.8 Deficiency of other specified B group vitamins; I83.93 Asymptomatic varicose veins of bilateral lower extremities; F41.9 Anxiety disorder, unspecified

== ENCOUNTER → 2024-08-29 09:54 | Outpatient (BNVA) | payer OTHER, SELFPAY | PROVIDERS: PCP Internal Medicine; Visit Provider Internal Medicine | DX: Z00.00 Encounter for general adult medical examination without abnormal findings (principal); R42 Dizziness and giddiness; G47.33 Obstructive sleep apnea (adult) (pediatric); J45.901 Unspecified asthma with (acute) exacerbation; G43.909 Migraine, unspecified, not intractable, without status migrainosus; K21.9 Gastro-esophageal reflux disease without esophagitis; E55.9 Vitamin D deficiency, unspecified; E53.8 Deficiency of other specified B group vitamins; I83.93 Asymptomatic varicose veins of bilateral lower extremities; F41.9 Anxiety disorder, unspecified; F33.9 Major depressive disorder, recurrent, unspecified; E66.01 Morbid (severe) obesity due to excess calories; Z68.41 Body mass index [BMI] 40.0-44.9, adult; Z79.891 Long term (current) use of opiate analgesic; Z79.899 Other long term (current) drug therapy; Z13.30 Encounter for screening examination for mental health and behavioral disorders, unspecified | CPT/HCPCS: 96127; 99396 ==

== ENCOUNTER 2024-09-25 10:21 | Outpatient (AMB) | payer OTHER, SELFPAY ==
--- OUTSIDE RECORDS SUMMARY | 2024-09-25 07:32 | XMS_ITS | Encounter Summary ---
Author Organization [facility] Address [address] [place] [address] Care Team Providers Care Telegraph And Teletype Operator Name Role Phone Brett Navarro MD Primary Care Provider + [phone] Reason for Referral * Imaging (Routine) - Authorized Specialty Diagnoses / Procedures Referred By Contac t Referred To Contact Radiology Diagnoses S/P gastric bypass Procedures XR UGI w Single Contrast Anna Ross MD [address] [address] Phone: tel: fax: [facility] CT Scan [address] [place] [address] Phone: tel: Referral ID Status Reason Start Date Expiration Date V isits Requested Visits Authorized [id number] Authorized 07/16/2024 07/16/2025 1 1 Reason for Visit * Imaging (Routine) - Authorized Specialty Diagnoses / Procedures Referred By Contac t Referred To Contact Radiology Diagnoses S/P gastric bypass Procedures XR UGI w Single Contrast Anna Ross MD [address] [address] Phone: tel: fax: [facility] [address] [place] [address] Phone: tel: Referral ID Status Reason Start Date Expiration Date V isits Requested Visits Authorized [id number] Authorized 07/16/2024 07/16/2025 1 1 Encounter Details Date Type Department Care Team (Latest Contact Info) Description 09/25/2024 7:32 AM EDT Hospital Encounter [facility] Xray [address] [place] [address] S/P gastric bypass Social History Tobacco Use Types Packs/Day Years [...] PM EDT documented as of this encounter Plan of Treatment Upcoming Encounters Date Type Department Care Team (Late st Contact Info) Description 10/31/2024 11:45 AM EDT Office Visit Bariatric Surgery - [place] 175 [facility] [address] [place] [phone] Danielito Hair MD [address] [address] documented as of this encounter Procedures Procedure Name Priority Date/Time Associated Diagnosis Comments XR UGI W SINGLE CONTRAST Routine 09/25/2024 8:59 AM EDT S/P gastric bypass documented in this encounter Results * XR UGI w Single Contrast (09/25/2024 8:59 AM EDT) Anatomical Region Laterality Modality Body Radiographic Luisana ging 09/25/2024 9:10 AM EDT Impressions 09/25/2024 9:24 AM EDT Tiny, sliding hiatal hernia of the gastric pouch without visualized gastroesophageal reflux. Otherwise, unremarkable single contrast upper GI imaging status post gastric bypass. -------- FINAL REPORT -------- Dictated By: Cheli Osorio Dictated Date: 09/25/2024 09:10 ET Assigned Physician: Dirk Fisher Reviewed and Electronically Signed By: Dirk Fisher Signed Date: 09/25/2024 09:24 ET Workstation ID: [id number] Transcribed By: Self Edit Transcribed Date: 09/25/2024 09:14 ET Resident/PA/FOOD EXPEDITOR: Cheli Osorio 09/25/2024 9:24 AM EDT FINDINGS: Single contrast UGI performed. COMPARISON: Multiple prior upper GIs. HISTORY: Patient is a 54-year-old female with history of gastric bypass, evaluate pouch. STENOGRAPHIC COURT REPORTER radiographs: Sand Bobber AP radiograph of the abdomen obtained. Bowel gas pattern is nonobstructive. Visualized lung bases appear clear. Surgical clips are noted to the left upper quadrant, consistent with known history of gastric bypass. Surgical clips to the right upper quadrant indicating history of cholecystectomy. There are mild to moderate bony degenerative changes of the thoracolumbar spine noted. FINDINGS: Thin barium was administered orally under fluoroscopic control. Esophagus: Normal distensibility, motility and mucosal pattern. There is no evidence of obstruction. There is tiny, sliding hiatal hernia of the gastric pouch. Stomach: Gastric anatomy is consistent with history of bypass. There is a widely patent gastrojejunal anastomosis with prompt passage of contrast from the gastric pouch into the jejunum. Visualization of proximal small bowel is within normal limits. Gastroesophageal reflux: Unable to elicit Air kerma: 42.86 mGy Procedure Note Dirk Fisher MD - 09/25/2024 FINDINGS: Single contrast UGI performed. COMPARISON: Multiple prior upper GIs. HISTORY: Patient is a 54-year-old female with history of gastric bypass,evaluate pouch. STENOGRAPHIC COURT REPORTER radiographs: Sand Bobber AP radiograph of the abdomen obtained. Bowel gaspattern is nonobstructive. Visualized lung bases appear clear. Surgicalclips are noted to the left upper quadrant, consistent with known historyof gastric bypass. Surgical clips to the right upper quadrant indicatinghistory of cholecystectomy. There are mild to moderate bony degenerativechanges of the thoracolumbar spine noted. FINDINGS: Thin barium was administered orally under fluoroscopic control. Esophagus: Normal distensibility, motility and mucosal pattern. There isno evidence of obstruction. There is tiny, sliding hiatal hernia of thegastric pouch. Stomach: Gastric anatomy is consistent with history of bypass. There is awidely patent gastrojejunal anastomosis with prompt passage of contrastfrom the gastric pouch into the jejunum. Visualization of proximal smallbowel is within normal limits. Gastroesophageal reflux: Unable to elicit Air kerma: 42.86 mGy IMPRESSION: Tiny, sliding hiatal hernia of the gastric pouch without visualizedgastroesophageal reflux. Otherwise, unremarkable single contrast upper GIimaging status post gastric bypass. -------- FINAL REPORT -------- Dictated By: Cheli Osorio Dictated Date: 09/25/2024 09:10 ET Assigned Physician: Dirk Fisher Reviewed and Electronically Signed By: Dirk Fisher Signed Date: 09/25/2024 09:24 ET Workstation ID: [id number] Transcribed By: Self Edit Transcribed Date: 09/25/2024 09:14 ET Resident/PA/FOOD EXPEDITOR: Cheli Osorio us Anna Ross MD IMG FLUOROSCOPY PROCEDU RES Final Result documented in this encounter Visit Diagnoses Diagnosis S/P gastric bypass Bariatric surgery status documented in this encounter Administered Medications Inactive Administered Medications - up to 3 most recent administrations Medication Order MAR Action Action Date Dose Rate Site barium sulfate (E-Z-HD) 98 % suspension 100 mL 100 mL, oral, Once in imaging, Starting on Mon09/25/24 at 0900, For 1 dose Given 09/25/2024 9:00 AM EDT 100 mL barium sulfate (E-Z-PAQUE) 96 % (w/w) suspension 100 mL 100 mL, oral, Once in imaging, Starting on Mon09/25/24 at 0900, For 1 dose Given 09/25/2024 9:00 AM EDT 100 mL documented in this encounter Care Teams Telegraph And Teletype Operator Relationship Specialty Start Date End Date Brett Navarro MD [address] [place] [address] [address] [place] PCP - General Internal Medicine 07/19/24 documented as of this encounter
--- NOTE | 2024-09-25 10:26 | A.OFFVIS_ITS ---
Vital Signs 09/25/24 10:38 Height 5 ft 2 in Weight 232 lb BMI 42.4 BP 130/84 Blood Pressure Location Rt brachial Position Sitting Pulse 72 Pulse Source Pulse Oximeter Pulse Oximetry (%) 98 Oxygen Delivery Method Room Air Intake Visit Reasons: NIGHAT on CPAP Allergies No Known Allergies Allergy (Verified 09/25/24 10:40) HPI Comments Details: 53y/o female comes for follow up.Her sleep study was c/w with severe REM dominant sleep apnea AHI 13REM 51 O2 yoshi was 81% she was started on CPAP 6 after titration - non complaint as per records but she says she is using it everyday and it is helping her sleep, daytime fatigue and headaches have resolved. Buts he says she does not have internet in her hosue. EMG was normal she takes gabapentin for her leg pain Her migraines have decreased to 1 /weekand lasts 1-2 hrs The migraines are frontal , bitemporal, with nausea, vomiting, photophobia, phonophobia, blurry vision, visual aura etc. [facility] Medical History Morbid obesity with BMI of 40.0-44.9, adult Obstructive sleep apnea Migraine with aura Right thigh pain Hypersomnia Snoring Right ovarian cyst Vitamin B12 deficiency Vitamin D deficiency Depression Anxiety Obesity (BMI 30-39.9) Bilateral hand pain Bilateral wrist pain GERD (gastroesophageal reflux disease) Asthma Migraine Surgical History H/O gastric bypass History of removal of laparoscopic gastric banding device LAP-BAND surgery status History of appendectomy History of hysterectomy History of section Family History Father Diabetes Hypertension Mother Hypertension Glaucoma Scoliosis Colon cancer Osteoporosis Headache Arthritis Maternal Grandmother No problems noted. Maternal Grandfather No problems noted. Paternal Grandmother No problems noted. Paternal Grandfather No problems noted. Daughter In good health Sister In good health Asthma Headache Anemia Arthritis Hypertension Brother Hypertension Social History Housing: House Alcohol intake: never Patient Tobacco Use Status: Never used Tobacco e-Cigarette/Vaping Use: Never Used Second Hand Smoke Exposure: No service: No Current occupational status: employed Sexual orientation: Straight/Heterosexual Gender identity: Female Cognitive needs: No Hearing needs: No Vision needs: No Female Reproductive History Menstrual Age of Menarche: 15 Physical Exam Vital Signs: Last Vital Signs Pulse 72 09/25/24 10:38 BP 130/84 09/25/24 10:38 Pulse Ox 98 09/25/24 10:38 Oxygen Delivery Method Room Air 09/25/24 10:38 BMI result Body Mass Index 42.4 Const General: cooperative, comfortable and no acute distress Nutritional Appearance: obese Orientation/consciousness: patient oriented x3 Eyes Pupils: Equal, round and reactive pupils present Neuro General: patient oriented x3, gait normal, tone normal, moves all extremities and no focal motor deficits Cranial nerves: Yes Facial sensation intact/muscles of mastication intact, Yes Equal, round and reactive pupils present, Yes Bilaterally intact EOM present, Yes Nystagmus not present, Yes Normal facial strength present, Yes Midline tongue present and Yes Symmetric palate elevation present Cognition (Neuro): normal cognition Gait exam (Neuro): Normal gait present Motor exam (neuro): 5/5 motor strength present throughout and Normal motor muscle tone present throughout Coordination: [id number] test normal Extrem Other: Pain on the Right lateral thigh on palpation. General: Yes normal to inspection Assessment & Plan Assessment & Plan (1) Obstructive sleep apnea: Code(s): G47.33 - Obstructive sleep apnea (adult) (pediatric) Category: Medical (2) Migraine with aura: Code(s): G43.109 - Migraine with aura, not intractable, without status migrainosus Category: Medical Qualifiers: Status migrainosus presence: without status migrainosus Intractability: not intractable Qualified Code(s): G43.109 - Migraine with aura, not intractable, without status migrainosus Plan continue magnesium 400mg qhs and Vit B 2 400mg qam for her migraines in addition to nortirptyline 25 mg qhs and sumatriptan 100mg as needed gabapentin 200mg qhs Continue CPAP - compliance stressed Coding Level of Care Code Est Pt Level 4 (49434) Complex EM visit Add On G2211 Diagnoses Obstructive sleep apnea G47.33 Migraine with aura and without status migrainosus, not intractable G43.109 Status migrainosus presence: without status migrainosus Intractability: not intractable
[2024-09-25 10:38] VITALS: BP 130/84; PULSE 72; O2SAT 98; BMI 42.4
== END 2024-09-25 11:22 | disposition home or self-care (01) ==
LOC: HO.HSMS 10:21
PROVIDERS: PCP Internal Medicine; Visit Provider Psychiatry & Neurology Neurology
DX: G47.33 Obstructive sleep apnea (adult) (pediatric) (principal); G43.109 Migraine with aura, not intractable, without status migrainosus
CPT/HCPCS: 99214; G2211

== ENCOUNTER → 2024-09-25 10:21 | Outpatient (BNVA) | payer OTHER, SELFPAY | PROVIDERS: PCP Internal Medicine; Visit Provider Psychiatry & Neurology Neurology | DX: G47.33 Obstructive sleep apnea (adult) (pediatric) (principal); R06.83 Snoring; G47.10 Hypersomnia, unspecified; G43.109 Migraine with aura, not intractable, without status migrainosus | CPT/HCPCS: 99212 ==

== ENCOUNTER 2024-10-07 09:13 | Outpatient (REF) | payer OTHER, SELFPAY ==
--- OUTSIDE RECORDS SUMMARY | 2024-10-07 09:33 | XMS_ITS | Clinical Summary ---
Author Organization 175 [facility] Address [address] [place] [address] Phone Care Team Providers Care City Library Director Name Role Phone Brett Navarro MD Primary Care Provider + [phone] Allergies No known active allergies Medications albuterol [...] Encounters Date Type Department Care Team Description 09/25/2024 7:32 AM EDT - 09/25/2024 11:59 PM EDT Hospital Encounter [facility] Xray [address] [place] [phone] S/P gastric bypass Discharge Disposition: Home or Self Care 07/24/2024 Telephone Bariatric Surgery - [address] [phone] Danielito Hair MD prior authorization (Zepbound 2.5 MG) 07/18/2024 10:15 AM EDT Office Visit Bariatric Surgery [address] [phone] Danielito Hair MD Class 3 severe obesity due to excess calories with serious comorbidity and body mass index (BMI) of 40.0 to 44.9 in adult (CMS/HCC V24, CMS/FORMERLY [facility] V28) (Primary Dx) 07/17/2024 8:15 AM EDT Lab Draw Station [address] [phone] S/P gastric bypass 07/16/2024 1:45 PM EDT Office Visit Bariatric Surgery [address] [phone] Anna Ross MD S/P gastric bypass (Primary Dx); Obesity, Class III, BMI 40-49.9 (morbid obesity); Sleep apnea, unspecified type 07/10/2024 4:54 PM EDT - 07/10/2024 7:20 PM EDT Emergency [facility] Emergency [address] [place] [address] Acute left-sided low back pain, [...] 76 07/18/2024 9:57 AM EDT Temperature 36.6 C (97.8 F) 07/18/2024 9:57 AM EDT Respiratory Rate 18 07/10/2024 7:17 PM EDT [...] AM EDT Office Visit Bariatric Surgery - [place] [address] [phone] Danielito Hair MD [address] [address] Health Maintenance Due Date Last Done Comments [...] 09/25/2024 8:59 AM EDT S/P gastric bypass HELICOBACTER PYLORI BREATH TEST Routine 07/17/2024 9:00 [...] EDT from Last 3 Months Results * XR UGI w Single Contrast [...] Signed Date: 09/25/2024 09:24 ET Workstation ID: [id number] Transcribed By: Self Edit Transcribed Date: 09/25/2024 09:14 ET Resident/PA/SUPERVISOR INSPECTING: Cheli Osorio Narrative 09/25/2024 9:24 AM EDT FINDINGS: Single contrast UGI performed. COMPARISON: Multiple prior upper GIs. HISTORY: Patient is a 54-year-old female with history of gastric bypass, evaluate pouch. SKIVER OPERATOR radiographs: Carpet Loom Fixer AP radiograph of the abdomen obtained. Bowel [...] female with history of gastric bypass,evaluate pouch. SKIVER OPERATOR radiographs: Carpet Loom Fixer AP radiograph of the abdomen obtained. Bowel [...] Signed Date: 09/25/2024 09:24 ET Workstation ID: [id number] Transcribed By: Self Edit Transcribed Date: 09/25/2024 09:14 ET Resident/PA/SUPERVISOR INSPECTING: Cheli Osorio us Anna Ross MD IMG FLUOROSCOPY PROCEDU RES Final Result * Helicobacter pylori breath test (07/17/2024 9:00 AM EDT) H Pylori Breath Test Negative Negative LAB CHEMISTRY METHOD 07/17/2024 10:41 AM EDT [facility] Breath Oral cavity structure / Unknown Non-blood Collection / Unknown 07/17/2024 9:00 AM EDT 07/17/2024 9:00 AM EDT us Anna Ross MD LAB BODY FLUIDS AND STO OLS ORDERABLES Final Result Performing Organization Address [facility]/ZIP Co de Phone Number [facility] [address] [place] [address], [place] [phone] * Thyroid stimulating hormone with reflex to free t4 and free t3 (07/17/2024 8:52 AM EDT) [facility] TSH 3.48 0.40 - 4.00 mcIU/mL LAB CHEMISTRY METHOD 07/18/2024 2:44 PM EDT [facility] Blood Venous blood specimen / Unknown Venipuncture / Unknown 07/17/2024 8:52 AM EDT 07/17/2024 8:52 AM EDT us Anna Ross MD LAB BLOOD ORDERABLES Fi nal Result Performing Organization Address City/[facility]/ZIP Co de Phone Number [facility] [address] [place] [address], [place] [phone] * (ABNORMAL) Lipid panel with reflex to direct LDL (07/17/2024 8:52 AM EDT) Pathologist [facility] Cholesterol 181 0 - 200 mg/dL LAB CHEMISTRY METHOD 07/17/2024 11:21 AM EDT [facility] Triglycerides 126 0 - 150 mg/dL LAB CHEMISTRY METHOD 07/17/2024 11:21 AM EDT [facility] HDL 54 >=40 mg/dL LAB CHEMISTRY METHOD 07/17/2024 11:21 AM [facility] LDL Calculated 102(H) 0 - 100 mg/dL LAB CHEMISTRY METHOD 07/17/2024 11:21 AM EDT [facility] VLDL Cholesterol Hernan 25.2 mg/dL LAB CHEMISTRY METHOD 07/17/2024 11:21 AM [facility] Non HDL Chol. (LDL+VLDL) 127 <145 mg/dL LAB CHEMISTRY METHOD 07/17/2024 11:21 AM [facility] Chol/HDL Ratio 3.4 0.0 - 4.4 LAB CHEMISTRY METHOD 07/17/2024 11:21 AM T [facility] Blood Venous blood specimen / Unknown Venipuncture / Unknown 07/17/2024 8:52 AM EDT 07/17/2024 8:52 AM EDT Anna Ross MD LAB BLOOD ORDERABLES Fi nal Result [facility] [address] [place] [address], * Nicotine and cotinine (07/17/2024 8:52 AM EDT) Nicotine <2.0 <2.0 ng/mL 07/20/2024 6:38 AM EDT [facility] Cotinine <2.0 <2.0 ng/mL 07/20/2024 6:38 AM EDT [facility] Comment: Additional Reference Ranges: Active Tobacco Passive Abstinence User Exposure 2 Weeks and more Nicotine 30 - 50 ng/mL <2 ng/mL <2 ng/mL Cotinine 200 - 800 ng/mL <8 ng/mL <2 ng/mL Reference Ranges from: Clin. Chem.; 48:4919-6731 (2002) Direct any interpretive questions to the toxicology laboratory. This is for medical use only, it is not intended for forensic use. If applicable, any drug confirmation testing reported here was developed and the performance characteristics determined by [facility]. This confirmation testing has not been cleared or approved by the FDA. The laboratory is regulated under CLIA as qualified to perform high-complexity testing. This test is used for patient testing purposes. It should not be regarded as investigational or for research. Test performed at [facility], [address] , [place] [address] Sheri Frey MD, PhD - Mechanical Planner Blood Venous blood specimen / Unknown Venipuncture / Unknown 07/17/2024 8:52 AM EDT 07/17/2024 8:52 AM EDT us Anna Ross MD LAB BLOOD ORDERABLES Fi nal Result [facility] [address] [place] [address] * (ABNORMAL) CBC auto differential (07/17/2024 8:52 AM EDT) [facility] WBC 7.1 4.8 - 10.8 K/[facility] LAB HEMETOLOGY METHOD 07/17/2024 10:15 AM EDT [facility] RBC 4.70 3.80 - 4.80 M/[facility] LAB HEMETOLOGY METHOD 07/17/2024 10:15 AM EDT [facility] Hemoglobin 12.5 11.5 - 16.0 g/dL LAB HEMETOLOGY METHOD 07/17/2024 10:15 AM EDT [facility] Hematocrit 40.7 35.0 - 47.0 % LAB HEMETOLOGY METHOD 07/17/2024 10:15 AM [facility] MCV 87.2 79.0 - 98.0 FL LAB HEMETOLOGY METHOD 07/17/2024 10:15 AM [facility] MCH 26.8(L) 27.0 - 32.0 pcg LAB HEMETOLOGY METHOD 07/17/2024 10:15 AM [facility] MCHC 30.7(L) 32.0 - 37.0 g/dL LAB HEMETOLOGY METHOD 07/17/2024 10:15 AM [facility] RDW 14.1 11.0 - 15.0 % LAB HEMETOLOGY METHOD 07/17/2024 10:15 AM [facility] Platelets 332 130 - 400 K/mcL LAB HEMETOLOGY METHOD 07/17/2024 10:15 AM [facility] MPV 11.3(H) 7.0 - 11.0 FL LAB HEMETOLOGY METHOD 07/17/2024 10:15 AM [facility] NRBC 0.0 <1.0 % LAB HEMETOLOGY METHOD 07/17/2024 10:15 AM [facility] NRBC Absolute 0.00 <0.10 K/mcL LAB HEMETOLOGY METHOD 07/17/2024 10:15 AM [facility] Neutrophils Relative 52.8 % LAB HEMETOLOGY METHOD 07/17/2024 10:15 AM [facility] Lymphocytes Relative 34.2 % LAB HEMETOLOGY METHOD 07/17/2024 10:15 AM [facility] Monocytes Relative 7.9 % LAB HEMETOLOGY METHOD 07/17/2024 10:15 AM [facility] Eosinophils Relative 3.7 % LAB HEMETOLOGY METHOD 07/17/2024 10:15 AM EDT [facility] Basophils Relative 0.8 % LAB HEMETOLOGY METHOD 07/17/2024 10:15 AM EDT [facility] Immature Granulocytes Relative 0.6 % LAB HEMETOLOGY METHOD 07/17/2024 10:15 AM EDT [facility] Neutrophils Absolute 3.74 1.50 - 7.00 K/mcL LAB HEMETOLOGY METHOD 07/17/2024 10:15 AM EDT [facility] Lymphocytes Absolute 2.42 1.00 - 5.00 K/mcL LAB HEMETOLOGY METHOD 07/17/2024 10:15 AM EDT [facility] Monocytes Absolute 0.56 0.20 - 1.00 K/mcL LAB HEMETOLOGY METHOD 07/17/2024 10:15 AM EDT [facility] Eosinophils Absolute 0.26 0.00 - 0.50 K/mcL LAB HEMETOLOGY METHOD 07/17/2024 10:15 AM EDT [facility] Basophils Absolute 0.06 0.00 - 0.20 K/mcL LAB HEMETOLOGY METHOD 07/17/2024 10:15 AM EDT [facility] Immature Granulocytes Absolute 0.04(H) 0.00 - 0.03 K/mcL LAB HEMETOLOGY METHOD 07/17/2024 10:15 AM [facility] Blood Venous blood specimen / Unknown Venipuncture / Unknown 07/17/2024 8:52 AM EDT 07/17/2024 8:52 AM EDT us Anna Ross MD LAB BLOOD ORDERABLES Fi nal Result [facility] [address] [place] [address], * (ABNORMAL) Iron and TIBC (07/17/2024 8:52 [...] ORDERABLES Fi nal Result Performing Organization Address [facility] Co de Phone Number [facility] [address] [place] [address], * Insulin, total (07/17/2024 8:52 AM EDT) [facility] Insulin 11.7 3.0 - 25.0 mcIU/mL LAB CHEMISTRY METHOD 07/17/2024 12:41 PM EDT [facility] Blood Venous blood specimen / Unknown Venipuncture / Unknown 07/17/2024 8:52 AM EDT 07/17/2024 8:52 AM EDT Narrative [facility] - 07/17/2024 12:41 PM EDT Insulin reference range based on fasting status. Insulin values vary in non-fasting individuals. us Anna Ross MD LAB BLOOD ORDERABLES Fi nal Result Performing Organization Address [facility]/ZIP Co de Phone Number [facility] [address] [place] [address], [place] [phone] * (ABNORMAL) Vitamin D 25 hydroxy (07/17/2024 8:52 AM EDT) Vit D, 25-Hydroxy 7.0(L) 30.0 - 80.0 ng/mL LAB CHEMISTRY METHOD 07/17/2024 12:16 PM EDT [facility] Blood Venous blood specimen / Unknown Venipuncture / Unknown 07/17/2024 8:52 AM EDT 07/17/2024 8:52 AM EDT us Anna Ross MD LAB BLOOD ORDERABLES Fi nal Result Performing Organization Address City/[facility]/ZIP Co de Phone Number [facility] [address] [place] [address], [place] [phone] * Uric acid (07/17/2024 8:52 AM EDT) [facility] Uric Acid 4.0 3.1 - 7.8 mg/dL LAB CHEMISTRY METHOD 07/17/2024 11:21 AM EDT [facility] Blood Venous blood specimen / Unknown Venipuncture / Unknown 07/17/2024 8:52 AM EDT 07/17/2024 8:52 AM EDT us Anna Ross MD LAB BLOOD ORDERABLES Fi nal Result Performing Organization Address [facility]/ZIP Co de Phone Number [facility] [address] [place] [address], [place] [phone] * Vitamin B1 (07/17/2024 8:52 AM EDT) [facility] Vitamin B1 Whole Blood 54 38 - 122 ug/L 07/22/2024 8:21 AM EDT [email or web address] Comment: This test was developed and the performance characteristics determined by [facility]. It has not been cleared or approved by the FDA. The laboratory is regulated under CLIA as qualified to perform high-complexity testing. This test is used for patient testing purposes. It should not be regarded as investigational or for research. Test performed at [facility], [address] , [place] [address] Sheri Frey MD, PhD - Mechanical Planner Blood Venous blood specimen / Unknown Venipuncture / Unknown 07/17/2024 8:52 AM EDT 07/17/2024 8:52 AM EDT us Anna Ross MD LAB BLOOD ORDERABLES Fi nal Result [facility] [address] [place] [address] * (ABNORMAL) Parathyroid hormone intact (07/17/2024 8:52 AM EDT) PTH 108.4(H) 18.5 - 88.0 pcg/mL LAB CHEMISTRY METHOD 07/17/2024 12:10 PM EDT [facility] Blood Venous blood specimen / Unknown Venipuncture / Unknown 07/17/2024 8:52 AM EDT 07/17/2024 8:52 AM EDT us Anna Ross MD LAB BLOOD ORDERABLES Fi nal Result Performing Organization Address City/[facility]/ZIP Co de Phone Number [facility] [address] [place] [address], * Hemoglobin A1c (07/17/2024 8:52 AM EDT) Hemoglobin A1C 5.6 <6.5 % LAB CHEMISTRY [...] ORDERABLES Fi nal Result Performing Organization Address City/State/[facility] Co de Phone Number [facility] [address] [place] [address], * (ABNORMAL) Folate (07/17/2024 8:52 AM EDT) [facility] Folate >20.0(H) 2.8 - 17.0 ng/ml LAB CHEMISTRY METHOD 07/17/2024 11:21 AM EDT [facility] Blood Venous blood specimen / Unknown Venipuncture / Unknown 07/17/2024 8:52 AM EDT 07/17/2024 8:52 AM EDT us Anna Ross MD LAB BLOOD ORDERABLES Fi nal Result Performing Organization Address [facility] de Phone Number [facility] [address] [place] [address], * (ABNORMAL) Ferritin (07/17/2024 8:52 AM EDT) [facility] Ferritin 6(L) 8 - 252 ng/mL LAB CHEMISTRY METHOD 07/17/2024 11:43 AM EDT [facility] Blood Venous blood specimen / Unknown Venipuncture / Unknown 07/17/2024 8:52 AM EDT 07/17/2024 8:52 AM EDT Anna Ross MD LAB BLOOD ORDERABLES Fi nal Result Performing Organization Address [facility] Co de Phone Number [facility] [address] [place] [address], * Vitamin B12 (07/17/2024 8:52 AM EDT) [facility] Vitamin B-12 328 250 - 900 pcg/mL LAB CHEMISTRY METHOD 07/17/2024 11:21 AM EDT [facility] Blood Venous blood specimen / Unknown Venipuncture / Unknown 07/17/2024 8:52 AM EDT 07/17/2024 8:52 AM EDT Anna Ross MD LAB BLOOD ORDERABLES Fi nal Result Performing Organization Address [facility]/ZIP Co de Phone Number [facility] [address] [place] [address], * Cortisol (07/17/2024 8:52 AM EDT) Cortisol 14.9 mcg/dL LAB CHEMISTRY METHOD 07/17/2024 12:41 PM EDT [facility] Blood Venous blood specimen / Unknown Venipuncture / Unknown 07/17/2024 8:52 AM EDT 07/17/2024 8:52 AM EDT Narrative [facility] - 07/17/2024 12:41 PM EDT CORTISOL REFERENCE RANGE 8 AM SPEC: 5.0-23.0 mcg/dL 4 PM SPEC: 3.0-16.0 mcg/dL 8 PM SPEC: <5.0 mcg/dL Anna Ross MD LAB BLOOD ORDERABLES Fi nal Result Performing Organization Address [facility]/ZIP Co de Phone Number [facility] [address] [place] [address], * Comprehensive metabolic panel (07/17/2024 8:52 AM EDT) Sodium 139 133 - 145 mmol/L LAB CHEMISTRY METHOD 07/17/2024 11:21 AM EDT [facility] Potassium 4.6 3.5 - 5.5 mmol/L LAB CHEMISTRY METHOD 07/17/2024 11:21 AM EDT [facility] Chloride 106 96 - 110 mmol/L LAB CHEMISTRY METHOD 07/17/2024 11:21 AM EDT [facility] CO2 26 21 - 32 mmol/L LAB CHEMISTRY METHOD 07/17/2024 11:21 AM [facility] Anion Gap 7 3 - 11 LAB CHEMISTRY METHOD 07/17/2024 11:21 AM [facility] Glucose 91 70 - 100 mg/dL LAB CHEMISTRY METHOD 07/17/2024 11:21 AM [facility] BUN 14 5 - 25 mg/dL LAB CHEMISTRY METHOD 07/17/2024 11:21 AM [facility] Creatinine 0.61 0.50 - 1.10 mg/dL LAB CHEMISTRY METHOD 07/17/2024 11:21 AM [facility] eGFR 108 >=60 mL/min/1. 73m2 LAB CHEMISTRY METHOD 07/17/2024 11:21 AM [facility] Comment:Calculation based on the Chronic Kidney Disease Epidemiology Collaboration (CKD-EPI) equation refit without adjustment for race. BUN/Creatinine Ratio 23.0 LAB CHEMISTRY METHOD 07/17/2024 11:21 AM [facility] Calcium 9.4 8.5 - 10.5 mg/dL LAB CHEMISTRY METHOD 07/17/2024 11:21 AM [facility] AST (SGOT) 24 10 - 42 unit/L LAB CHEMISTRY METHOD 07/17/2024 11:21 AM [facility] ALT (SGPT) 36 10 - 60 unit/L LAB CHEMISTRY METHOD 07/17/2024 11:21 AM [facility] Alkaline Phosphatase 81 42 - 121 unit/L LAB CHEMISTRY METHOD 07/17/2024 11:21 AM [facility] Total Protein 6.9 6.0 - 8.0 g/dL LAB CHEMISTRY METHOD 07/17/2024 11:21 AM [facility] Albumin 3.5 3.2 - 5.0 g/dL LAB CHEMISTRY METHOD 07/17/2024 11:21 AM [facility] Total Bilirubin 0.6 0.0 - 1.4 mg/dL LAB CHEMISTRY METHOD 07/17/2024 11:21 AM EDT [facility] Blood Venous blood specimen / Unknown Venipuncture / Unknown 07/17/2024 8:52 AM EDT 07/17/2024 8:52 AM EDT us Anna Ross MD LAB BLOOD ORDERABLES Fi nal Result [facility] [address] [place] [address], [place] [phone] * CT Lumbar Spine wo Contrast (07/10/2024 [...] Nneka Snider MD on 07/10/2024 18:47:[address] PA IMG CT PROCEDURES Final Result * CT Cervical [...] by: Nneka Snider MD on 07/10/2024 18:57:41 [facility] PROCEDURES Final Result * CT [...] Final Result from Last 3 Months Insurance [facility] PLAN Advance Directives Documents on File Type Date Recorded 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
[2024-10-07 10:22] LABS: Glucose Fasting 100 mg/dL (60-99)
== END 2024-10-07 09:14 | disposition home or self-care (01) ==
LOC: HO.LAB 09:13
PROVIDERS: PCP Internal Medicine; Visit Provider Internal Medicine
DX: G47.33 Obstructive sleep apnea (adult) (pediatric) (principal); R55 Syncope and collapse; G43.109 Migraine with aura, not intractable, without status migrainosus; E53.8 Deficiency of other specified B group vitamins; E55.9 Vitamin D deficiency, unspecified; F33.9 Major depressive disorder, recurrent, unspecified; F41.9 Anxiety disorder, unspecified; J45.901 Unspecified asthma with (acute) exacerbation; K21.9 Gastro-esophageal reflux disease without esophagitis; E66.01 Morbid (severe) obesity due to excess calories
CPT/HCPCS: 36415; 82947

== ENCOUNTER 2024-10-29 12:28 | Outpatient (REF) | payer OTHER, SELFPAY ==
--- NOTE | ~2024-10-29 | MM_ITS ---
EXAMINATION: MM SCREENING DIGITAL BREAST TOMOSYNTHESIS, BILATERAL CLINICAL INFORMATION: Screening. Asymptomatic. COMPARISON: Mammography: Comparison is made with available priors TECHNIQUE: Digital breast mammography with tomosynthesis is performed in both the craniocaudal and mediolateral oblique views along with computer-aided detection (CAD). FINDINGS: There are scattered areas of fibroglandular density (ACR BI-RADS breast composition Category b). There are no significant masses, abnormal calcifications, or other abnormalities. MM/MM tomosynthesis screening BI IMPRESSION: No mammographic evidence of malignancy. ASSESSMENT: BI-RADS BI-RADS 1 - Negative RECOMMENDATION: Routine annual mammography screening. 1 year F/U This examination should not preclude the clinical evaluation of a suspicious palpable abnormality. This patient's information was entered into a reminder system with a target due date for their next mammogram. Electronically signed by: Linh Jacobo DO 11/08/2024 10:16 AM EDT
--- NOTE | ~2024-10-29 | MM_ITS ---
EXAMINATION: DXA BONE DENSITY AXIAL HISTORY: Z78.0 - Asymptomatic menopausal state TECHNIQUE: VOLITIONRX Dual energy absorptiometry (DEXA) of the lumbar spine, total left hip, and femoral neck was performed. COMPARISON: There are no prior studies for comparison. FINDINGS: The bone mineral density of the lumbar spine is 1.245 g/cm2, corresponding to a T-score of 0.5, and a Z-score of 0.0. This is indicative of normal bone mineral density. The bone mineral density of the left total hip is 1.128 g/cm2, corresponding to a T-score of 1.0, and a Z-score of 0.7. This is indicative of normal bone mineral density. The bone mineral density of the left femoral neck is 1.019 g/cm2, corresponding to a T-score of -0.1, and a Z-score of 0.0. This is indicative of normal bone mineral density. FRACTURE RISK: The FRAX index suggests a risk of major osteoporotic fracture of 2.1%, and of hip fracture 0.0%. MM/XR DEXA axial skeleton IMPRESSION: Based on bone mineral density, and according to World Health Organization (WHO) criteria, the diagnosis is consistent with normal bone mineral density. Statistically, 68% of repeat scans fall within 1 SD (+/- 0.010 g/cm2 for AP spine L1-L4) and 1 SD (+/- 0.012 g/cm2 for femur total) FRAX is a trademark of the [employer]'s [place] [facility] Metabolic Bone Disease, a World Health Organization (WHO) Collaborating Center. Electronically signed by: Jr Kaur MD 10/29/2024 01:40 PM EDT
--- OUTSIDE RECORDS SUMMARY | 2024-10-29 13:29 | XMS_ITS | Clinical Summary ---
Author Organization 175 [facility] Address [address] [place] [address] Phone Care Team Providers Care Web Producer Name Role Phone Brett Navarro MD Primary Care Provider + [phone] Allergies No known active allergies Medications albuterol [...] 30 each 2 07/25/19 25 025 Active Problems No known active problems Encounters Date Type Department Care Team Description 09/25/2024 7:32 AM EDT - 09/25/2024 11:59 PM EDT Hospital Encounter [facility] Xray [address] [place] [address] S/P gastric bypass Discharge Disposition: Home or Self Care from [...] AM EDT Office Visit Bariatric Surgery - [place] [address] [facility] [address] [place] [phone] Danielito Hair MD 175 [facility] [address] [place] [address] Health Maintenance Due Date Last Done Comments Breast Cancer Screening 1972 Hepatitis B Vaccines (1 of 3 - 19+ 3-dose series) 1991 Cervical Cancer Screening: P ap Smear 1993 Pneumococcal Vaccine: 50+ Years (2 of 2 - PCV) 2022 10/08/2011 COVID-19 Vaccine (1 - 2023-2 5 season) 2023 Depression Screening 04/10/2024 Colorectal Cancer Screening: Colonoscopy 06/06/2024 HIV Screening 06/06/2024 Hepatitis C Screening 06/06/2024 Social Influencers of Health Screening 06/06/2024 Influenza Vaccine (#1) 2024 12/19/2022 DTaP,Tdap,and Td Vaccines (2 - Td or Tdap) 08/12/2027 08/11/2017 Cholesterol Screening (Lipid Panel) 07/17/2029 07/17/2024 Zoster Vaccines Completed 12/19/2022, 06/20/2022 HIB Vaccines [...] 09/25/2024 8:59 AM EDT S/P gastric bypass LIPID PANEL WITH REFLEX TO DIRECT LDL Routine 07/17/2024 8:52 AM EDT S/P gastric bypass from Last 3 Months or Most Recently Relevant to Health Maintenance Results * XR UGI w Single Contrast [...] Signed Date: 09/25/2024 09:24 ET Workstation ID: [id number] Transcribed By: Self Edit Transcribed Date: 09/25/2024 09:14 ET Resident/PA/SANITATION TANK WASHER: Cheli Osorio Narrative 09/25/2024 9:24 AM EDT FINDINGS: Single contrast UGI performed. COMPARISON: Multiple prior upper GIs. HISTORY: Patient is a 54-year-old female with history of gastric bypass, evaluate pouch. CLASSICS PROFESSOR radiographs: Veterinary Parasitologist AP radiograph of the abdomen obtained. Bowel [...] female with history of gastric bypass,evaluate pouch. CLASSICS PROFESSOR radiographs: Veterinary Parasitologist AP radiograph of the abdomen obtained. Bowel [...] Signed Date: 09/25/2024 09:24 ET Workstation ID: [id number] Transcribed By: Self Edit Transcribed Date: 09/25/2024 09:14 ET Resident/PA/SANITATION TANK WASHER: Cheli Osorio us Anna Ross MD IMG FLUOROSCOPY PROCEDU RES Final Result * (ABNORMAL) Lipid panel with reflex to direct LDL (07/17/2024 8:52 AM EDT) Cholesterol 181 0 - 200 mg/dL LAB CHEMISTRY METHOD 07/17/2024 11:21 AM EDT [facility] Triglycerides 126 0 - 150 mg/dL LAB CHEMISTRY METHOD 07/17/2024 11:21 AM EDT [facility] HDL 54 >=40 mg/dL LAB CHEMISTRY METHOD 07/17/2024 11:21 AM EDT [facility] LDL Calculated 102(H) 0 - 100 mg/dL LAB CHEMISTRY METHOD 07/17/2024 11:21 AM T [facility] VLDL Cholesterol Hernan 25.2 mg/dL LAB CHEMISTRY METHOD 07/17/2024 11:21 AM [facility] Non HDL Chol. (LDL+VLDL) 127 <145 mg/dL LAB CHEMISTRY METHOD 07/17/2024 11:21 AM T [facility] Chol/HDL Ratio 3.4 0.0 - 4.4 LAB CHEMISTRY METHOD 07/17/2024 11:21 AM [facility] Blood Venous blood specimen / Unknown Venipuncture / Unknown 07/17/2024 8:52 AM EDT 07/17/2024 8:52 AM EDT Anna Ross MD LAB BLOOD ORDERABLES Fi nal Result [facility] [address] [place] [address], from Last 3 Months or Most Recently Relevant to Health Maintenance Insurance [facility] PLAN Advance Directives Documents on File Type Date Recorded 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
== END 2024-10-29 12:29 | disposition home or self-care (01) ==
LOC: HO.MAMMO 12:28
PROVIDERS: PCP Internal Medicine; Visit Provider Internal Medicine
DX: Z12.31 Encounter for screening mammogram for malignant neoplasm of breast (principal); Z13.820 Encounter for screening for osteoporosis; Z78.0 Asymptomatic menopausal state
CPT/HCPCS: 77063; 77067; 77080

== ENCOUNTER → 2024-10-29 13:00 | Outpatient (BNV) | payer OTHER, SELFPAY | PROVIDERS: PCP Internal Medicine; Visit Provider Radiology Diagnostic Radiology | DX: E28.39 Other primary ovarian failure (principal) | CPT/HCPCS: 77080 ==

== ENCOUNTER 2024-11-06 13:16 | Outpatient (AMB) | payer OTHER, SELFPAY ==
--- NOTE | 2024-11-06 13:47 | MHC.OFFVIS ---
Vital Signs 11/06/24 13:49 Height 5 ft 2 in Weight 228 lb BMI 41.7 BP 106/61 Blood Pressure Location Lt brachial Position Sitting Pulse 83 Pulse Oximetry (%) 98 Oxygen Delivery Method Room Air Intake Visit Reasons: Colonoscopy Screening, Henny Mott's pt Intake Note: Patient new consult for Colonoscopy Screening, Henny Mott[facility] pt 02/10/2023 and last Colonoscopy was 02/10/[address] Cortes with 3/6 month recall. Patient denies any GI issues. [employer] Members[employer] Advisors Required: No Accompanied by: Self / Same As Patient Allergies No Known Allergies Allergy (Verified 11/06/24 13:47) Medication List - Last Reconciled 11/06/24 by Lindsay Russell CNP albuterol sulfate 2.5 mg (0.5 mL) inhalation TID-QID albuterol sulfate 90 mcg/actuation 2 inhalations inhalation QID PRN blood pressure monitor As directed avljgrjypf-qrchyonbrpacz-acxq 50-325-40 mg 1 tab PO .2 to 3 times a day PRN 30 days cholecalciferol (vitamin D3) 50 mcg PO DAILY 90 days clonazepam 1 mg PO BEDTIME PRN cyanocobalamin (vitamin B-12) 1,000 mcg PO DAILY 90 days cyclobenzaprine 1 to 2 orally 3 times a day PRN; ferrous sulfate 325 mg PO DAILY fluoxetine 40 mg PO DAILY fluticasone furoate 100 mcg/actuation (Arnuity Ellipta) 1 inh PO DAILY gabapentin 200 mg (2 x 100 mg) PO BEDTIME 30 days loratadine (Claritin) 10 mg PO DAILY lorazepam 1 mg PO DAILY PRN 30 days magnesium oxide 400 mg PO .qhs meclizine 25 mg PO TID PRN 30 days miscellaneous medical supply Nebulizer Machine - use as directed miscellaneous .4 times a day PRN; Nebulizer Machine - Dx: J45.901 -- asthma 12 months nortriptyline 25 mg PO BEDTIME 30 days ondansetron 4 mg PO Q8H PRN pantoprazole 40 mg PO DAILY riboflavin (vitamin B2) 400 mg PO QAM sumatriptan succinate take 1 tab at onset of headache; if no relief, may repeat 1 tab after at least 2 hrs; max = 2 tabs/24 hrs PO 30 days HPI HPI Colonoscopy Screening, Henny Mott's pt: Details: Patient is a 54-year-old female with PMH of obesity, obstructive sleep apnea, depression, anxiety, asthma and migraine. Last visit with JUANITA Ponce 02/16/2023 for pre colonoscopy screening Anne Marie presents for follow-up regarding the recommendation to repeat her colonoscopy due to inadequate bowel prep in June 2023. She denies any issues with current bowel habits, reporting normal stool consistency without constipation or diarrhea. She has not experienced blood in stool, abdominal pain, nausea, vomiting, or heartburn. Her appetite remains good, and her weight has been stable, consistently in the 220s, without any unexplained weight changes. No family history of esophageal or gastric conditions. However, her mother did have colon cancer. Reflux is well-managed with long-term daily pantoprazole use Asthma is well-controlled with an inhaler prescribed by her primary care provider. Social hx: -denies ETOH use -denies recreational drug use -non-smoker - family hx as below -denies personal hx of CA -denies any other significant cardiopulmonary history -tolerated anesthesia in the past without difficulty. [facility] Medical History Morbid obesity with BMI of 40.0-44.9, adult Obstructive sleep apnea Migraine with aura Right thigh pain Hypersomnia Snoring Right ovarian cyst Vitamin B12 deficiency Vitamin D deficiency Depression Anxiety Obesity (BMI 30-39.9) Bilateral hand pain Bilateral wrist pain GERD (gastroesophageal reflux disease) Asthma Migraine Surgical History H/O gastric bypass History of removal of laparoscopic gastric banding device LAP-BAND surgery status History of appendectomy History of hysterectomy History of section Family History Father Diabetes Hypertension Mother Hypertension Glaucoma Scoliosis Colon cancer Osteoporosis Headache Arthritis Maternal Grandmother No problems noted. Maternal Grandfather No problems noted. Paternal Grandmother No problems noted. Paternal Grandfather No problems noted. Daughter In good health Sister In good health Asthma Headache Anemia Arthritis Hypertension Brother Hypertension Social History Housing: House Alcohol intake: never Patient Tobacco Use Status: Never used Tobacco e-Cigarette/Vaping Use: Never Used Second Hand Smoke Exposure: No service: No Current occupational status: employed Sexual orientation: Straight/Heterosexual Gender identity: Female Cognitive needs: No Hearing needs: No Vision needs: No Female Reproductive History Menstrual Age of Menarche: 15 Review of Systems Const Reports as per HPI ENT Reports as per HPI Card Reports as per HPI Resp Reports as per HPI GI Reports as per HPI Reports as per HPI Physical Exam Vital Signs: Last Vital Signs Pulse 83 11/06/24 13:49 BP 106/61 11/06/24 13:49 Pulse Ox 98 11/06/24 13:49 Oxygen Delivery Method Room Air 11/06/24 13:49 BMI result Body Mass Index 41.7 Const General: healthy appearing, no acute distress and well developed Nutritional Appearance: average body habitus Orientation/consciousness: patient oriented x3 HEENT Head: Yes normal to inspection, Yes normocephalic and Yes atraumatic Face and sinus: Yes normal facial exam Eyes General: appearance normal, both eyes and all related structures Neck Neck: Yes normal visual inspection Resp Effort & Inspection: normal respiratory effort, able to speak in complete sentences, no tracheal deviation and symmetric chest movement Auscultation: clear to auscultation bilaterally Cardio Jugular venous distension: no JVD Rate: regular rate Rhythm: regular rhythm Heart sounds: S1 normal heart sound present, S2 normal heart sound present, no gallops and no murmurs Neuro General: patient oriented x3 Gait exam (Neuro): Normal gait present Psych Appearance: grossly normal Mental Status: mental status grossly normal Speech and movement: Normal speech and movement present Affect: normal affect Attitude: cooperative Thought process: Normal thought process present Thought content: Normal thought content present Insight: Good insight present (Psych) Judgement: Good judgement present (Psych) Results Reviewed Results Reviewed: Operative Note Date of Service: 06/21/23 Narrative: Operative Information Procedure Description: Colonoscopy Indication: screening Anesthesia: MAC COLONOSCOPY Instrument: Olympus variable stiffness pediatric scope 190L Colonoscopy Monitoring: Vital signs and clinical assessment, continuous EKG monitoring, Pulse oximetry, Carbon Dioxide monitoring and blood pressure monitoring were done throughout the procedure. Colon withdrawal time was 6 minutes. Procedure: The patient was placed in the left lateral decubitis position and pre-procedure medications were administered. After a digital rectal examination of the ano-rectum, the video colonoscope was inserted into the rectum and advanced through the colon to the cecum/TI. The colonoscope was slowly withdrawn in a retrograde panoramic fashion and the colon mucosa was carefully examined including a retroflexed view of the rectum. Findings and interventions are described below. Procedure Difficulty: moderate due to poor prep Findings: Terminal Ileum-not seen Cecum:not seen due to prep Ascending Colon: normal Transverse Colon -normal Descending Colon:normal Sigmoid Colon: normal Rectum: Retroflexion with small internal hemorrhoids seen, grade I Anorectum - normal Intervention: none Colon preparation: [place] Bowel Preparation Scale Right colon; 0 Transverse colon: 1 Left colon; 1 Impression and Post Procedure Diagnosis: internal hemorrhoids Plan: High fiber diet leaflet Avoid straining at stool, epsom salts and sitz bath, anusol supps or cream Repeat Colonoscopy in 3-6 months or earlier if clinically indicated --compliance with prep next time, 2 d prep if indicated Assessment & Plan Assessment & Plan (1) Colon cancer screening: Comment: 06/21/2023 Colonoscopy complete with poor prep-internal hemorrhoids. Recommendations for repeat 3-6 months Code(s): Z12.11 - Encounter for screening for malignant neoplasm of colon Category: Medical Plan: June 2023 colonoscopy with poor prep. Recommendations for repeat in 3-6 months, overdue Medications: -prescriptions for laxative tablets and MiraLax sent to pharmacy; instructions for Gatorade purchase and clear liquid diet given. -Clear liquid diet for two days prior to procedure. If nausea occurs during prep consumption, slow intake rate and dilute taste with additional clear liquids, e.g., Sprite. Patient educated on scheduling process, procedure preparation, including avoiding certain foods and ensuring clear liquid intake Advised on necessity for ride post-procedure due to sedation. (2) GERD (gastroesophageal reflux disease): Code(s): K21.9 - Gastro-esophageal reflux disease without esophagitis Category: Medical Qualifiers: Esophagitis presence: without esophagitis Qualified Code(s): K21.9 - Gastro-esophageal reflux disease without esophagitis Plan: Long-term pantoprazole use warrants esophageal and gastric evaluation for mucosal changes. Additional Testing: Upper endoscopy during the scheduled colonoscopy. Medication Management: Continue daily pantoprazole, no medication changes recommended. Encouraged to take pantoprazole as prescribed, taken at least 30-60 minutes before a meal. Education on GERD prevention : -Advised against heavy meals; encouraged small, frequent meals instead of large ones. - Instructed to remain upright for 2?3 hours after eating. - Advised to avoid late-night meals, spicy foods, caffeine, alcohol, known dietary triggers, and tight-fitting clothing. - Emphasis placed on gradual implementation of lifestyle changes to improve adherence and symptom control. Plan Follow-up after endoscopy or sooner as needed Time: I spent a total of 30 minutes on the date of encounter which includes: Preparing to see the patient (reviewed previous documentation, test results and medical history) Performing a medically appropriate exam and/or evaluation Ordering medications, tests, and procedures Documenting clinical information in the health record Medications: New bisacodyl (Dulcolax (bisacodyl)) Take four tablets per colonoscopy instructions 20 mg (4 x 5 mg) PO ONCE 4 tabs 0RF 1 day polyethylene glycol 3350 (Miralax) per colonoscopy prep instructions 238 grams PO ONCE 238 grams 0RF Coding Level of Care Code Established Pt Est Pt Level 4 (66328) Patient Type Established Diagnoses Colon cancer screening Z12.11 Gastroesophageal reflux disease without esophagitis K21.9 Esophagitis presence: without esophagitis
--- OUTSIDE RECORDS SUMMARY | 2024-11-06 13:47 | XMS_ITS | Clinical Summary ---
Author Organization 175 [facility] Address [address] [place] [address] Phone Care Team Providers Care Nipple Threader Name Role Phone Brett Navarro MD Primary Care Provider + [phone] Allergies No known active allergies Medications albuterol [...] week. 12 each 07/25/19 25 026 Active phentermine 15 mg capsuleIndicat ions:Obesity, Class III, BMI 40-49.9 (morbid obesity) Take 1 capsule (15 mg total) by mouth 1 (one) time each day before breakfast. Max Daily Amount: 15 mg 30 each 11/01/19 25 025 Active ferrous sulfate 325 mg (65 mg iron) EC tablet Take 1 tablet (325 mg total) by mouth 1 (one) time each day with breakfast. Do not crush, chew, or split. 30 each 2 07/25/19 25 025 Active Problems No known active problems Encounters Date Type Department Care Team Description 10/31/2024 11:45 AM EDT Office Visit Bariatric Surgery - [place] [address] [facility] [address] [place] [address] Danielito Hair MD Obesity, Class III, BMI 40-49.9 (morbid obesity) (Primary Dx) 09/25/2024 7:32 AM EDT - 09/25/2024 11:59 PM EDT Hospital Encounter [facility] Xray [address] [place] [id number] S/P gastric bypass Discharge Disposition: Home or [...] Sign Reading Time Taken Comments Blood Pressure 108/72 10/31/2024 11:22 AM EDT Pulse 69 10/31/2024 11:22 AM EDT Temperature 36.6 C (97.8 F) 10/31/2024 11:22 AM EDT Respiratory Rate 18 07/10/2024 7:17 PM EDT Oxygen Saturation 100% 07/10/2024 7:17 PM EDT Inhaled Oxygen Concentration - - Weight 105 kg (231 lb) 10/31/2024 11:22 AM EDT Height 160 cm (5' 3 ) 10/31/2024 11:22 AM EDT Body Mass Index 40.92 10/31/2024 11:22 AM EDT Plan of Treatment Upcoming Encounters Date Type Department Care Team (Late st Contact Info) Description 04/22/2025 1:15 PM EST Office Visit Bariatric Surgery - [place] [address] [facility] [address] [place] [address] Danielito Hair MD 175 [facility] [address] [place] [address] Health Maintenance Due Date Last Done Comments Breast Cancer Screening 1972 Hepatitis B Vaccines (1 of 3 - 19+ 3-dose series) 1991 Cervical Cancer Screening: P ap Smear 1993 Pneumococcal Vaccine: 50+ Years (2 of 2 - PCV) 2022 10/08/2011 COVID-19 Vaccine ( - 2023-2 5 season) 2023 Depression Screening [...] Signed Date: 09/25/2024 09:24 ET Workstation ID: [id number] Transcribed By: Self Edit Transcribed Date: 09/25/2024 09:14 ET Resident/PA/RASPBERRY CHECKER: Cheli Osorio Narrative 09/25/2024 9:24 AM EDT FINDINGS: Single contrast UGI performed. COMPARISON: Multiple prior upper GIs. HISTORY: Patient is a 54-year-old female with history of gastric bypass, evaluate pouch. DIRECTOR EMPLOYEE COMMUNICATIONS radiographs: Mail Inserter AP radiograph of the abdomen obtained. Bowel [...] female with history of gastric bypass,evaluate pouch. DIRECTOR EMPLOYEE COMMUNICATIONS radiographs: Mail Inserter AP radiograph of the abdomen obtained. Bowel [...] Signed Date: 09/25/2024 09:24 ET Workstation ID: [id number] Transcribed By: Self Edit Transcribed Date: 09/25/2024 09:14 ET Resident/PA/RASPBERRY CHECKER: Cheli Osorio Anna Ross MD IMG FLUOROSCOPY PROCEDU RES Final Result * (ABNORMAL) Lipid panel with reflex to direct LDL (07/17/2024 8:52 AM EDT) Cholesterol 181 0 - 200 mg/dL LAB CHEMISTRY METHOD 07/17/2024 11:21 AM EDT [facility] Triglycerides 126 0 - 150 mg/dL LAB CHEMISTRY METHOD 07/17/2024 11:21 AM [facility] HDL 54 >=40 mg/dL LAB CHEMISTRY METHOD 07/17/2024 11:21 AM [facility] LDL Calculated 102(H) 0 - 100 mg/dL LAB CHEMISTRY METHOD 07/17/2024 11:21 AM [facility] VLDL Cholesterol Hernan 25.2 mg/dL LAB CHEMISTRY METHOD 07/17/2024 11:21 AM [facility] Non HDL Chol. (LDL+VLDL) 127 <145 mg/dL LAB CHEMISTRY METHOD 07/17/2024 11:21 AM EDT [facility] Chol/HDL Ratio 3.4 0.0 - 4.4 LAB CHEMISTRY METHOD 07/17/2024 11:21 AM [facility] Blood Venous blood specimen / Unknown Venipuncture / Unknown 07/17/2024 8:52 AM EDT 07/17/2024 8:52 AM EDT us Anna Ross MD LAB BLOOD ORDERABLES Fi nal Result [facility] [place] [facility] [address] [place] [address], from Last 3 Months or Most Recently Relevant to Health Maintenance Insurance [facility] [employer] PLAN Advance Directives Documents on File Type Date Recorded Patient Sales Architect Expl anation Health Care Decision (hx) 06/19/2015 AD OCASIO DIRECTIVE Health Care Decision (hx) 06/09/2015 AD OCASIO DIRECTIVE Care Teams Nipple Threader Relationship Specialty Start Date End Date Brett Navarro MD [address] [place] [address] [address] [place] PCP - General Internal Medicine 07/19/24
[2024-11-06 13:49] VITALS: BP 106/61; PULSE 83; O2SAT 98; BMI 41.7
== END 2024-11-06 14:31 | disposition home or self-care (01) ==
LOC: HO.HGI 13:17
PROVIDERS: PCP Internal Medicine; Visit Provider Nurse Practitioner Family
DX: Z01.818 Encounter for other preprocedural examination (principal); Z12.11 Encounter for screening for malignant neoplasm of colon; K21.9 Gastro-esophageal reflux disease without esophagitis
CPT/HCPCS: 99214

== ENCOUNTER → 2024-11-06 13:16 | Outpatient (BNVA) | payer OTHER, SELFPAY | PROVIDERS: PCP Internal Medicine; Visit Provider Nurse Practitioner Family | DX: Z01.818 Encounter for other preprocedural examination (principal); K21.9 Gastro-esophageal reflux disease without esophagitis | CPT/HCPCS: 99212 ==

== ENCOUNTER 2025-01-21 09:14 | Outpatient (REF) | payer OTHER, SELFPAY ==
--- OUTSIDE RECORDS SUMMARY | 2025-01-21 10:01 | XMS_ITS | Clinical Summary ---
Author Organization 175 [facility] Address [address] [place] [address] Phone Care Team Providers Care Client Resolution Specialist Name Role Phone Brett Navarro MD Primary Care Provider + [phone] Allergies No known active allergies Medications albuterol [...] 12 each 07/25/19 25 026 Active phentermine 30 mg capsule Take 1 capsule (30 mg total) by mouth 1 (one) time each day before breakfast. Max Daily Amount: 30 mg 30 each 01/04/20 25 025 Active phentermine 30 mg capsule Take 1 capsule (30 mg total) by mouth 1 (one) time each day before breakfast. Max Daily Amount: 30 mg 30 each 11/22/19 25 025 Discontin ued(Reord er) Active Problems No known active problems Encounters Date Type Department Care Team Description 01/02/2025 Telephone Bariatric Surgery [address] [address] Danielito Hair MD 10/31/2024 11:45 AM EDT Office Visit Bariatric Surgery [address] [address] Danielito Hair MD Obesity, Class III, BMI 40-49.9 (morbid obesity) (Primary Dx) from Last 3 Months Medical History Medical [...] PM EST Office Visit Bariatric Surgery - [address] [place] [address] Danielito Hair MD [address] [place] [phone] Health Maintenance Due Date Last Done Comments Breast Cancer Screening 1972 Colorectal Cancer Screening: Colonoscopy 1972 Hepatitis B Vaccines (1 of 3 - 19+ 3-dose series) 1991 Cervical Cancer Screening: P ap Smear 1993 Pneumococcal Vaccine: 50+ Years (2 of 2 - PCV) 2022 10/08/2011 Depression Screening 04/10/2024 HIV Screening 06/06/2024 Hepatitis C Screening 06/06/2024 Social Influencers of Health Screening 06/06/2024 COVID-19 Vaccine (1 - 2023-2 5 season) 2024 Influenza Vaccine (#1) 2024 12/19/2022 DTaP,Tdap,and Td Vaccines (2 - Td or Tdap) 08/12/2027 08/11/2017 Cholesterol Screening (Lipid Panel) 07/17/2029 07/17/2024 RSV Immunization Adult Patients (1 - 1-dose 75+ series) 2047 Zoster Vaccines Completed 12/19/2022, 06/20/2022 HIB Vaccines [...] Procedure Name Priority Date/Time Associated Diagnosis Comments LIPID PANEL WITH REFLEX TO DIRECT LDL Routine 07/17/2024 8:52 AM EDT S/P gastric bypass from Last 3 Months or Most Recently Relevant to Health Maintenance Results * (ABNORMAL) Lipid panel with reflex to direct LDL (07/17/2024 8:52 AM EDT) Cholesterol 181 0 - 200 mg/dL LAB CHEMISTRY METHOD 07/17/2024 11:21 AM [facility] Triglycerides 126 0 - 150 mg/dL LAB CHEMISTRY METHOD 07/17/2024 11:21 AM [facility] HDL 54 >=40 mg/dL LAB CHEMISTRY METHOD 07/17/2024 11:21 AM [facility] LDL Calculated 102(H) 0 - 100 mg/dL LAB CHEMISTRY METHOD 07/17/2024 11:21 AM [facility] VLDL Cholesterol Hernan 25.2 mg/dL LAB CHEMISTRY METHOD 07/17/2024 11:21 AM [facility] Non HDL Chol. (LDL+VLDL) 127 <145 mg/dL LAB CHEMISTRY METHOD 07/17/2024 11:21 AM [facility] Chol/HDL Ratio 3.4 0.0 - 4.4 LAB CHEMISTRY METHOD 07/17/2024 11:21 AM EDT [facility] Blood Venous blood specimen / Unknown Venipuncture / Unknown 07/17/2024 8:52 AM EDT 07/17/2024 8:52 AM EDT us Anna Ross MD LAB BLOOD ORDERABLES Fi nal Result [facility] [address] [place] [address], from Last 3 Months or Most Recently Relevant to Health Maintenance Insurance [facility] [employer] PL[employer] Advance Directives Documents on File Type Date Recorded Patient Quarter Supervisor Expl anation Health Care Decision (hx) 06/19/2015 AD OCASIO DIRECTIVE Health Care Decision (hx) 06/09/2015 AD OCASIO DIRECTIVE Care Teams Client Resolution Specialist Relationship Specialty Start Date End Date Brett Navarro MD [address] [place] [address] [address] PCP - General Internal Medicine 07/19/24
[2025-01-21 10:14] LABS: MANUAL DIFF FLAG NO
[2025-01-21 10:26] LABS: Hematocrit 41.2 % (37.0-47.0); Hemoglobin 13.0 g/dl (12.0-16.0); Imm Gran Abs Auto 0.04 X10*3/uL (0.00-0.03); Imm Gran Pct Auto 0.5 % (0.0-0.4); Lymphocytes Absolute Auto 2.3 X10*3/uL (1.2-4.9); Mean Corpuscular HGB Conc 31.6 g/dl (31.0-35.0); Mean Corpuscular Hemoglobin 27.7 pg (27.0-33.0); Mean Corpuscular Volume 87.8 fL (80.0-98.0); NRBC Abs Auto 0.000 X10*3/uL (0.0-0.012); NRBC Pct Auto 0.0 /100WBC (0.0-0.2); Platelet Count 305 X10*3/uL (160-400); Red Blood Count 4.69 X10*6/uL (4.20-5.50); White Blood Count 7.8 X10*3/uL (4.8-10.8)
[2025-01-21 10:37] LABS: Appearance Urine Clear; Glucose Urine UA Negative (Negative); PH 7.0 (5.0-9.0); Specific Gravity - Urine 1.025 (1.005-1.025)
[2025-01-21 11:19] LABS: Alanine Aminotransferase 44 U/L (0-31); Albumin Level 4.2 g/dL (3.5-5.0); Alkaline Phosphatase 81 U/L (39-117); Anion Gap 12 (12-20); Aspartate Amino Transferase 42 U/L (5-31); Blood Urea Nitrogen 14 mg/dL (9-16); Calcium 9.2 mg/dL (8.4-10.2); Carbon Dioxide 26 mmol/L (22-29); Chloride 106 mmol/L (96-108); Cholesterol 154 mg/dL (<200); Estimated Glomerular Filt Rate > 60; HDL Cholesterol 53 mg/dL (>40); Potassium 4.2 mmol/L (3.3-5.1); Sodium 140 mmol/L (135-145); Total Protein 7.1 g/dL (6.5-8.0); Triglycerides 100 mg/dL (<150)
[2025-01-21 11:38] LABS: Folate 13.1 ng/mL (> or = 4.0); Vitamin B12 268 pg/mL (200-900)
[2025-01-24 10:58] LABS: TS Negative Control Passed; TS Panel A 0; TS Panel B 0; TS Positive Control Passed; TSpotTB Negative (Negative)
== END 2025-01-21 09:15 | disposition home or self-care (01) ==
LOC: HO.HMGCLDS 09:14
PROVIDERS: PCP Internal Medicine; Visit Provider Internal Medicine
DX: Z11.1 Encounter for screening for respiratory tuberculosis (principal); R30.0 Dysuria; E53.8 Deficiency of other specified B group vitamins; E78.00 Pure hypercholesterolemia, unspecified; D64.9 Anemia, unspecified; E55.9 Vitamin D deficiency, unspecified
CPT/HCPCS: 36415; 80053; 80061; 81003; 82306; 82607; 82746; 84443; 85025; 86481

== ENCOUNTER 2025-01-24 10:22 | Outpatient (AMB) | payer OTHER, SELFPAY ==
[2025-01-24 10:25] VITALS: BP 126/82; PULSE 78; O2SAT 96; BMI 41.2
--- NOTE | 2025-01-24 10:25 | A.OFFPC_ITS ---
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 Accompanied by: Self / Same As Patient Allergies No Known Allergies Allergy (Verified 01/24/25 11:06) Medication List - Last Reconciled 01/24/25 by Brett Navarro MD albuterol sulfate 2.5 mg (0.5 mL) inhalation TID-QID albuterol sulfate 90 mcg/actuation 2 inhalations inhalation QID PRN bisacodyl (Dulcolax (bisacodyl)) 20 mg (4 x 5 mg) PO ONCE 1 day blood pressure monitor As directed imukhjippn-rbmeanqdoefwm-yzbm 50-325-40 mg 1 tab PO .2 to 3 times a day PRN 30 days cholecalciferol (vitamin D3) 50 mcg PO DAILY 90 days clonazepam 1 mg PO BEDTIME PRN cyanocobalamin (vitamin B-12) 1,000 mcg PO DAILY 90 days cyclobenzaprine 1 to 2 orally 3 times a day PRN; ferrous sulfate 325 mg PO DAILY fluoxetine 40 mg PO DAILY fluticasone furoate 100 mcg/actuation (Arnuity Ellipta) 1 inh PO DAILY gabapentin 200 mg (2 x 100 mg) PO BEDTIME 30 days loratadine (Claritin) 10 mg PO DAILY lorazepam 1 mg PO DAILY PRN 30 days magnesium oxide 400 mg PO .qhs meclizine 25 mg PO TID PRN 30 days miscellaneous medical supply Nebulizer Machine - use as directed miscellaneous .4 times a day PRN; Nebulizer Machine - Dx: J45.901 -- asthma 12 months nortriptyline 25 mg PO BEDTIME 30 days ondansetron 4 mg PO Q8H PRN pantoprazole 40 mg PO DAILY polyethylene glycol 3350 (Miralax) 238 grams PO ONCE riboflavin (vitamin B2) 400 mg PO QAM sumatriptan succinate take 1 tab at onset of headache; if no relief, may repeat 1 tab after at least 2 hrs; max = 2 tabs/24 hrs PO 30 days Tobacco use date assessed: 01/24/25 Dental Screening Dental Screen Date: 01/24/25 Did you have a dental visit in the last 12 months?: No Did you have a dental problem in the last 6 months where you did not have access to dental care?: No Was dental information given to patient?: No HPI asthma, GERD, migraine HPI Details Patient comes in today for her follow up visit States that she feels okay Notes that her headaches have been much better controlled lately; she still has on and off bouts of dizziness States that she has been experiencing increasing discomfort and now pain in both of her ears over the past few days, with the left ear slightly worse than the right She denies any fever or sore throat and denies any recent cough/cold symptoms Denies any chest pains, no increased SOB No nausea/vomiting, no abdominal pain No change in bowel habits noted Add that she's had on and off pain over both flanks (bilateral) lately - she denies any recent injury or trauma to her lower back but states that she has been doing a lot of work around the house over the past week or so She denies any acute urinary symptoms She had her follow up labs done a few days ago - to discuss her results [facility] Medical History (Updated 01/24/25 @ 12:33 by Brett Navarro MD) Anemia, iron deficiency Morbid obesity with BMI of 40.0-44.9, adult Obstructive sleep apnea Migraine with aura Right thigh pain Hypersomnia Snoring Right ovarian cyst Vitamin B12 deficiency Vitamin D deficiency Depression Anxiety Obesity (BMI 30-39.9) Bilateral hand pain Bilateral wrist pain GERD (gastroesophageal reflux disease) Asthma Migraine Surgical History H/O gastric bypass History of removal of laparoscopic gastric banding device LAP-BAND surgery status History of appendectomy History of hysterectomy History of section Family History Father Diabetes Hypertension Mother Hypertension Glaucoma Scoliosis Colon cancer Osteoporosis Headache Arthritis Maternal Grandmother No problems noted. Maternal Grandfather No problems noted. Paternal Grandmother No problems noted. Paternal Grandfather No problems noted. Daughter In good health Sister In good health Asthma Headache Anemia Arthritis Hypertension Brother Hypertension Social History Housing: House Alcohol intake: never Patient Tobacco Use Status: Never used Tobacco e-Cigarette/Vaping Use: Never Used Second Hand Smoke Exposure: No service: No Current occupational status: employed Sexual orientation: Straight/Heterosexual Gender identity: Female Cognitive needs: No Hearing needs: No Vision needs: No Female Reproductive History Menstrual Age of Menarche: 15 Questionnaire Thrive Questionnaire Date Thrive assessed: 08/22/24 I am a: Patient What is your living situation today?: I have a steady place to live Within the past 12 months, did the food you bought not last and you didn't have the money to get more?: I choose not to answer this question Within the past 12 months, did you worry whether your food would run out before you got money to buy more?: I choose not to answer this question Do you have trouble paying for medicines?: No Do you have trouble getting transportation to medical appointments?: Yes Do you have trouble paying your heating and electricity bill?: Yes Do you have trouble taking care of your child, family member or friend?: Yes Do you have trouble with day-to-day activities such as bathing, preparing meals, shopping, managing finances, etc.?: Yes Are you currently unemployed and looking for a job?: No Are you interested in more education?: No Please select the resources that you would like help with: Utilities Currently or been in a relationship where the following occur: I choose not to answer THRIVE Score: 2 AUDIT C Alcohol Use Questionnaire (AUDIT-C) 1. How often do you have a drink containing alcohol?: Never 3. How often do you have six or more drinks on one occasion?: Never Total Score: 0 Score Reviewed/Action Taken: Yes GEN-7 AMB Questionnaire GEN-7 Date GEN - 7 assessed: 08/29/24 Source: Developed by Drs. Jr Monsivais, Radha Campbell, Mayur Mckee and colleagues, with an educational joselito from [employer]. Review of Systems Const Denies chills, Denies fatigue, Denies fever(s) and Reports headache(s) (occasional - much better controlled) ENT Denies dysphagia, Denies dizziness, Reports otalgia (in both ears lately - see HPI), Reports headache(s) (occasional - much better controlled), Denies neck pain, Denies odynophagia and Denies sore throat Card Denies chest pain, Reports rapid heart rate (at times), Denies irregular heart rhythm, Denies palpitations and Denies dyspnea Resp Denies chest congestion, Denies cough and Denies dyspnea GI Denies abdominal pain, Denies constipation, Denies dysphagia, Denies heartburn, Denies diarrhea, Denies nausea, Denies odynophagia and Denies vomiting Denies hematuria, Denies difficulty voiding, Denies nocturia, Denies dysuria, Denies urinary incontinence and Denies urinary urgency Musc Details: (+) pain over both flanks/sides Denies back pain, Denies arthralgias and Denies neck pain Skin/Breast Denies rash Neuro Denies dizziness, Reports headache(s) (occasional - much better controlled) and Denies paresthesias Psych Reports anxiety and Reports depression Endo Denies fatigue and Denies palpitations Sergio/Lymph Denies easy bruising Physical exam (Primary Care) Vital Signs: Last Vital Signs Pulse 78 01/24/25 10:25 BP 126/82 01/24/25 10:25 Pulse Ox 96 01/24/25 10:25 Oxygen Delivery Method Room Air 01/24/25 10:25 BMI result Body Mass Index 41.2 Tobacco/Smoking Status: Tobacco use Status Tobacco use date assessed 01/24/25 01/24/25 10:34 Patient Tobacco Use Status Never used Tobacco 01/24/25 10:34 e-Cigarette/Vaping Use Never Used 01/24/25 10:34 Thrive Assessment: Date of Thrive Assessment Date Thrive assessed 08/22/24 01/24/25 10:34 Currently or been in a relationship where the following occur: I choose not to answer Const General: no acute distress and alert HENMT Ears: EAC's normal and TM abnormal with fluid behind the TM bilateral Throat: Yes posterior oropharynx normal and Yes tonsils normal (no TP congestion) Neck Neck: Yes no lymphadenopathy and Yes supple Thyroid: Thyroid normal Resp Auscultation: clear to auscultation bilaterally, no rales and no wheezes Cardio Rate: regular rate Rhythm: regular rhythm Heart sounds: no murmurs GI Palpation (GI): Soft to palpation and nontender Auscultation: normal bowel sounds General: Yes CVA tenderness (bilaterally) Back/Spine/Pelvis Back: CVA tenderness (bilaterally) Cervical Spine: No Cervical spine tenderness Thoracic/Lumbar Spine: No lumbar spinal tenderness Skin Rashes: no rashes Extrem General: Yes no clubbing, cyanosis or edema Results Reviewed Results Reviewed: Laboratory Tests 01/21/25 01/21/25 01/21/25 09:15 09:18 09:25 WBC 7.8 Hgb 13.0 Hct 41.2 Plt Count 305 Sodium 140 Potassium 4.2 Creatinine 0.55 Estimated GFR > 60 Fasting Glucose 87 AST 42 H ALT 44 H Triglycerides 100 Cholesterol 154 LDL Cholesterol, Calc 81 HDL Cholesterol 53 Vitamin B12 268 25-OH Vitamin D Total 13.9 L TSH 1.91 Ur Specific [place] 1.025 Urine Protein Negative Urine Glucose (UA) Negative Urine Blood Negative Urine Nitrite Negative Ur Leukocyte Esterase Negative TB Test (T-Spot) Com Negative Coding Level of Care Code Est Pt Level 4 (79393) Diagnoses Dizziness of unknown etiology R42 Obstructive sleep apnea G47.33 Moderate persistent asthma without complication J45.901 Asthma severity: unspecified severity Asthma persistence: unspecified Asthma complication type: with acute exacerbation Migraine without status migrainosus, not intractable, unspecified migraine type G43.909 Migraine type: unspecified Status migrainosus presence: without status migrainosus Intractability: not intractable Gastroesophageal reflux disease without esophagitis K21.9 Esophagitis presence: without esophagitis Elevated LFTs R79.89 Iron deficiency anemia, unspecified iron deficiency anemia type D50.9 Iron deficiency anemia type: unspecified iron deficiency Vitamin D deficiency E55.9 Vitamin B12 deficiency E53.8 Bilateral otitis media, unspecified otitis media type H66.93 Otitis media type: unspecified Varicose veins of both lower extremities, unspecified whether complicated I83.93 Varicose vein complication: unspecified Laterality: bilateral Anxiety F41.9 Episode of recurrent major depressive disorder, unspecified depression episode severity F33.9 Depression Type: major depressive disorder Major depression recurrence: recurrent Active/Remission status: currently active Major depression episode severity: unspecified Morbid obesity with BMI of 40.0-44.9, adult E66.01; Z68.41 Assessment & Plan Assessment & Plan (1) Dizziness of unknown etiology: Code(s): R42 - Dizziness and giddiness Category: Medical Plan: Patient has undergone extensive work ups to find out the cause of her recurrent dizziness, including cardiac stress testing and tilt table testing but all of her tests have come back normal so far She recalls being advised at some point to take some salt orally to help with her recurrent symptoms (?), which she states help sometimes but her symptoms continue to recur - states that she can feel dizzy even when she is sitting down and not moving at all She has been referred to ENT for further evaluation and recommendations and is still waiting to be seen (2) Obstructive sleep apnea: Code(s): G47.33 - Obstructive sleep apnea (adult) (pediatric) Category: Medical Plan: Patient's initial home sleep study in September 2023 was normal although her oxygen yoshi was noted to be at 88% She was then sent for an in-lab sleep study for further evaluation - study done in November 2023 revealed (+) mild degree of sleep apnea with increased severity during REM sleep and oxygen yoshi this time was at 81% She then underwent a repeat study with PAP titration in January 2024 - her breathing and oxygenation all stabilized on 4 to 6 cm of water and she was recommended to start CPAP therapy at 6 cm of water, which she is currently still on Follow up with Sleep Medicine as scheduled (3) Asthma: Code(s): J45.909 - Unspecified asthma, uncomplicated Category: Medical Qualifiers: Asthma severity: unspecified severity Asthma persistence: unspecified Asthma complication type: with acute exacerbation Qualified Code(s): J45.901 - Unspecified asthma with (acute) exacerbation Plan: Controlled Continue Arnuity Ellipta 100 mcg 1 inhalation QD and Albuterol HFA 2 inhalations every 6 hours PRN (4) Migraine: Code(s): G43.909 - Migraine, unspecified, not intractable, without status migrainosus Category: Medical Qualifiers: Migraine type: unspecified Status migrainosus presence: without status migrainosus Intractability: not intractable Qualified Code(s): G43.909 - Migraine, unspecified, not intractable, without status migrainosus Plan: Stable on prophylactic Tx with Nortriptyline 25 mg Q HS Reinforced avoidance of migraine triggers Continue Vitamin B2 400 mg QD; continue Fioricet PRN and Sumatriptan 100 mg PRN as instructed for symptomatic relief (5) GERD (gastroesophageal reflux disease): Code(s): K21.9 - Gastro-esophageal reflux disease without esophagitis Category: Medical Qualifiers: Esophagitis presence: without esophagitis Qualified Code(s): K21.9 - Gastro-esophageal reflux disease without esophagitis Plan: Dietary restrictions reinforced Continue Pantoprazole 40 mg QD (6) Elevated LFTs: Code(s): R79.89 - Other specified abnormal findings of blood chemistry Category: Medical Plan: Her LFTs are again slightly elevated on her recent labs - these are most likely related to her weight (steatosis) Will continue to monitor her LFTs regularly Will check her liver fibrosis panel together with her other routine labs in a few months for further evaluation (7) Anemia, iron deficiency: Code(s): D50.9 - Iron deficiency anemia, unspecified Category: Medical Qualifiers: Iron deficiency anemia type: unspecified iron deficiency Qualified Code(s): D50.9 - Iron deficiency anemia, unspecified Plan: Corrected - her H/H was normal on her recent labs Continue Ferrous Sulfate 325 mg QD Will continue to monitor her CBC regularly (8) Vitamin D deficiency: Code(s): E55.9 - Vitamin D deficiency, unspecified Category: Medical Plan: Continue Vitamin D3 2000 units QD (9) Vitamin B12 deficiency: Code(s): E53.8 - Deficiency of other specified B group vitamins Category: Medical Plan: Continue Vitamin B12 1000 mcg QD (10) Otitis media of both ears: Code(s): H66.93 - Otitis media, unspecified, bilateral Category: Medical Qualifiers: Otitis media type: unspecified Qualified Code(s): H66.93 - Otitis media, unspecified, bilateral Plan: Will start patient on Augmentin 875 mg BID x 10 days (11) Varicosities of leg: Code(s): I83.90 - Asymptomatic varicose veins of unspecified lower extremity Category: Medical Qualifiers: Varicose vein complication: unspecified Laterality: bilateral Qualified Code(s): I83.93 - Asymptomatic varicose veins of bilateral lower extremities Plan: Patient was seen and evaluated by vascular surgery last year and was advised that she does not have any significant vascular insufficiency or venous disease that is causing her leg pains and to just follow up with them on an as-needed basis Continue Tramadol 50 mg TID PRN for pain (12) Anxiety: Code(s): F41.9 - Anxiety disorder, unspecified Category: Medical Plan: Continue Fluoxetine 40 mg QD and Clonazepam 1 mg QD PRN (13) Depression: Code(s): F32.9 - Major depressive disorder, single episode, unspecified Category: Medical Qualifiers: Depression Type: major depressive disorder Major depression recurrence: recurrent Active/Remission status: currently active Major depression episode severity: unspecified Qualified Code(s): F33.9 - Major depressive disorder, recurrent, unspecified Plan: Continue Fluoxetine 40 mg QD Follow up with psychiatry as scheduled (14) Morbid obesity with BMI of 40.0-44.9, adult: Code(s): E66.01 - Morbid (severe) obesity due to excess calories; Z68.41 - Body mass index [BMI] 40.0-44.9, adult Category: Medical Plan: Per her request, we tried starting her on a GLP-1 previously to help her lose weight but her insurance would not cover the Rx unless she is being seen in conjunction with a certified weight-management program We referred her to weight management at [place] and she is now being seen there under Dr. Hair but states that they are also still having a hard time getting her Rx approved and had to submit a prior authorization request for her Rx Reinforced diet/exercise as tolerated/lose weight although with her recurrent dizziness, exercising may not really be an option for her Follow up with weight management ([place]) as scheduled Plan Follow up in 4 months Orders: Orders Complete Blood Count Auto Diff 4 Months D64.9 - Anemia, unspecified Comprehensive [place]. Panel Fast 4 Months E78.00 - Pure hypercholesterolemia, unspecified Lipid Panel 4 Months E78.00 - Pure hypercholesterolemia, unspecified Liver Fibrosis Pnl 4 Months R79.89 - Other specified abnormal findings of blood chemistry Vitamin D 25-OH Total 4 Months E55.9 - Vitamin D deficiency, unspecified TSH reflex Free T4 4 Months E78.00 - Pure hypercholesterolemia, unspecified UA CC w/rflx Micro + Cult 4 Months R30.0 - Dysuria Vitamin B12 and Folate 4 Months E53.8 - Deficiency of other specified B group vitamins Medications: New amoxicillin-pot clavulanate 875-125 mg 1 tab PO BID 20 tabs 0RF 10 days
--- OUTSIDE RECORDS SUMMARY | 2025-01-24 12:24 | XMS_ITS | Clinical Summary ---
Author Organization [facility] Address [address] [place] [address] Phone Care Team Providers Care Senior Sql Database Developer Name Role Phone Brett Navarro MD Primary Care Provider + [phone] Allergies No known active allergies Medications albuterol [...] Care Team Description 01/02/2025 Telephone Bariatric Surgery [address] [id number] Danielito Hair MD 10/31/2024 11:45 AM EDT Office Visit Bariatric Surgery [address] [phone] Danielito Hair MD Obesity, Class [...] PM EST Office Visit Bariatric Surgery - [address] [place] [address] Danielito Hair MD [address] [place] [phone] Health Maintenance Due Date Last Done Comments Breast Cancer Screening 1972 Colorectal Cancer Screening: Colonoscopy 1972 Hepatitis B Vaccines (1 of 3 - 19+ 3-dose series) 1991 Cervical Cancer Screening: P ap Smear 1993 Pneumococcal Vaccine: 50+ Years (2 of 2 - PCV) 2022 10/08/2011 RSV Immunization Adult Patients (1 - Risk 50-74 years 1-dose series) 2022 Depression Screening 04/10/2024 HIV Screening 06/06/2024 Hepatitis [...] mg/dL LAB CHEMISTRY METHOD 07/17/2024 11:21 AM [facility] Triglycerides 126 0 - 150 mg/dL LAB CHEMISTRY METHOD 07/17/2024 11:21 AM [facility] HDL 54 >=40 mg/dL LAB CHEMISTRY METHOD 07/17/2024 11:21 AM [facility] LDL Calculated 102(H) 0 - 100 mg/dL LAB CHEMISTRY METHOD 07/17/2024 11:21 AM [facility] VLDL Cholesterol [place] 25.2 mg/dL LAB CHEMISTRY METHOD 07/17/2024 11:21 AM [facility] Non HDL Chol. (LDL+VLDL) 127 <145 mg/dL LAB CHEMISTRY METHOD 07/17/2024 11:21 AM [facility] Chol/HDL Ratio 3.4 0.0 - 4.4 LAB CHEMISTRY METHOD 07/17/2024 11:21 AM [facility] Blood Venous blood specimen / Unknown Venipuncture / Unknown 07/17/2024 8:52 AM EDT 07/17/2024 8:52 AM EDT us Anna Ross MD LAB BLOOD ORDERABLES Fi nal Result [facility] ([facility] [address] [place] [address], from Last 3 Months or Most Recently Relevant to Health Maintenance Insurance [facility] [employer] Advance Directives Documents on File Type Date Recorded Patient Field Tech Expl anation Health Care Decision (hx) 06/19/2015 AD OCASIO DIRECTIVE Health Care Decision (hx) 06/09/2015 AD OCASIO DIRECTIVE Care Teams Senior Sql Database Developer Relationship Specialty Start Date End Date Brett Navarro MD [address] [place] [address] PCP - General Internal Medicine 07/19/24
== END 2025-01-24 11:13 | disposition home or self-care (01) ==
LOC: HO.HMCH 10:22
PROVIDERS: PCP Internal Medicine; Visit Provider Internal Medicine
DX: R42 Dizziness and giddiness (principal); G47.33 Obstructive sleep apnea (adult) (pediatric); J45.901 Unspecified asthma with (acute) exacerbation; G43.909 Migraine, unspecified, not intractable, without status migrainosus; K21.9 Gastro-esophageal reflux disease without esophagitis; R79.89 Other specified abnormal findings of blood chemistry; D50.9 Iron deficiency anemia, unspecified; E55.9 Vitamin D deficiency, unspecified; E53.8 Deficiency of other specified B group vitamins; H66.93 Otitis media, unspecified, bilateral; E66.01 Morbid (severe) obesity due to excess calories; Z68.41 Body mass index [BMI] 40.0-44.9, adult; I83.93 Asymptomatic varicose veins of bilateral lower extremities; F41.9 Anxiety disorder, unspecified; F33.9 Major depressive disorder, recurrent, unspecified

== ENCOUNTER → 2025-01-24 10:22 | Outpatient (BNVA) | payer OTHER, SELFPAY | PROVIDERS: PCP Internal Medicine; Visit Provider Internal Medicine | DX: K21.9 Gastro-esophageal reflux disease without esophagitis (principal); G43.909 Migraine, unspecified, not intractable, without status migrainosus; R42 Dizziness and giddiness; G47.33 Obstructive sleep apnea (adult) (pediatric); J45.901 Unspecified asthma with (acute) exacerbation; R79.89 Other specified abnormal findings of blood chemistry; D50.9 Iron deficiency anemia, unspecified; E55.9 Vitamin D deficiency, unspecified; E53.8 Deficiency of other specified B group vitamins; H66.93 Otitis media, unspecified, bilateral; I83.93 Asymptomatic varicose veins of bilateral lower extremities; F41.9 Anxiety disorder, unspecified; F33.9 Major depressive disorder, recurrent, unspecified; E66.01 Morbid (severe) obesity due to excess calories; Z68.41 Body mass index [BMI] 40.0-44.9, adult | CPT/HCPCS: 99212 ==

== ENCOUNTER 2025-02-10 07:03 | Day surgery (SDC) | payer OTHER, SELFPAY ==
[2025-02-06 12:00] VITALS: BMI 41.7
[2025-02-10 07:21] VITALS: BMI 41.1
--- NOTE | 2025-02-10 07:27 | MHC.SHP ---
Pre-Procedural Eval Section A - 24 Hr Update-Section A only Date of Service: 02/10/25 The patient is an INPATIENT: No Section B - Complete if H&P > 30 days Chief Complaint: screening,gerd, Relevant Family History (Specify if Yes): Yes Relevant Social History: None Present Medications: see Short Stay Collaborative assessment Medical History: Significant History (Morbid obesity with BMI of 40.0-44.9, adult Obstructive sleep apnea Migraine with aura Right thigh pain Hypersomnia Snoring Right ovarian cyst Vitamin B12 deficiency Vitamin D deficiency Depression Anxiety Obesity (BMI 30-39.9) Bilateral hand pain Bilateral wrist pain GERD (gastroesophageal reflux d) History of Previous Operations: Relevant previous surgery/procedure and date(s) (H/O gastric bypass History of removal of laparoscopic gastric banding device LAP-BAND surgery status History of appendectomy History of hysterectomy History of section) Allergies: Allergies Allergy/AdvReac Type Severity Reaction Status Date / Time No Known Allergies Allergy Verified 02/10/25 07:22 Review of Systems Sugical H&P ROS: Negative: Constitution, Cardiovascular and Respiratory and Yes, Specify: Gastrointestinal (Heartburn) Exam Surgical H&P Exam: Normal: Heart, Normal: Lungs, Normal: Extremities and Normal: Abdomen Plan Diagnosis/Plan: Unchanged I have reviewed the history and physical and performed a pertinent physical examination on my patient. No changes have occurred unless specified. Time Spent With Patient Time: Total time managing care of this patient today ____ minutes.
[2025-02-10] MEDS: Lactated Ringers 1,000 ML 100 ML IVCONT (07:40)
[2025-02-10 07:41] VITALS: BP 101/57; PULSE 75; RESP 18; TEMP 36.8; O2SAT 96
--- NOTE | 2025-02-10 07:45 | HO.ANESPROP2 ---
Documented by User: Ayaka Mac NP 02/05/25 13:50 HPI - Anesthesia Eval Consult details Narrative: 54yo F for Upper Endoscopy and Colonoscopy BMI 41 PMFSH Active Problems Active Problems: All Active Problems Anemia, iron deficiency (Acute) Otitis media of both ears (Acute) Elevated LFTs (Acute) Osteoporosis screening (Acute) Breast cancer screening by mammogram (Acute) Morbid obesity with BMI of 40.0-44.9, adult (Acute) Dizziness of unknown etiology (Acute) Otitis media of right ear (Acute) Morbid (severe) obesity due to excess calories (Acute) Obstructive sleep apnea (Acute) Abnormal EKG (Acute) Low BP (Acute) Pain of right lower extremity (Acute) Syncopal episodes (Acute) Migraine with aura (Acute) Right thigh pain (Acute) Hypersomnia (Acute) Snoring (Acute) Varicose veins of right lower extremity with inflammation (Acute) Varicosities of leg (Acute) Pain and swelling of lower extremity (Acute) Right ovarian cyst (Acute) Colon cancer screening (Acute) Annual physical exam (Acute) Toenail avulsion (Acute) Otitis media (Acute) Vitamin B12 deficiency (Acute) Orthostatic hypotension (Acute) Syncope (Acute) Blurry vision (Acute) Dizziness (Acute) COVID-19 (Acute) Hot flashes (Acute) Decreased libido (Acute) Well woman exam with routine gynecological exam (Acute) Vitamin D deficiency (Acute) Depression (Acute) Anxiety (Acute) Obesity (BMI 30-39.9) (Acute) Bilateral hand pain (Acute) Bilateral wrist pain (Acute) GERD (gastroesophageal reflux disease) (Acute) Asthma (Acute) Migraine (Acute) Past Medical History Medical History Syncope Anemia, iron deficiency Morbid obesity with BMI of 40.0-44.9, adult Obstructive sleep apnea Migraine with aura Right thigh pain Hypersomnia Snoring Right ovarian cyst Vitamin B12 deficiency Vitamin D deficiency Depression Anxiety Obesity (BMI 30-39.9) GERD (gastroesophageal reflux disease) Asthma Migraine Family History Family History Father Diabetes Hypertension Mother Hypertension Glaucoma Scoliosis Colon cancer Osteoporosis Headache Arthritis Maternal Grandmother No problems noted. Maternal Grandfather No problems noted. Paternal Grandmother No problems noted. Paternal Grandfather No problems noted. Daughter In good health Sister In good health Asthma Headache Anemia Arthritis Hypertension Brother Hypertension Family history of problems with anesthesia: No Surgical History Surgical History H/O colonoscopy H/O gastric bypass History of removal of laparoscopic gastric banding device LAP-BAND surgery status History of appendectomy History of hysterectomy History of section History of Problems with Anesthesia: No Social History Social History Housing: House Are you a primary home care provider to a significant other at home: No Do you presently have visiting nurse or other home services: No Alcohol intake: never Patient Tobacco Use Status: Never used Tobacco e-Cigarette/Vaping Use: Never Used Second Hand Smoke Exposure: No Have you been hit, kicked, punched, or otherwise hurt by someone within the past year? If so, by whom?: No Are you DNR?: No Advance Directives: No Advance Directives Information Provided: Yes service: No Current occupational status: employed Sexual orientation: Straight/Heterosexual Gender identity: Female Cognitive needs: No Hearing needs: No Vision needs: No Meds Allergies Allergy/AdvReac Type Severity Reaction Status Date / Time No Known Allergies Allergy Verified 02/10/25 07:22 Home Medications ?Medication ?Instructions ?Recorded ?Confirmed ?Last Taken ?Type fluoxetine 40 mg capsule 40 mg PO DAILY 07/31/23 02/06/25 Unknown History clonazepam 1 mg tablet 1 mg PO BEDTIME PRN Anxiety 08/23/23 02/06/25 Unknown History ferrous sulfate 325 mg (65 mg 325 mg PO DAILY 08/29/24 02/06/25 Unknown History iron) tablet,delayed release Assessment and Plan Assessment Anesthesia Assessment: Chart Reviewed Final Anesthetic Review Family History of Problems with Anesthesia: No History of Problems with Anesthesia: No Documented by User: Pooja Membreno DO 02/10/25 07:46 [facility] Past Medical History Medical History Syncope Anemia, iron deficiency Morbid obesity with BMI of 40.0-44.9, adult Obstructive sleep apnea Migraine with aura Right thigh pain Hypersomnia Snoring Right ovarian cyst Vitamin B12 deficiency Vitamin D deficiency Depression Anxiety Obesity (BMI 30-39.9) GERD (gastroesophageal reflux disease) Asthma Migraine Family History Family History Father Diabetes Hypertension Mother Hypertension Glaucoma Scoliosis Colon cancer Osteoporosis Headache Arthritis Maternal Grandmother No problems noted. Maternal Grandfather No problems noted. Paternal Grandmother No problems noted. Paternal Grandfather No problems noted. Daughter In good health Sister In good health Asthma Headache Anemia Arthritis Hypertension Brother Hypertension Family history of problems with anesthesia: No Surgical History Surgical History H/O colonoscopy H/O gastric bypass History of removal of laparoscopic gastric banding device LAP-BAND surgery status History of appendectomy History of hysterectomy History of section History of Problems with Anesthesia: No Social History Social History Housing: House Are you a primary home care provider to a significant other at home: No Do you presently have visiting nurse or other home services: No Alcohol intake: never Patient Tobacco Use Status: Never used Tobacco e-Cigarette/Vaping Use: Never Used Second Hand Smoke Exposure: No Have you been hit, kicked, punched, or otherwise hurt by someone within the past year? If so, by whom?: No Are you DNR?: No Advance Directives: No Advance Directives Information Provided: Yes service: No Current occupational status: employed Sexual orientation: Straight/Heterosexual Gender identity: Female Cognitive needs: No Hearing needs: No Vision needs: No Meds Allergies Allergy/AdvReac Type Severity Reaction Status Date / Time No Known Allergies Allergy Verified 02/10/25 07:22 Home Medications ?Medication ?Instructions ?Recorded ?Confirmed ?Last Taken ?Type fluoxetine 40 mg capsule 40 mg PO DAILY 07/31/23 02/06/25 Unknown History clonazepam 1 mg tablet 1 mg PO BEDTIME PRN Anxiety 08/23/23 02/06/25 Unknown History ferrous sulfate 325 mg (65 mg 325 mg PO DAILY 08/29/24 02/06/25 Unknown History iron) tablet,delayed release Exam Exam Date and Time: 02/10/25 0745 Height,Weight and Vital Signs: Height 5 ft 2 in Weight 102 kg Vital Signs Temperature 98.2 F 02/10/25 07:41 Pulse Rate 75 02/10/25 07:41 Respiratory Rate 18 02/10/25 07:41 Blood Pressure 101/57 L 02/10/25 07:41 Pulse Oximetry 96 02/10/25 07:41 Oxygen Delivery Method Room Air 02/10/25 07:41 Temperature 98.2 F 02/10/25 07:41 Pulse Rate 75 02/10/25 07:41 Respiratory Rate 18 02/10/25 07:41 Blood Pressure 101/57 L 02/10/25 07:41 Pulse Oximetry 96 02/10/25 07:41 Oxygen Delivery Method Room Air 02/10/25 07:41 Airway Mallampati Class: II TM Dist: <=3cm Neck ROM: Full Loose/Missing/Broken Teeth: Yes (patient reports several loose teeth on bottom jaw) Heart: S1S2 Lungs: CTAB Assessment and Plan Assessment Anesthesia Assessment: Anesthesia Plan Discussed and Chart Reviewed Final Anesthetic Review Family History of Problems with Anesthesia: No History of Problems with Anesthesia: No NPO: Yes ASA Class: III Final Preanesthetic Review: No Changes in Pt Med Stat, Meds/Allgs Chart Reviewed, Consent Obtained/Reviewed and Anes Risks/Benef Reviewed Patient Risk: Low Procedure Risk: Low Anesthetic Plan Anesthetic Plan: MAC: and Agree w/ Assess. and Plan Disposition: Standard PACU
--- NOTE | 2025-02-10 08:38 | P.OPN-COLO_ITS ---
Colonoscopy Operative Note Operative Note Date of Service: 02/10/25 Narrative: FLEXIBLE TRANSORAL UPPER GASTROINTESTINAL ENDOSCOPY WITH BIOPSIES AND COLONOSCOPY TILL CECUM Pre-op diagnosis: Colon cancer screening, GERD Post-op diagnosis: Gastritis, gastric nodules, gastric bypass status, Diverticulosis Endoscopist:? Lawson Cronin MD Anesthesia:?MAC UPPER ENDOSCOPY Consent: Indications for the procedure and potential complications of bleeding, perforation, reaction to medications and missed diagnosis were discussed with the patient and informed consent was obtained. Instrument: Olympus GIF H 190 mid size upper endoscope Monitoring: Vital signs and clinical assessment, continuous EKG monitoring, Pulse oximetry, Carbon Dioxide monitoring and blood pressure monitoring were done throughout the procedure. Procedure: The patient was placed in the left lateral decubitis position and pre-procedure medications were administered and a bite block was placed. The endoscope was inserted into the mouth and advanced under direct vision to the third part of duodenum. A careful inspection was made as the upper endoscope was withdrawn including a retroflexed examination of the proximal stomach; Findings and interventions are described below. Findings: Larynx: Normal Esophagus: GE junction at 32 cms. No esophagitis or Mckeon's. Stomach: Moderate diffuse gastric erythema in the gastric pouch - biopsies were obtained. Gastro-jejunal anastomosis at 35 cms Retroflexed examination was not performed. Jejunum: Normal small bowel mucosa. Biopsies were obtained from jejunum to check for celiac sprue Intervention: Biopsies as noted above COLONOSCOPY PROCEDURE NOTE Instrument: Olympus PCF H 190 L variable stiffness pediatric colonoscope Monitoring: Vital signs and clinical assessment, intermittent blood pressure monitoring, continuous EKG monitoring, Pulse oximetry and Carbon Dioxide monitoring were done throughout the procedure. Please see anesthesia flowsheet. Colon withdrawl time was 11 minutes. Procedure: The patient was placed in the left lateral decubitis position and pre-procedure medications were administered. After a digital rectal examination of the ano-rectum, the video colonoscope was inserted into the rectum and advanced through the colon to the cecum. The colonoscope was slowly withdrawn in a retrograde panoramic fashion and the colon mucosa was carefully examined including a retroflexed view of the rectum. Findings and interventions are described below. Procedure Difficulty: without difficulty Findings: Terminal Ileum: Not evaluated Cecum: Normal Ascending Colon: Normal Transverse Colon: Normal Descending Colon: Normal Sigmoid Colon: Moderate diverticulosis Rectum: Normal Ano-rectum: Normal Colon preparation: Good after copious irrigation. [place] Bowel Preparation Scale Right colon; 2 Transverse colon: 2 Left colon; 2 (0 = Unprepared colon segment with mucosa not seen due to solid stool that cannot be cleared. 1 = Portion of mucosa of the colon segment seen, but other areas of the colon segment not well seen due to staining, residual stool and/or opaque liquid. 2 = Minor amount of residual staining, small fragments of stool and/or opaque liquid, but mucosa of colon segment seen well. 3 = Entire mucosa of colon segment seen well with no residual staining, small fragments of stool or opaque liquid) Impression and Post Procedure Diagnosis: Endoscopy Findings: ESOPHAGUS: Normal STOMACH: Moderate diffuse gastric erythema in the gastric pouch - biopsies were obtained. A few benign appearing nodules at gastro-jejunal anastomosis. JEJUNUM: Normal - biopsied to check for celiac sprue. Colonoscopy Findings: No polyps were detected Moderate diverticulosis seen in the sigmoid colon Plan: Pt has a FU appointment on 02/18/25 with Lindsay Russell NP Repeat Colonoscopy in 5 years due to family history of colon cancer. (Dulcolax 10 mg daily starting 5 days prior to next colonoscopy appointment) A summary of above findings and relevant handouts were given to the patient. BIOPSIES SHOWED: A. Small bowel, biopsy: Small intestinal mucosa within normal limits. B. Stomach, nodule: - Oxyntic mucosa with mild chronic inactive inflammation; no Helicobacter organ isms seen. - Separate fragment of mixed oxyntic and small intestinal mucosa with mild chronic inflammatory changes. C. Stomach, body, biopsy: Oxyntic mucosa with mild chronic inactive inflammation; no Helicobacter organisms seen. Patient was placed on the procedure recall list for repeat colonoscopy in 5 years.
[2025-02-10 09:07] VITALS: BP 124/83; PULSE 75; RESP 15; TEMP 36.4; O2SAT 99
[2025-02-10 09:22] VITALS: BP 121/71; PULSE 80; RESP 16; TEMP 36.4; O2SAT 99
== END 2025-02-10 09:54 | disposition home or self-care (01) ==
PROVIDERS: PCP Internal Medicine; Visit Provider Internal Medicine Gastroenterology
PROC: (CPT 45378; principal; 2025-02-10 08:30)
DX: Z12.11 Encounter for screening for malignant neoplasm of colon (principal); K21.9 Gastro-esophageal reflux disease without esophagitis; Z98.84 Bariatric surgery status; Z80.0 Family history of malignant neoplasm of digestive organs; K57.30 Diverticulosis of large intestine without perforation or abscess without bleeding; K29.70 Gastritis, unspecified, without bleeding; K31.7 Polyp of stomach and duodenum
CPT/HCPCS: 45378; 43239; 88305; 88313; 88342; J2003; J2250; J2704

== ENCOUNTER → 2025-02-10 07:03 | Outpatient (BNV) | payer OTHER, SELFPAY | PROVIDERS: PCP Internal Medicine; Visit Provider Internal Medicine Gastroenterology | DX: Z12.11 Encounter for screening for malignant neoplasm of colon (principal); K57.30 Diverticulosis of large intestine without perforation or abscess without bleeding; K21.9 Gastro-esophageal reflux disease without esophagitis; K29.70 Gastritis, unspecified, without bleeding; K31.7 Polyp of stomach and duodenum; Z98.84 Bariatric surgery status | CPT/HCPCS: 43239; 45378 ==

== ENCOUNTER 2025-02-18 11:04 | Outpatient (AMB) | payer OTHER, SELFPAY ==
[2025-02-18 11:07] VITALS: BP 97/61; PULSE 80; BMI 41.0
--- NOTE | 2025-02-18 11:07 | A.OFFVIS_ITS ---
Vital Signs 02/18/25 11:07 Height 5 ft 2 in Weight 224 lb BMI 41.0 BP 97/61 Blood Pressure Location Lt brachial Position Sitting Pulse 80 Intake Visit Reasons: s/p double Mehrdad Intake Note: Patient follow up for EGD/Colonoscopy results Patient denies any GI issues. Personal Lines Insurance Agent Required: No Personal Lines Insurance Agent Services: Personal Lines Insurance Agent Offered & Declined Allergies No Known Allergies Allergy (Verified 02/18/25 11:07) Medication List - Last Reconciled 02/18/25 by Lindsay Russell CNP albuterol sulfate 2.5 mg (0.5 mL) inhalation TID-QID albuterol sulfate 90 mcg/actuation 2 inhalations inhalation QID PRN blood pressure monitor As directed [id number]-[id number] 50-325-40 mg 1 tab PO .2 to 3 times a day PRN 30 days cholecalciferol (vitamin D3) 50 mcg PO DAILY 90 days clonazepam 1 mg PO BEDTIME PRN cyanocobalamin (vitamin B-12) 1,000 mcg PO DAILY 90 days cyclobenzaprine 1 to 2 orally 3 times a day PRN; ferrous sulfate 325 mg PO DAILY fluoxetine 40 mg PO DAILY fluticasone furoate 100 mcg/actuation (Arnuity Ellipta) 1 inh PO DAILY gabapentin 200 mg (2 x 100 mg) PO BEDTIME 30 days loratadine (Claritin) 10 mg PO DAILY lorazepam 1 mg PO DAILY PRN 30 days magnesium oxide 400 mg PO .qhs meclizine 25 mg PO TID PRN 30 days nortriptyline 25 mg PO BEDTIME 30 days ondansetron 4 mg PO Q8H PRN pantoprazole 40 mg PO DAILY riboflavin (vitamin B2) 400 mg PO QAM sumatriptan succinate take 1 tab at onset of headache; if no relief, may repeat 1 tab after at least 2 hrs; max = 2 tabs/24 hrs PO 30 days HPI HPI s/p double Mehrdad: Details: Patient is a 54-year-old female with PMH of obesity, obstructive sleep apnea, depression, anxiety, asthma and migraine. FU for EGD (reflux), colonoscopy (screening) completed 02/10/25, review of biopsy and procedural results. Pt states reflux well controlled on pantoprazole, no current sx. Constipation described as increased stool volume and hard BM, occurring daily x ~5 mo. Tried OTC stool softener docusate x 2 doses starting Monday, with reported improvement in BM frequency/consistency. No abd pain, N/V, or appetite loss. Reports variable intake of fruits/veggies, limited fiber, and inconsistent water intake. No significant med changes since last visit; denies alcohol/tobacco use. New right lateral rib/back pain x 2-3 days, non-radiating, no hx trauma, worsened by motion, not associated with abd sx, no fever, dysuria, or hematuria. No recent hospitalizations or urgent care visits since prior GI eval. [facility] Medical History (Updated 02/18/25 @ 12:06 by Lindsay Russell CNP) Thoracic back pain Constipation Diverticulosis Syncope Anemia, iron deficiency Morbid obesity with BMI of 40.0-44.9, adult Obstructive sleep apnea Migraine with aura Right thigh pain Hypersomnia Snoring Right ovarian cyst Vitamin B12 deficiency Vitamin D deficiency Depression Anxiety Obesity (BMI 30-39.9) GERD (gastroesophageal reflux disease) Asthma Migraine Surgical History (Updated 02/17/25 @ 09:00 by Ya Rowland) History of esophagogastroduodenoscopy (EGD) H/O colonoscopy H/O gastric bypass History of removal of laparoscopic gastric banding device LAP-BAND surgery status History of appendectomy History of hysterectomy History of section Family History (Updated 02/18/25 @ 11:34 by Lindsay Russell CNP) Father Diabetes Hypertension Mother Hypertension Glaucoma Scoliosis Osteoporosis Headache Arthritis Breast cancer Colon polyp Maternal Grandmother Colon cancer Maternal Grandfather No problems noted. Paternal Grandmother No problems noted. Paternal Grandfather No problems noted. Daughter In good health Sister In good health Asthma Headache Anemia Arthritis Hypertension Brother Hypertension Social History Housing: House Are you a primary child care provider to a significant other at home: No Do you presently have visiting nurse or other home services: No Alcohol intake: never Patient Tobacco Use Status: Never used Tobacco e-Cigarette/Vaping Use: Never Used Second Hand Smoke Exposure: No service: No Current occupational status: employed Sexual orientation: Straight/Heterosexual Gender identity: Female Cognitive needs: No Hearing needs: No Vision needs: No Female Reproductive History Menstrual Age of Menarche: 15 Review of Systems Const Reports as per HPI ENT Reports as per HPI Card Reports as per HPI Resp Reports as per [facility] GI Reports as per [facility] Reports as per [facility] Physical Exam Vital Signs: Last Vital Signs Pulse 80 02/18/25 11:07 BP 97/61 02/18/25 11:07 BMI result Body Mass Index 41.0 Const General: healthy appearing, no acute distress and well developed Nutritional Appearance: average body habitus Orientation/consciousness: patient oriented x3 HEENT Head: Yes normal to inspection, Yes normocephalic and Yes atraumatic Face and sinus: Yes normal facial exam Eyes General: appearance normal, both eyes and all related structures Neck Neck: Yes normal visual inspection Resp Effort & Inspection: normal respiratory effort, able to speak in complete sentences, no tracheal deviation and symmetric chest movement Auscultation: clear to auscultation bilaterally Cardio Jugular venous distension: no JVD GI Inspection: Yes normal to inspection, No distended and Yes obesity Palpation (GI): Soft to palpation, not firm, nontender (negative garcia's sign) and No hepatosplenomegaly present Auscultation: normal bowel sounds General: Yes no CVA tenderness Back/Spine/Pelvis Other: Tenderness at right lateral rib/thoracic area, no bruising, no focal superficial findings. Back: no CVA tenderness Neuro General: patient oriented x3 Gait exam (Neuro): Normal gait present Psych Appearance: grossly normal Mental Status: mental status grossly normal Speech and movement: Normal speech and movement present Affect: normal affect Attitude: cooperative Thought process: Normal thought process present Thought content: Normal thought content present Insight: Good insight present (Psych) Judgement: Good judgement present (Psych) Results Reviewed Results Reviewed: Operative Note Date of Service: 02/10/25 Narrative: FLEXIBLE TRANSORAL UPPER GASTROINTESTINAL ENDOSCOPY WITH BIOPSIES AND COLONOSCOPY TILL CECUM Pre-op diagnosis: Colon cancer screening, GERD Post-op diagnosis: Gastritis, gastric nodules, gastric bypass status, Diverticulosis Endoscopist: Lawson Cronin MD Anesthesia: [facility] UPPER ENDOSCOPY Procedure: The patient was placed in the left lateral decubitis position and pre-procedure medications were administered and a bite block was placed. The endoscope was inserted into the mouth and advanced under direct vision to the third part of duodenum. A careful inspection was made as the upper endoscope was withdrawn including a retroflexed examination of the proximal stomach; Findings and interventions are described below. Findings: Larynx: Normal Esophagus: GE junction at 32 cms. No esophagitis or Mckeon's. Stomach: Moderate diffuse gastric erythema in the gastric pouch - biopsies were obtained. Gastro-jejunal anastomosis at 35 cms Retroflexed examination was not performed. Jejunum: Normal small bowel mucosa. Biopsies were obtained from jejunum to check for celiac sprue Intervention: Biopsies as noted above COLONOSCOPY PROCEDURE NOTE Procedure: The patient was placed in the left lateral decubitis position and pre-procedure medications were administered. After a digital rectal examination of the ano-rectum, the video colonoscope was inserted into the rectum and advanced through the colon to the cecum. The colonoscope was slowly withdrawn in a retrograde panoramic fashion and the colon mucosa was carefully examined including a retroflexed view of the rectum. Findings and interventions are described below. Procedure Difficulty: without difficulty Findings: Terminal Ileum: Not evaluated Cecum: Normal Ascending Colon: Normal Transverse Colon: Normal Descending Colon: Normal Sigmoid Colon: Moderate diverticulosis Rectum: Normal Ano-rectum: Normal Colon preparation: Good after copious irrigation. [place] Bowel Preparation Scale Right colon; 2 Transverse colon: 2 Left colon; 2 (0 = Unprepared colon segment with mucosa not seen due to solid stool that cannot be cleared. 1 = Portion of mucosa of the colon segment seen, but other areas of the colon segment not well seen due to staining, residual stool and/or opaque liquid. 2 = Minor amount of residual staining, small fragments of stool and/or opaque liquid, but mucosa of colon segment seen well. 3 = Entire mucosa of colon segment seen well with no residual staining, small fragments of stool or opaque liquid) Impression and Post Procedure Diagnosis: Endoscopy Findings: ESOPHAGUS: Normal STOMACH: Moderate diffuse gastric erythema in the gastric pouch - biopsies were obtained. A few benign appearing nodules at gastro-jejunal anastomosis. JEJUNUM: Normal - biopsied to check for celiac sprue. Colonoscopy Findings: No polyps were detected Moderate diverticulosis seen in the sigmoid colon Plan: Pt has a FU appointment on 02/18/25 with Lindsay Russell NP Repeat Colonoscopy in 5 years due to family history of colon cancer. (Dulcolax 10 mg daily starting 5 days prior to next colonoscopy appointment) A summary of above findings and relevant handouts were given to the patient. Patient was placed on the procedure recall list for repeat colonoscopy in 5 years. BIOPSIES SHOWED: A. Small bowel, biopsy: Small intestinal mucosa within normal limits. B. Stomach, nodule: - Oxyntic mucosa with mild chronic inactive inflammation; no Helicobacter organisms seen. - Separate fragment of mixed oxyntic and small intestinal mucosa with mild chronic inflammatory changes. C. Stomach, body, biopsy: Oxyntic mucosa with mild chronic inactive inflammation; no Helicobacter organisms seen. Clinical History Pre-Op Dx: GERD. screening Post-Op Dx: Gastric bypass, gastritis, gastric nodule, diverticulosis 2) GERD (gastroesophageal reflux disease): Long-term pantoprazole use warrants esophageal and gastric evaluation for mucosal changes. Additional Testing: Upper endoscopy during the scheduled colonoscopy. Medication Management: Continue daily pantoprazole, no medication changes recommended. Assessment & Plan Assessment & Plan (1) GERD (gastroesophageal reflux disease): Comment: 02/10/25 EGD - Gastritis, benign gastric nodules, gastric bypass status Code(s): K21.9 - Gastro-esophageal reflux disease without esophagitis Category: Medical Qualifiers: Esophagitis presence: without esophagitis Qualified Code(s): K21.9 - Gastro-esophageal reflux disease without esophagitis Plan: Stable, well-controlled sx on pantoprazole. EGD showed gastritis, otherwise no alarming findings. Additional testing: None indicated unless sx recur. Medications: Continue pantoprazole as per prior regimen. Lifestyle Recommendations: Continue to avoid triggers (spicy/greasy/fatty foods, caffeine, overeating, eating before lying down); handout provided. Reinforce limiting alcohol/tobacco (pt denies use). Referrals / Coordination of Care: None needed. F/U Plan: RTC in 3 mo or PRN if reflux sx recur. (2) Diverticulosis: Comment: 02/10/25 colonoscopy complete with good prep after copious irrigation-moderate diverticulosis (Sigmoid). Recommendation for repeat in 5 years due to FHX. Of note pt should receive Dulcolax 10 mg daily starting 5 days prior to next colonoscopy. Code(s): K57.90 - Diverticulosis of intestine, part unspecified, without perforation or abscess without bleeding Category: Medical Plan: Asymptomatic; discovered incidentally on screening colonoscopy, no evidence of diverticulitis. Additional testing: None at this time. Medications: Not required. Lifestyle Recommendations: Increase dietary fiber and hydration to prevent constipation/diverticulitis; avoid prolonged constipation. Handout on high-fiber foods given. Referrals / Coordination of Care: None. F/U Plan: Next screening colonoscopy in 5 yrs. Use enhanced prep (laxative tabs x 5 days prior). (3) Constipation: Code(s): K59.00 - Constipation, unspecified Category: Medical Qualifiers: Constipation type: unspecified constipation type Qualified Code(s): K59.00 - Constipation, unspecified Plan: Intermittent, improved with trial of OTC stool softener. Likely multifactorial (diet, low fiber/fluids, post-GB). Good response to short trial of OTC docusate. Additional testing: none at this time unless sx persist or worsen. Medications: Ok to continue OTC docusate (2 tabs QHS PRN) for symptomatic relief. Rx sent Lifestyle Recommendations: Daily fruit/veg, fiber-rich diet, inc. H2O intake, regular exercise; handout provided, reinforce education. Referrals / Coordination of Care: None required. F/U Plan: RTC in 3 mo for reassessment; earlier if change in bowel habits, abd pain, or constipation refractory to current regimen. (4) Thoracic back pain: Code(s): M54.6 - Pain in thoracic spine Category: Medical Qualifiers: Chronicity: acute Back pain laterality: right Qualified Code(s): M54.6 - Pain in thoracic spine Plan: New onset, likely non-GI, localized tenderness. Distribution and exam suggest MSK etiology. Additional testing: None at this time. F/u with PCP as planned. Medications: May trial acetaminophen or short course NSAID (ibuprofen) with food and concurrent PPI if needed; avoid if contraindications. Lifestyle Recommendations: Advise local heat TID x 20min with barrier, gentle stretching as tolerated. Referrals / Coordination of Care: F/u with PCP as already scheduled. F/U Plan: Monitor. RTC GI only if new GI sx develop. Plan Follow-up 3 months or sooner as needed Time: I spent a total of 38 minutes on the date of encounter which includes: Preparing to see the patient (reviewed previous documentation, test results and medical history) Performing a medically appropriate exam and/or evaluation Ordering medications, tests, and procedures Documenting clinical information in the health record Medications: New docusate sodium Take one tablet at bedtime 200 mg (2 x 100 mg) PO BEDTIME 90 caps 1RF constipation Coding Level of Care Code Established Pt Est Pt Level 3 (06423) Patient Type Established Diagnoses Gastroesophageal reflux disease without esophagitis K21.9 Esophagitis presence: without esophagitis Diverticulosis K57.90 Constipation, unspecified constipation type K59.00 Constipation type: unspecified constipation type Acute right-sided thoracic back pain M54.6 Chronicity: acute Back pain laterality: right
--- OUTSIDE RECORDS SUMMARY | 2025-02-18 13:15 | XMS_ITS | Clinical Summary ---
Author Organization [address] [facility] Address [address] [place] [address] Phone Care Team Providers Care Modeling Teacher Name Role Phone Brett Navarro MD Primary Care Provider + [phone] Allergies No known active allergies Medications albuterol [...] Amount: 30 mg 30 each 01/04/20 25 Active phentermine 37.5 mg capsule Take 1 capsule (37.5 mg total) by mouth 1 (one) time each day before breakfast. Max Daily Amount: 37.5 mg 30 each 02/01/20 25 025 Active Active Problems No known active problems Encounters Date Type Department Care Team Description 01/29/2025 Telephone Bariatric Surgery - [address] [address] Agnes Rosales PA 01/02/2025 Telephone Bariatric Surgery - [address] [id number] Danielito Hair MD from Last 3 Months Medical History Medical [...] PM EST Office Visit Bariatric Surgery - [place] [address] [place] [address] Danielito Hair MD [address] [place] [phone] Health Maintenance Due Date Last Done [...] Health Screening 06/06/2024 COVID-19 Vaccine (1 - 2024-2 6 season) 2024 Influenza Vaccine (#1) 2024 12/19/2022 [...] 11:21 AM [facility] Triglycerides 126 0 [...] 11:21 AM [facility] Chol/HDL Ratio 3.4 0.0 - 4.4 LAB CHEMISTRY METHOD 07/17/2024 11:21 AM [facility] Blood Venous blood specimen / Unknown Venipuncture / Unknown 07/17/2024 8:52 AM EDT 07/17/2024 8:52 AM EDT us Anna Ross MD LAB BLOOD ORDERABLES Fi nal Result TOSHIA WILLIAMSON MA ([facility]) [facility] [address] [place] [address], [place] [phone] from Last 3 Months or Most Recently Relevant to Health Maintenance Insurance [facility] [employer] Advance Directives Documents on File Type Date Recorded Patient Music Therapy Specialist Expl anation Health Care Decision (hx) 06/19/2015 AD OCASIO DIRECTIVE Health Care Decision (hx) 06/09/2015 AD OCASIO DIRECTIVE Care Teams Modeling Teacher Relationship Specialty Start Date End Date Brett Navarro MD [address] [place] [address] [address] [place], [place] PCP - General Internal Medicine 07/19/24
== END 2025-02-18 12:00 | disposition home or self-care (01) ==
LOC: HO.HGI 11:05
PROVIDERS: PCP Internal Medicine; Visit Provider Nurse Practitioner Family
DX: K21.9 Gastro-esophageal reflux disease without esophagitis (principal); K57.90 Diverticulosis of intestine, part unspecified, without perforation or abscess without bleeding; K59.00 Constipation, unspecified; M54.6 Pain in thoracic spine
CPT/HCPCS: 99213

== ENCOUNTER → 2025-02-18 11:04 | Outpatient (BNVA) | payer OTHER, SELFPAY | PROVIDERS: PCP Internal Medicine; Visit Provider Nurse Practitioner Family | DX: K21.9 Gastro-esophageal reflux disease without esophagitis (principal); K57.90 Diverticulosis of intestine, part unspecified, without perforation or abscess without bleeding; K59.00 Constipation, unspecified; M54.6 Pain in thoracic spine | CPT/HCPCS: 99212 ==